=== PATIENT | female | born 1945 | race Caucasian/White ===

== ENCOUNTER 2017-04-15 09:47 | Outpatient (CLI) | payer MEDICARE, OTHER ==
[~2017-04-15] VITALS: Ht 147.3 cm; Wt 57.6 kg
[~2017-04-15 09:47] MED LIST: /MOXI40TA PO; ACET65TA PO; ALEN10TA2 PO; ASPI325T; ATOR1TAB19 PO; BIOT7500 PO; CALC600T21 PO; CALCTAB6 PO; CLAR10CA3 PO; ESTE500T PO; ESTR62CR PV; FLUT0.003 EX; FOLI1TAB4 PO; HYDR200T3 PO; LEVO50TA5 PO; LR 1,000 ML IV SCH; METH2.5T; MINO100C4 PO; MULT1TAB10 PO; OMEP20CA3 PO; PARO10TA10 PO; PARO10TA3 PO; PERC7.5T8; PRED1TA; PRED1TA PO; PRED1TABL PO; PRED5TA PO; PRED5TAB PO; PRIL20CA PO; SULF500T2 PO; SYNT75TA PO; THERGRAN PO; TRAD5TAB PO; TRIA25CR TOP; VITA-112 PO; VITA100067 PO; VITA500T PO; XELJ5TAB PO; [UNRECOGNIZED DRUG - CODE] SC
[2017-04-15] MEDS ORDERED: PROPOFOL 500 MG/50 ML VIAL As Ordered ONE (10:02)
[2017-04-15] MEDS ORDERED: LIDOCAINE 2% INJ 100 MG/5 ML SDV (FOR ANES.) As Ordered ONE (10:33)
[2017-04-15] MEDS ORDERED: ePHEDrine SULFATE 25 MG/5 ML(5MG/ML) SYRINGE As Ordered ONE (11:12)
--- NOTE | 2017-04-15 11:34 | ROOR ---
Patient Name: Devendra Johnston Procedure Date: 04/15/2017 10:48 AM Date of : 1945 Age: 71 Room: [facility] Gender: Female Note Status: Finalized Procedure: Upper GI endoscopy Indications: Esophageal reflux Providers: Davy Carter MD Referring MD: LIBRADO GIBBS JR, MD Requesting Provider: Medicines: Monitored Anesthesia Care Complications: No immediate complications. Procedure: Pre-Anesthesia Assessment: - Prior to the procedure, a History and Physical was performed, and patient medications and allergies were reviewed. The patient is competent. The risks and benefits of the procedure and the sedation options and risks were discussed with the patient. All questions were answered and informed consent was obtained. Patient identification and proposed procedure were verified by the physician, the nurse and the anesthesiologist in the procedure room. Mental Status Examination: alert and oriented. Airway Examination: normal oropharyngeal airway and neck mobility. CV Examination: regular rate and rhythm. Prophylactic Antibiotics: The patient does not require prophylactic antibiotics. Prior Anticoagulants: The patient has taken no previous anticoagulant or antiplatelet agents. ASA Grade Assessment: III - A patient with severe systemic disease. After reviewing the risks and benefits, the patient was deemed in satisfactory condition to undergo the procedure. The anesthesia plan was to use monitored anesthesia care (MAC). Immediately prior to administration of medications, the patient was re-assessed for adequacy to receive sedatives. The heart rate, respiratory rate, oxygen saturations, blood pressure, adequacy of pulmonary ventilation, and response to care were monitored throughout the procedure. The physical status of the patient was re-assessed after the procedure. The Endoscope was introduced through the mouth, and advanced to the third part of duodenum. The upper GI endoscopy was accomplished without difficulty. The patient tolerated the procedure well. Findings: The examined esophagus was normal. A medium-sized hiatal hernia was present. The Z-line was regular and was found 30 cm from the incisors. A few small sessile polyps were found on the greater curvature of the stomach. Diffuse mildly erythematous mucosa was found in the entire examined stomach. The first portion of the duodenum, second portion of the duodenum and third portion of the duodenum were normal. Impression: - Normal esophagus. - Medium-sized hiatal hernia. - Z-line regular, 30 cm from the incisors. - A few gastric polyps. - Erythematous mucosa in the stomach. - Normal first portion of the duodenum, second portion of the duodenum and third portion of the duodenum. - No specimens collected. Recommendation: - Discharge patient to home. - Resume previous diet. - Continue present medications. Davy Carter MD 04/15/2017 11:33:53 AM Number of Addenda: 0 Note Initiated On: 04/15/2017 10:48 AM Estimated Blood Loss: Estimated blood loss: none.
--- NOTE | 2017-04-15 11:39 | ROOR ---
Patient Name: Devendra Johnston Procedure Date: 04/15/2017 10:49 AM Date of : 1945 Age: 71 Room: [facility] Gender: Female Note Status: Finalized Procedure: Colonoscopy Indications: High risk colon cancer surveillance: Personal history of multiple (3 or more) adenomas, Last colonoscopy: January 2014 Providers: Davy Carter MD Referring MD: LIBRADO GIBBS JR, MD Requesting Provider: Medicines: Monitored Anesthesia Care Complications: No immediate complications. Procedure: Pre-Anesthesia Assessment: - Prior to the procedure, a History and Physical was performed, and patient medications and allergies were reviewed. The patient is competent. The risks and benefits of the procedure and the sedation options and risks were discussed with the patient. All questions were answered and informed consent was obtained. Patient identification and proposed procedure were verified by the physician, the nurse and the anesthesiologist in the procedure room. Mental Status Examination: alert and oriented. Airway Examination: normal oropharyngeal airway and neck mobility. CV Examination: regular rate and rhythm. Prophylactic Antibiotics: The patient does not require prophylactic antibiotics. Prior Anticoagulants: The patient has taken no previous anticoagulant or antiplatelet agents. ASA Grade Assessment: III - A patient with severe systemic disease. After reviewing the risks and benefits, the patient was deemed in satisfactory condition to undergo the procedure. The anesthesia plan was to use monitored anesthesia care (MAC). Immediately prior to administration of medications, the patient was re-assessed for adequacy to receive sedatives. The heart rate, respiratory rate, oxygen saturations, blood pressure, adequacy of pulmonary ventilation, and response to care were monitored throughout the procedure. The physical status of the patient was re-assessed after the procedure. The was introduced through the anus and advanced to the cecum, identified by appendiceal orifice and ileocecal valve. The colonoscopy was performed without difficulty. The patient tolerated the procedure well. The quality of the bowel preparation was excellent. Findings: The perianal and digital rectal examinations were normal. A 2 mm polyp was found in the cecum. The polyp was sessile. The polyp was removed with a jumbo cold forceps. Resection and retrieval were complete. Estimated blood loss was minimal. A 5 mm polyp was found in the distal descending colon. The polyp was sessile. The polyp was removed with a hot snare. Resection and retrieval were complete. Estimated blood loss: none. Multiple medium-mouthed diverticula were found in the sigmoid colon. Impression: - One 2 mm polyp in the cecum, removed with a jumbo cold forceps. Resected and retrieved. - One 5 mm polyp in the distal descending colon, removed with a hot snare. Resected and retrieved. - Diverticulosis in the sigmoid colon. Recommendation: - Discharge patient to home. - Resume previous diet. - Continue present medications. - Await pathology results. - Telephone endoscopist for pathology results in 1 week. Davy Carter MD 04/15/2017 11:38:28 AM Number of Addenda: 0 Note Initiated On: 04/15/2017 10:49 AM Estimated Blood Loss: Estimated blood loss was minimal.
[2017-04-15 11:50] VITALS: BP 106/69
== END 2017-04-15 11:59 | disposition home or self-care (01) ==
LOC: M OPP 09:47
PROVIDERS: ATTEND Surgery
DX: Z12.11 Encounter for screening for malignant neoplasm of colon (principal); D12.0 Benign neoplasm of cecum; D12.4 Benign neoplasm of descending colon; K57.30 Diverticulosis of large intestine without perforation or abscess without bleeding; Z86.010 Personal history of colon polyps; K21.9 Gastro-esophageal reflux disease without esophagitis; K44.9 Diaphragmatic hernia without obstruction or gangrene; K31.7 Polyp of stomach and duodenum; K31.89 Other diseases of stomach and duodenum; I10 Essential (primary) hypertension; E78.5 Hyperlipidemia, unspecified; E11.9 Type 2 diabetes mellitus without complications; E03.9 Hypothyroidism, unspecified; K58.9 Irritable bowel syndrome, unspecified; R12 Heartburn; R23.3 Spontaneous ecchymoses; M06.9 Rheumatoid arthritis, unspecified; M19.90 Unspecified osteoarthritis, unspecified site; F41.9 Anxiety disorder, unspecified; Z78.0 Asymptomatic menopausal state; R39.15 Urgency of urination; Z87.891 Personal history of nicotine dependence; Z88.0 Allergy status to penicillin; Z79.899 Other long term (current) drug therapy; Z80.0 Family history of malignant neoplasm of digestive organs

== ENCOUNTER → 2017-05-28 | Outpatient (CLI) | payer MEDICARE, OTHER ==
[~2017-05-28] MED LIST changes: -LR 1,000 ML IV SCH
--- NOTE | 2017-05-28 16:19 | REPMRS ---
Patient History The patient states she had a clinical breast exam in 06/01 Family history of colorectal cancer in father, premenopausal breast cancer in paternal grandmother, and colorectal cancer in brother at age 50 or over. Benign cyst aspiration of the right breast. Taking estrogen for 9 years. Digital Woman Screen Mammo: May 28, 2017 - Exam #: [id number] Bilateral CC and MLO view(s) were taken. Technologist: Viridiana Esteves, Technologist Prior study comparison: May 23, 2016, digital woman screen mammo performed at [facility]. May 01, 2015, digital woman screen mammo performed at [facility]. April 26, 2014, digital woman screen mammo performed at [facility]. FINDINGS: There are scattered fibroglandular densities. There has been no change in the appearance of the mammogram from the prior studies. There is a mild amount of scattered fibroglandular density which is fairly symmetric. There is no interval development of dominant mass, architectural distortion, or clustered microcalcification suggestive of malignancy. ASSESSMENT: BI-RADS/ACR category 1 mammogram. Negative. Recommendation Routine screening mammogram in 1 year (for women over age 40). This mammogram was interpreted with the aid of an FDA-approved computer-aided dectection system. Electronically Signed By: Grant Pedroza MD 05/28/17 [id number]
== END ==
LOC: M WHC 14:20
PROVIDERS: ATTEND Nurse Practitioner Family
DX: Z12.31 Encounter for screening mammogram for malignant neoplasm of breast (principal)

== ENCOUNTER → 2017-09-03 | Outpatient (REF) | payer MEDICARE, OTHER | LOC: M LAB REF 13:29 | PROVIDERS: ATTEND Internal Medicine | DX: Z79.899 Other long term (current) drug therapy (principal) ==

== ENCOUNTER 2018-02-26 07:44 | Inpatient (IN) | payer MEDICARE ==
[2018-02-26 08:51] LABS: BEDSIDE GLUCOSE 136 MG/DL (83-110)
[2018-02-26] MEDS: CALCIUM/VITAMIN D 250 MG TABLET PO ×2 (09:00→21:35)
[2018-02-26] MEDS: sulfaSALAzine 500 MG TABEC PO ×2 (09:00→21:29)
[2018-02-26 09:03] LABS: BASO % 0.5 % (0.0-1.0); EOS % 0.1 % (0.0-3.0); HEMATOCRIT 42.2 % (36.0-47.0); HEMOGLOBIN 14.8 g/dl (12.0-15.5); IMMATURE GRANULOCYTE % 0.9 % (0-3.0); LYMPH # 1.4 10^3/uL (1.5-4.5); LYMPH % 17.6 % (24.0-44.0); MEAN CORPUSCULAR HEMOGLOBIN 33.6 pg (27.0-33.0); MEAN CORPUSCULAR HGB CONC 35.1 g/dl (32.0-36.5); MEAN CORPUSCULAR VOLUME 95.9 fl (80.0-96.0); MONO # 0.9 10^3/uL (0.0-0.8); MONO % 12.1 % (0.0-5.0); NEUTROPHILS # 5.3 10^3/uL (1.8-7.7); NEUTROPHILS % 68.8 % (36.0-66.0); RED CELL DISTRIBUTION WIDTH 12.9 % (11.5-14.5); WHITE BLOOD COUNT 7.7 10^3/uL (4.0-10.0)
[2018-02-26 09:23] LABS: INR 0.98
[2018-02-26 09:30] LABS: IMMATURE PLATELET FRACTION % 15.2 % (0.0-9.6); PLATELET COUNT, AUTOMATED 16 10^3/uL (150-450); POS COUNT POS FLAG
[2018-02-26 09:41] LABS: ANION GAP 13 MEQ/L (8-16); BLOOD UREA NITROGEN 21 MG/DL (7-18); CALCIUM LEVEL 8.9 MG/DL (8.8-10.2); CARBON DIOXIDE LEVEL 22 MEQ/L (21-32); CHLORIDE LEVEL 107 MEQ/L (98-107); CPK CREATINE PHOSPHOKINASE 103 U/L (26-192); CREATININE FOR GFR 0.87 MG/DL (0.55-1.30); GLOMERULAR FILTRATION RATE > 60.0 (>39); GLUCOSE, FASTING 125 MG/DL (70-100); POTASSIUM SERUM 3.5 MEQ/L (3.5-5.1); SODIUM LEVEL 142 MEQ/L (136-145); TROPONIN I < 0.02 NG/ML (< 0.10)
[2018-02-26 09:47] LABS: CK-MB VALUE MASS 2.3 NG/ML (<3.6); MB/CK RELATIVE INDEX 2.23 (< OR =4)
[2018-02-26] MEDS ORDERED: ONDANSETRON 4MG/2ML VIAL (J2405) IV (10:15)
[2018-02-26 10:40] LABS: C REACTIVE PROTEIN QUANTITATIV 0.47 MG/DL (0.00-0.30)
[2018-02-26 11:00] LABS: SLIDE REVIEW Report; SOURCE PERIPHERAL SMEAR
[2018-02-26] MEDS: methylPREDNISolone INJ 40 MG/1 ML VIAL (J2920) IV (11:00)
[2018-02-26 11:11] LABS: REASON FOR REVIEW PLATELET MORPHOLOGY
[2018-02-26] MEDS: predniSONE 20 MG TAB PO (11:15)
[2018-02-26 11:16] LABS: ERYTHROCYTE SEDIMENTATION RATE 10 mm/hr (0-30)
[2018-02-26] MEDS: NS 1,000 ML IV ×2 (11:18→18:21)
[2018-02-26 11:52] LABS: BEDSIDE GLUCOSE 109 MG/DL (83-110)
[2018-02-26] MEDS ORDERED: GLUCAGON FOR INJ 1 MG VIAL (J1610) SC (12:15)
[2018-02-26] MEDS ORDERED: GLUCOSE 4 GM CHEW TABLET PO (12:15)
[2018-02-26] MEDS ORDERED: DEXTROSE 50% 50 ML SYRINGE IV (12:15)
[2018-02-26] MEDS: VITAMIN D 1,000 INTERNATIONAL UNITS TABLET PO (12:41)
[2018-02-26] MEDS: MULTIVITAMINS/MINERALS THERAP 1 TAB PO (12:41)
[2018-02-26] MEDS: OMEPRAZOLE 20 MG CAP PO (12:42)
[2018-02-26] MEDS: FOLIC ACID 1 MG TAB PO ×2 (12:42→21:30)
[2018-02-26] MEDS: LEVOTHYROXINE 50MCG TABLET (0.05MG) PO (12:42)
[2018-02-26] MEDS: LORATADINE 10 MG TAB PO (12:42)
[2018-02-26] MEDS: HumaLOG INSULIN (NovoLOG) PER UNIT SC ×3 (12:42→21:36)
[2018-02-26 14:34] LABS: ALBUMIN 3.4 GM/DL (3.2-5.2); ALBUMIN/GLOBULIN RATIO 1.06 (1.00-1.93); ALKALINE PHOSPHATASE 54 U/L (45-117); ALT/SGPT 39 U/L (12-78); AST/SGOT 26 U/L (7-37); BILIRUBIN,DIRECT 0.1 MG/DL (0.0-0.2); BILIRUBIN,TOTAL 0.5 MG/DL (0.2-1.0); TOTAL PROTEIN 6.6 GM/DL (6.4-8.2)
[2018-02-26] MEDS: HYDROXYCHLOROQUINE 200 MG TAB PO (15:45)
[2018-02-26 16:57] LABS: BEDSIDE GLUCOSE 226 MG/DL (83-110)
[2018-02-26 18:20] LABS: HEMATOCRIT 42.7 % (36.0-47.0); HEMOGLOBIN 14.9 g/dl (12.0-15.5); MEAN CORPUSCULAR HEMOGLOBIN 34.1 pg (27.0-33.0); MEAN CORPUSCULAR HGB CONC 34.9 g/dl (32.0-36.5); MEAN CORPUSCULAR VOLUME 97.7 fl (80.0-96.0); RED BLOOD COUNT 4.37 10^6/uL (4.00-5.40); RED CELL DISTRIBUTION WIDTH 13.2 % (11.5-14.5); WHITE BLOOD COUNT 7.4 10^3/uL (4.0-10.0)
[2018-02-26 18:24] LABS: PLATELET COUNT, AUTOMATED 20 10^3/uL (150-450); POS COUNT POS FLAG
[2018-02-26 18:39] LABS: CK-MB VALUE MASS 2.7 NG/ML (<3.6); CPK CREATINE PHOSPHOKINASE 130 U/L (26-192); MB/CK RELATIVE INDEX 2.07 (< OR =4); TROPONIN I < 0.02 NG/ML (< 0.10)
[2018-02-26 21:27] LABS: BEDSIDE GLUCOSE 280 MG/DL (83-110)
[2018-02-26] MEDS: ATORVASTATIN 10 MG TAB PO (21:30)
[2018-02-27 00:20] LABS: CPK CREATINE PHOSPHOKINASE 126 U/L (26-192); TROPONIN I < 0.02 NG/ML (< 0.10)
[2018-02-27 00:21] LABS: CK-MB VALUE MASS 2.9 NG/ML (<3.6)
[2018-02-27] MEDS: LEVOTHYROXINE 50MCG TABLET (0.05MG) PO (05:35)
[2018-02-27 05:36] LABS: HEMATOCRIT 39.3 % (36.0-47.0); HEMOGLOBIN 13.8 g/dl (12.0-15.5); MEAN CORPUSCULAR HEMOGLOBIN 34.2 pg (27.0-33.0); MEAN CORPUSCULAR HGB CONC 35.1 g/dl (32.0-36.5); MEAN CORPUSCULAR VOLUME 97.3 fl (80.0-96.0); RED BLOOD COUNT 4.04 10^6/uL (4.00-5.40); RED CELL DISTRIBUTION WIDTH 12.9 % (11.5-14.5); WHITE BLOOD COUNT 14.7 10^3/uL (4.0-10.0)
[2018-02-27 05:37] LABS: PLATELET COUNT, AUTOMATED 28 10^3/uL (150-450); POS COUNT POS FLAG
[2018-02-27 05:48] LABS: ALBUMIN 3.3 GM/DL (3.2-5.2); ANION GAP 10 MEQ/L (8-16); BLOOD UREA NITROGEN 15 MG/DL (7-18); CALCIUM LEVEL 8.1 MG/DL (8.8-10.2); CARBON DIOXIDE LEVEL 20 MEQ/L (21-32); CHLORIDE LEVEL 111 MEQ/L (98-107); CREATININE FOR GFR 0.69 MG/DL (0.55-1.30); GLOMERULAR FILTRATION RATE > 60.0 (>39); GLUCOSE, FASTING 159 MG/DL (70-100); PHOSPHORUS LEVEL 2.9 MG/DL (2.5-4.9); POTASSIUM SERUM 3.7 MEQ/L (3.5-5.1); SODIUM LEVEL 141 MEQ/L (136-145)
[2018-02-27] MEDS ORDERED: IMMUNE GLOBULIN 10% 10GM 100ML 0 GM in APPROPRIATE DILUENT 1 EA IV (06:30)
[2018-02-27] MEDS: HumaLOG INSULIN (NovoLOG) PER UNIT SC ×4 (07:30→21:26)
[2018-02-27] MEDS ORDERED: predniSONE 20 MG TAB PO (09:00)
[2018-02-27] MEDS: sulfaSALAzine 500 MG TABEC PO ×2 (11:28→21:24)
[2018-02-27] MEDS: LORATADINE 10 MG TAB PO (11:28)
[2018-02-27] MEDS: MULTIVITAMINS/MINERALS THERAP 1 TAB PO (11:29)
[2018-02-27] MEDS: CALCIUM/VITAMIN D 250 MG TABLET PO ×2 (11:29→21:24)
[2018-02-27] MEDS: VITAMIN D 1,000 INTERNATIONAL UNITS TABLET PO (11:29)
[2018-02-27] MEDS: HYDROXYCHLOROQUINE 200 MG TAB PO (11:29)
[2018-02-27] MEDS: OMEPRAZOLE 20 MG CAP PO (11:30)
[2018-02-27] MEDS: FOLIC ACID 1 MG TAB PO ×2 (11:30→21:25)
[2018-02-27 11:50] LABS: BEDSIDE GLUCOSE 180 MG/DL (83-110)
[2018-02-27] MEDS: IMMUNE GLOBULIN 10% 60 GM in APPROPRIATE DILUENT 1 EA IV (16:56)
[2018-02-27 17:20] LABS: BEDSIDE GLUCOSE 241 MG/DL (83-110)
[2018-02-27 21:13] LABS: BEDSIDE GLUCOSE 272 MG/DL (83-110)
[2018-02-27] MEDS: ATORVASTATIN 10 MG TAB PO (21:25)
[2018-02-28 04:36] LABS: HEMATOCRIT 36.1 % (36.0-47.0); HEMOGLOBIN 12.2 g/dl (12.0-15.5); MEAN CORPUSCULAR HEMOGLOBIN 33.4 pg (27.0-33.0); MEAN CORPUSCULAR HGB CONC 33.8 g/dl (32.0-36.5); MEAN CORPUSCULAR VOLUME 98.9 fl (80.0-96.0); RED BLOOD COUNT 3.65 10^6/uL (4.00-5.40); RED CELL DISTRIBUTION WIDTH 13.2 % (11.5-14.5); WHITE BLOOD COUNT 11.3 10^3/uL (4.0-10.0)
[2018-02-28 04:37] LABS: PLATELET COUNT, AUTOMATED 61 10^3/uL (150-450)
[2018-02-28 04:38] LABS: IMMATURE PLATELET FRACTION % 7.3 % (0.0-9.6)
[2018-02-28 04:52] LABS: ALBUMIN 2.9 GM/DL (3.2-5.2); ANION GAP 9 MEQ/L (8-16); BLOOD UREA NITROGEN 15 MG/DL (7-18); CALCIUM LEVEL 8.4 MG/DL (8.8-10.2); CARBON DIOXIDE LEVEL 23 MEQ/L (21-32); CHLORIDE LEVEL 106 MEQ/L (98-107); CREATININE FOR GFR 0.76 MG/DL (0.55-1.30); GLOMERULAR FILTRATION RATE > 60.0 (>39); GLUCOSE, FASTING 198 MG/DL (70-100); PHOSPHORUS LEVEL 2.5 MG/DL (2.5-4.9); POTASSIUM SERUM 3.9 MEQ/L (3.5-5.1); SODIUM LEVEL 138 MEQ/L (136-145)
[2018-02-28] MEDS: LEVOTHYROXINE 50MCG TABLET (0.05MG) PO (06:27)
[2018-02-28] MEDS: HumaLOG INSULIN (NovoLOG) PER UNIT SC ×2 (08:39→12:00)
[2018-02-28] MEDS: OMEPRAZOLE 20 MG CAP PO (08:40)
[2018-02-28] MEDS: sulfaSALAzine 500 MG TABEC PO (08:40)
[2018-02-28] MEDS: LORATADINE 10 MG TAB PO (08:41)
[2018-02-28] MEDS: CALCIUM/VITAMIN D 250 MG TABLET PO (08:41)
[2018-02-28] MEDS: VITAMIN D 1,000 INTERNATIONAL UNITS TABLET PO (08:41)
[2018-02-28] MEDS: HYDROXYCHLOROQUINE 200 MG TAB PO (08:41)
[2018-02-28] MEDS: FOLIC ACID 1 MG TAB PO (08:41)
[2018-02-28] MEDS: MULTIVITAMINS/MINERALS THERAP 1 TAB PO (08:41)
[2018-02-28 11:55] LABS: BEDSIDE GLUCOSE 145 MG/DL (83-110)
[2018-03-01 00:06] LABS: HEPARIN INDUCED PLATELET ABY 0.228 OD (0.000-0.400)
== END 2018-02-28 15:09 | disposition home or self-care (01) | DRG 813 ==
LOC: M ED 07:44 → M ED INP 10:14 → M PCU 17:44
PROVIDERS: General Practice
DX: D69.6 Thrombocytopenia, unspecified (principal); B02.29 Other postherpetic nervous system involvement; R55 Syncope and collapse; M06.9 Rheumatoid arthritis, unspecified; F32.9 Major depressive disorder, single episode, unspecified; F41.9 Anxiety disorder, unspecified; E03.9 Hypothyroidism, unspecified; R41.82 Altered mental status, unspecified; I10 Essential (primary) hypertension; K21.9 Gastro-esophageal reflux disease without esophagitis; T43.8X5A Adverse effect of other psychotropic drugs, initial encounter; E11.9 Type 2 diabetes mellitus without complications; K44.9 Diaphragmatic hernia without obstruction or gangrene; Z90.711 Acquired absence of uterus with remaining cervical stump; Z87.891 Personal history of nicotine dependence; Z79.52 Long term (current) use of systemic steroids; Z79.84 Long term (current) use of oral hypoglycemic drugs; Z79.899 Other long term (current) drug therapy; Z98.49 Cataract extraction status, unspecified eye

== ENCOUNTER → 2018-05-29 | Outpatient (CLI) | payer MEDICARE | LOC: M WHC 09:36 | DX: Z12.31 Encounter for screening mammogram for malignant neoplasm of breast (principal); Z92.23 Personal history of estrogen therapy; Z92.89 Personal history of other medical treatment; Z80.3 Family history of malignant neoplasm of breast; Z80.0 Family history of malignant neoplasm of digestive organs; Z12.12 Encounter for screening for malignant neoplasm of rectum | CPT/HCPCS: 77067 ==

== ENCOUNTER → 2018-11-16 | Outpatient (CLI) | payer MEDICARE ==
[~2018-11-16] MED LIST changes: +ASCO500T PO; +CRAN500C5 PO; +DEXA4TA PO; +FOLI1TAB11 PO; -FOLI1TAB4 PO; +GABA-1171 PO; +NORCOTAB PO; +SULF50TA PO; +VALT1TAB PO; +VITMTA PO
--- NOTE | 2018-11-30 00:01 | ECWPNPC ---
PATIENT NAME: LUCERO BARRAGAN : 1945 GENDER: FEMALE VISIT DATE: 11/16/2018 DISCHARGE DATE: 11/16/18 1514 VISIT LOCKED DATE TIME: PHYSICIAN: NASRIN KO MD RESOURCE: NASRIN KO MD REASON FOR APPOINTMENT 1. POST HERPETIC NEURALGIA L HAND/ARM PAIN HISTORY OF PRESENT ILLNESS FALL RISK SCREENING: SCREENING : NO FALLS IN THE PAST YEAR. PAIN SCREENING: PATIENT HAS A COMPLAINT OF ACUTE OR CHRONIC PAIN :YES 73 YEAR OLD FEMALE PATIENT WITH A HISTORY OF CHRONIC LEFT HAND AND LEFT ARM PAIN. THE PATIENT DESCRIBES THE PAIN SHOOTING AND CONTINUOUS WITH A PAIN SCORE OF 7-8/10 DEPENDING ON PHYSICAL ACTIVITY. THE PATIENT REPORTS HAVING SHINGLES LAST YEAR OVER THE MEDICAL ASPECT OF HER LEFT HAND AND WRIST AREAS AND HAS HAD THE PAIN SINCE THEN. THE PATIENT STATES HER PAIN AND WEAKNESS IN HER LEFT HAND MAKES IT HARD TO DO DAILY ACTIVITIES SUCH COOKING AND CLEANING. THE PATIENT SAYS THAT SHE HAS TRIED MEDICATIONS SUCH GABAPENTIN AND LIDOCAINE PATCH, BUT HAS EXPERIENCED ADVERSE SIDE EFFECTS. PATIENT DENIES UNEXPLAINABLE WEIGHT LOSS, FEVER, CHILLS, NEW CHANGES ON HER URINARY OR BOWEL CONTROL. CURRENT MEDICATIONS TAKING SYNTHROID 50 MCG TABLET 1 TABLET EVERY MORNING ON AN EMPTY STOMACH ORALLY ONCE A DAY TAKING OMEPRAZOLE 20 MG CAPSULE DELAYED RELEASE 1 CAPSULE ORALLY ONCE A DAY TAKING MULTIVITAMINS OTC TABLET 1 TABLET ORALLY ONCE A DAY TAKING CRANBERRY EXTRACT 300 MG CAPSULE 1 CAPSULE ORALLY ONCE A DAY TAKING VITAMIN D3 SUPER STRENGTH 1000 UNIT TABLET 1 TABLET ORALLY ONCE A DAY TAKING BIOTIN 75MG TABLET 1 TAB(S) ORALLY/TAKES 7500MCG ONCE A DAY TAKING PREDNISONE 5 MG TABLET DELAYED RELEASE DAILY, AM AND 2 MG TAB AT DINNER ORALLY SEE TAKES., NOTES: SLIDING DOSE TAKING MINOCYCLINE HCL 100 MG TABLET 1 TABLET ORALLY ONE DAILY TAKING TRADJENTA 5 MG TABLET 1 TABLET ORALLY ONCE A DAY TAKING HYDROXYCHLOROQUINE SULFATE 200 MG TABLET 1 TABLET WITH FOOD OR MILK ORALLY ONCE A DAY TAKING SULFASALAZINE 500 MG TABLET DELAYED RELEASE 1 TABLET ORALLY TWICE A DAY TAKING FOLIC ACID 1 MG TABLET 1 TABLET ORALLY TWICE A DAY TAKING PAROXETINE HCL 10 MG TABLET 1 TABLET IN THE MORNING ORALLY ONCE A DAY TAKING VITAMIN C 500 MG TABLET 1 TABLET ORALLY ONCE A DAY TAKING CALCIUM 600+D 600-400 MG-UNIT TABLET 1 TABLET WITH FOOD ORALLY ONCE A DAY TAKING XELJANZ 5 MG TABLET ORALLY TWICE DAILY TAKING LIPITOR 10 MG TABLET 1 TABLET ORALLY ONCE A DAY TAKING CLARITIN 10 MG TABLET 1 TABLET ORALLY ONCE A DAY TAKING PREMARIN 0.625 MG/GM CREAM VAGINAL NOT-TAKING ESTRADIOL 0.1 MG/GM CREAM 1/2 GM VAGINAL TWICE A WEEK MEDICATION LIST REVIEWED AND RECONCILED WITH THE PATIENT PAST MEDICAL HISTORY RHEUMATOID ARTHRITIS GERD HYPOTHYROID HIATAL HERNIA URINARY FREQUENCY, FREQUENT UTI TYPE II DIABETES WITH NEUROPATHY PLASTER TENDER STEROID USE SCC IN SITU, VULVA (2012). OSTEOPOROSIS TOOK ALENDRONATE MORE THAN 5 YEARS SHINGLES ALLERGIES PENICILLIN (FOR ALLERGIES USE ONLY): RASH: ALLERGY SURGICAL HISTORY ANKLE REPAIR-LEFT HYSTERECTOMY PARTIAL , KEPT OVARIES T & A HEAD SURGERY A CYST REMOVAL FROM OVARY COLONOSCOPY EGD AND COLONOSCOPY 2016 2 POLYPS 09/25 CATARACT-LENS IMPLANTS-BILATERALLY EARS TUBE PLACED IN RIGHT EAR, TUBE IS OUT NOW 2009 VULVAR BIOPSY X3 2012 TONSILECTOMY FAMILY HISTORY FATHER: , COLON CANCER, CANCER, PANCREATIC MOTHER: , STOMACH CANCER SIBLINGS: SISTER PASSED AFTER ABDOMINAL SURGERY PATERNAL GRAND MOTHER: , BREAST CANCER MATERNAL GRAND MOTHER: , BONE CANCER 3 BROTHER(S) , 4 SISTER(S) - HEALTHY. 2DAUGHTER(S) - HEALTHY. ONE BROTHER FROM COLO/RECTAL CANCER. DENIES FAMILY HX OF OVARIAN CANCER. SOCIAL HISTORY GENERAL: TOBACCO USE ARE YOU A:FORMER SMOKER HOW LONG HAS IT BEEN SINCE YOU LAST SMOKED?> 10 YEARS LATEX QUESTIONNAIRE LATEX ALLERGY : HAVE YOU EVER DEVELOPED ANY TYPE OF REACTION AFTER HANDLING LATEX PRODUCTS SUCH RUBBER GLOVES, CONDOMS, DIAPHRAGMS, BALLOONS, SOCKS, OR UNDERWEAR?NO LATEX ALLERGY : HAVE YOU EVER DEVELOPED ANY TYPE OF REACTION DURING OR AFTER DENTAL APPOINTMENT, VAGINAL/RECTAL EXAMINATION, SURGICAL PROCEDURE, OR ANY OTHER EXPOSURE?NO LATEX RISK : HAVE YOU EVER HAD ANY DIFFICULTY BREATHING OR HIVES AFTER EATING OR HANDLING ANY FRUITS, OR VEGETABLES; SUCH KIWI, BANANAS, STONE FRUITS, OR CHESTNUTSNO LATEX RISK : DO YOU HAVE A PREVIOUS PERSONAL HISTORY OF MORE THAN NINE SURGERIES, SPINA BIFIDA, OR REPEATED CATHERTIZATIONS? NO LATEX RISK : ARE YOU FREQUENTLY EXPOSED TO LATEX PRODUCTS IN YOUR OCCUPATION?NO DATE ASKED : 11/16/2018 ALCOHOL SCREENING DID YOU HAVE A DRINK CONTAINING ALCOHOL IN THE PAST YEAR?NO POINTS0 INTERPRETATIONNEGATIVE RECREATIONAL DRUG USE DENIES. CAFFEINE NONE. YAZDANISM [id number] [employer] LANGUAGES SPOKEN:LIBERIAN EDUCATION LEVEL OF EDUCATION:FINISHED HIGH SCHOOL LEARNING BARRIERS / SPECIAL NEEDS CHANGE FROM LAST VISIT?NO BARRIERS TO LEARNING?NO HEARING IMPAIRED?NO VISION IMPAIRED?YES :CORRECTIVE LENSES COGNITIVELY IMPAIRED?NO READINESS TO LEARN?YES LEARNING PREFERENCES?NO LEARNING CAPABILITIES PRESENT?YES EMOTIONAL BARRIERS?NO SPECIAL DEVICES?YES :CANE, WALKER OCC. PREFITTER NEEDED?NO DOMESTIC VIOLENCE DENIES. OCCUPATION: RETIRED, [employer]. DIET: TRIES TO WATCH, ON PRENISONE WHICH INCREASES HER HUNGER.. EXERCISE: NONE. MARITAL STATUS: . OTHERS AT HOME: . PAIN CLINIC PFS, CLERGY, PUBLIC HEALTH REFERRALS HAS THE PATIENT BEEN EDUCATED REGARDING HIS/HER PLAN OF CARE?YES HAS THE PATIENT BEEN EDUCATED REGARDING PAIN, THE RISK FOR PAIN, THE IMPORTANCE OF EFFECTIVE PAIN MANAGEMENT, AND THE PAIN ASSESSMENT PROCESS?YES ADVANCE DIRECTIVE ADVANCE DIRECTIVE DISCUSSED WITH PATIENT:YES HCP - STONE REYNA () TWO CHILDRENREVIEWED WITH PATIENT 11/16/18 1315 JS. HOSPITALIZATION/MAJOR DIAGNOSTIC PROCEDURE SURGERY RELATED FALL WITH FACILA BRUISING 02/2018 REVIEW OF SYSTEMS REVIEWED BY: PROVIDER: NASRIN KO MD . CONSTITUTIONAL: ANY CHANGE IN YOUR MEDICAL CONDITION? NO . CHILLS NO . FEVER NO . INFECTION: DO YOU HAVE NEW INFECTIONS? NO . DO YOU HAVE HISTORY OF MRSA? NO . MUSCULOSKELETAL: ANY NEW PATTERNS OF PAIN OR NUMBNESS? YES, PAIN AND NUMBNESS TO LEFT ARM AFTER THE SHINGLES VIRUS . SYTEMIC LUPUS NO . GASTROENTEROLOGY: ANY NEW CHANGE IN BOWEL CONTROL? NO . BARRETTS ESOPHAGUS NO . CIRRHOSIS NO . HEPATITIS NO . LIVER FAILURE NO . ACID REFLUX YES . UNEXPLAINED WEIGHT LOSS NO . GENITOURINARY: ANY NEW CHANGE IN BLADDER CONTROL? NO . IS THERE A CHANCE YOU COULD BE ? NO . HEMATOLOGY/LYMPH: DO YOU TAKE ANY BLOOD THINNERS? (FOR EXAMPLE- COUMADIN, PLAVIX, AGGRENOX, PLATEL, PRADAXA, OR XARELTO) NO . WHEN WAS YOUR LAST DOSE? DATE: TIME: . LOW PLATELET COUNT YES, TWICE IN THE PAST . SICKLE CELL DISEASE NO . VON WILLIEBRANDS NO . FACTOR V LEIDEN NO . THALLASEMIA NO . ANEMIA NO . EASY BRUISING YES . NEUROLOGY: HAVE YOU FALLEN IN THE PAST 12 MONTHS? YES, STATES FALL IN FEBRUARY RELATED TO MEDICATION SIDE EFFECTS AND LOW PLATELETS, WAS HOSPITALIZED AFTER THE FALL. HIT THE SIDE OF HER FACE AND HEAD . ANY NEW EXTREMITY NUMBNESS OR WEAKNESS? YES, TO LEFT HAND AND ARM, STARTED AFTER THE SHINGLES VIRUS . HEAD INJURY NO . DEMENTIA NO . CEREBRAL PALSY NO . MULTIPLE SCLEROSIS NO . DIZZINESS NO . HEADACHE NO . STROKES NO . VERTIGO NO . CARDIOLOGY: DO YOU HAVE A PACEMAKER OR DEFIBRILLATOR? NO . ANGINA NO . HEART ATTACK NO . HEART SURGERY NO . CONGESTIVE HEART FAILURE/FLUID OVERLOAD NO . CHEST PAIN NO . HIGH BLOOD PRESSURE NO . IRREGULAR HEART BEAT NO . RESPIRATORY: HAVE YOU BEEN SICK IN THE PAST WEEK? YES, STATES CHEST COLD FOR ABOUT 2 WEEKS, IMPROVING NOW . FEVER NO . FLU LIKE SYMPTOMS? NO . CPAP NO . BYPAP NO . ASTHMA NO . EMPHYSEMA NO . CHRONIC LUNG DISEASES NO . SHORTNESS OF BREATH ON EXERTION NO . COUGH YES, PRODUCTIVE, IMPROVING NOW . SNORING NO . INTEGUMENTARY: DO YOU HAVE ANY RASHES OR OPEN SORES? NO . ALLERGIC/IMMUNO: ARE YOU ALLERGIC TO IV DYE? NO . ANY NEW ALLERGIES? NO . PSYCHIATRIC: DO YOU HAVE THOUGHTS OF HURTING YOURSELF OR SOMEONE ELSE? NO . ARE YOU ABUSED, NEGLECTED, OR IN AN UNSAFE ENVIRONMENT? NO . ENDOCRINOLOGY: ARE YOU DIABETIC? YES . THYROID DISORDER YES, HYPOTHYROID . OTHER: DO YOU NEED ANY PRESCRIPTIONS? NO . IF YES, PLEASE LIST: ____ . ANY NEW PROBLEMS WITH YOUR MEDICATIONS? NO . WHEN DID YOU LAST EAT? ____ . WHEN DID YOU LAST DRINK? ____ . WHAT DID YOU LAST DRINK? ____ . NAME OF PERSON DRIVING YOU HOME? ____ . DO YOU HAVE ANY OTHER QUESTIONS OR CONCERNS NO . VITAL SIGNS WT 130.2 LBS, HT 58.5 IN, BMI 26.75 INDEX, BP 130/81 MM HG, HR 84 /MIN, RR 16 /MIN, TEMP 97.2 F, OXYGEN SAT % 100, SAFE IN ENV? (Y/N) YES, REVIEWED BY: SOHAIL. EXAMINATION GENERAL EXAMINATION: PATIENT IS ALERT O X 3 AND COOPERATIVE. LUNGS CLEAR, TO AUSCULTATION. HEART: NO MURMURS OR GALLOPS; FACIAL CRANIAL NERVES ARE GROSSLY NORMAL. GOOD SYMMETRY OF FACIAL MUSCLE MOVEMENT. NORMAL VISUAL CANO. TENDERNESS OVER THE MEDICAL AND PROXIMAL ASPECT OF THE LEFT HAND AND LEFT ARM. HAND FIELD COORDINATOR OVER THE LEFT SIDE IS REDUCED. MRI OF THE CERVICAL SPINE DONE ON 06/20/18 SHOWS BULGING DISCS AND FACET ARTHROPATHY CHANGES AT MULTIPLE LEVELS. EMG DONE ON 04/01/2018 LEFT C8-T1 CERVICAL RADICULOPATHY. 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 BARRAGAN'S PAIN MANAGEMENT CASE. DUE TO THE CERVICAL RADICULOPATHY AND POST HERPETIC NEURALGIA, I WOULD LIKE TO MOVE FORWARD WITH A CERVICAL EPIDURAL STEROID INJECTION THIS TIME. WE DISCUSSED THE BENEFITS, RISKS, AND ALTERNATIVES OF THE INJECTION AND THE PATIENT WOULD LIKE TO PROCEED. THE PATIENT WILL NEED TO BE SCHEDULED FOR THE INJECTION IN THE MORNING DUE TO A HISTORY OF DIABETES. THE PATIENT EXPRESSED CONCERNS REGARDING HER BLOOD SUGAR LEVELS AND THE USE OF STEROIDS, SO I WILL DISCUSS THE CASE WITH HER PRIMARY CARE PHYSICIAN. THE PATIENT WILL ALSO SPEAK WITH PRIMARY AND WILL CALL TO SCHEDULE THE INJECTION. INSTRUCTIONS WERE GIVEN, QUESTIONS WERE ANSWERED, PATIENT REPORTS UNDERSTANDING AND AGREES WITH THE PLAN. I, KATT REYNA, DOCUMENTED THE ABOVE INFORMATION ACTING A SCRIBE FOR DR. KO. I HAVE REVIEWED THE ABOVE DOCUMENT, WRITTEN BY KATT CANDELARIOIBMatheus AND I VERIFY THAT IT IS ACCURATE. DEAR DR. BRICE:THANK YOU FOR YOUR KIND REFERRAL OF MRS. BARRAGAN. IF YOU WANT TO DISCUSS HER CASE WITH ME PLEASE CALL ME AT THE PAIN CENTER AT [phone]. SINCERELY,NASRIN KO, [facility]. OTHERS NOTES: CERVICAL EPIDURAL INJECTION: YOUR EXPERIENCE MATERIAL WAS PRINTED,CERVICAL EPIDURAL INJECTION MATERIAL WAS PRINTED. PREVENTIVE MEDICINE PAIN CLINIC TEACHING: PROCEDURE TEACHING REVIEWED CERVICAL EPIDURAL PROCEDURE INFORMATION WITH PATIENT. ALSO REVIEWED PRE-PROCEDURE INSTRUCTIONS WITH PATIENT. INFORMED PATIENT THAT WE WOULD CALL HER TO MAKE AN APPOINTMENT FOR THE PROCEDURE ONCE WE RECEIVE CLEARANCE FROM HER DOCTOR TO HOLD THE IMMUNOSUPPRESSANT MEDICATIONS. DR. KO STATED THAT THE ANTIBIOTIC MINOCYCLINE WAS OK TO CONTINUE TO TAKE. PATIENT VERBALIZED AN UNDERSTANDING. RADHA SILVA 11/16/2018 3:16:28 PM > . PROCEDURE CODES FA211 ESTABILISHED PATIENT [facility] G8427 CURRENT MEDS W/DOSAGES DOCUMENTED G8730 PAIN ASSESS POS TOOL F/U PLAN DOC DISPOSITION & COMMUNICATION FOLLOW UP 3 WEEKS ELECTRONICALLY SIGNED BY NASRIN KO MD, MD ON 11/28/2018 AT 07:15 PM EDT DISCLAIMER : THIS IS A VISIT SUMMARY EXTRACTED FROM THE [employer] CHART. IT IS NOT A COPY OF THE [employer] PROGRESS NOTE. DOMINGO
== END ==
LOC: M PAIN 12:00
PROVIDERS: ATTEND Anesthesiology
DX: M50.10 Cervical disc disorder with radiculopathy, unspecified cervical region (principal); B02.29 Other postherpetic nervous system involvement; E11.40 Type 2 diabetes mellitus with diabetic neuropathy, unspecified; M06.9 Rheumatoid arthritis, unspecified; M19.90 Unspecified osteoarthritis, unspecified site; K21.9 Gastro-esophageal reflux disease without esophagitis; E03.9 Hypothyroidism, unspecified; Z79.899 Other long term (current) drug therapy; Z88.0 Allergy status to penicillin; Z87.891 Personal history of nicotine dependence

== ENCOUNTER → 2019-02-03 | Outpatient (CLI) | payer MEDICARE ==
[~2019-02-03] MED LIST changes: -/MOXI40TA PO; +AVEL1TAB2 PO; +HYDR-3715 PO; +ISOVUE-M 300 61% 15ML VIAL (Q9967) As Ordered ONE; +LIDOCAINE 1% SDV INJ 30 ML VIAL As Ordered ONE; -NORCOTAB PO; +diazePAM 5 MG TAB As Ordered ONE; +methylPREDNISolone SUSP 40 MG/ML (DEPO-medrol) VIAL (J1030) As Ordered ONE
--- NOTE | 2019-02-04 10:59 | REP ---
Fluoro guided spinal injection The films were reviewed with Dr. estrella. The patient has a history of pain. The portable C-arm was provided in the OR for Dr. Nirav Marley for fluoroscopic guidance. Two intraoperative last image hold fluoro spot films were obtained for needle placement verification for cervical epidural injection. The films are on the PACS system and are available for review. 45 seconds of fluoroscopy time was utilized for this procedure. Reviewed by ELOINA Johnson 02/03/2019 03:07 P Electronically Signed by Micky Estrella MD 02/04/2019 10:47 A
--- NOTE | 2019-02-20 23:37 | ECWPNPC ---
PATIENT NAME: LUCERO BARRAGAN : 1945 GENDER: FEMALE VISIT DATE: 02/03/2019 DISCHARGE DATE: 02/03/19 1146 VISIT LOCKED DATE TIME: PHYSICIAN: NASRIN KO MD RESOURCE: NASRIN KO MD REASON FOR APPOINTMENT 1. CERVICAL EPIDERAL HISTORY OF PRESENT ILLNESS HISTORY OF PRESENT ILLNESS: PAIN THE PATIENT DESCRIBES THE PAIN... FALL RISK SCREENING: SCREENING :NO FALLS REPORTED IN THE LAST YEAR CURRENT MEDICATIONS TAKING SYNTHROID 50 MCG TABLET 1 TABLET EVERY MORNING ON AN EMPTY STOMACH ORALLY ONCE A DAY, NOTES: 02/02/19699 TAKING OMEPRAZOLE 20 MG CAPSULE DELAYED RELEASE 1 CAPSULE ORALLY ONCE A DAY, NOTES: 02/02/19729 TAKING MULTIVITAMINS OTC TABLET 1 TABLET ORALLY ONCE A DAY, NOTES: 02/02/191199 TAKING CRANBERRY EXTRACT 300 MG CAPSULE 1 CAPSULE ORALLY ONCE A DAY, NOTES: 02/02/191199 TAKING VITAMIN D3 SUPER STRENGTH 1000 UNIT TABLET 1 TABLET ORALLY ONCE A DAY, NOTES: 02/02/191199 TAKING BIOTIN 75MG TABLET 1 TAB(S) ORALLY/TAKES 7500MCG ONCE A DAY, NOTES: 02/02/191199 TAKING PREDNISONE 5 MG TABLET DELAYED RELEASE DAILY, AM AND 2 MG TAB AT DINNER ORALLY SEE TAKES., NOTES: 01/29/191699 TAKING MINOCYCLINE HCL 100 MG TABLET 1 TABLET ORALLY ONE DAILY, NOTES: 02/02/19699 TAKING TRADJENTA 5 MG TABLET 1 TABLET ORALLY ONCE A DAY, NOTES: 02/02/191199 TAKING HYDROXYCHLOROQUINE SULFATE 200 MG TABLET 1 TABLET WITH FOOD OR MILK ORALLY ONCE A DAY, NOTES: 01/29/19699 TAKING SULFASALAZINE 500 MG TABLET DELAYED RELEASE 1 TABLET ORALLY TWICE A DAY, NOTES: 01/29/191699 TAKING FOLIC ACID 1 MG TABLET 1 TABLET ORALLY TWICE A DAY, NOTES: 02/02/191699 TAKING PAROXETINE HCL 10 MG TABLET 1 TABLET IN THE MORNING ORALLY ONCE A DAY, NOTES: 02/02/191999 TAKING VITAMIN C 500 MG TABLET 1 TABLET ORALLY ONCE A DAY, NOTES: 02/02/191199 TAKING CALCIUM 600+D 600-400 MG-UNIT TABLET 1 TABLET WITH FOOD ORALLY ONCE A DAY, NOTES: 02/02/191199 TAKING XELJANZ 5 MG TABLET ORALLY TWICE DAILY, NOTES: 5/17/19 1700 TAKING LIPITOR 10 MG TABLET 1 TABLET ORALLY ONCE A DAY, NOTES: 02/02/19 2000 TAKING CLARITIN 10 MG TABLET 1 TABLET ORALLY ONCE A DAY, NOTES: 02/02/19 1200 TAKING PREMARIN 0.625 MG/GM CREAM VAGINAL , NOTES: > 1 WEEK NOT-TAKING ESTRADIOL 0.1 MG/GM CREAM 1/2 GM VAGINAL TWICE A WEEK MEDICATION LIST REVIEWED AND RECONCILED WITH THE PATIENT PAST MEDICAL HISTORY RHEUMATOID ARTHRITIS GERD HYPOTHYROID HIATAL HERNIA URINARY FREQUENCY, FREQUENT UTI TYPE II DIABETES WITH NEUROPATHY ZOO KEEPER STEROID USE SCC IN SITU, VULVA (2012). OSTEOPOROSIS TOOK ALENDRONATE MORE THAN 5 YEARS SHINGLES ALLERGIES PENICILLIN (FOR ALLERGIES USE ONLY): RASH - ALLERGY SURGICAL HISTORY ANKLE REPAIR-LEFT HYSTERECTOMY PARTIAL , KEPT OVARIES T & A HEAD SURGERY A CYST REMOVAL FROM OVARY COLONOSCOPY EGD AND COLONOSCOPY 2016 2 POLYPS 09/25 CATARACT-LENS IMPLANTS-BILATERALLY EARS TUBE PLACED IN RIGHT EAR, TUBE IS OUT NOW 2009 VULVAR BIOPSY X3 2012 TONSILECTOMY FAMILY HISTORY FATHER: , COLON CANCER, CANCER, PANCREATIC MOTHER: , STOMACH CANCER SIBLINGS: SISTER PASSED AFTER ABDOMINAL SURGERY PATERNAL GRAND MOTHER: , BREAST CANCER MATERNAL GRAND MOTHER: , BONE CANCER 3 BROTHER(S) , 4 SISTER(S) - HEALTHY. 2DAUGHTER(S) - HEALTHY. ONE BROTHER FROM COLO/RECTAL CANCER. DENIES FAMILY HX OF OVARIAN CANCER. SOCIAL HISTORY GENERAL: TOBACCO USE ARE YOU A:: FORMER SMOKER , HOW LONG HAS IT BEEN SINCE YOU LAST SMOKED?: > 10 YEARS. OTHERS AT HOME: . 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 LANGUAGE LANGUAGES SPOKEN:[place] DOMESTIC VIOLENCE DENIES. RECREATIONAL DRUG USE DENIES. EXERCISE: NONE. LEARNING BARRIERS / SPECIAL NEEDS CHANGE FROM LAST VISIT?NO BARRIERS TO LEARNING?NO HEARING IMPAIRED?NO VISION IMPAIRED?YES :CORRECTIVE LENSES COGNITIVELY IMPAIRED?NO READINESS TO LEARN?YES LEARNING PREFERENCES?NO LEARNING CAPABILITIES PRESENT?YES EMOTIONAL BARRIERS?NO SPECIAL DEVICES?YES :CANE, WALKER OCC. 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 NEEDED?NO PAIN CLINIC PFS, CLERGY, PUBLIC HEALTH REFERRALS HAS THE PATIENT BEEN EDUCATED REGARDING HIS/HER PLAN OF CARE?YES HAS THE PATIENT BEEN EDUCATED REGARDING PAIN, THE RISK FOR PAIN, THE IMPORTANCE OF EFFECTIVE PAIN MANAGEMENT, AND THE PAIN ASSESSMENT PROCESS?YES LATEX QUESTIONNAIRE LATEX ALLERGY : HAVE YOU EVER DEVELOPED ANY TYPE OF REACTION AFTER HANDLING LATEX PRODUCTS SUCH RUBBER GLOVES, CONDOMS, DIAPHRAGMS, BALLOONS, SOCKS, OR UNDERWEAR?NO LATEX ALLERGY : HAVE YOU EVER DEVELOPED ANY TYPE OF REACTION DURING OR AFTER DENTAL APPOINTMENT, VAGINAL/RECTAL EXAMINATION, SURGICAL PROCEDURE, OR ANY OTHER EXPOSURE?NO LATEX RISK : HAVE YOU EVER HAD ANY DIFFICULTY BREATHING OR HIVES AFTER EATING OR HANDLING ANY FRUITS, OR VEGETABLES; SUCH KIWI, BANANAS, STONE FRUITS, OR CHESTNUTSNO LATEX RISK : DO YOU HAVE A PREVIOUS PERSONAL HISTORY OF MORE THAN NINE SURGERIES, SPINA BIFIDA, OR REPEATED CATHERTIZATIONS? NO LATEX RISK : ARE YOU FREQUENTLY EXPOSED TO LATEX PRODUCTS IN YOUR OCCUPATION?NO DATE ASKED : 11/16/2018 CAFFEINE NONE. ADVANCE DIRECTIVE ADVANCE DIRECTIVE DISCUSSED WITH PATIENT:YES HCP - STONE TOVARBRENT () SYNAGOGUE [id number] [facility] STATUS: . ALCOHOL SCREENING DID YOU HAVE A DRINK CONTAINING ALCOHOL IN THE PAST YEAR?NO POINTS0 INTERPRETATIONNEGATIVE OCCUPATION: RETIRED, [employer]. TWO CHILDRENREVIEWED WITH PATIENT 11/16/18 1315 JSREVIEWED WITH PATIENT 02/03/19 0910 [facility]. HOSPITALIZATION/MAJOR DIAGNOSTIC PROCEDURE SURGERY RELATED FALL WITH FACILA BRUISING 02/2018 REVIEW OF SYSTEMS REVIEWED BY: PROVIDER: . CONSTITUTIONAL: ANY CHANGE IN YOUR MEDICAL CONDITION? NO . CHILLS NO . FEVER NO . INFECTION: DO YOU HAVE NEW INFECTIONS? NO . DO YOU HAVE HISTORY OF MRSA? NO . MUSCULOSKELETAL: ANY NEW PATTERNS OF PAIN OR NUMBNESS? NO . GASTROENTEROLOGY: ANY NEW CHANGE IN BOWEL CONTROL? NO . GENITOURINARY: ANY NEW CHANGE IN BLADDER CONTROL? NO . IS THERE A CHANCE YOU COULD BE ? NO . HEMATOLOGY/LYMPH: DO YOU TAKE ANY BLOOD THINNERS? (FOR EXAMPLE- COUMADIN, PLAVIX, AGGRENOX, PLATEL, PRADAXA, OR XARELTO) NO . WHEN WAS YOUR LAST DOSE? DATE: TIME: . NEUROLOGY: HAVE YOU FALLEN IN THE PAST 12 MONTHS? YES . ANY NEW EXTREMITY NUMBNESS OR WEAKNESS? NO . CARDIOLOGY: DO YOU HAVE A PACEMAKER OR DEFIBRILLATOR? NO . RESPIRATORY: HAVE YOU BEEN SICK IN THE PAST WEEK? NO . FEVER NO . FLU LIKE SYMPTOMS? NO . COUGH NO . INTEGUMENTARY: DO YOU HAVE ANY RASHES OR OPEN SORES? NO . ALLERGIC/IMMUNO: ARE YOU ALLERGIC TO IV DYE? NO . ANY NEW ALLERGIES? NO . PSYCHIATRIC: DO YOU HAVE THOUGHTS OF HURTING YOURSELF OR SOMEONE ELSE? NO . ARE YOU ABUSED, NEGLECTED, OR IN AN UNSAFE ENVIRONMENT? NO . ENDOCRINOLOGY: ARE YOU DIABETIC? YES . OTHER: DO YOU NEED ANY PRESCRIPTIONS? NO . IF YES, PLEASE LIST: ____ . ANY NEW PROBLEMS WITH YOUR MEDICATIONS? NO . WHEN DID YOU LAST EAT? ____1830 02/02/19 . WHEN DID YOU LAST DRINK? ____02/02/192129 . WHAT DID YOU LAST DRINK? ____WATER . NAME OF PERSON DRIVING YOU HOME? ____HUSBAND BEA . DO YOU HAVE ANY OTHER QUESTIONS OR CONCERNS NO . VITAL SIGNS WT 127.4 LBS, HT 58.5 IN, BMI 26.17 INDEX, BP 138/74 MM HG, HR 91 /MIN, RR 16 /MIN, TEMP 98.6 F, OXYGEN SAT % 100%, NA INITIALS AW 0907, REVIEWED BY: BLAIR. ASSESSMENTS CERVICAL DISC DISORDER WITH RADICULOPATHY OF CERVICAL REGION - M50.10 (PRIMARY) TREATMENT CERVICAL DISC DISORDER WITH RADICULOPATHY OF CERVICAL REGION [facility] FLUORO GUIDE SPINE INJECTION (PAIN)[id number] PROCEDURES PN CERVICAL EPIDURAL PRE PROCEDURE DIAGNOSIS CERVICAL DISC DISORDER WITH RADICULOPATHY POST PROCEDURE DIAGNOSIS CERVICAL DISC DISORDER WITH RADICULOPATHY PROCEDURE CERVICAL EPIDURAL STEROID INJECTION UNDER FLUOROSCOPIC GUIDANCE SURGEON DR. NASRIN KO GEAR CHANGER NONE ANESTHESIA LOCAL PRE PROCEDURE NOTE THE PATIENT HAS A HISTORY OF CHRONIC CERVICAL PAIN. I EVALUATE THE PATIENT AND REVIEWED THE CHART. I WENT OVER THE RISKS, ALTERNATIVES, AND BENEFITS ASSOCIATED WITH THIS PROCEDURE. THE PATIENT WOULD LIKE TO PROCEED AND GIVE CONSENT TO PERFORMED THE PROCEDURE. THE PATIENT DENIES UNEXPLAINABLE WEIGHT LOSS, FEVER, CHILLS, OR NEW CHANGES IN URINARY OR BOWEL CONTROL DESCRIPTION OF PROCEDURE THE PATIENT WAS BROUGHT TO THE PROCEDURE ROOM AND PLACED IN THE PRONE POSITION. THE CERVICOTHORACIC AREA WAS CLEANED WITH BETADINE SOLUTION AND DRAPED ASEPTICALLY. THE PROCEDURE WAS DONE UNDER STERILE CONDITIONS. I CHECKED LATERALITY AND THE LEVEL WHERE THE PROCEDURE WAS GOING TO BE PERFORMED WITH THE PATIENT AND THE SUPPORTING STAFF AT THE MOMENT OF THE TIME OUT IN THE PROCEDURE ROOM. UNDER FLUOROSCOPIC GUIDANCE, THE TARGET WAS SELECTED AT THE INTERLAMINAR LEVEL OF T2-T3. LIDOCAINE WAS USED TO NUMB THE SKIN AND THE SUBCUTANEOUS TISSUE BELOW IT. EPIDURAL TUOHY NEEDLE 18-GAUGE WAS ADVANCED UNDER FLUOROSCOPIC GUIDANCE AT THE LEVEL OF T2-T3 UNTIL THE EPIDURAL SPACE WAS REACHED 6 CM DEEP INTO THE SKIN BY THE LOST OF RESISTANCE TECHNIQUE. THEN I ADVANCED AN EPIMED EPIDURAL CATHETER 21 G THROUGH THE NEEDLE AND INTO THE LEFT EPIDURAL SPACE OF UNTIL I REACHED THE AREA OF C6. ISOVUE M DYE 30%, 0.25 ML, WAS INJECTED SHOWING ADEQUATE SPREAD OF THE DYE. THEN, A SOLUTION OF 3 ML OF NORMAL SALINE WITH DEPO-MEDROL 60 MG WAS INJECTED SLOWLY FOLLOWING PATIENT FEEDBACK. THERE WAS NO EVIDENCE OF BLOOD, PARESTHESIA OR CEREBROSPINAL FLUID DURING THE PROCEDURE. THE PATIENT WAS SENT TO THE RECOVERY ROOM. THE PATIENT WAS MOVING THE EXTREMITIES AND DOING WELL. THERE WAS NO COMPLICATION DURING THE PROCEDURE. FLUOROSCOPY TIME WAS 40 SECONDS POST PROCEDURE NOTE THE PATIENT WILL BE SEEN IN A FOLLOW UP IN THE NEXT FEW WEEKS. INSTRUCTIONS WERE GIVEN, QUESTIONS WERE ANSWERED, AND THE PATIENT EXPRESSED UNDERSTANDING AND AGREES WITH THE PLAN. I, KATT REYNA, DOCUMENTED THE ABOVE INFORMATION ACTING A SCRIBE FOR DR. KO. I HAVE REVIEWED THE ABOVE DOCUMENT, WRITTEN BY KATT CANDELARIOIBMatheus AND I VERIFY THAT IT IS ACCURATE. PROCEDURE CODES 6045F RADXPS IN END [id number] PXD [id number] CERVICAL/THORACIC W/ IMAGING DISPOSITION & COMMUNICATION FOLLOW UP 3 WEEKS ELECTRONICALLY SIGNED BY NASRIN KO MD, MD ON 02/20/2019 AT 02:32 PM EDT DISCLAIMER : THIS IS A VISIT SUMMARY EXTRACTED FROM THE [employer] CHART. IT IS NOT A COPY OF THE [employer] PROGRESS NOTE. MTDD
== END ==
LOC: M PAIN 08:45
PROVIDERS: ATTEND Anesthesiology
DX: G89.29 Other chronic pain (principal); M50.10 Cervical disc disorder with radiculopathy, unspecified cervical region; Z79.899 Other long term (current) drug therapy; Z88.0 Allergy status to penicillin; Z87.891 Personal history of nicotine dependence
CPT/HCPCS: 62321; J1030; Q9967

== ENCOUNTER → 2019-03-29 | Outpatient (CLI) | payer MEDICARE ==
[~2019-03-29] MED LIST changes: -ISOVUE-M 300 61% 15ML VIAL (Q9967) As Ordered ONE; -LIDOCAINE 1% SDV INJ 30 ML VIAL As Ordered ONE; -OMEP20CA3 PO; +OMEP20CA4 PO; -diazePAM 5 MG TAB As Ordered ONE; -methylPREDNISolone SUSP 40 MG/ML (DEPO-medrol) VIAL (J1030) As Ordered ONE
--- NOTE | 2019-03-31 02:09 | ECWPNPC ---
PATIENT NAME: LUCERO BARRAGAN : 1945 GENDER: FEMALE VISIT DATE: 03/29/2019 DISCHARGE DATE: 03/29/19 1054 VISIT LOCKED DATE TIME: PHYSICIAN: JENNY ALEJANDRA RESOURCE: JENNY ALEJANDRA REASON FOR APPOINTMENT 1. POST CERVICAL EPIDERAL HISTORY OF PRESENT ILLNESS HISTORY OF PRESENT ILLNESS: PAIN THE PATIENT DESCRIBES THE PAIN... 73 YEAR OLD FEMALE IN FOR POST FELY AND SHE STATES THE PROCEDURE PROVIDED NO RELIEF FOR HER. SHE CURRENTLY RATES HER PAIN AT AN 8/10. SHE DOES ADMIT THAT HER NEUROLOGIST HAD AN EMG PERFORMED AND THEY BELIEVE SHE HAS NERVE IMPINGEMENT IN HER LEFT ELBOW AND SHE HAD A RECENT MRI FOR FOLLOW UP. FALL RISK SCREENING: SCREENING :NO FALLS REPORTED IN THE LAST YEAR CURRENT MEDICATIONS TAKING SYNTHROID 50 MCG TABLET 1 TABLET EVERY MORNING ON AN EMPTY STOMACH ORALLY ONCE A DAY TAKING OMEPRAZOLE 20 MG CAPSULE DELAYED RELEASE 1 CAPSULE ORALLY ONCE A DAY TAKING MULTIVITAMINS OTC TABLET 1 TABLET ORALLY ONCE A DAY TAKING CRANBERRY EXTRACT 300 MG CAPSULE 1 CAPSULE ORALLY ONCE A DAY TAKING VITAMIN D3 SUPER STRENGTH 1000 UNIT TABLET 1 TABLET ORALLY ONCE A DAY TAKING BIOTIN 75MG TABLET 1 TAB(S) ORALLY/TAKES 7500MCG ONCE A DAY TAKING PREDNISONE 5 MG TABLET DELAYED RELEASE DAILY, AM AND 2 MG TAB AT DINNER ORALLY SEE TAKES. TAKING MINOCYCLINE HCL 100 MG TABLET 1 TABLET ORALLY ONE DAILY TAKING TRADJENTA 5 MG TABLET 1 TABLET ORALLY ONCE A DAY TAKING HYDROXYCHLOROQUINE SULFATE 200 MG TABLET 1 TABLET WITH FOOD OR MILK ORALLY ONCE A DAY TAKING SULFASALAZINE 500 MG TABLET DELAYED RELEASE 1 TABLET ORALLY TWICE A DAY TAKING FOLIC ACID 1 MG TABLET 1 TABLET ORALLY TWICE A DAY TAKING PAROXETINE HCL 10 MG TABLET 1 TABLET IN THE MORNING ORALLY ONCE A DAY TAKING VITAMIN C 500 MG TABLET 1 TABLET ORALLY ONCE A DAY TAKING CALCIUM 600+D 600-400 MG-UNIT TABLET 1 TABLET WITH FOOD ORALLY ONCE A DAY TAKING XELJANZ 5 MG TABLET ORALLY TWICE DAILY TAKING LIPITOR 10 MG TABLET 1 TABLET ORALLY ONCE A DAY TAKING CLARITIN 10 MG TABLET 1 TABLET ORALLY ONCE A DAY TAKING PREMARIN 0.625 MG/GM CREAM VAGINAL 2X/WEEK TAKING GLIPIZIDE 5 MG TABLET 1 TABLET ORALLY ONCE A DAY NOT-TAKING ESTRADIOL 0.1 MG/GM CREAM 1/2 GM VAGINAL TWICE A WEEK MEDICATION LIST REVIEWED AND RECONCILED WITH THE PATIENT PAST MEDICAL HISTORY RHEUMATOID ARTHRITIS GERD HYPOTHYROID HIATAL HERNIA URINARY FREQUENCY, FREQUENT UTI TYPE II DIABETES WITH NEUROPATHY RESIDENTIAL STEROID USE SCC IN SITU, VULVA (2012). 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 2DAUGHTER(S) - HEALTHY. ONE BROTHER FROM COLO/RECTAL CANCER. DENIES FAMILY HX OF OVARIAN CANCER. SOCIAL HISTORY GENERAL: TOBACCO USE ARE YOU A:: FORMER SMOKER , HOW LONG HAS IT BEEN SINCE YOU LAST SMOKED?: > 10 YEARS. OTHERS AT HOME: . 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 LANGUAGE LANGUAGES SPOKEN:[place] DOMESTIC VIOLENCE DENIES. RECREATIONAL DRUG USE DENIES. EXERCISE: NONE. LEARNING BARRIERS / SPECIAL NEEDS CHANGE FROM LAST VISIT?NO BARRIERS TO LEARNING?NO HEARING IMPAIRED?NO VISION IMPAIRED?YES :CORRECTIVE LENSES COGNITIVELY IMPAIRED?NO READINESS TO LEARN?YES LEARNING PREFERENCES?NO LEARNING CAPABILITIES PRESENT?YES EMOTIONAL BARRIERS?NO SPECIAL DEVICES?YES :CANE, WALKER OCC. 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?NO PAIN CLINIC PFS, CLERGY, PUBLIC HEALTH REFERRALS HAS THE PATIENT BEEN EDUCATED REGARDING HIS/HER PLAN OF CARE?YES HAS THE PATIENT BEEN EDUCATED REGARDING PAIN, THE RISK FOR PAIN, THE IMPORTANCE OF EFFECTIVE PAIN MANAGEMENT, AND THE PAIN ASSESSMENT PROCESS?YES LATEX QUESTIONNAIRE LATEX ALLERGY : HAVE YOU EVER DEVELOPED ANY TYPE OF REACTION AFTER HANDLING LATEX PRODUCTS SUCH RUBBER GLOVES, CONDOMS, DIAPHRAGMS, BALLOONS, SOCKS, OR UNDERWEAR?NO LATEX ALLERGY : HAVE YOU EVER DEVELOPED ANY TYPE OF REACTION DURING OR AFTER DENTAL APPOINTMENT, VAGINAL/RECTAL EXAMINATION, SURGICAL PROCEDURE, OR ANY OTHER EXPOSURE?NO LATEX RISK : HAVE YOU EVER HAD ANY DIFFICULTY BREATHING OR HIVES AFTER EATING OR HANDLING ANY FRUITS, OR VEGETABLES; SUCH KIWI, BANANAS, STONE FRUITS, OR CHESTNUTSNO LATEX RISK : DO YOU HAVE A PREVIOUS PERSONAL HISTORY OF MORE THAN NINE SURGERIES, SPINA BIFIDA, OR REPEATED CATHERTIZATIONS? NO LATEX RISK : ARE YOU FREQUENTLY EXPOSED TO LATEX PRODUCTS IN YOUR OCCUPATION?NO DATE ASKED : 03/29/2019 CAFFEINE NONE. ADVANCE DIRECTIVE ADVANCE DIRECTIVE DISCUSSED WITH PATIENT:YES HCP - STONE REYNA () TEM[place] [id number] [facility] MARITAL STATUS: . ALCOHOL SCREENING DID YOU HAVE A DRINK CONTAINING ALCOHOL IN THE PAST YEAR?NO POINTS0 INTERPRETATIONNEGATIVE OCCUPATION: RETIRED, [employer]. TWO CHILDRENREVIEWED WITH PATIENT 11/16/18 1315 JSREVIEWED WITH PATIENT 02/03/19 0910 LAS03/29/19 REVIEWED WITH PT. AD. HOSPITALIZATION/MAJOR DIAGNOSTIC PROCEDURE SURGERY RELATED FALL WITH FACIAL BRUISING 02/2018 REVIEW OF SYSTEMS REVIEWED BY: PROVIDER: JOZEF SWANSON-[place] . CONSTITUTIONAL: ANY CHANGE IN YOUR MEDICAL CONDITION? YES, PINCH NERVE LEFT ELBOW . CHILLS NO . FEVER NO . INFECTION: DO YOU HAVE NEW INFECTIONS? YES, URI 1 1/2 WEEKS AGO, WAS ON AN ANTIBIOTIC . DO YOU HAVE HISTORY OF MRSA? NO . MUSCULOSKELETAL: ANY NEW PATTERNS OF PAIN OR NUMBNESS? YES, INCREASE IN PAIN-MORE CONSTANT AND AND SHOOTING PAIN IS MORE FREQUENCT. HAS NOTICED THE LAST THREE FINGERS LEFT HAND MORE ON THEIR OWN . GASTROENTEROLOGY: ANY NEW CHANGE IN BOWEL CONTROL? NO . GENITOURINARY: ANY NEW CHANGE IN BLADDER CONTROL? NO . IS THERE A CHANCE YOU COULD BE ? NO . HEMATOLOGY/LYMPH: DO YOU TAKE ANY BLOOD THINNERS? (FOR EXAMPLE- COUMADIN, PLAVIX, AGGRENOX, PLATEL, PRADAXA, OR XARELTO) NO . WHEN WAS YOUR LAST DOSE? DATE: TIME: . NEUROLOGY: HAVE YOU FALLEN IN THE PAST 12 MONTHS? NO . ANY NEW EXTREMITY NUMBNESS OR WEAKNESS? NO . CARDIOLOGY: DO YOU HAVE A PACEMAKER OR DEFIBRILLATOR? NO . RESPIRATORY: HAVE YOU BEEN SICK IN THE PAST WEEK? YES, URI . FEVER NO . FLU LIKE SYMPTOMS? NO . COUGH NO . INTEGUMENTARY: DO YOU HAVE ANY RASHES OR OPEN SORES? NO . ALLERGIC/IMMUNO: ARE YOU ALLERGIC TO IV DYE? NO . ANY NEW ALLERGIES? NO . PSYCHIATRIC: DO YOU HAVE THOUGHTS OF HURTING YOURSELF OR SOMEONE ELSE? NO . ARE YOU ABUSED, NEGLECTED, OR IN AN UNSAFE ENVIRONMENT? NO . ENDOCRINOLOGY: ARE YOU DIABETIC? YES, FSBS AT HOME THIS AM WAS 93 . OTHER: DO YOU NEED ANY PRESCRIPTIONS? NO . IF YES, PLEASE LIST: ____ . ANY NEW PROBLEMS WITH YOUR MEDICATIONS? NO . WHEN DID YOU LAST EAT? ____ . WHEN DID YOU LAST DRINK? ____ . WHAT DID YOU LAST DRINK? ____ . NAME OF PERSON DRIVING YOU HOME? ____ . DO YOU HAVE ANY OTHER QUESTIONS OR CONCERNS NO PLANNING ON GETTINT SHINGLES VACCINE THE 1ST WEEK IN APR. . VITAL SIGNS WT 129.6 LBS, HT 58.5 IN, BMI 26.62 INDEX, BP 120/69 MM HG, HR 102 /MIN, RR 16 /MIN, TEMP 97.0 F, OXYGEN SAT % 98%, SAFE IN ENV? (Y/N) Y, NA INITIALS SC 10:12, REVIEWED BY: ARY. EXAMINATION GENERAL EXAMINATION: GENERALNO ACUTE DISTRESS, WELL NOURISHED AND HYDRATED. PSYCHAPPROPRIATE MOOD AND AFFECT . LUNGS:CLEAR TO AUSCULTATION BILATERALLY, NO WHEEZES, RHONCHI, RALES. HEART:NO MURMURS, REGULAR RATE AND RHYTHM. ASSESSMENTS CERVICAL DISC DISORDER WITH RADICULOPATHY OF CERVICAL REGION - M50.10 TREATMENT CERVICAL DISC DISORDER WITH RADICULOPATHY OF CERVICAL REGION CLINICAL NOTES: 73 YEAR OLD FEMALE IN FOR POST CERVICAL EPIDURAL FOLLOW UP. WHEN ASKED SHE DENIES THE EPIDURAL RELIEVING ANY OF HER PAIN. SHE IS CURRENTLY BE WORKED UP BY NEUROLOGY FOR HER RADICULAR SYMPTOM. GIVEN PRESENTING SYMPTOMS AND RESULTS OF PHYSICAL EXAMINATION RECOMMENDED FOLLOW UP IN 2 MONTHS AND AWAITING THE RESULTS OF THE NEUROLOGICAL WORK UP. PATIENT HAS EXPRESSED UNDERSTANDING OF AND WAS IN AGREEMENT WITH TX PLAN. GIVEN TIME TO ASK QUESTIONS AND EXPRESS CONCERNS. . PROCEDURE CODES FA211 ESTABILISHED PATIENT [facility] FACILITY CHARGE DISPOSITION & COMMUNICATION FOLLOW UP 2 MONTHS (REASON: CHRONIC PAIN FOLLOW UP ) ELECTRONICALLY SIGNED BY SKY THAYER ON 03/30/2019 AT 10:37 AM EDT DISCLAIMER : THIS IS A VISIT SUMMARY EXTRACTED FROM THE [employer] CHART. IT IS NOT A COPY OF THE [employer] PROGRESS NOTE. [place]
== END ==
LOC: M PAIN 10:00
PROVIDERS: ATTEND Family Medicine
DX: M50.10 Cervical disc disorder with radiculopathy, unspecified cervical region (principal); M06.9 Rheumatoid arthritis, unspecified; K21.9 Gastro-esophageal reflux disease without esophagitis; E03.9 Hypothyroidism, unspecified; E11.40 Type 2 diabetes mellitus with diabetic neuropathy, unspecified; M81.0 Age-related osteoporosis without current pathological fracture; N95.2 Postmenopausal atrophic vaginitis; Z87.891 Personal history of nicotine dependence; Z87.440 Personal history of urinary (tract) infections; Z85.828 Personal history of other malignant neoplasm of skin; Z79.52 Long term (current) use of systemic steroids; Z79.84 Long term (current) use of oral hypoglycemic drugs; Z79.899 Other long term (current) drug therapy; Z88.0 Allergy status to penicillin

== ENCOUNTER → 2019-05-21 | Outpatient (CLI) | payer MEDICARE ==
[~2019-05-21] MED LIST changes: +OMEP1CAP73 PO; -OMEP20CA4 PO
--- NOTE | 2019-05-26 02:23 | ECWPNPC ---
PATIENT NAME: LUCERO BARRAGAN : 1945 GENDER: FEMALE VISIT DATE: 05/21/2019 DISCHARGE DATE: 05/21/1961 VISIT LOCKED DATE TIME: PHYSICIAN: JENNY ALEJANDRA RESOURCE: JENNY ALEJANDRA REASON FOR APPOINTMENT 1. POST HERPETIC NEURALGIA L HAND/ARM PAIN HISTORY OF PRESENT ILLNESS HISTORY OF PRESENT ILLNESS: PAIN THE PATIENT DESCRIBES THE PAIN... 73-YEAR-OLD FEMALE FOR CHRONIC PAIN FOLLOW-UP. SHE RATES HER PAIN CURRENTLY AT A 5 OUT OF 10 AND DESCRIBES IT SHOOTING AND NUMB. DISCUSSED PREVIOUS MEDICATIONS PATIENT HAS BEEN ON FOR THE SYMPTOMS AND SHE ADMITS TO GABAPENTIN USE AND STATES WHEN SHE TOOK IT IN THE PAST SHE PASSED OUT. FALL RISK SCREENING: SCREENING :NO FALLS REPORTED IN THE LAST YEAR CURRENT MEDICATIONS TAKING SYNTHROID 50 MCG TABLET 1 TABLET EVERY MORNING ON AN EMPTY STOMACH ORALLY ONCE A DAY TAKING OMEPRAZOLE 20 MG CAPSULE DELAYED RELEASE 1 CAPSULE ORALLY ONCE A DAY TAKING MULTIVITAMINS OTC TABLET 1 TABLET ORALLY ONCE A DAY TAKING CRANBERRY EXTRACT 300 MG CAPSULE 1 CAPSULE ORALLY ONCE A DAY TAKING VITAMIN D3 SUPER STRENGTH 1000 UNIT TABLET 1 TABLET ORALLY ONCE A DAY TAKING BIOTIN 75MG TABLET 1 TAB(S) ORALLY/TAKES 7500MCG ONCE A DAY TAKING PREDNISONE 5 MG TABLET DELAYED RELEASE DAILY, AM AND 2 MG TAB AT DINNER ORALLY SEE TAKES. TAKING MINOCYCLINE HCL 100 MG TABLET 1 TABLET ORALLY ONE DAILY TAKING TRADJENTA 5 MG TABLET 1 TABLET ORALLY ONCE A DAY TAKING HYDROXYCHLOROQUINE SULFATE 200 MG TABLET 1 TABLET WITH FOOD OR MILK ORALLY ONCE A DAY TAKING SULFASALAZINE 500 MG TABLET DELAYED RELEASE 1 TABLET ORALLY TWICE A DAY TAKING FOLIC ACID 1 MG TABLET 1 TABLET ORALLY TWICE A DAY TAKING PAROXETINE HCL 10 MG TABLET 1 TABLET IN THE MORNING ORALLY ONCE A DAY TAKING VITAMIN C 500 MG TABLET 1 TABLET ORALLY ONCE A DAY TAKING CALCIUM 600+D 600-400 MG-UNIT TABLET 1 TABLET WITH FOOD ORALLY ONCE A DAY TAKING XELJANZ 5 MG TABLET ORALLY TWICE DAILY TAKING LIPITOR 10 MG TABLET 1 TABLET ORALLY ONCE A DAY TAKING CLARITIN 10 MG TABLET 1 TABLET ORALLY ONCE A DAY TAKING PREMARIN 0.625 MG/GM CREAM VAGINAL 2X/WEEK TAKING GLIPIZIDE 5 MG TABLET 1 TABLET ORALLY ONCE A DAY NOT-TAKING ESTRADIOL 0.1 MG/GM CREAM 1/2 GM VAGINAL TWICE A WEEK MEDICATION LIST REVIEWED AND RECONCILED WITH THE PATIENT PAST MEDICAL HISTORY RHEUMATOID ARTHRITIS GERD HYPOTHYROID HIATAL HERNIA URINARY FREQUENCY, FREQUENT UTI TYPE II DIABETES WITH NEUROPATHY 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 OSTEOPOROSIS TOOK ALENDRONATE MORE THAN 5 YEARS SHINGLES PINCHED NERVE LEFT ELBOW CIRVICAL DISC DISORDER VAGINAL ATROPHY ALLERGIES PENICILLIN (FOR ALLERGIES USE ONLY): RASH - ALLERGY SURGICAL HISTORY ANKLE REPAIR-LEFT HYSTERECTOMY PARTIAL , KEPT OVARIES T & A HEAD SURGERY A INFANT CYST REMOVAL FROM OVARY COLONOSCOPY EGD AND COLONOSCOPY 2016 2 POLYPS 09/25 CATARACT-LENS IMPLANTS-BILATERALLY EARS TUBE PLACED IN RIGHT EAR, TUBE IS OUT NOW 2009 VULVAR BIOPSY X3 2012 TONSILECTOMY FAMILY HISTORY FATHER: , COLON CANCER, CANCER, PANCREATIC MOTHER: , STOMACH CANCER SIBLINGS: SISTER PASSED AFTER ABDOMINAL SURGERY PATERNAL GRAND MOTHER: , BREAST CANCER MATERNAL GRAND MOTHER: , BONE CANCER 3 BROTHER(S) , 4 SISTER(S) - HEALTHY. 2DAUGHTER(S) - HEALTHY. ONE BROTHER FROM COLO/RECTAL CANCER. DENIES FAMILY HX OF OVARIAN CANCER. SOCIAL HISTORY GENERAL: TOBACCO USE ARE YOU A:: FORMER SMOKER , HOW LONG HAS IT BEEN SINCE YOU LAST SMOKED?: > 10 YEARS. OTHERS AT HOME: . 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 LANGUAGE LANGUAGES SPOKEN:UKRAINIAN DOMESTIC VIOLENCE DENIES. RECREATIONAL DRUG USE DENIES. EXERCISE: NONE. LEARNING BARRIERS / SPECIAL NEEDS CHANGE FROM LAST VISIT?NO BARRIERS TO LEARNING?NO HEARING IMPAIRED?NO VISION IMPAIRED?YES COGNITIVELY IMPAIRED?NO :CORRECTIVE LENSES READINESS TO LEARN?YES LEARNING PREFERENCES?NO LEARNING CAPABILITIES PRESENT?YES EMOTIONAL BARRIERS?NO SPECIAL DEVICES?YES :CANE, WALKER OCC. CHIEF I DISPATCHER NEEDED?NO PAIN CLINIC PFS, CLERGY, PUBLIC HEALTH REFERRALS HAS THE PATIENT BEEN EDUCATED REGARDING HIS/HER PLAN OF CARE?YES HAS THE PATIENT BEEN EDUCATED REGARDING PAIN, THE RISK FOR PAIN, THE IMPORTANCE OF EFFECTIVE PAIN MANAGEMENT, AND THE PAIN ASSESSMENT PROCESS?YES LATEX QUESTIONNAIRE LATEX ALLERGY : HAVE YOU EVER DEVELOPED ANY TYPE OF REACTION AFTER HANDLING LATEX PRODUCTS SUCH RUBBER GLOVES, CONDOMS, DIAPHRAGMS, BALLOONS, SOCKS, OR UNDERWEAR?NO LATEX ALLERGY : HAVE YOU EVER DEVELOPED ANY TYPE OF REACTION DURING OR AFTER DENTAL APPOINTMENT, VAGINAL/RECTAL EXAMINATION, SURGICAL PROCEDURE, OR ANY OTHER EXPOSURE?NO DATE ASKED : 03/29/2019 LATEX RISK : HAVE YOU EVER HAD ANY DIFFICULTY BREATHING OR HIVES AFTER EATING OR HANDLING ANY FRUITS, OR VEGETABLES; SUCH KIWI, BANANAS, STONE FRUITS, OR CHESTNUTSNO LATEX RISK : DO YOU HAVE A PREVIOUS PERSONAL HISTORY OF MORE THAN NINE SURGERIES, SPINA BIFIDA, OR REPEATED CATHERIZATIONS? NO LATEX RISK : ARE YOU FREQUENTLY EXPOSED TO LATEX PRODUCTS IN YOUR OCCUPATION?NO CAFFEINE NONE. ADVANCE DIRECTIVE ADVANCE DIRECTIVE DISCUSSED WITH PATIENT:YES HCP - [facility] REYNA () YAZIDISM [id number] QUAKER MARITAL STATUS: . 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 ADREVIEWED WITH PATIENT 05/21/19 0906 BV. HOSPITALIZATION/MAJOR DIAGNOSTIC PROCEDURE SURGERY RELATED FALL WITH FACIAL BRUISING 02/2018 REVIEW OF SYSTEMS REVIEWED BY: PROVIDER: JOZEF GARSIA . CONSTITUTIONAL: ANY CHANGE IN YOUR MEDICAL CONDITION? NO . CHILLS NO . FEVER NO . INFECTION: DO YOU HAVE NEW INFECTIONS? NO . DO YOU HAVE HISTORY OF MRSA? NO . MUSCULOSKELETAL: ANY NEW PATTERNS OF PAIN OR NUMBNESS? NO . GASTROENTEROLOGY: ANY NEW CHANGE IN BOWEL CONTROL? NO . GENITOURINARY: ANY NEW CHANGE IN BLADDER CONTROL? NO . IS THERE A CHANCE YOU COULD BE ? NO . HEMATOLOGY/LYMPH: DO YOU TAKE ANY BLOOD THINNERS? (FOR EXAMPLE- COUMADIN, PLAVIX, AGGRENOX, PLATEL, PRADAXA, OR XARELTO) NO . WHEN WAS YOUR LAST DOSE? DATE: TIME: . NEUROLOGY: HAVE YOU FALLEN IN THE PAST 12 MONTHS? NO . ANY NEW EXTREMITY NUMBNESS OR WEAKNESS? NO . CARDIOLOGY: DO YOU HAVE A PACEMAKER OR DEFIBRILLATOR? NO . RESPIRATORY: HAVE YOU BEEN SICK IN THE PAST WEEK? YES, PT HAD A COLD A WEEK AGO. STATES SYMPTOMS HAVE SINCE RESOLVED . FEVER NO . FLU LIKE SYMPTOMS? NO . COUGH NO . INTEGUMENTARY: DO YOU HAVE ANY RASHES OR OPEN SORES? NO . ALLERGIC/IMMUNO: ARE YOU ALLERGIC TO IV DYE? NO . ANY NEW ALLERGIES? NO . PSYCHIATRIC: DO YOU HAVE THOUGHTS OF HURTING YOURSELF OR SOMEONE ELSE? NO . ARE YOU ABUSED, NEGLECTED, OR IN AN UNSAFE ENVIRONMENT? NO . ENDOCRINOLOGY: ARE YOU DIABETIC? YES, ON MEDICATION . OTHER: DO YOU NEED ANY PRESCRIPTIONS? NO . IF YES, PLEASE LIST: ____ . ANY NEW PROBLEMS WITH YOUR MEDICATIONS? NO . WHEN DID YOU LAST EAT? ____ . WHEN DID YOU LAST DRINK? ____ . WHAT DID YOU LAST DRINK? ____ . NAME OF PERSON DRIVING YOU HOME? ____ . DO YOU HAVE ANY OTHER QUESTIONS OR CONCERNS NO . VITAL SIGNS WT 128.8 LBS, HT 58.5 IN, BMI 26.46 INDEX, BP 128/68 MM HG, HR 69 /MIN, RR 16 /MIN, TEMP 96.0 F, OXYGEN SAT % 98%, NA INITIALS AW 0904, REVIEWED BY: BV. EXAMINATION GENERAL EXAMINATION: GENERALNO ACUTE DISTRESS, WELL NOURISHED AND HYDRATED. PSYCHAPPROPRIATE MOOD AND AFFECT . LUNGS:CLEAR TO AUSCULTATION BILATERALLY, NO WHEEZES, RHONCHI, RALES. HEART:NO MURMURS, REGULAR RATE AND RHYTHM. ASSESSMENTS CERVICAL DISC DISORDER WITH RADICULOPATHY OF CERVICAL REGION - M50.10 (PRIMARY) TREATMENT CERVICAL DISC DISORDER WITH RADICULOPATHY OF CERVICAL REGION CLINICAL NOTES: 73-YEAR-OLD FEMALE IN FOR CHRONIC PAIN FOLLOW-UP. GIVEN PRESENTING SYMPTOMS AND RESULTS OF PHYSICAL EXAMINATION PATIENT WILL BE GIVEN EDUCATIONAL MATERIAL REGARDING AMITRIPTYLINE. PATIENT STATES SHE WILL TAKE HANDOUT TO HER PCP AND DISCUSS WITH THEM. PATIENT HAS EXPRESSED UNDERSTANDING OF AND WAS IN AGREEMENT WITH TREATMENT PLAN. GIVEN TIME TO ASK QUESTIONS AND EXPRESS CONCERNS. PROCEDURE CODES FA211 ESTABILISHED PATIENT [facility] CHARGE DISPOSITION & COMMUNICATION FOLLOW UP 2 MONTHS (REASON: CHRONIC PAIN) ELECTRONICALLY SIGNED BY SKY THAYER ON 05/24/2019 AT 10:08 AM EDT DISCLAIMER : THIS IS A VISIT SUMMARY EXTRACTED FROM THE [facility] [facility] CHART. IT IS NOT A COPY OF THE [employer] [facility] PROGRESS NOTE. DOMINGO
== END ==
LOC: M PAIN 09:00
PROVIDERS: ATTEND Family Medicine
DX: M50.10 Cervical disc disorder with radiculopathy, unspecified cervical region (principal); G89.29 Other chronic pain; M06.9 Rheumatoid arthritis, unspecified; K21.9 Gastro-esophageal reflux disease without esophagitis; E03.9 Hypothyroidism, unspecified; E11.40 Type 2 diabetes mellitus with diabetic neuropathy, unspecified; Z87.891 Personal history of nicotine dependence; Z88.0 Allergy status to penicillin; Z79.84 Long term (current) use of oral hypoglycemic drugs; Z79.899 Other long term (current) drug therapy

== ENCOUNTER → 2019-05-27 | Outpatient (CLI) | payer MEDICARE ==
--- NOTE | 2019-05-27 10:52 | REPMRS ---
Patient History The patient states she had a clinical breast exam in 05/2019. Family history of premenopausal breast cancer in paternal grandmother, colorectal cancer at age 50 or over in brother, colorectal cancer in father. Benign cyst aspiration of the right breast. Took estrogen for 11 years. 3D TOMOSYNTHESIS WAS PERFORMED. The [facility] lifetime risk for breast cancer is 4.1%. Digital Woman Screen Mammo: May 27, 2019 - Exam #: [id number] Bilateral CC and MLO view(s) were taken. Technologist: Shruthi Bennett, Technologist Prior study comparison: May 29, 2018, bilateral digital woman screen mammo performed at [facility]. May 28, 2017, digital woman screen mammo performed at [facility]. FINDINGS: The breast tissue is heterogeneously dense. This may lower the sensitivity of mammography. There has been no change in the appearance of the mammogram from the prior studies. There is a moderate amount of residual fibroglandular tissue which is fairly symmetric. There is no interval development of dominant mass, areas of architectural distortion, or clustered microcalcification typical of malignancy. Assessment: BI-RADS/ACR category 1 mammogram. Negative Mammogram. Recommendation Routine screening mammogram in 1 year (for women over age 40). This mammogram was interpreted with the aid of an FDA-approved computer-aided dectection system. Electronically Signed By: Micky Estrella MD 05/27/19 8800
--- NOTE | 2019-06-03 09:47 | DEXA ---
AP SPINE L1 - L4 1.036 -1.3 0.5 LT FEMUR TOTAL 0.876 -1.0 0.7 LT NECK 0.762 -2.0 0.0 RT FEMUR TOTAL 0.895 -0.9 -0.9 RT NECK 0.771 -1.9 0.0 TOTAL BODY TOTAL OTHER COMMENTS: There is low bone density of the spine and hips. The density of the spine has increased 4.1% since the initial exam on 04/11/2000. The spine density has increased in 1.5% since the most recent exam on 06/06/2016. The density of the left hip has increased 2.6% since the initial exam on 04/11/2000. The density of the left hip has decreased 2.1% since the most recent exam on 06/06/2016. The density of the right hip has increased 0.8% since the initial exam on 04/11/2000. The density of the right hip has decreased 3.2% since the most recent exam on 06/06/2016. FOLLOW-UP: Recommendation for the next bone density exam: 2 years. LAUROD
== END ==
LOC: M WHC 09:19
PROVIDERS: ATTEND Nurse Practitioner Family
DX: Z01.419 Encounter for gynecological examination (general) (routine) without abnormal findings (principal); Z12.31 Encounter for screening mammogram for malignant neoplasm of breast; M81.0 Age-related osteoporosis without current pathological fracture; Z80.0 Family history of malignant neoplasm of digestive organs; Z86.018 Personal history of other benign neoplasm; Z92.23 Personal history of estrogen therapy; Z12.12 Encounter for screening for malignant neoplasm of rectum
CPT/HCPCS: 77063; 77067; 77080; 82270; G0101

== ENCOUNTER 2019-09-16 08:36 | Emergency (ER) | payer MEDICARE, BC ==
[~2019-09-16] VITALS: Ht 147.3 cm; Wt 59.4 kg
[2019-09-16 08:36] VITALS: BP 141/81
== END 2019-09-16 09:46 | disposition home or self-care (01) ==
LOC: M ED 08:36
DX: T81.31XA Disruption of external operation (surgical) wound, not elsewhere classified, initial encounter (principal); Y92.099 Unspecified place in other non-institutional residence as the place of occurrence of the external cause; Y93.9 Activity, unspecified; I10 Essential (primary) hypertension; K21.9 Gastro-esophageal reflux disease without esophagitis; Z79.899 Other long term (current) drug therapy; Z88.0 Allergy status to penicillin

== ENCOUNTER → 2019-12-03 | Outpatient (CLI) | payer MEDICARE, BC ==
--- NOTE | 2019-12-03 14:21 | REP ---
BILATERAL LOWER EXTREMITY DUPLEX DOPPLER ARTERIAL ULTRASOUND: Real-time ultrasound evaluation and duplex Doppler interrogation of bilateral lower extremity arterial systems is performed. Bilaterally mild scattered plaquing and narrowing is seen. There is no compelling duplex Doppler sonographic evidence of hemodynamically significant stenosis of either lower extremity arterial system. There are diffuse triphasic and biphasic waveforms identified. PEAK SYSTOLIC VELOCITY RIGHT LEFT Common femoral artery 115.0 cm/s 139.0 cm/s Profunda 65.9 76.4 Proximal SFA 110.0 148.0 Popliteal 79.6 55.3 Proximal anterior tibial artery 69.0 54.6 Tibioperoneal trunk 39.2 45.4 Proximal posterior tibial artery 85.1 69.8 Distal posterior tibial artery 83.2 52.2 Distal anterior tibial artery 49.1 52.6 IMPRESSION: No evidence of hemodynamically significant stenosis bilateral lower extremity arterial systems. Electronically Signed by Micky Estrella MD 12/03/2019 03:26 P
== END ==
LOC: M RAD 11:53
PROVIDERS: ATTEND Physician Assistant
DX: M79.606 Pain in leg, unspecified (principal)

== ENCOUNTER 2020-04-13 09:28 | Day surgery (SDC) | payer MEDICARE, BC ==
[~2020-04-13] VITALS: Ht 147.3 cm; Wt 57.2 kg
[~2020-04-13 09:28] MED LIST changes: +BIOT1CAP2 PO; +CALC600T63 PO; -CALCTAB6 PO; +D31000TA2 PO; +GLIM2TAB4 PO; +HEAL1TAB2 PO; +LIDOCAINE 2% 100MG/5ML SDV (FOR ANES.) As Ordered ONE; +MULTCAP PO; +SULF500T41 PO; -SULF50TA PO; +propofoL 200 MG/20 ML VIAL As Ordered ONE
[2020-04-13] MEDS ORDERED: dexameTHASONE 4 MG/ML 1ML VIAL (J1100 PER 1MG) As Ordered ONE (13:35)
--- NOTE | 2020-05-24 11:26 | ROOR ---
Patient Name: Devendra Johnston Procedure Date: 04/13/2020 10:58 AM Date of : 1945 Age: 74 Room: [facility] Gender: Female Note Status: Finalized Procedure: Colonoscopy Indications: High risk colon cancer surveillance: Personal history of colonic polyps, Last colonoscopy: April 2017 Providers: Davy Carter MD Referring MD: LIBRADO GIBBS JR, MD Requesting Provider: Medicines: Monitored Anesthesia Care Complications: No immediate complications. Procedure: Pre-Anesthesia Assessment: - Prior to the procedure, a History and Physical was performed, and patient medications and allergies were reviewed. The patient is competent. The risks and benefits of the procedure and the sedation options and risks were discussed with the patient. All questions were answered and informed consent was obtained. Patient identification and proposed procedure were verified by the physician, the nurse and the anesthesiologist in the procedure room. Mental Status Examination: alert and oriented. Prophylactic Antibiotics: The patient does not require prophylactic antibiotics. Prior Anticoagulants: The patient has taken no previous anticoagulant or antiplatelet agents. ASA Grade Assessment: III - A patient with severe systemic disease. After reviewing the risks and benefits, the patient was deemed in satisfactory condition to undergo the procedure. The anesthesia plan was to use monitored anesthesia care (MAC). Immediately prior to administration of medications, the patient was re-assessed for adequacy to receive sedatives. The heart rate, respiratory rate, oxygen saturations, blood pressure, adequacy of pulmonary ventilation, and response to care were monitored throughout the procedure. The physical status of the patient was re-assessed after the procedure. The Colonoscope was introduced through the anus and advanced to the cecum, identified by appendiceal orifice and ileocecal valve. The colonoscopy was performed without difficulty. The patient tolerated the procedure well. The quality of the bowel preparation was excellent. Findings: The perianal and digital rectal examinations were normal. A 3 mm polyp was found in the cecum. The polyp was sessile. The polyp was removed with a cold snare. Resection and retrieval were complete. Two sessile polyps were found in the transverse colon. The polyps were 3 to 4 mm in size. These polyps were removed with a cold snare. Resection and retrieval were complete. Multiple medium-mouthed diverticula were found in the sigmoid colon and descending colon. Impression: - One 3 mm polyp in the cecum, removed with a cold snare. Resected and retrieved. - Two 3 to 4 mm polyps in the transverse colon, removed with a cold snare. Resected and retrieved. - Diverticulosis in the sigmoid colon and in the descending colon. Recommendation: - Discharge patient to home. - Resume previous diet. - Continue present medications. - Await pathology results. Davy Carter MD Davy Carter MD 04/13/2020 11:27:23 AM Number of Addenda: 0 Note Initiated On: 04/13/2020 10:58 AM Estimated Blood Loss: Estimated blood loss was minimal.
== END 2020-04-13 12:10 | disposition home or self-care (01) ==
LOC: M OPP 09:28
PROVIDERS: ATTEND Surgery
DX: Z12.11 Encounter for screening for malignant neoplasm of colon (principal); Z86.010 Personal history of colon polyps; Z80.0 Family history of malignant neoplasm of digestive organs; K63.5 Polyp of colon; K57.30 Diverticulosis of large intestine without perforation or abscess without bleeding; K21.9 Gastro-esophageal reflux disease without esophagitis; E11.9 Type 2 diabetes mellitus without complications; I10 Essential (primary) hypertension; Z79.84 Long term (current) use of oral hypoglycemic drugs; Z79.52 Long term (current) use of systemic steroids; Z79.899 Other long term (current) drug therapy; Z88.0 Allergy status to penicillin
CPT/HCPCS: 45385; 88305; J1100

== ENCOUNTER → 2020-06-21 | Outpatient (CLI) | payer MEDICARE ==
[~2020-06-21] MED LIST changes: -LIDOCAINE 2% 100MG/5ML SDV (FOR ANES.) As Ordered ONE; -propofoL 200 MG/20 ML VIAL As Ordered ONE
--- NOTE | 2020-06-21 13:07 | REPMRS ---
Patient History The patient states she had a clinical breast exam in 2019. Family history of premenopausal breast cancer in paternal grandmother, colorectal cancer at age 50 or over in brother, colorectal cancer in father. Benign cyst aspiration of the right breast. Took estrogen for 11 years. 3D TOMOSYNTHESIS WAS PERFORMED. The [facility] lifetime risk for breast cancer is 3.7%. VOLPARA DENSITY B. Digital Woman Screen Mammo: June 21, 2020 - Exam #: [id number] Bilateral CC and MLO view(s) were taken. Technologist: Rachelle Van, Technologist Prior study comparison: May 27, 2019, bilateral digital woman screen mammo performed at [facility]. May 29, 2018, bilateral digital woman screen mammo performed at [facility]. FINDINGS: There are scattered fibroglandular densities. There has been no change in the appearance of the mammogram from the prior studies. There is a mild amount of residual fibroglandular tissue which is fairly symmetric. There is no interval development of dominant mass, architectural distortion, or clustered microcalcification suggestive of malignancy. Assessment: BI-RADS/ACR category 1 mammogram. Negative Mammogram. Recommendation Routine screening mammogram in 1 year (for women over age 40). This mammogram was interpreted with the aid of an FDA-approved computer-aided dectection system. Electronically Signed By: Micky Estrella MD 06/21/20 2033
== END ==
LOC: M WHC 11:05
PROVIDERS: ATTEND Nurse Practitioner Family
DX: Z12.31 Encounter for screening mammogram for malignant neoplasm of breast (principal); Z80.0 Family history of malignant neoplasm of digestive organs; Z86.018 Personal history of other benign neoplasm; Z92.23 Personal history of estrogen therapy

== ENCOUNTER → 2020-10-02 | Outpatient (CLI) | payer MEDICARE, BC ==
--- NOTE | 2020-10-02 15:54 | REP ---
INDICATION: PAIN. COMPARISON: None. TECHNIQUE: Three views. FINDINGS: Three views of the right shoulder demonstrate normal alignment of the glenohumeral and acromioclavicular joints. There is minimal hypertrophy of the distal clavicle. No erosive changes seen. No fracture is noted. There is diffuse osteopenia. Glenohumeral articulation is normally aligned. Periarticular soft tissues are unremarkable. IMPRESSION: Diffuse osteopenia. No acute abnormality. Mild osteoarthritic changes in the AC joint. <Electronically signed by Grant Pedroza > 10/02/20 [id number]
== END ==
LOC: M WUC 14:09
PROVIDERS: ATTEND Physician Assistant
DX: M89.8X1 Other specified disorders of bone, shoulder (principal); M19.011 Primary osteoarthritis, right shoulder

== ENCOUNTER → 2020-12-04 | Outpatient (CLI) | payer MEDICARE, BC ==
--- NOTE | 2020-12-04 15:59 | REP ---
INDICATION: ATHS KEVIN ART OF LOWER EXT, SHAINA LEGS COMPARISON: 12/03/2019. TECHNIQUE: Real time estrella scale and Duplex Doppler evaluation of the bilateral lower extremity arterial vasculature using linear high frequency transducer. FINDINGS: Estrella scale and duplex doppler images demonstrate mild to moderate amounts of atheromatous plaquing with areas of mild narrowing but no focal stenosis identified. There is no occlusion. Doppler interrogation demonstrates normal arterial wave forms and velocities bilaterally. Peak systolic velocities (cm/sec) Common femoral artery: Right 175; Left 137 Profunda femoris: Right 102; Left 117 SFA (proximal): Right 130; Left 184 SFA (mid): Right 139; Left 140 SFA (distal): Right 114; Left 118 Popliteal artery: Right 75; Left 80 JAKE (prox.): Right 63; Left 63 Tibioperoneal trunk: Right 109; Left 81 SENIOR MARKETING ASSOCIATE (prox.): Right 67; Left 80 SENIOR MARKETING ASSOCIATE (distal): Right 91; Left 109 JAKE (distal): Right 96; Left 30 IMPRESSION: Atheromatous changes with areas of narrowing but no focal occlusion or stenosis. <Electronically signed by Micky Estrella > 12/04/20 8202
== END ==
LOC: M RAD 14:32
PROVIDERS: ATTEND Physician Assistant
DX: I70.203 Unspecified atherosclerosis of native arteries of extremities, bilateral legs (principal); M79.604 Pain in right leg; M79.605 Pain in left leg; R09.89 Other specified symptoms and signs involving the circulatory and respiratory systems

== ENCOUNTER → 2021-02-16 | Outpatient (CLI) | payer MEDICARE, BC ==
--- NOTE | 2021-02-16 15:58 | REP ---
INDICATION: PAIN AND SWELLING COMPARISON: 03/05/2014 TECHNIQUE: AP, lateral, bilateral oblique views. FINDINGS: Moderate to significant generalized soft tissue swelling is appreciated. No subcutaneous emphysema or significant foreign body. Underlying evidence for prior open reduction and fixation along with the osseous structures all remain stable as compared to 2013. IMPRESSION: Moderate to significant generalized soft tissue swelling. <Electronically signed by Reddy Chang > 02/16/21 2687
--- NOTE | 2021-02-16 16:22 | REP ---
INDICATION: PAIN AND SWELLING COMPARISON: None. TECHNIQUE: AP, lateral, bilateral oblique views left foot. FINDINGS: Generalized soft tissue swelling is suggested. Evidence for prior open reduction and fixation for ankle fractures. Age-related degenerative changes through the foot noted without acute fracture or dislocation. IMPRESSION: Generalized soft tissue swelling. Age-related degenerative changes. <Electronically signed by Reddy Chang > 02/16/21 1241
== END ==
LOC: M WUC 15:35
PROVIDERS: ATTEND Physician Assistant Medical
DX: M79.672 Pain in left foot (principal); M79.89 Other specified soft tissue disorders; M19.072 Primary osteoarthritis, left ankle and foot

== ENCOUNTER → 2021-06-26 | Outpatient (CLI) | payer MEDICARE, BC ==
--- NOTE | 2021-06-26 12:22 | REPMRS ---
Patient History The patient states she had a clinical breast exam in June 2021. Family history of premenopausal breast cancer in paternal grandmother, colorectal cancer at age 50 or over in brother, colorectal cancer in father. Benign cyst aspiration of the right breast. Took estrogen for 11 years. Tomosynthesis is performed. Volpara breast density is b. [facility] lifetime risk of breast cancer 3.4%. Patient states no breast complaints today. Patient has signed MRS History Sheet. Digital Woman Screen Mammo: June 26, 2021 - Exam #: [id number] Bilateral CC and MLO view(s) were taken. Technologist: Viridiana Esteves, Technologist Prior study comparison: June 21, 2020, bilateral digital woman screen mammo performed at [facility]. May 27, 2019, bilateral digital woman screen mammo performed at [facility]. FINDINGS: There are scattered fibroglandular densities. There has been no change in the appearance of the mammogram from the prior studies. There is a mild amount of residual fibroglandular tissue which is fairly symmetric. There is no interval development of dominant mass, architectural distortion, or clustered microcalcification suggestive of malignancy. Assessment: BI-RADS/ACR category 1 mammogram. Negative Mammogram. Recommendation Routine screening mammogram in 1 year (for women over age 40). This mammogram was interpreted with the aid of an FDA-approved computer-aided dectection system. Electronically Signed By: Micky Estrella MD 06/26/21 7141
--- NOTE | 2021-06-26 14:37 | DEXAMM ---
INDICATION: LOW BONE DENSITY POSTMENOPAUSAL. COMPARISON: 05/27/2019 as well as other prior exams. TECHNIQUE: Bone density was measured using dual-energy x-ray absorptiometry (DEXA). FINDINGS: AP SPINE L1-L4 BMD 1.037 g/cm2 Young Adult T-Score -1.3 Age Matched Z-Score 0.5. LT FEMUR, TOTAL BMD 0.85 g/cm2 Young Adult T-Score -1.0 Age Matched Z-Score 0.9. LT NECK BMD 0.763 g/cm2 Young Adult T-Score -2.0 Age Matched Z-Score 0.1. RT FEMUR, TOTAL BMD 0.893 g/cm2 Young Adult T-Score -0.9 Age Matched Z-Score 1.0. RT NECK BMD 0.735 g/cm2 Young Adult T-Score -2.2 Age Matched Z-Score -0.1. IMPRESSION: There is low bone density of the spine. There is low bone density of the left hip. There is low bone density of the right hip. The density of the spine has increased 4.2% since the initial exam on 04/11/2000. The density of the spine increased 0.1% since most recent exam on 05/27/2019. The density of the left hip has increased 3.4% since initial exam on 04/11/2000. The density of the left hip has increased 0.8% since most recent exam on 05/27/2019. The density of the right hip has increased 0.6% since the initial exam on 04/11/2000. The density of the right hip has decreased 0.2% since the most recent exam on 05/27/2019. FOLLOW-UP: Recommendation for the next bone density exam: 2 years. <Electronically signed by Micky Estrella > 06/26/21 8052
== END ==
LOC: M WHC 10:46
PROVIDERS: ATTEND Nurse Practitioner Women's Health
DX: Z12.31 Encounter for screening mammogram for malignant neoplasm of breast (principal); M85.80 Other specified disorders of bone density and structure, unspecified site; Z78.0 Asymptomatic menopausal state; Z80.0 Family history of malignant neoplasm of digestive organs; Z86.018 Personal history of other benign neoplasm; Z92.23 Personal history of estrogen therapy
CPT/HCPCS: 77063; 77067; 77080; G0463

== ENCOUNTER 2021-08-14 10:53 | Inpatient (IN) | payer MEDICARE, BC ==
[~2021-08-14] VITALS: Ht 139.7 cm; Wt 54.0 kg
--- OUTSIDE RECORDS SUMMARY | 2021-08-14 11:04 | CCD | Continuity of Care Document ---
Author Author Devendra BRICE M.D. Organization Unknown Address [address] [place] [address] Phone [phone] Care Team Providers Care Security And Compliance Project Manager Name Role Phone Jeferson Brian M.D. [facility] [phone] Problems Active Problems Provider Date Unsteady gait Alessandro Brice M.D. Onset: 08/25/2015 Family history of malignant neoplasm of gastrointestinal tra ct Onset: 03/27/2017 Benign neoplasm of colon Onset: 03/31/20 14 History of polyp of colon Onset: 014 Right lower quadrant pain Onset: 014 Left lower quadrant pain Onset: 01/25/20 14 Hypertrophy of nasal turbinates Onset: 1 Deviated nasal septum Onset: 07/01/2013 Difficulty speaking Onset: 07/01/2013 Gastroesophageal reflux disease Onset: 1 Serosanguineous chronic otitis media Ons et: 07/01/2013 Chronic mastoiditis Onset: 07/01/2013 Chronic otitis media Onset: 07/01/2013 Referred otalgia Onset: 07/01/2013 Acute sinusitis Onset: 07/01/2013 Cough Onset: 07/01/2013 Dysfunction of eustachian tube Onset: Neoplasm of uncertain behavior of lip, oral cavity and phary nx Onset: 07/01/2013 Foreign body in ear Onset: 07/01/2013 Sudden hearing loss Onset: 07/01/2013 Chronic rhinitis Onset: 07/01/2013 Impacted cerumen Onset: 07/01/2013 Conductive hearing loss Onset: 3 Central perforation of tympanic membrane Onset: 07/01/2013 Social History Type Date Description Comments Sex Unknown Tobacco Use Start: Unknown Patient has never smoked Allergies, Adverse Reactions, Alerts Active Allergies Criticality Reaction | Severity Comments Date Penicillin Unable to assess criticality 08/25/2015 Acetaminophen Unable to assess criticality Rash 04/21/2017 Medications Active Medications SIG Qnty Indications Ordering Provide r Date Medrol 4mg TBPK take 6 tabs in the morning on day 1, then reduce by one tab each day till completed over 6 days. 21unjean paul Brice M.D. 04/08/2018 Lidoderm 5% Patches Apply topical patch daily as needed for severe back pain. 12 hours on and [address] two patches at once. 60units Alessandro Brice M.D. 04/21 Lidocaine 5% Ointment Apply topicaly daily as needed for severe back pain. 2-3 times per day prn. use glove to place on. 70.88gm Alessandro Brice M.D. 04/21/2017 Lidocaine HCL Jelly 2% Gel apply to affected parts bid 40gm Anuel Hernandez M.D. 06/25/2011 Synthroid 50mcg Tablets 1 po qd 30tabs Unknown Omeprazole 20mg Capsules DR 1 po qd 30caps Unknown Folic Acid 1mg Tablets 2 b y mouth daily Unknown Calcium 600+D [id number] Table ts 1 by mouth once a day Unknown Vitamin D 25mcg (1000 Ut) Tablets 1 PO Daily Unknown Premarin 0.625mg/GM Cream one applicatorful per vagina daily x 2 weeks then twice weekly 90units Unknown Sulfasalazine 500mg Tablets po bid 120tabs Unknown Prednisone 5mg Tablets 1 by mouth every day 14tabs Unknown Hydroxychloroquine Sulfate 200mg T ablets 1 by mouth daily Unknown Tradjenta 5mg Tablets po darius y 30tabs Unknown Xeljanz 5mg Tablets bid Unknown Prednisone 1mg Tablets 2 darius y Unknown Paroxetine HCL 10mg Tablets d aily Unknown Claritin 10mg Tablets 1 by mouth every day Unknown Atorvastatin Calcium 10mg Tablets daily Unknown Glimepiride 1mg Tablets Take One Tablet By Mouth Every Day Before Breakfast Unknown Immunizations Description No Information Available Vital Signs Date Vital Result Comment 06/04/2021 1:15pm Respiratory Rate 12 /min Height 58 inches 4'10" Weight 121.00 lb BMI (Body Mass Index) 25.3 kg/m2 [place] Body Weight 100 lb 02/16/2021 10:42am Respiratory Rate 12 /min Height 58 inches 4'10" Weight 127.00 lb BMI (Body Mass Index) 26.5 kg/m2 [place] Body Weight 100 lb Results Description No Information Available Procedures Date Code Description Status 06/04/2021 53840 Phone Evaluation/Management Phys ician 11-20 Mins Completed 03/09/2021 19029 Sympathetic Skin Responses Compl eted 03/09/2021 08817 Test Autonomic Nervous System, C ardiovagal Innervation Completed 03/09/2021 65954 Artery Study Extremity Mult Leve ls Bilateral Completed 02/16/2021 60953 Phone Evaluation/Management Phys ician 11-20 Mins Completed Medical Devices Description No Information Available Encounters Type Date Location Provider Dx Diagnosis Office Visit 06/04/2021 12:30p Main office - [place] Alessandro pierre M.D. 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 G62.9 Polyneuropathy, unspecified I73.9 Peripheral vascular disease, unspecified M79.602 Pain in left arm M79.605 Pain in left leg Assessments Date Code Description Provider 06/04/2021 G62.9 Polyneuropathy, unspecified Gael Brice M.D. 06/04/2021 M79.602 Pain in left arm Alessandro Brice M.D. 06/04/2021 R20.2 Paresthesia of skin Alessandro pierre M.D. 06/04/2021 G56.22 Lesion of ulnar nerve, left uppe r limb Alessandro Brice M.D. 03/09/2021 G62.9 Polyneuropathy, unspecified Geal Birce M.D. 03/09/2021 G62.9 Polyneuropathy, unspecified Ans/ VS 03/09/2021 I95.1 Orthostatic hypotension Alessandro plunkett M.D. 03/09/2021 I95.1 Orthostatic hypotension Ans/VS 03/09/2021 I73.9 Peripheral vascular disease, uns pecified Ans/VS 02/16/2021 G62.9 Polyneuropathy, unspecified Gael Brice M.D. 02/16/2021 I73.9 Peripheral vascular disease, uns pecified Alessandro Brice M.D. 02/16/2021 M79.602 Pain in left arm Alessandro Brice M.D. 02/16/2021 M79.605 Pain in left leg Alessandro Brice M.D. Plan of Treatment Future Appointment(s):* 11/26/2021 11:00 am - Alessandro Brice M.D. at [facility], [place] Functional Status Description No Information Available Mental Status Description No Information Available Referrals Description No Information Available
--- OUTSIDE RECORDS SUMMARY | 2021-08-14 11:04 | CCD | Continuity of Care Document ---
Author Author Devendra BRICE M.D. Organization Unknown Address [address] [place] [address] Phone [phone] Care Team Providers Care Box Spring Maker Name Role Phone Jeferson Brian M.D. [facility] [phone] Problems Active Problems Provider Date Unsteady gait [...] b y mouth daily Unknown Calcium 600+D [id number] Table ts 1 by mouth once a [...] lb BMI (Body Mass Index) 25.3 kg/m2 [place] Body Weight 100 lb 02/16/2021 10:42am Respiratory Rate 12 /min Height 58 inches 4'10" Weight 127.00 lb BMI (Body Mass Index) 26.5 kg/m2 [place] Body Weight 100 lb Results Description No Information Available Procedures Date Code Description Status 03/09/2021 23111 Sympathetic Skin Responses Compl eted 03/09/2021 79507 Test Autonomic Nervous System, C ardiovagal Innervation Completed 03/09/2021 20010 Artery Study Extremity Mult Leve ls Bilateral Completed 02/16/2021 67435 Phone Evaluation/Management Phys ician 11-20 Mins Completed Medical Devices Description No Information Available Encounters Type Date Location Provider Dx Diagnosis Office Visit 02/16/2021 10:30a Main office - [place] Alessandro pierre M.D. G62.9 Polyneuropathy, unspecified I73.9 Peripheral vascular disease, unspecified M79.602 Pain in left arm M79.605 Pain in left leg Assessments Date Code Description Provider 03/09/2021 G62.9 Polyneuropathy, unspecified Gael Brice M.D. 03/09/2021 G62.9 Polyneuropathy, unspecified Ans/ VS [...] leg Alessandro Brice M.D. Plan of Treatment No Information Available Functional Status Description No Information Available Mental Status Description No Information Available Referrals Description No Information Available
--- OUTSIDE RECORDS SUMMARY | 2021-08-14 11:05 | CCD ---
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 Name Role Phone Checo Whiting MD Unavailable Unavailable Checo Whiting MD Unavailable Unavailable Checo Whiting MD Unavailable Unavailable Checo Whiting MD Unavailable Unavailable Checo Whiting MD Unavailable Unavailable Checo Whiting MD Unavailable Unavailable Checo Whiting MD Unavailable Unavailable Checo Whiting MD Unavailable Unavailable Checo Whiting MD Unavailable Unavailable Checo Whiting MD Unavailable Unavailable Checo Whiting MD Unavailable Unavailable Checo Whiting MD Unavailable Unavailable Checo Whiting MD Unavailable Unavailable Checo Whiting MD Unavailable Unavailable Checo Whiting MD Unavailable Unavailable Checo Whiting MD Unavailable Unavailable Checo Whiting MD Unavailable Unavailable Checo Whiting MD Unavailable Unavailable Checo Whiting MD Unavailable Unavailable Checo Whiting MD Unavailable Unavailable Checo Whiting MD Unavailable Unavailable Checo Whiting MD Unavailable Unavailable Checo Whiting MD Unavailable Unavailable Checo Whiting MD Unavailable Unavailable Checo Whiting MD Unavailable Unavailable Checo Whiting MD Unavailable Unavailable Checo Whiting MD Unavailable Unavailable Checo Whiting MD Unavailable Unavailable Checo Whiting MD Unavailable Unavailable Checo Whiting MD Unavailable Unavailable Checo Whiting MD Unavailable Unavailable Checo Whiting MD Unavailable Unavailable Checo Whiting MD Unavailable Unavailable MtanosCheco MD Unavailable Unavailable MtanosCheco MD Unavailable Unavailable MtanosCheco MD Unavailable Unavailable MtanosCheco MD Unavailable Unavailable MtanosCheco MD Unavailable Unavailable MtanosCheco MD Unavailable Unavailable MtanosCheco MD Unavailable Unavailable MtanosCheco MD Unavailable Unavailable MtanosCheco MD Unavailable Unavailable MtanosCheco MD Unavailable Unavailable MtanosCheco MD Unavailable Unavailable MtanosCheco MD Unavailable Unavailable MtanosCheco MD Unavailable Unavailable Mtanos, Checo VARELA Unavailable Unavailable MtanosCheco MD Unavailable Unavailable MtanosCheco MD Unavailable Unavailable MtanosCheco MD Unavailable Unavailable MtanosCheco MD Unavailable Unavailable MtanosCheco MD Unavailable Unavailable MtanosCheco MD Unavailable Unavailable MtanosCheco MD Unavailable Unavailable MtanosCheco MD Unavailable Unavailable MtanosCheco MD Unavailable Unavailable MtanosCheco MD Unavailable Unavailable MtanosCheco MD Unavailable Unavailable MtanosCheco MD Unavailable Unavailable MtanosCheco MD Unavailable Unavailable MtanosCheco MD Unavailable Unavailable MtanosCheco MD Unavailable Unavailable MtanosCheco MD Unavailable Unavailable MtanosCheco MD Unavailable Unavailable MtanosCheco MD Unavailable Unavailable MtanosCheco MD Unavailable Unavailable MtanosCheco MD Unavailable Unavailable MtanosCheco MD Unavailable Unavailable MtanosCheco MD Unavailable Unavailable MtanosCheco MD Unavailable Unavailable MtanosCheco MD Unavailable Unavailable MtanosCheco MD Unavailable Unavailable MtanosCheco MD Unavailable Unavailable MtanoCheco graves MD Unavailable Unavailable MtanosCheco MD Unavailable Unavailable MtanosCheco MD Unavailable Unavailable MtanosCheco MD Unavailable Unavailable MtanosCheco MD Unavailable Unavailable MtanosCheco MD Unavailable Unavailable MtanosCheco MD Unavailable Unavailable MtanosCheco MD Unavailable Unavailable MtanosCheco MD Unavailable Unavailable MtanosCheco MD Unavailable Unavailable MtanosCheco MD Unavailable Unavailable MtanosCheco MD Unavailable Unavailable MtanosCheco MD Unavailable Unavailable MtanosCheco MD Unavailable Unavailable MtanosCheco MD Unavailable Unavailable MtanosCheco MD Unavailable Unavailable MtanosCheco MD Unavailable Unavailable MtanosCheco MD Unavailable Unavailable MtanosCheco MD Unavailable Unavailable MtanosCheco MD Unavailable Unavailable MtanosCheco MD Unavailable Unavailable MtanosCheco MD Unavailable Unavailable MtanosCheco MD Unavailable Unavailable Mtanos Checo MD Unavailable Unavailable MtaCheco wong MD Unavailable Unavailable MtaCheco wong MD Unavailable Unavailable MtanoCheco graves MD Unavailable Unavailable MtanoCheco graves MD Unavailable Unavailable MtanoCheco graves MD Unavailable Unavailable MtanoCheco graves MD Unavailable Unavailable MtanoCheco graves MD Unavailable Unavailable MtanoCheco graves MD Unavailable Unavailable MtanoCheco graves MD Unavailable Unavailable MtanoCheco graves MD Unavailable Unavailable PICKERAL JR, J ROGELIO PA-C Unavailable Unavailable PICKERAL JR, J ROGELIO PA-C Unavailable Unavailable PICKERAL JR, J ROGELIO PA-C Unavailable Unavailable PICKERAL JR, J ROGELIO PA-C Unavailable Unavailable PICKERAL JR, J ROGELIO PA-C Unavailable Unavailable PICKERAL JR, J ROGELIO PA-C Unavailable Unavailable PICKERAL JR, J ROGELIO PA-C Unavailable Unavailable PICKERAL JR, J ROGELIO PA-C Unavailable Unavailable PICKERAL JR, J ROGELIO PA-C Unavailable Unavailable PICKERAL JR, J ROGELIO PA-C Unavailable Unavailable PICKERAL JR, J ROGELIO PA-C Unavailable Unavailable PICKERAL JR, J ROGELIO PA-C Unavailable Unavailable PICKERAL JR, J ROGELIO PA-C Unavailable Unavailable PICKERAL JR, J ROGELIO PA-C Unavailable Unavailable PICKERAL JR, J ROGELIO PA-C Unavailable Unavailable PICKERAL JR, J ROGELIO PA-C Unavailable Unavailable PICKERAL JR, J ROGELIO PA-C Unavailable Unavailable PICKERAL JR, J ROGELIO PA-C Unavailable Unavailable PICKERAL JR, J ROGELIO PA-C Unavailable Unavailable PICKERAL JR, J ROGELIO PA-C Unavailable Unavailable PICKERAL JR, J ROGELIO PA-C Unavailable Unavailable PICKERAL JR, J ROGELIO PA-C Unavailable Unavailable PICKERAL JR, J ROGELIO PA-C Unavailable Unavailable PICKERAL JR, J ROGELIO PA-C Unavailable Unavailable PICKERAL JR, J ROGELIO PA-C Unavailable Unavailable PICKERAL JR, J ROGELIO PA-C Unavailable Unavailable PICKERAL JR, J ROGELIO PA-C Unavailable Unavailable Grabiel Brian MD Unavailable Unavailable Grabiel Brian MD Unavailable Unavailable Grabiel Brian MD Unavailable Unavailable Grabiel Brian MD Unavailable Unavailable Grabiel Brian MD Unavailable Unavailable Grabiel Brian MD Unavailable Unavailable Grabiel Brian MD Unavailable Unavailable Grabiel Brian MD Unavailable Unavailable Grabiel Brian MD Unavailable Unavailable Grabiel Brian MD Unavailable Unavailable Grabiel Brian MD Unavailable Unavailable Grabiel Brian MD Unavailable Unavailable Grabiel Brian MD Unavailable Unavailable SnehalGrabiel MD Unavailable Unavailable SnehalGrabiel MD Unavailable Unavailable UnadillaGrabiel MD Unavailable Unavailable SnehalGrabiel MD Unavailable Unavailable UnadillaGrabiel MD Unavailable Unavailable UnadillaGrabiel MD Unavailable Unavailable SnehalGrabiel MD Unavailable Unavailable SnehalGrabiel MD Unavailable Unavailable SnehalGrabiel MD Unavailable Unavailable UnadillaGrabiel MD Unavailable Unavailable SnehalGrabiel MD Unavailable Unavailable SnehalGrabiel MD Unavailable Unavailable UnadillaGrabiel MD Unavailable Unavailable UnadillaGrabiel MD Unavailable Unavailable UnadillaGrabiel MD Unavailable Unavailable UnadillaGrabiel MD Unavailable Unavailable SnehalGrabiel MD Unavailable Unavailable SnehalGrabiel MD Unavailable Unavailable UnadillaGrabiel MD Unavailable Unavailable UnadillaGrabiel MD Unavailable Unavailable UnadillaGrabiel MD Unavailable Unavailable SnehalGrabiel MD Unavailable Unavailable UnadillaGrabiel MD Unavailable Unavailable SnehalGrabiel MD Unavailable Unavailable UnadillaGrabiel MD Unavailable Unavailable UnadillaGrabiel MD Unavailable Unavailable UnadillaGrabiel MD Unavailable Unavailable UnadillaGrabiel MD Unavailable Unavailable UnadillaGrabiel MD Unavailable Unavailable UnadillaGrabiel MD Unavailable Unavailable SnehalGrabiel MD Unavailable Unavailable UnadillaGrabiel MD Unavailable Unavailable SnehalGrabiel MD Unavailable Unavailable UnadillaGrabiel MD Unavailable Unavailable UnadillaGrabiel MD Unavailable Unavailable SnehalGrabiel miller MD Unavailable Unavailable SnehalGrabiel MD Unavailable Unavailable SnehalGrabiel MD Unavailable Unavailable SnehalGrabiel MD Unavailable Unavailable UnadillaGrabiel MD Unavailable Unavailable UnadillaGrabiel MD Unavailable Unavailable UnadillaGrabiel MD Unavailable Unavailable UnadillaGrabiel MD Unavailable Unavailable SnehalGrabiel MD Unavailable Unavailable UnadillaGrabiel MD Unavailable Unavailable SnehalGrabiel MD Unavailable Unavailable UnadillaGrabiel MD Unavailable Unavailable UnadillaGrabiel MD Unavailable Unavailable UnadillaGrabiel MD Unavailable Unavailable SnehalGrabiel MD Unavailable Unavailable UnadillaGrabiel MD Unavailable Unavailable SnehalGrabiel MD Unavailable Unavailable SnehalGrabiel MD Unavailable Unavailable UnadillaGrabiel MD Unavailable Unavailable SnehalGarbiel MD Unavailable Unavailable SnehalGrabiel MD Unavailable Unavailable Grabiel Brian MD Unavailable Unavailable Grabiel Brian MD Unavailable Unavailable Grabiel Brian MD Unavailable Unavailable Grabiel Brian MD Unavailable Unavailable Grabiel Brian MD Unavailable Unavailable Grabiel Brian MD Unavailable Unavailable SnehalGrabiel miller MD Unavailable Unavailable Grabiel Brian MD Unavailable Unavailable UnadillaGrabiel miller MD Unavailable Unavailable Grabiel Brian MD Unavailable Unavailable Grabiel Brian MD Unavailable Unavailable Grabiel Brian MD Unavailable Unavailable Grabiel Brian MD Unavailable Unavailable Grabiel Brian MD Unavailable Unavailable Grabiel Brian MD Unavailable Unavailable UnadillaGrabiel miller MD Unavailable Unavailable SnehalGrabiel miller MD Unavailable Unavailable Machovec, B Cami PA-C Unavailable Unavailable Machovec, B Cami PA-C Unavailable Unavailable Machovec, B Cami PA-C Unavailable Unavailable Machovec, B Cami PA-C Unavailable Unavailable Machovec, B Cami PA-C Unavailable Unavailable Machovec, B Cami PA-C Unavailable Unavailable Machovec, B Cami PA-C Unavailable Unavailable Machovec, B Cami PA-C Unavailable Unavailable Machovec, B Cami PA-C Unavailable Unavailable Machovec, B Cami PA-C Unavailable Unavailable Machovec, B Cami PA-C Unavailable Unavailable Machovec, B Cami PA-C Unavailable Unavailable Machovec, B Cami PA-C Unavailable Unavailable Machovec, B Cami PA-C Unavailable Unavailable Machovec, B Cami PA-C Unavailable Unavailable Machovec, B Cami PA-C Unavailable Unavailable Machovec, B Cami PA-C Unavailable Unavailable Machovec, B Cami PA-C Unavailable Unavailable Machovec, B Cami PA-C Unavailable Unavailable Machovec, B Cami PA-C Unavailable Unavailable Machovec, B Cami PA-C Unavailable Unavailable Machovec, B Cami PA-C Unavailable Unavailable Machovec, B Cami PA-C Unavailable Unavailable Machovec, B Cami PA-C Unavailable Unavailable Machovec, B Cami PA-C Unavailable Unavailable Machovec, B Cami PA-C Unavailable Unavailable Machovec, B Cami PA-C Unavailable Unavailable Machovec, B Cami PA-C Unavailable Unavailable Machovec, B Cami PA-C Unavailable Unavailable Machovec, B Cami PA-C Unavailable Unavailable Machovec, B Cami PA-C Unavailable Unavailable Machovec, B Cami PA-C Unavailable Unavailable Machovec, B Cami PA-C Unavailable Unavailable Machovec, B Cami PA-C Unavailable Unavailable Machovec, B Cami PA-C Unavailable Unavailable Machovec, B Cami PA-C Unavailable Unavailable Machovec, B Cami PA-C Unavailable Unavailable Machovec, B Cami PA-C Unavailable Unavailable Machovec, B Cami PA-C Unavailable Unavailable Machovec, B Cami PA-C Unavailable Unavailable Machovec, B Cami PA-C Unavailable Unavailable Machovec, B Cami PA-C Unavailable Unavailable Machovec, B Cami PA-C Unavailable Unavailable Machovec, B Cami PA-C Unavailable Unavailable Machovec, B Cami PA-C Unavailable Unavailable Machovec, B Cami PA-C Unavailable Unavailable Machovec, B Cami PA-C Unavailable Unavailable Machovec, B Cami PA-C Unavailable Unavailable Machovec, B Cami PA-C Unavailable Unavailable Machovec, B Cami PA-C Unavailable Unavailable Machovec, B Cami PA-C Unavailable Unavailable Machovec, B Cami PA-C Unavailable Unavailable Machovec, B Cami PA-C Unavailable Unavailable Machovec, B Cami PA-C Unavailable Unavailable Machovec, B Cami PA-C Unavailable Unavailable Machovec, B Cami PA-C Unavailable Unavailable Machovec, B Cami PA-C Unavailable Unavailable Sylvia, Naty Ruiz PAYLOADER MACHINE OPERATOR-C Unavailable Unavailabl e Sylvia, Naty Ruiz PAYLOADER MACHINE OPERATOR-C Unavailable Unavailabl e Sylvia, Naty Ruiz PAYLOADER MACHINE OPERATOR-C Unavailable Unavailabl e Sylvia, Naty Ruiz PAYLOADER MACHINE OPERATOR-C Unavailable Unavailabl e Sylvia, Naty Ruzi PAYLOADER MACHINE OPERATOR-C Unavailable Unavailabl e Sylvia, Naty Ruiz PAYLOADER MACHINE OPERATOR-C Unavailable Unavailabl e Sylvia, Naty Ruiz PAYLOADER MACHINE OPERATOR-C Unavailable Unavailabl e Sylvia, Naty Ruiz PAYLOADER MACHINE OPERATOR-C Unavailable Unavailabl e Sylvia, Naty Ruiz PAYLOADER MACHINE OPERATOR-C Unavailable Unavailabl e Sylvia, Naty Ruiz PAYLOADER MACHINE OPERATOR-C Unavailable Unavailabl e Sylvia, Naty Ruiz PAYLOADER MACHINE OPERATOR-C Unavailable Unavailabl e Sylvia, Naty Ruiz PAYLOADER MACHINE OPERATOR-C Unavailable Unavailabl e Sylvia, Naty Ruiz PAYLOADER MACHINE OPERATOR-C Unavailable Unavailabl e Sylvia, Naty Ruiz PAYLOADER MACHINE OPERATOR-C Unavailable Unavailabl e Sylvia, Naty Ruiz PAYLOADER MACHINE OPERATOR-C Unavailable Unavailabl e Sylvia, Naty Ruiz PAYLOADER MACHINE OPERATOR-C Unavailable Unavailabl e Sylvia, Naty Ruiz PAYLOADER MACHINE OPERATOR-C Unavailable Unavailabl e Sylvia, Naty Ruiz PAYLOADER MACHINE OPERATOR-C Unavailable Unavailabl e Sylvia, Naty Ruiz PAYLOADER MACHINE OPERATOR-C Unavailable Unavailabl e Sylvia, Naty Ruiz PAYLOADER MACHINE OPERATOR-C Unavailable Unavailabl e Sylvia, Naty Ruiz PAYLOADER MACHINE OPERATOR-C Unavailable Unavailabl e Sylvia, Naty Ruiz PAYLOADER MACHINE OPERATOR-C Unavailable Unavailabl e Sylvia, Naty Ruiz PAYLOADER MACHINE OPERATOR-C Unavailable Unavailabl e Sylvia, Naty Ruiz PAYLOADER MACHINE OPERATOR-C Unavailable Unavailabl e Sylvia, Naty Ruiz PAYLOADER MACHINE OPERATOR-C Unavailable Unavailabl e Sylvia, Naty Ruiz PAYLOADER MACHINE OPERATOR-C Unavailable Unavailabl e Sylvia, Naty Ruiz PAYLOADER MACHINE OPERATOR-C Unavailable Unavailabl e Sylvia, Naty Ruiz PAYLOADER MACHINE OPERATOR-C Unavailable Unavailabl e Sylvia, Naty Ruiz PAYLOADER MACHINE OPERATOR-C Unavailable Unavailabl e Sylvia, Naty Ruiz PAYLOADER MACHINE OPERATOR-C Unavailable Unavailabl e Sylvia, Naty Ruiz PAYLOADER MACHINE OPERATOR-C Unavailable Unavailabl e Sylvia, Naty Ruiz PAYLOADER MACHINE OPERATOR-C Unavailable Unavailabl e Sylvia, Naty Ruiz PAYLOADER MACHINE OPERATOR-C Unavailable Unavailabl e Sylvia, Naty Ruiz PAYLOADER MACHINE OPERATOR-C Unavailable Unavailabl e Sylvia, Naty Ruiz PAYLOADER MACHINE OPERATOR-C Unavailable Unavailabl e Sylvia, Naty Ruiz PAYLOADER MACHINE OPERATOR-C Unavailable Unavailabl e Sylvia, Naty Ruiz PAYLOADER MACHINE OPERATOR-C Unavailable Unavailabl e Sylvia, Naty Ruiz PAYLOADER MACHINE OPERATOR-C Unavailable Unavailabl e Sylvia, Naty Ruiz PAYLOADER MACHINE OPERATOR-C Unavailable Unavailabl e Sylvia, Naty Ruiz PAYLOADER MACHINE OPERATOR-C Unavailable Unavailabl e Sylvia, Naty Ruiz PAYLOADER MACHINE OPERATOR-C Unavailable Unavailabl e Sylvia, Naty Ruiz PAYLOADER MACHINE OPERATOR-C Unavailable Unavailabl e Sylvia, Naty Ruiz PAYLOADER MACHINE OPERATOR-C Unavailable Unavailabl e Sylvia, Naty Sara PAYLOADER MACHINE OPERATOR-C Unavailable Unavailabl e Sylvia, Naty Harrisnifer PAYLOADER MACHINE OPERATOR-C Unavailable Unavailabl e Sylvia, Naty Harrisnifer PAYLOADER MACHINE OPERATOR-C Unavailable Unavailabl e Sylvia, Naty العراقيfer PAYLOADER MACHINE OPERATOR-C Unavailable Unavailabl e Sylvia, Naty العراقيfer PAYLOADER MACHINE OPERATOR-C Unavailable Unavailabl e Sylvia, Naty Harrisnifer PAYLOADER MACHINE OPERATOR-C Unavailable Unavailabl e Sylvia, Naty Harrisnifer PAYLOADER MACHINE OPERATOR-C Unavailable Unavailabl e Sylvia, Naty Harrisnifer PAYLOADER MACHINE OPERATOR-C Unavailable Unavailabl e NASH, VERNA PA Unavailable Unavailable NASH, VERNA PA Unavailable Unavailable NASH, VERNA PA Unavailable Unavailable NASH, VERNA PA Unavailable Unavailable NASH, VERNA PA Unavailable Unavailable NASH, VERNA PA Unavailable Unavailable NASH, VERNA PA Unavailable Unavailable NASH, VERNA PA Unavailable Unavailable NASH, VERNA PA Unavailable Unavailable NASH, VERNA PA Unavailable Unavailable NASH, VERNA PA Unavailable Unavailable NASH, VERNA PA Unavailable Unavailable NASH, VERNA PA Unavailable Unavailable NASH, VERNA PA Unavailable Unavailable NASH, VERNA PA Unavailable Unavailable NASH, VERNA PA Unavailable Unavailable NASH, VERNA PA Unavailable Unavailable NASH, VERNA PA Unavailable Unavailable NASH, VERNA PA Unavailable Unavailable NASH, VERNA PA Unavailable Unavailable NASH, VERNA PA Unavailable Unavailable NASH, VERNA PA Unavailable Unavailable NASH, VERNA PA Unavailable Unavailable NASH, VERNA PA Unavailable Unavailable NASH, VERNA PA Unavailable Unavailable NASH, VERNA PA Unavailable Unavailable NASH, VERNA PA Unavailable Unavailable NASH, VERNA PA Unavailable Unavailable NASH, VERNA PA Unavailable Unavailable NASH, VERNA PA Unavailable Unavailable NASH, VERNA PA Unavailable Unavailable NASH, VERNA PA Unavailable Unavailable NASH, VERNA PA Unavailable Unavailable NASH, VERNA PA Unavailable Unavailable NASH, VERNA PA Unavailable Unavailable NASH, VERNA PA Unavailable Unavailable Flor Javed MD Unavailable Unavailable Flor Javed MD Unavailable Unavailable Flor Javed MD Unavailable Unavailable Flor Javed MD Unavailable Unavailable Flor Javed MD Unavailable Unavailable Flor Javed MD Unavailable Unavailable Flor Javed MD Unavailable Unavailable Flor Javed MD Unavailable Unavailable Flor Javed MD Unavailable Unavailable Flor Javed MD Unavailable Unavailable Flor Javed MD Unavailable Unavailable Flor Javed MD Unavailable Unavailable Flor Javed MD Unavailable Unavailable Flor Javed MD Unavailable Unavailable Flor Javed MD Unavailable Unavailable Flor Javed MD Unavailable Unavailable Flor Javed MD Unavailable Unavailable Flor Javed MD Unavailable Unavailable Flor Javed MD Unavailable Unavailable Flor Javed MD Unavailable Unavailable Flor Javed MD Unavailable Unavailable Flor Javed MD Unavailable Unavailable Flor Javed MD Unavailable Unavailable Flor Javed MD Unavailable Unavailable Flor Javed MD Unavailable Unavailable Flor Javed MD Unavailable Unavailable Flor Javed MD Unavailable Unavailable Flor Javed MD Unavailable Unavailable Flor Javed MD Unavailable Unavailable Flor Javed MD Unavailable Unavailable Flor Javed MD Unavailable Unavailable Flor Javed MD Unavailable Unavailable Flor Javed MD Unavailable Unavailable Flor Javed MD Unavailable Unavailable Flor Javed MD Unavailable Unavailable Flor Javed MD Unavailable Unavailable Flor Javed MD Unavailable Unavailable Flor Javed MD Unavailable Unavailable Flor Javed MD Unavailable Unavailable Flor Javed MD Unavailable Unavailable Flor Javed MD Unavailable Unavailable Flor Javed MD Unavailable Unavailable Flor Javed MD Unavailable Unavailable Flor Javed MD Unavailable Unavailable Flor Javed MD Unavailable Unavailable Flor Javed MD Unavailable Unavailable Flor Javed MD Unavailable Unavailable Flor Javed MD Unavailable Unavailable Flor Javed MD Unavailable Unavailable Flor Javed MD Unavailable Unavailable Flor Javed MD Unavailable Unavailable Tello, O Samah MD Unavailable Unavailable Tello, O Samah MD Unavailable Unavailable Tello, O Samah MD Unavailable Unavailable Tello, O Samah MD Unavailable Unavailable Tello, O Samah MD Unavailable Unavailable Tello, O Samah MD Unavailable Unavailable Tello, O Samah MD Unavailable Unavailable Tello, O Samah MD Unavailable Unavailable Tello, O Samah MD Unavailable Unavailable Tello, O Samah MD Unavailable Unavailable Tello, O Samah MD Unavailable Unavailable Tello, O Samah MD Unavailable Unavailable Tello, O Samah MD Unavailable Unavailable Tello, O Samah MD Unavailable Unavailable Tello, O Samah MD Unavailable Unavailable Tello, O Samah MD Unavailable Unavailable Tello, O Samah MD Unavailable Unavailable Tello, O Samah MD Unavailable Unavailable Tello, O Samah MD Unavailable Unavailable Tello, O Samah MD Unavailable Unavailable Tello, O Samah MD Unavailable Unavailable Tello, O Samah MD Unavailable Unavailable Tello, O Samah MD Unavailable Unavailable Tello, O Samah MD Unavailable Unavailable Tello, O Samah MD Unavailable Unavailable Tello, O Samah MD Unavailable Unavailable Tello, O Samah MD Unavailable Unavailable Tello, O Samah MD Unavailable Unavailable Re-disclosure Warning The records that you are about to access may contain information from federally-assisted alcohol or drug abuse programs. If such information is present, then the following federally mandated warning applies: This information has been disclosed to you from records protected by federal confidentiality rules (42 CFR part 2). The federal rules prohibit you from making any further disclosure of this information unless further disclosure is expressly permitted by the written consent of the person to whom it pertains or as otherwise permitted by 42 CFR part 2. A general authorization for the release of medical or other information is NOT sufficient for this purpose. The Federal rules restrict any use of the information to criminally investigate or prosecute any alcohol or drug abuse patient.The records that you are about to access may contain highly sensitive health information, the redisclosure of which is protected by Article 27-F of the [place] State Public Health law. If you continue you may have access to information: Regarding HIV / AIDS; Provided by facilities licensed or operated by the [facility] Office of Mental Health; or Provided by the [facility] Office for People With Developmental Disabilities. If such information is present, then the following [facility] mandated warning applies: This information has been disclosed to you from confidential records which are protected by state law. State law prohibits you from making any further disclosure of this information without the specific written consent of the person to whom it pertains, or as otherwise permitted by law. Any unauthorized further disclosure in violation of state law may result in a fine or senior living sentence or both. A general authorization for the release of medical or other information is NOT sufficient authorization for further disc losure. Family History Family Member Name Family Member Gender Family Member Status Date o f Status Description Data Source(s) Unknown Unknown Problem MEDENT ([facility]) Unknown Unknown Problem [facility] ([facility]) Unknown Female Problem (finding) 07/15/2012 12:00:00 AM EDT NextGen ([facility]) Unknown Female Problem MED[facility] ([facility]) Unknown Male Problem MEDENT ([facility]) Unknown Male Problem MEDENT ([facility]) Encounters Encounter Providers Location Date Indications Data Source(s ) Office Visit Attender: Alessandro Javed MD [facility] office - [facility] 06/04/2021 12:30:00 PM EDT [facility] ([facility]) Outpatient Attender: Jeferson Zhou 0 03/12/2021 02:30:00 PM EDT [facility] ([facility] ) Outpatient [address] [address] 02/22/2021 12:00:00 AM EDT eCW1 ([facility]) Outpatient Attender: ROGELIO Zhou 0 02/16/2021 03:00:00 PM EDT [facility] ([facility] ) Office Visit Attender: Alessandro Javed MD [facility] office - [facility] 02/16/2021 10:30:00 AM EDT [facility] ([facility]) Attender: Checo Whiting MD [facility] 02/14/2021 11:28:00 AM EDT - 02/14/2021 11:28:00 AM EDT [facility] ( [facility]) Attender: [facility] Wh[facility] 02/13/2021 12:01:00 PM EDT - 02/13/2021 12:01:00 PM EDT [facility] ( [facility]) Attender: Checo Whiting [facility] 02/09/2021 09:20:00 AM EDT - 02/09/2021 09:20:00 AM EDT [facility] ( [facility]) Attender: Cami Zimmer PA-C [facility] 12/18/2020 03:09:00 PM EDT - 12/18/2020 03:09:00 PM EDT [facility] ( [facility]) Attender: Sara RECINOS [facility] 12/14/2020 03:00:00 PM EDT - 12/14/2020 03:00:00 PM EDT [facility] ( [facility]) Attender: Cami Zimmer PA-C [facility] 12/11/2020 11:13:00 AM EDT - 12/11/2020 11:13:00 AM EDT [facility] ( [facility]) OutpatientOFFICE/OUTPATIENT VISIT, EST Attender: Cami Simon PA-C [facility] 11/27/2020 11:00:00 AM EDT - 11/27/2020 11:00:00 AM ED T Other alf (current) drug therapyRheumatoid arthritis without rheumatoid factor, multiple sites [facility] ([facility]) Other alf (current) drug therapy Rheumatoid arthritis without rheumatoid factor, multiple sites Attender: Checo Whiting MD [facility] 11/16/2020 10:05:00 AM EST - 11/16/2020 10:05:00 AM EST [facility] ( [facility]) Office Visit Attender: Alessandro Javed MD Main office - [facility] 11/13/2020 01:00:00 PM EST [facility] ([facility], ) Outpatient Attender: Jeferson Zhou 0 11/01/2020 09:00:00 AM EST [facility] ([facility] ) Attender: Checo Whiting [facility] 10/23/2020 10:47:00 AM EST - 10/23/2020 10:47:00 AM EST [facility] ( [facility]) Attender: Cami Zimmer PA-C [facility] 10/16/2020 10:55:00 AM EST - 10/16/2020 10:55:00 AM EST [facility] ( [facility]) Outpatient Attender: VERNA medrano 10/02/2020 02:00:00 PM EST [facility] ([facility]) Attender: Cami Zimmer PA-C [facility] 09/26/2020 12:31:00 PM EST - 09/26/2020 12:31:00 PM EST [facility] ( [facility]) Attender: Cami Zimmer PA-C [facility] 09/25/2020 03:35:00 PM EST - 09/25/2020 03:35:00 PM EST [facility] ( [facility]) Attender: Cami Zimmer PA-C [facility] 09/05/2020 09:37:00 AM EST - 09/05/2020 09:37:00 AM EST [facility] ( [facility]) OFFICE/OUTPATIENT VISIT, ESTOutpatient Attender: Checo valverde MD 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 08/17/2020 11:40:00 AM EST - 08/17/2020 11:40:00 AM EST [facility] ( [facility]) Office Visit Attender: Alessandro Javed MD Main office - [facility] 08/14/2020 12:45:00 PM EST [facility] ([facility] devine) Attender: Cami Zimmer PA-C [facility] 08/09/2020 01:55:00 PM EST - 08/09/2020 01:55:00 PM EST [facility] ( [facility]) Attender: Checo Whiting MD [facility] 07/28/2020 10:00:00 AM EST - 07/28/2020 10:00:00 AM EST [facility] ( [facility]) Attender: Cami Zimmer PA-C [facility] 07/17/2020 09:02:00 AM EST - 07/17/2020 09:02:00 AM EST [facility] ( [facility]) Outpatient Attender: Jeferson Molina 10:20:00 AM EDT [facility] ([facility] ) Office Visit, Est Pt., Level [address] [place] [address] 06/21/2020 12:00:00 AM EDT [email or web address] ([facility]) Immunizations Vaccine Date Status Description Data Source(s) COVID-19 VACCINE Pfizer 12/06/2020 12:00:00 AM EDT completed [facility] Vaccine Series Complete: NOThis Data was Submitted to [facility] Via [employer]. Covid 19 Pfizer Vaccine 11/15/2020 12:00:00 AM EST completed Covid 19 Pfizer Vaccine [facility] ([facility]) Source: Other Provider COVID-19 VACCINE Pfizer 11/15/2020 12:00:00 AM EST completed [facility] Vaccine Series Complete: NOThis Data was Submitted to [facility] Via [employer]. Shingrix Zoster Vaccine (HZV), Recombinant, Subunit, A djuvanted 07/03/2020 11:24:00 AM EDT completed [facility] ([facility]) IIV3. This is one of two codes replacing CVX 15, which is being retired. 06/30/2020 12:00:00 AM EDT completed Historical Influenza Vaccine [facility] ([facility]) Source: Other Provider Influenza, injectable, MDCK, preservative free, vivien valent 06/26/2020 10:31:00 AM EDT completed [facility] ([facility]) Medications Medication Brand Name Start Date Product Form Dose Route Admi nistrative Instructions Pharmacy Instructions Status Indications Reaction Description Data Source(s) [facility]07[facility] 12:00:00 AM EDT misc 200 USE TWO TIMES A DAY OR DIRECTED USE TWO TIMES A DAY OR DIRECTED SOLD: 07/09/2021 [facility] BLOOD SUGAR DIAGNOSTIC 07/07/2021 12:00:00 AM EDT strip 200 TEST TWO TIMES A DAY TEST TWO TIMES A DAY SOLD: 07/09/2021 [facility] 240 mcg/0.7 mL 07/01/2021 12:00:00 AM EDT syringe 0 INJECT DIRECTED INJECT DIRECTED SOLD: 07/01/2021 [facility] 100 mg 06/19/2021 12:00:00 AM EDT capsule 30 TAKE ONE CAPSULE BY MOUTH EVERY DAY TAKE ONE CAPSULE BY MOUTH EVERY DAY SOLD: 06/19/2021 [facility] 5 mg 06/19/2021 12:00:00 AM EDT tablet 90 TAKE 2TABS.BY MOUTH DAILY X5DAYS THEN 1&1/2TABS. DAILY FOR 5 DAYS THEN 1 DAILY TAKE 2TABS.BY MOUTH DAILY X5DAYS THEN 1&1/2TABS. DAILY FOR 5 DAYS THEN 1 DAILY SOLD: 06/19/2021 [facility] Hydroxychloroquine Sulfate 200 MG Oral Tablet HYDROXYCHLOROQ UINE SULFATE 06/19/2021 12:00:00 AM EDT tablet 90 TAKE ONE TABLE T BY MOUTH EVERY DAY TAKE ONE TABLET BY MOUTH EVERY DAY SOLD: 06/19/2021 [facility] 100 mg 06/19/2021 12:00:00 AM EDT capsule 30 TAKE ONE CAPSULE BY MOUTH EVERY DAY TAKE ONE CAPSULE BY MOUTH EVERY DAY SOLD: 07/21/2021 [facility] 1 mg 06/05/2021 12:00:00 AM EDT tablet 54 TAKE ONE TABLET BY MOUTH TWICE A DAY TAKE ONE TABLET BY MOUTH TWICE A DAY SOLD: 06/06/2021 [facility] 1 mg 06/05/2021 12:00:00 AM EDT tablet 60 TAKE ONE TABLET BY MOUTH TWICE A DAY TAKE ONE TABLET BY MOUTH TWICE A DAY SOLD: 08/08/2021 [facility] 1 mg 06/05/2021 12:00:00 AM EDT tablet 60 TAKE ONE TABLET BY MOUTH TWICE A DAY TAKE ONE TABLET BY MOUTH TWICE A DAY SOLD: 07/11/2021 [facility] 50 mcg 05/17/2021 12:00:00 AM EDT tablet 90 TAKE ONE TABLET BY MOUTH EVERY DAY TAKE ONE TABLET BY MOUTH EVERY DAY SOLD: 05/17/2021 [facility] 500 mg 05/17/2021 12:00:00 AM EDT tablet 180 TAKE TWO TABLETS BY MOUTH THREE TIMES A DAY AFTER MEALS TAKE TWO TABLETS BY MOUTH THREE TIMES A DAY AFTER MEAL S SOLD: 05/17/2021 [facility] atorvastatin 10 MG Oral Tablet ATORVASTATIN CALCIUM 05/03/2021 1 2:00:00 AM EDT tablet 90 TAKE ONE TABLET BY MOUTH EVERY D AY TAKE ONE TABLET BY MOUTH EVERY DAY SOLD: 05/04/2021 [facility] atorvastatin 10 MG Oral Tablet ATORVASTATIN CALCIUM 05/03/2021 1 2:00:00 AM EDT tablet 90 TAKE ONE TABLET BY MOUTH EVERY D AY TAKE ONE TABLET BY MOUTH EVERY DAY SOLD: 08/08/2021 [facility] 20 mg 05/02/2021 12:00:00 AM EDT capsule,delayed release (DR/EC) 30 TAKE ONE CAPSULE BY MOUTH EVERY DAY TAKE ONE CAPSULE BY MOUTH EVERY DAY SOLD: 05/03/2021 [facility] 20 mg 05/02/2021 12:00:00 AM EDT capsule,delayed release (DR/EC) 30 TAKE ONE CAPSULE BY MOUTH EVERY DAY TAKE ONE CAPSULE BY MOUTH EVERY DAY SOLD: 08/08/2021 [facility] 20 mg 05/02/2021 12:00:00 AM EDT capsule,delayed release (DR/EC) 30 TAKE ONE CAPSULE BY MOUTH EVERY DAY TAKE ONE CAPSULE BY MOUTH EVERY DAY SOLD: 07/11/2021 [facility] 20 mg 05/02/2021 12:00:00 AM EDT capsule,delayed release (DR/EC) 30 TAKE ONE CAPSULE BY MOUTH EVERY DAY TAKE ONE CAPSULE BY MOUTH EVERY DAY SOLD: 06/05/2021 [facility] Hydroxychloroquine Sulfate 200 MG Oral Tablet HYDROXYCHLOROQ UINE SULFATE 03/21/2021 12:00:00 AM EDT tablet 90 TAKE ONE TABLE T BY MOUTH EVERY DAY TAKE ONE TABLET BY MOUTH EVERY DAY SOLD: 03/22/2021 [facility] 100 mg 03/16/2021 12:00:00 AM EDT capsule 30 TAKE ONE CAPSULE BY MOUTH EVERY DAY TAKE ONE CAPSULE BY MOUTH EVERY DAY SOLD: 03/16/2021 [facility] 100 mg 03/16/2021 12:00:00 AM EDT capsule 30 TAKE ONE CAPSULE BY MOUTH EVERY DAY TAKE ONE CAPSULE BY MOUTH EVERY DAY SOLD: 05/15/2021 [facility] 100 mg 03/16/2021 12:00:00 AM EDT capsule 30 TAKE ONE CAPSULE BY MOUTH EVERY DAY TAKE ONE CAPSULE BY MOUTH EVERY DAY SOLD: 04/16/2021 [facility] 500 mg 02/14/2021 12:00:00 AM EDT tablet 180 TAKE TWO TABLETS BY MOUTH EVERY DAY AFTER MEALS TAKE TWO TABLETS BY MOUTH EVERY DAY AFTER MEALS SOLD: 02/15/2021 [facility] Sulfasalazine 500 MG Oral Tablet sulfasalazine 500 mg tablet sulfasalazine 500 mg tablet 02/14/2021 12:00:00 AM EDT 2 {tbl} ORAL active take 2 Tablet by oral route every day after meals [facility] ([facility]) Sulfasalazine 500 MG Delayed Release Ora l Tablet sulfasalazine 500 mg tablet,delayed release sulfasalazine 500 mg tablet,delayed release 02/13/2021 12:00:00 AM EDT completed TAKE 2 TABLETS BY MOUTH EVERY DAY [facility] ([facility]) Sulfasalazine 500 MG Delayed Release Oral Tablet SULFA SALAZINE DR/EC [address]/EC 500 MG TAB 02/09/2021 12:00:00 AM EDT completed TAKE 2 TABLETS BY MOUTH EVERY DAY [facility] glimepiride 1 MG Oral Tablet GLIMEPIRIDE 01/02/2021 12:00:00 AM EDT ta blet 90 TAKE ONE TABLET BY MOUTH EVERY DAY BEFORE BREAKFAST TAKE ONE TABLET BY MOUTH EVERY DAY BEFORE BREAKFAST SOLD: 04/03/2021 [facility] glimepiride 1 MG Oral Tablet GLIMEPIRIDE 01/02/2021 12:00:00 AM EDT ta blet 90 TAKE ONE TABLET BY MOUTH EVERY DAY BEFORE BREAKFAST TAKE ONE TABLET BY MOUTH EVERY DAY BEFORE BREAKFAST SOLD: 07/11/2021 [facility] glimepiride 1 MG Oral Tablet GLIMEPIRIDE 01/02/2021 12:00:00 AM EDT ta blet 90 TAKE ONE TABLET BY MOUTH EVERY DAY BEFORE BREAKFAST TAKE ONE TABLET BY MOUTH EVERY DAY BEFORE BREAKFAST SOLD: 01/04/2021 [facility] BLOOD SUGAR DIAGNOSTIC 12/21/2020 12:00:00 AM EDT strip 200 TEST TWO TIMES A DAY TEST TWO TIMES A DAY SOLD: 12/22/2020 [facility] LANCETS 12/19/2020 12:00:00 AM EDT misc 204 USE TWO TIMES A DAY OR DIRECTED USE TWO TIMES A DAY OR DIRECTED SOLD: 12/20/2020 [facility] 100 mg 12/18/2020 12:00:00 AM EDT capsule 30 TAKE ONE CAPSULE BY MOUTH EVERY DAY TAKE ONE CAPSULE BY MOUTH EVERY DAY SOLD: 01/16/2021 [facility] 100 mg 12/18/2020 12:00:00 AM EDT capsule 30 TAKE ONE CAPSULE BY MOUTH EVERY DAY TAKE ONE CAPSULE BY MOUTH EVERY DAY SOLD: 02/17/2021 [facility] Minocycline 100 MG Oral Capsule minocycline 100 mg cap klever minocycline 100 mg capsule 12/18/2020 12:00:00 AM EDT active TAKE ONE CAPSULE BY MOUTH EVERY DAY [facility] ([facility]) 100 mg 12/18/2020 12:00:00 AM EDT capsule 30 TAKE ONE CAPSULE BY MOUTH EVERY DAY TAKE ONE CAPSULE BY MOUTH EVERY DAY SOLD: 12/19/2020 [facility] Minocycline 100 MG Oral Capsule minocycline 100 mg cap klever minocycline 100 mg capsule 12/14/2020 12:00:00 AM EDT completed TAKE ONE CAPSULE BY MOUTH EVERY DAY [facility] ([facility]) 1 mg 11/28/2020 12:00:00 AM EDT tablet 60 TAKE TWO TABLETS BY MOUTH EVERY DAY TAKE TWO TABLETS BY MOUTH EVERY DAY SOLD: 12/30/2020 [facility] 1 mg 11/28/2020 12:00:00 AM EDT tablet 60 TAKE TWO TABLETS BY MOUTH EVERY DAY TAKE TWO TABLETS BY MOUTH EVERY DAY SOLD: 05/03/2021 [facility] 1 mg 11/28/2020 12:00:00 AM EDT tablet 60 TAKE TWO TABLETS BY MOUTH EVERY DAY TAKE TWO TABLETS BY MOUTH EVERY DAY SOLD: 11/29/2020 [facility] 1 mg 11/28/2020 12:00:00 AM EDT tablet 60 TAKE TWO TABLETS BY MOUTH EVERY DAY TAKE TWO TABLETS BY MOUTH EVERY DAY SOLD: 04/02/2021 [facility] Hydroxychloroquine Sulfate 200 MG Oral Tablet HYDROXYCHLOROQ UINE SULFATE 11/28/2020 12:00:00 AM EDT tablet 90 TAKE ONE TABLE T BY MOUTH EVERY DAY TAKE ONE TABLET BY MOUTH EVERY DAY SOLD: 11/29/2020 [facility] 1 mg 11/28/2020 12:00:00 AM EDT tablet 60 TAKE TWO TABLETS BY MOUTH EVERY DAY TAKE TWO TABLETS BY MOUTH EVERY DAY SOLD: 03/02/2021 [facility] 1 mg 11/28/2020 12:00:00 AM EDT tablet 60 TAKE TWO TABLETS BY MOUTH EVERY DAY TAKE TWO TABLETS BY MOUTH EVERY DAY SOLD: 01/29/2021 [facility] Hydroxychloroquine Sulfate 200 MG Oral T ablet [Plaquenil] Plaquenil 200 mg tablet Plaquenil 200 mg tablet 11/27/2020 12:00:00 AM EDT 1 {tbl} ORAL active hydroxychloroquine sulfate 200 M G Oral Tablet [Plaquenil] [facility] ([facility]) dxM06.9 Folic Acid 1 MG Oral Tablet folic acid 1 mg tablet folic aci d 1 mg tablet 11/27/2020 12:00:00 AM EDT 2 {tbl} ORAL active take 2 Tablet by oral route every day [facility] ([facility]) Sulfasalazine 500 MG Delayed Release Ora l Tablet sulfasalazine 500 mg tablet,delayed release sulfasalazine 500 mg tablet,delayed release 11/16/2020 12:00:00 AM EST completed take 2 tablets once a day [facility] ([facility]) Hydroxychloroquine Sulfate 200 MG Oral Tablet HYDROXYCHLOROQ UINE SULFATE 10/24/2020 12:00:00 AM EST tablet 30 TAKE ONE TABLE T BY MOUTH EVERY DAY TAKE ONE TABLET BY MOUTH EVERY DAY SOLD: 10/24/2020 [facility] Hydroxychloroquine Sulfate 200 MG Oral T ablet [Plaquenil] Plaquenil 200 mg tablet Plaquenil 200 mg tablet 10/23/2020 12:00:00 AM EST 1 {tbl} ORAL completed hydroxychloroquine sulfate 200 M G Oral Tablet [Plaquenil] [facility] ([facility]) dxM06.9 20 mg 10/20/2020 12:00:00 AM EST capsule,delayed release (DR/EC) 30 TAKE ONE CAPSULE BY MOUTH ONCE DAILY TAKE ONE CAPSULE BY MOUTH ONCE DAILY SOLD: 12/22/2020 [facility] 20 mg 10/20/2020 12:00:00 AM EST capsule,delayed release (DR/EC) 30 TAKE ONE CAPSULE BY MOUTH ONCE DAILY TAKE ONE CAPSULE BY MOUTH ONCE DAILY SOLD: 01/23/2021 [facility] 20 mg 10/20/2020 12:00:00 AM EST capsule,delayed release (DR/EC) 30 TAKE ONE CAPSULE BY MOUTH ONCE DAILY TAKE ONE CAPSULE BY MOUTH ONCE DAILY SOLD: 02/20/2021 [facility] 20 mg 10/20/2020 12:00:00 AM EST capsule,delayed release (DR/EC) 30 TAKE ONE CAPSULE BY MOUTH ONCE DAILY TAKE ONE CAPSULE BY MOUTH ONCE DAILY SOLD: 10/21/2020 [facility] 20 mg 10/20/2020 12:00:00 AM EST capsule,delayed release (DR/EC) 30 TAKE ONE CAPSULE BY MOUTH ONCE DAILY TAKE ONE CAPSULE BY MOUTH ONCE DAILY SOLD: 03/22/2021 [facility] 20 mg 10/20/2020 12:00:00 AM EST capsule,delayed release (DR/EC) 30 TAKE ONE CAPSULE BY MOUTH ONCE DAILY TAKE ONE CAPSULE BY MOUTH ONCE DAILY SOLD: 11/22/2020 [facility] 100 mg 10/16/2020 12:00:00 AM EST capsule 30 TAKE ONE CAPSULE BY MOUTH EVERY DAY TAKE ONE CAPSULE BY MOUTH EVERY DAY SOLD: 10/17/2020 [facility] Minocycline 100 MG Oral Capsule minocycline 100 mg cap klever minocycline 100 mg capsule 10/16/2020 12:00:00 AM EST completed TAKE ONE CAPSULE BY MOUTH EVERY DAY [facility] ([facility]) 100 mg 10/16/2020 12:00:00 AM EST capsule 30 TAKE ONE CAPSULE BY MOUTH EVERY DAY TAKE ONE CAPSULE BY MOUTH EVERY DAY SOLD: 11/16/2020 [facility] Paroxetine Hydrochloride 10 MG Oral Tablet PAROXETINE HCL 10/12/2020 12:00:00 AM EST tablet 90 TAKE ONE TABLET BY MOUTH JEAN-PIERRE DAY TAKE ONE TABLET BY MOUTH EVERY DAY SOLD: 10/13/2020 [facility] Paroxetine Hydrochloride 10 MG Oral Tablet PAROXETINE HCL 10/12/2020 12:00:00 AM EST tablet 90 TAKE ONE TABLET BY MOUTH JEAN-PIERRE RY DAY TAKE ONE TABLET BY MOUTH EVERY DAY SOLD: 07/25/2021 [facility] Paroxetine Hydrochloride 10 MG Oral Tablet PAROXETINE HCL 10/12/2020 12:00:00 AM EST tablet 90 TAKE ONE TABLET BY MOUTH JEAN-PIERRE RY DAY TAKE ONE TABLET BY MOUTH EVERY DAY SOLD: 01/11/2021 [facility] Paroxetine Hydrochloride 10 MG Oral Tablet PAROXETINE HCL 10/12/2020 12:00:00 AM EST tablet 90 TAKE ONE TABLET BY MOUTH TAKE ONE TABLET BY MOUTH EVERY DAY SOLD: 04/03/2021 [facility] 12.5 mg 10/04/2020 12:00:00 AM EST tablet 30 TAKE ONE TABLET BY MOUTH ONCE DAILY TAKE ONE TABLET BY MOUTH ONCE DAILY SOLD: 12/07/2020 [facility] 12.5 mg 10/04/2020 12:00:00 AM EST tablet 30 TAKE ONE TABLET BY MOUTH ONCE DAILY TAKE ONE TABLET BY MOUTH ONCE DAILY SOLD: 11/05/2020 [facility] 12.5 mg 10/04/2020 12:00:00 AM EST tablet 30 TAKE ONE TABLET BY MOUTH ONCE DAILY TAKE ONE TABLET BY MOUTH ONCE DAILY SOLD: 10/04/2020 [facility] 12.5 mg 10/04/2020 12:00:00 AM EST tablet 30 TAKE ONE TABLET BY MOUTH ONCE DAILY TAKE ONE TABLET BY MOUTH ONCE DAILY SOLD: 02/06/2021 [facility] 12.5 mg 10/04/2020 12:00:00 AM EST tablet 30 TAKE ONE TABLET BY MOUTH ONCE DAILY TAKE ONE TABLET BY MOUTH ONCE DAILY SOLD: 01/06/2021 [facility] 12.5 mg 10/04/2020 12:00:00 AM EST tablet 30 TAKE ONE TABLET BY MOUTH ONCE DAILY TAKE ONE TABLET BY MOUTH ONCE DAILY SOLD: 03/22/2021 [facility] alogliptin 12.5 MG Oral Tablet Alogliptin Benzoate 10/03/2020 12:00 :00 AM EST ORAL active [facility] ([facility]) 20 mg 10/02/2020 12:00:00 AM EST tablet 10 TAKE TWO TABLETS BY MOUTH EVERY DAY FOR 5 DAYS TAKE TWO TABLETS BY MOUTH EVERY DAY FOR 5 DAYS SOLD: [facility] Pred[facility] 20 MG Oral Tablet Prednisone 10/02/2020 12:00:00 AM EST ORAL active [facility] ([facility] 1 mg 09/27/2020 12:00:00 AM EST tablet 540 TAKE 4 TABLETS BY MOUTH EVERY MORNING & 2 TABLETS EVERY EVENING TAKE 4 TABLETS BY MOUTH EVERY MORNING & 2 TABLETS EVERY EVENING SOLD: 12/30/2020 [facility] 1 mg 09/27/2020 12:00:00 AM EST tablet 540 TAKE 4 TABLETS BY MOUTH EVERY MORNING & 2 TABLETS EVERY EVENING TAKE 4 TABLETS BY MOUTH EVERY MORNING & 2 TABLETS EVERY EVENING SOLD: 09/27/2020 [facility] 1 mg 09/27/2020 12:00:00 AM EST tablet 540 TAKE 4 TABLETS BY MOUTH EVERY MORNING & 2 TABLETS EVERY EVENING TAKE 4 TABLETS BY MOUTH EVERY MORNING & 2 TABLETS EVERY EVENING SOLD: 04/02/2021 [facility] Prednisone 1 MG Oral Tablet prednisone 1 mg tablet prednison e 1 mg tablet 09/26/2020 12:00:00 AM EST active take 4 tablet by oral route every morning and 2 tablet Q evening. [facility] ([facility]) Prednisone 1 MG Oral Tablet prednisone 1 mg tablet prednison e 1 mg tablet 09/25/2020 12:00:00 AM EST 2 {tbl} ORAL completed take 2 tablet by oral route every day [facility] ([facility]) 5 mg 09/05/2020 12:00:00 AM EST tablet 50 TAKE 2 TABLETS BY MOUTH ONCE DAILY FOR 5 DAYS, THEN DECREASE TO 7.5MG (1.5 TABS) ONCE DAILY FOR 5 DAYS, THEN DECREASE & STAY AT 5MG (1 TAB) DAILY TAKE 2 TABLETS BY MOUTH ONCE DAILY FOR 5 DAYS, THEN DECREASE TO 7.5MG (1.5 TABS) ONCE DAILY FOR 5 DAYS, THEN DECREASE & STAY AT 5MG (1 TAB) DAILY SOLD: 09/05/2020 [facility] Prednisone 5 MG Oral Tablet prednisone 5 mg tablet prednison e 5 mg tablet 09/05/2020 12:00:00 AM EST active take 2 tablet by oral route every day for 5 days then decrease to 7.5mg for 5 days and then stay at 5mg daily [facility] ([facility]) 1 mg 08/28/2020 12:00:00 AM EST tablet 60 TAKE TWO TABLETS BY MOUTH EVERY DAY TAKE TWO TABLETS BY MOUTH EVERY DAY SOLD: 10/02/2020 [facility] 1 mg 08/28/2020 12:00:00 AM EST tablet 60 TAKE TWO TABLETS BY MOUTH EVERY DAY TAKE TWO TABLETS BY MOUTH EVERY DAY SOLD: 08/30/2020 [facility] 1 mg 08/28/2020 12:00:00 AM EST tablet 60 TAKE TWO TABLETS BY MOUTH EVERY DAY TAKE TWO TABLETS BY MOUTH EVERY DAY SOLD: 11/03/2020 [facility] Folic Acid 1 MG Oral Tablet folic acid 1 mg tablet folic aci d 1 mg tablet 08/24/2020 12:00:00 AM EST 2 {tbl} ORAL completed take 2 Tablet by oral route every day [facility] ([facility]) alogliptin 12.5 MG Oral Tablet Alogliptin Benzoate 08/23/2020 12:00 :00 AM EST ORAL completed [facility] ([facility]) Sulfasalazine 500 MG Delayed Release Ora l Tablet sulfasalazine 500 mg tablet,delayed release sulfasalazine 500 mg tablet,delayed release 08/17/2020 12:00:00 AM EST completed take 2 tablets once a day [facility] ([facility]) 500 mg 08/17/2020 12:00:00 AM EST tablet,delayed release (DR/EC) 180 TAKE TWO TABLETS BY MOUTH EVERY DAY TAKE TWO TABLETS BY MOUTH EVERY DAY SOLD: 08/17/2020 [facility] 1 mg 08/11/2020 12:00:00 AM EST tablet 180 TAKE TWO TABLETS BY MOUTH EVERY DAY TAKE TWO TABLETS BY MOUTH EVERY DAY SOLD: 08/11/2020 [facility] Prednisone 1 MG Oral Tablet prednisone 1 mg tablet prednison e 1 mg tablet 08/09/2020 12:00:00 AM EST 2 {tbl} ORAL completed take 2 tablet by oral route every day [facility] ([facility]) tofacitinib 5 MG Oral Tablet [Xeljanz] XELJANZ 5 MG TABLET X ELJANZ 5 MG TABLET 07/28/2020 12:00:00 AM EST 1.00 {tbl} ORAL active tofacitinib 5 MG Oral Tablet [Xeljanz] [facility] ([facility]) Minocycline 100 MG Oral Capsule MINOCYCLINE 100 MG CAP [facility] MINOCYCLINE 100 MG CAPSULE 07/17/2020 12:00:00 AM EST completed TAKE ONE CAPSULE BY MOUTH EVERY DAY [facility] ([facility]) 100 mg 07/17/2020 12:00:00 AM EST capsule 25 TAKE ONE CAPSULE BY MOUTH EVERY DAY TAKE ONE CAPSULE BY MOUTH EVERY DAY SOLD: 09/19/2020 [facility] 100 mg 07/17/2020 12:00:00 AM EST capsule 30 TAKE ONE CAPSULE BY MOUTH EVERY DAY TAKE ONE CAPSULE BY MOUTH EVERY DAY SOLD: 08/17/2020 [facility] 1 mg 07/04/2020 12:00:00 AM EDT tablet 60 TAKE TWO TABLETS BY MOUTH EVERY DAY TAKE TWO TABLETS BY MOUTH EVERY DAY SOLD: 08/05/2020 [facility] 5 mg 07/04/2020 12:00:00 AM EDT tablet 90 TAKE ONE TABLET BY MOUTH ONCE DAILY TAKE ONE TABLET BY MOUTH ONCE DAILY SOLD: 07/05/2020 [facility] 1 mg 07/04/2020 12:00:00 AM EDT tablet 60 TAKE TWO TABLETS BY MOUTH EVERY DAY TAKE TWO TABLETS BY MOUTH EVERY DAY SOLD: 07/05/2020 [facility] LANCETS 06/30/2020 12:00:00 AM EDT misc 204 TWO T IMES A DAY OR DIRECTED TWO TIMES A DAY OR DIRECTED SOLD: 06/30/2020 [facility] BLOOD SUGAR DIAGNOSTIC 06/28/2020 12:00:00 AM EDT strip 200 TEST TWO TIMES A DAY TEST TWO TIMES A DAY SOLD: 06/30/2020 [facility] Administration Of Flu Vaccine 06/26/2020 12:00:00 AM EDT completed [facility] ([facility]) Medication administered onsite Folic Acid 1 MG Oral Tablet folic acid 1 mg tablet folic aci d 1 mg tablet 06/05/2020 12:00:00 AM EDT 2 {tbl} ORAL completed take 2 Tablet by oral route every day [facility] ([facility]) Sulfasalazine 500 MG Delayed Release Ora l Tablet sulfasalazine 500 mg tablet,delayed release sulfasalazine 500 mg tablet,delayed release 05/18/2020 12:00:00 AM EDT completed take 2 tablets once a day [facility] ([facility]) atorvastatin 10 MG Oral Tablet ATORVASTATIN CALCIUM 05/02/2020 1 2:00:00 AM EDT tablet 90 TAKE ONE TABLET BY MOUTH EVERY D AY TAKE ONE TABLET BY MOUTH EVERY DAY SOLD: 11/02/2020 [facility] atorvastatin 10 MG Oral Tablet ATORVASTATIN CALCIUM 05/02/2020 1 2:00:00 AM EDT tablet 90 TAKE ONE TABLET BY MOUTH EVERY D AY TAKE ONE TABLET BY MOUTH EVERY DAY SOLD: 08/03/2020 [facility] atorvastatin 10 MG Oral Tablet ATORVASTATIN CALCIUM 05/02/2020 1 2:00:00 AM EDT tablet 90 TAKE ONE TABLET BY MOUTH EVERY D AY TAKE ONE TABLET BY MOUTH EVERY DAY SOLD: 01/29/2021 [facility] Hydroxychloroquine Sulfate 200 MG Oral T ablet [Plaquenil] Plaquenil 200 mg tablet Plaquenil 200 mg tablet 04/27/2020 12:00:00 AM EDT 1 {tbl} ORAL completed hydroxychloroquine sulfate 200 M G Oral Tablet [Plaquenil] [facility] ([facility]) 100 mg 04/17/2020 12:00:00 AM EDT capsule 30 TAKE ONE CAPSULE BY MOUTH EVERY DAY TAKE ONE CAPSULE BY MOUTH EVERY DAY SOLD: 06/16/2020 [facility] 20 mg 03/31/2020 12:00:00 AM EDT capsule,delayed release (DR/EC) 30 TAKE ONE CAPSULE BY MOUTH EVERY DAY TAKE ONE CAPSULE BY MOUTH EVERY DAY SOLD: 09/19/2020 [facility] 20 mg 03/31/2020 12:00:00 AM EDT capsule,delayed release (DR/EC) 30 TAKE ONE CAPSULE BY MOUTH EVERY DAY TAKE ONE CAPSULE BY MOUTH EVERY DAY SOLD: 08/17/2020 [facility] 20 mg 03/31/2020 12:00:00 AM EDT capsule,delayed release (DR/EC) 30 TAKE ONE CAPSULE BY MOUTH EVERY DAY TAKE ONE CAPSULE BY MOUTH EVERY DAY SOLD: 07/11/2020 [facility] 50 mcg 02/23/2020 12:00:00 AM EDT tablet 90 TAKE ONE TABLET BY MOUTH EVERY DAY TAKE ONE TABLET BY MOUTH EVERY DAY SOLD: 02/20/2021 [facility] 50 mcg 02/23/2020 12:00:00 AM EDT tablet 90 TAKE ONE TABLET BY MOUTH EVERY DAY TAKE ONE TABLET BY MOUTH EVERY DAY SOLD: 08/25/2020 [facility] 50 mcg 02/23/2020 12:00:00 AM EDT tablet 90 TAKE ONE TABLET BY MOUTH EVERY DAY TAKE ONE TABLET BY MOUTH EVERY DAY SOLD: 11/22/2020 [facility] Prednisone 5 MG Oral Tablet prednisone 5 mg tablet prednison e 5 mg tablet 02/09/2020 12:00:00 AM EDT 1 {tbl} ORAL completed take 1 tablet by oral route every day [facility] ([facility]) Prednisone 1 MG Oral Tablet prednisone 1 mg tablet prednison e 1 mg tablet 02/09/2020 12:00:00 AM EDT 2 {tbl} ORAL completed take 2 tablet by oral route every day [facility] ([facility]) glimepiride 1 MG Oral Tablet GLIMEPIRIDE 01/05/2020 12:00:00 AM EDT ta blet 90 TAKE 1 TABLET BY MOUTH EVERY DAY BEFORE BREAKFAST TAKE 1 TABLET BY MOUTH EVERY DAY BEFORE BREAKFAST SOLD: 07/06/2020 [facility] glimepiride 1 MG Oral Tablet GLIMEPIRIDE 01/05/2020 12:00:00 AM EDT ta blet 90 TAKE 1 TABLET BY MOUTH EVERY DAY BEFORE BREAKFAST TAKE 1 TABLET BY MOUTH EVERY DAY BEFORE BREAKFAST SOLD: 10/02/2020 [facility] Paroxetine Hydrochloride 10 MG Oral Tablet PAROXETINE HCL 10/21/2019 12:00:00 AM EST tablet 90 TAKE ONE TABLET BY MOUTH JEAN-PIERRE DAY TAKE ONE TABLET BY MOUTH EVERY DAY SOLD: 07/15/2020 [facility] OTC SUPPLEMENTS OTC SUPPLEMENTS comple steph mvi, harvinder C, cranbery extract [facility] ([facility]) Calcium 500 + D 500 mg (1,250 mg)-200 unit Tab CALCIUM CARBONATE/ TAMIN D3 2 {tbl} ORAL completed take 2 Tablet by Oral route every day [facility] ([facility]) OCUVITE ADULT 50 PLUS (unknown strength) C,E,zinc,copper 11/swgoc1m/dania t completed [facility] ([facility]) Linagliptin 5 MG Oral Tablet [Tradjenta] Tradjenta 5 m g tablet Tradjenta 5 mg tablet 1.00 {tbl} ORAL completed jimmie agliptin 5 MG Oral Tablet [Tradjenta] [facility] ([facility]) Insurance Providers Payer name Policy type / Coverage type Policy ID Covered republican ID Covered republican's relationship to mccollum Policy M[place]um Plan Information [place] Medigap Part B [id number] Self 510 BS [place] Medigap Part B [id number] Self [id number] [facility] [id number] Self [id number] BS Of [facility] Part B [id number] Self [id number] MEDICARE A [id number] Self [id number] A MEDICARE A [id number] Self [id number] Cigna/MVP Con Gen/Prefcar Commercial [id number] Self [id number] Cigna/MVP Con Gen/Prefcar Commercial [id number] Self MEDICARE [id number] SP [id number] A Medicare Natl Govt Servic Medicare Primary [id number] Self [id number] Medicare Natl Govt Servic Medicare Primary [id number] [id number] Self [id number] Medicare Natl Govt Servic Medicare Primary [id number] Self Medicare Natl Govt Servic Medicare Primary [id number] [id number] Self [id number] Medicare Natl Govt Servic Medicare Primary [id number] [id number] Self 0 [id number] [place] [id number] [id number] Self [id number] Medicare Natl Govt Servic Medicare Primary [id number] [id number] Self 0 [id number] Medicare Natl Govt Servic Medicare Primary [id number] [id number] Self 0 [id number] Medicare Natl Govt Servic Medicare Primary [id number] 2.0.1.739767.3.227.99.4595.7928.0 Self 6 [id number] Medicare Natl Govt Servic Medicare Primary [id number] 2.[id number] Self 6 [id number] [place] Medicare Primary [id number] 2.0.1.630437.3.227.99.1629.87747.0 Self [id number] [facility] [id number] Medicare Natl Govt Servic Medicare Primary [id number] Self 6 [id number] Medicare Natl Govt Servic Medicare Primary [id number] 2.0.1.152083.3.227.99.4595.7928.0 Self [id number] [facility] U [id number] Self [id number] AARP U [id number] Self [id number] EXCELL[employer] C [id number] Self [id number] ANS-Medicare Part B [id number] [facility] Options Medigap Part B [id number] Self [id number] Medicare Natl Gov't Servi Medicare Primary [id number] 2.0.1.515230.3.227.99.1767.3124.0 Self 6 [id number] [facility] Opt Medigap Part B [id number] [id number] Self [id number] [facility] Options Medigap Part B [id number] 2.0.1.747779.3.227.99.1629.70301.0 Self [id number] ANS-Medicare Part B [id number] ANSI-Commercial [id number] [facility] [id number] SP [id number] [facility] HEALTH CARE OPTIONS [id number] SP [id number] [facility] Opt Medigap Part B [id number] Self [id number] AARP O [id number] S [id number] MEDICARE C [id number] S [id number] A BCBS [place] PPO 302/307 [id number] SP [id number] [facility] Healthcare Opt Medigap Part B [id number] Self 3 [id number] [facility] Health Care Options Medigap Part B [id number] Self 3 [id number] Medicare Natl Gov't Servi Medicare Primary [id number]24.0 Self 0 [id number] [facility] [id number] SP [id number] [facility]ipl[facility] Medigap Part B [id number] Self [id number] [facility] Medigap Part B [id number] Self [id number] Medicare Natl Gov't Servi Medicare Primary [id number] ..[id number] Self [id number] [facility] [id number] Self [id number] Medicare [place]/[facility] Medicare Primary [id number]46.15355.0 Self [id number] [employer] BCBS Health Maintenance Organization (HMO) [id number] Self [id number] [facility] Medigap Part B [id number].1767.3124.0 Self [id number] Medicare Natl Gov't Servi Medicare Primary [id number]9.1767.3124.0 Self [id number] [place] [facility]/Multiplan Medigap Part B [id number] Self [id number] [facility] Medigap Part B [id number] Self Medicare Natl Gov't Servi Medicare Primary [id number] Self [facility] Medigap Part B [id number] Self Medicare [place]/[facility] Medicare Primary [id number] Self [employer] BCBS Health Maintenance Organization (HMO) [id number] Self [facility] O [id number] S [id number] A [id number] [facility], [facility] C [id number] S [id number] MEDICARE [id number] SP [id number] AARP HEALTH CARE OPTIONS [id number] SP [id number] MEDICARE [id number] SP [id number] F97 BCBS [facility] DIV [employer] BCBS B [id number] S [id number] MEDICARE C [id number] S [id number] F97 BCBS HMO BLUE [id number] SP [id number] [id number] BCBS HMO BLUE [id number] SP [id number] [facility] Opt Medigap Part B [id number] Self 3 [id number] [facility] Part B [id number] Self [id number] ANSI-Commercial [id number] ANSI-Medicare Part B [id number] [facility] Care Options [facility] Part B [id number] Self [id number] Medicare Natl Gov't Servi Medicare Primary [id number] Self [id number] ANSI-Medicare Part B [id number] ANSI-Commercial [id number] ANSI-Medicare Part B [id number] ANSI-Commercial [id number] ANSI-Medicare Part B [id number] ANSI-Commercial [id number] [facility] Opt [facility] Part B [id number] Self 3 [id number] [facility] Opt [facility] Part B [id number] Self 3 [id number] [facility] Options [facility] Part B [id number] Self [id number] ANSI-Medicare Part B [id number] ANSI-Commercial [id number] ANSI-Commercial [id number] Problems, Conditions, and Diagnoses No Information Surgeries/Procedures Procedure Description Date Indications Data Source(s) PHYSICIAN TELEPHONE EVALUATION 11-20 MIN 06/04/2021 12 :00:00 AM EDT [facility] ([facility] ) OFFICE OUTPATIENT VISIT 25 MINUTES 03/12/2021 12:00:00 AM EDT [facility] ([facility]) ECG ROUTINE ECG W/LEAST 12 LDS W/I&R 03/12/2021 12:00: 00 AM EDT [facility] ([facility]) NON-INVASIVE PHYSIOLOGIC STUDY EXTREMITY 3 LEVLS 03/09 12:00:00 AM EDT [facility] ) TSTG ANS FUNCJ CARDIOVAGAL INNERVAJ PARASYMP 12:00:00 AM EDT [facility] ) TESTING AUTONOMIC NERVOUS SYSTEM FUNCTION 03/09/2021 1 2:00:00 AM EDT [facility] ) Complex Chronic Care Management SVC 1St 60 Min 021 12:00:00 AM EDT [facility] ([facility]) PHYSICIAN TELEPHONE EVALUATION 11-20 MIN 02/16/2021 12 :00:00 AM EDT [facility] ([facility] ) OFFICE OUTPATIENT VISIT 15 MINUTES 02/16/2021 12:00:00 AM EDT [facility] ([facility]) Chronic Care Management Services Ea Addl 20 Min 2020 12:00:00 AM EDT [facility] ([facility]) Chronic Care MGMT 20 Mins Clinical Staff Time Per Calendar M ont 12/26/2020 12:00:00 AM EDT [facility] ([facility] ) OFFICE/OUTPATIENT VISIT, EST 11/27/2020 12:00:00 AM EDT - 11/27/2020 12:00:00 AM EDT [facility] ([facility]) ASSAY OF SERUM ALBUMIN 11/27/2020 12:00: 00 AM EDT - 11/27/2020 12:00:00 AM EDT [facility] ([facility]) ALANINE AMINO (ALT) (SGPT) 11/27/2020 12 :00:00 AM EDT - 11/27/2020 12:00:00 AM EDT [facility] ([facility]) TRANSFERASE (AST) (SGOT) 11/27/2020 12:0 0:00 AM EDT - 11/27/2020 12:00:00 AM EDT [facility] ([facility]) ASSAY OF UREA NITROGEN 11/27/2020 12:00: 00 AM EDT - 11/27/2020 12:00:00 AM EDT [facility] ([facility]) ASSAY OF CREATININE 11/27/2020 12:00:00 AM EDT - 11/27 12:00:00 AM EDT [facility] ([facility]) C-REACTIVE PROTEIN 11/27/2020 12:00:00 AM EDT - 2020 12:00:00 AM EDT [facility] ([facility]) RBC SED RATE, AUTOMATED 11/27/2020 12:00 :00 AM EDT - 11/27/2020 12:00:00 AM EDT [facility] ([facility]) COMPLETE CBC W/AUTO DIFF WBC 11/27/2020 12:00:00 AM EDT - 11/27/2020 12:00:00 AM EDT [facility] ([facility]) ROUTINE VENIPUNCTURE 11/27/2020 12:00:00 AM EDT - 11/27/2020 12:00:00 AM EDT [facility] ([facility]) Needle electromyography, each extremity, with related paraspinal areas, when performed, done with nerve conduction, amplitude and latency/velocity study; complete, five or more muscles studied, innervated by three or more nerves or four or more spinal levels (list separately in addition to the code for primary procedure). 11/15/2020 12:00:00 AM JAMEL Singh ([facility], ) [address]38 Nerve conduction studies 7-8 studies NEW 201211/15/2020 12:00:00 AM JAMEL ISAACS ([facility] ) PHYSICIAN TELEPHONE EVALUATION 11-20 MIN 11/13/2020 12 :00:00 AM JAMEL ISAACS ([facility], ) OFFICE OUTPATIENT VISIT 25 MINUTES 11/01/2020 12:00:00 AM JAMEL ISAACS ([facility]) Chronic Care Management Services Ea Addl 20 Min 2020 12:00:00 AM JAMEL ISAACS ([facility]) Chronic Care MGMT 20 Mins Clinical Staff Time Per Calendar M ont 10/31/2020 12:00:00 AM JAMEL ISAACS ([facility] ) Chronic Care MGMT 20 Mins Clinical Staff Time Per Calendar M [facility] 09/12/2020 12:00:00 AM JAMEL ISAACS ([facility] ) OFFICE/OUTPATIENT VISIT, EST 08/24/2020 12:00:00 AM EST - 08/24/2020 12:00:00 AM EST [facility] ([facility]) ASSAY OF SERUM ALBUMIN 08/24/2020 12:00: 00 AM EST - 08/24/2020 12:00:00 AM EST [facility] ([facility]) ALANINE AMINO (ALT) (SGPT) 08/24/2020 12 :00:00 AM EST - 08/24/2020 12:00:00 AM EST [facility] ([facility]) TRANSFERASE (AST) (SGOT) 08/24/2020 12:0 0:00 AM EST - 08/24/2020 12:00:00 AM EST [facility] ([facility]) ASSAY OF CREATININE 08/24/2020 12:00:00 AM EST - 08/24 12:00:00 AM EST [facility] ([facility]) C-REACTIVE PROTEIN 08/24/2020 12:00:00 AM EST - 2019 12:00:00 AM EST [facility] ([facility]) RBC SED RATE, AUTOMATED 08/24/2020 12:00 :00 AM EST - 08/24/2020 12:00:00 AM EST [facility] ([facility]) COMPLETE CBC W/AUTO DIFF WBC 08/24/2020 12:00:00 AM EST - 08/24/2020 12:00:00 AM EST [facility] ([facility]) ROUTINE VENIPUNCTURE 08/24/2020 12:00:00 AM EST - 08/24/2020 12:00:00 AM EST [facility] ([facility]) SPMTRY W/VC EXPIRATORY JORDAN +-MXML VOL VNTJ 07/28/2020 12:00:00 AM EST [facility] ([facility]) Diabetic Retinal Eye Exam 07/10/2020 12:00:00 AM EDT [facility] ([facility]) Mammogram 06/21/2020 12:00:00 AM EDT [facility] Results ID Date Data Source [id number] 03/12/2021 03:07:00 PM EDT [facility] ([facility]) Name Value Range Interpretation Code Description Data Eda rce(s) Supporting Document(s) Hemoglobin A1c/Hemoglobin.total in Blood 7.3 % [facility] ([facility]) Lab Result Notes: Pre-Diabetes 5.7 - 6.4 % Diabetes = or > 6.5% Glucose mean value [Mass/volume] in Blood Estimated fr om glycated hemoglobin 163 mg/dL 60-110 [facility] ID Date Data Source [id number] 03/12/2021 03:07:00 PM EDT [facility] ([facility]) Name Value Range Interpretation Code Description Data Eda rce(s) Supporting Document(s) Erythrocyte sedimentation rate by Westergren method 11 mm/hr 0-15 [facility] ID Date Data Source [id number] 03/12/2021 03:07:00 PM EDT [facility] Name Value Range Interpretation Code Description Data Eda rce(s) Supporting Document(s) Leukocytes [#/volume] in Blood by Automated count 6.3 x10*3/UL 4.1-10 .9 [facility] Hemoglobin [Mass/volume] in Blood 14.7 g/dL 12.0-18.0 [facility] Hematocrit [Volume Fraction] of Blood by Automated count 43.1 % 3 7.0-51.0 [facility] Erythrocytes [#/volume] in Blood by Automated count 4.36 x10*6/UL 4.2 0-6.30 [facility] MCH 33.7 pg 26.0-32.0 [facility] MCV 98.6 fL 80.0-97.0 [facility] ([facility]) MCHC 34.1 g/dL 31.0-38.0 [facility] ([facility]) Erythrocyte distribution width [Ratio] by Automated count 13.4 % 11.6-13.7 [facility] ([facility]) Lymph % 9.9 % 10.0-58.5 [facility] ([facility]) Platelets [#/volume] in Blood by Automated count 224 x10*3/UL 140-440 [facility] MPV 7.6 FL 7.8-11.0 [facility] [facility]) Neut % 86.8 % 37.0-92.0 [facility] [facility]) Mid % 3.3 % 1.7-9.3 [facility] Mid # 0.3 x10*3/UL 0.1-0.6 [facility] ([facility]) Neut # 5.4 x10*3/UL 2.0-7.8 [facility] ([facility]) Lymph # 0.6 x10*3/UL 0.6-4.1 [facility] ([facility]) ID Date Data Source [id number] 03/12/2021 03:07:00 PM EDT [facility] ([facility]) Name Value Range Interpretation Code Description Data Eda rce(s) Supporting Document(s) Thyrotropin [Units/volume] in Serum or Plasma by Detec tion limit <= 0.05 mIU/L 0.95 uIU/mL 0.36-3.74 [facility] ([facility] ) ID Date Data Source [id number] 03/12/2021 03:07:00 PM EDT [facility] ([facility]) Name Value Range Interpretation Code Description Data Eda rce(s) Supporting Document(s) Glucose [Mass/volume] in Serum or Plasma 200 mg/dL 74-99 [facility] ([facility]) 100-125 mg/dL PRE-DIABETES/FASTING >126 mg/dL DIABETES/FASTING Urea nitrogen [Mass/volume] in Serum or Plasma 21 mg/dL 7-18 [facility] ([facility]) Creatinine 0.9 mg/dL 0.6-1.3 [facility] Sodium [Moles/volume] in Serum or Plasma 139 meq/L 136-145 [facility] ([facility]) Potassium [Moles/volume] in Serum or Plasma 4.0 meq/L 3.5-5.1 [facility] ([facility]) Carbon dioxide, total [Moles/volume] in Serum or Plasma 25 meq/L 21 -32 [facility] ([facility]) Chloride [Moles/volume] in Serum or Plasma 103 meq/L 98-107 [facility] ([facility]) Calcium [Mass/volume] in Serum or Plasma 9.6 mg/dL 8.5-10.1 [facility] ([facility]) Alkaline phosphatase isoenzyme [Units/volume] in Serum or Pl asma 62 mg/dL 46-116 [facility] ([facility]) Total Bilirubin 0.4 mg/dL 0.2-1.0 [facility] ([facility]) Alanine aminotransferase [Enzymatic activity/volume] in Seru m or Plasma 68 U/L 12-78 [facility] ([facility]) Aspartate aminotransferase [Enzymatic activity/volume] in Serum or Plasma 62 U/L 15-37 [facility] ([facility] ) Proteinase 3 Ab [Units/volume] in Serum 7.2 g/dL 6.4-8.2 [facility] ([facility]) Albumin [Mass/volume] in Serum or Plasma 4.2 g/dL 3.4-5.0 [facility] ([facility]) Glomerular filtration rate/1.73 sq M pre dicted among blacks [Volume Rate/Area] in Serum or Plasma by Creatinine-based formula (MDRD) Laboratory test result [facility] ([facility]) <content>CHRONIC KIDNEY DISEASE STAGING PER NKF</content>
<content></content>
<content>STAGE I & II GFR >= 60 NORMAL TO MILDLY DECREASED</content>
<content>STAGE III GFR 30-59 MODERATELY DECREASED</content>
<content>STAGE IV GFR 15-29 SEVERELY DECREASED</content>
<content>STAGE V GFR <15 VERY LITTLE GFR LEFT</content>
<content>ESRD GFR <15 ON STOCKRO[employer] ASSOCIATE</content>
<content></content> Glomerular filtration rate/1.73 sq M pre dicted among non-blacks [Volume Rate/Area] in Serum or Plasma by Creatinine-based formula (MDRD) Laboratory test result [facility] ([facility] ) A/G Ratio 1.40 CALC 1.00-1.90 [facility]) ID Date Data Source [id number] 11/27/2020 11:38:00 AM EDT [facility] ([facility]) Name Value Range Interpretation Code Description Data Eda rce(s) Supporting Document(s) 0.4 mg/dL 0.0-0.5 CRP [facility] ID Date Data Source [id number] 11/27/2020 11:38:00 AM EDT [facility] ([facility]) Name Value Range Interpretation Code Description Data Eda rce(s) Supporting Document(s) 0.9 mg/dL 0.6-1.2 CREATININE [facility] ([facility]) >60 eGFR [facility] ([facility]) >60 eGFR Non- [facility] ([facility]) ID Date Data Source [id number] 11/27/2020 11:38:00 AM EDT [facility] ([facility]) Name Value Range Interpretation Code Description Data Eda rce(s) Supporting Document(s) 22 mg/dL 10-23 BUN [facility] ([facility]) ID Date Data Source [id number] 11/27/2020 11:38:00 AM EDT [facility] ([facility]) Name Value Range Interpretation Code Description Data Eda rce(s) Supporting Document(s) 30 U/L 15-37 AST [facility] ([facility]) ID Date Data Source [id number] 11/27/2020 11:38:00 AM EDT [facility] ([facility]) Name Value Range Interpretation Code Description Data Eda rce(s) Supporting Document(s) 43 U/L 30-65 ALT [facility] ([facility]) ID Date Data Source [id number] 11/27/2020 11:38:00 AM EDT [facility] ([facility]) Name Value Range Interpretation Code Description Data Eda rce(s) Supporting Document(s) 4.1 g/dL 3.4-4.4 ALB [facility] ID Date Data Source [id number] 11/27/2020 11:38:00 AM EDT [facility] ([facility]) Name Value Range Interpretation Code Description Data Eda rce(s) Supporting Document(s) 8 mm/Hr 0-20 ESR [facility]) ID Date Data Source [id number] 11/27/2020 11:38:00 AM EDT [facility] ([facility]) Name Value Range Interpretation Code Description Data Eda rce(s) Supporting Document(s) 4.60 10*6/uL 3.50-5.50 RBC [facility]) 7.8 10*3/uL 3.7-10.1 WBC [facility] ([facility]) 15.5 g/dL 12.0-16.0 HGB [facility]) 48.8 % 36.0-48.0 Above high normal HCT [facility]) 106.0 fL 80.0-100.0 Above high normal MCV [facility] ([facility]) 31.7 g/dL 31.0-37.0 MCHC [facility]) 33.7 pg 26.0-34.0 MCH [facility] 12.1 % 10.0-15.0 RDW [facility] 5.45 10*3/uL 2.10-8.00 YARITZA# [facility] ([facility]) 6.5 fL 6.0-10.0 MPV [facility] ([facility]) 227 10*3/uL 150-500 PLATELETS NextGen ([facility]) 1.47 10*3/uL 1.00-5.00 LYM# [facility]Gen ([facility]) 0.72 10*3/uL 0.10-1.00 MONO# NextGen ([facility]) 0.0 10*3/uL 0.0-0.5 EOS# NextGen ([facility]) 70.2 % 50.0-80.0 YARITZA% [facility]Gen ([facility]) 0.1 10*3/uL 0.0-0.2 BASO# NextGen ([facility]) 18.9 % 25.0-50.0 Below low normal LYM% [facility] ([facility]) 0.4 % 0.0-5.0 EOS% [facility] ([facility]) 9.3 % 2.0-10.0 MONO% [facility] 1.1 % 0.0-4.0 BASO% NextGen ([facility]) ID Date Data Source [id number] 11/01/2020 10:33:00 AM EST MEDENT ([facility]) Name Value Range Interpretation Code Description Data Eda rce(s) Supporting Document(s) Thyrotropin [Units/volume] in Serum or Plasma by Detec tion limit <= 0.05 mIU/L 2.71 uIU/mL 0.36-3.74 [facility] ([facility] ) ID Date Data Source [id number] 11/01/2020 10:33:00 AM EST MEDENT ([facility]) Name Value Range Interpretation Code Description Data Eda rce(s) Supporting Document(s) Glucose [Mass/volume] in Serum or Plasma 160 mg/dL 74-99 MEDENT ([facility]) 100-125 mg/dL PRE-DIABETES/FASTING >126 mg/dL DIABETES/FASTING Creatinine 0.9 mg/dL 0.6-1.3 [facility] ([facility]) Urea nitrogen [Mass/volume] in Serum or Plasma 16 mg/dL 7-18 MED[facility] ([facility]) Sodium [Moles/volume] in Serum or Plasma 143 meq/L 136-145 MED[facility] ([facility]) Potassium [Moles/volume] in Serum or Plasma 4.0 meq/L 3.5-5.1 MED[facility] ([facility]) Chloride [Moles/volume] in Serum or Plasma 103 meq/L 98-107 [facility] ([facility]) Calcium [Mass/volume] in Serum or Plasma 9.3 mg/dL 8.5-10.1 MED[facility] ([facility]) Alkaline phosphatase isoenzyme [Units/volume] in Serum or Pl asma 63 mg/dL 46-116 [facility] ([facility]) Carbon dioxide, total [Moles/volume] in Serum or Plasma 29 meq/L 21 -32 MED[facility] ([facility]) Aspartate aminotransferase [Enzymatic activity/volume] in Serum or Plasma 32 U/L 15-37 MEDENT ([facility] ) Total Bilirubin 0.4 mg/dL 0.2-1.0 MEDENT ([facility]) Alanine aminotransferase [Enzymatic activity/volume] in Seru m or Plasma 41 U/L 12-78 MEDENT ([facility]) Albumin [Mass/volume] in Serum or Plasma 4.0 g/dL 3.4-5.0 MED[facility] ([facility]) A/G Ratio 1.38 CALC 1.00-1.90 [facility]) Proteinase 3 Ab [Units/volume] in Serum 6.9 g/dL 6.4-8.2 [facility] ([facility]) Glomerular filtration rate/1.73 sq M pre dicted among non-blacks [Volume Rate/Area] in Serum or Plasma by Creatinine-based formula (MDRD) Laboratory test result MED[facility] ([facility] ) Glomerular filtration rate/1.73 sq M pre dicted among blacks [Volume Rate/Area] in Serum or Plasma by Creatinine-based formula (MDRD) Laboratory test result [facility] ([facility]) <content>CHRONIC KIDNEY DISEASE STAGING PER NKF</content>
<content></content>
<content>STAGE I & II GFR >= 60 NORMAL TO MILDLY DECREASED</content>
<content>STAGE III GFR 30-59 MODERATELY DECREASED</content>
<content>STAGE IV GFR 15-29 SEVERELY DECREASED</content>
<content>STAGE V GFR <15 VERY LITTLE GFR LEFT</content>
<content>ESRD GFR <15 ON STOCKROOM ASSOCIATE</content>
<content></content> ID Date Data Source [id number] 11/01/2020 10:33:00 AM EST [facility] ([facility]) Name Value Range Interpretation Code Description Data Eda rce(s) Supporting Document(s) Hemoglobin A1c/Hemoglobin.total in Blood 7.1 % [facility] Lab Result Notes: Pre-Diabetes 5.7 - 6.4 % Diabetes = or > 6.5% Glucose mean value [Mass/volume] in Blood Estimated fr om glycated hemoglobin 157 mg/dL 60-110 [facility] ID Date Data Source [id number] 11/01/2020 10:33:00 AM EST MEDENT ([facility] Name Value Range Interpretation Code Description Data Eda rce(s) Supporting Document(s) Erythrocyte sedimentation rate by Westergren method 13 mm/hr 0-15 [facility] ID Date Data Source [id number] 11/01/2020 10:33:00 AM EST MEDENT ([facility] Name Value Range Interpretation Code Description Data Eda rce(s) Supporting Document(s) Leukocytes [#/volume] in Blood by Automated count 8.1 x10*3/UL 4.1-10 .9 [facility] ([facility] Hemoglobin [Mass/volume] in Blood 14.4 g/dL 12.0-18.0 [facility] ([facility] Hematocrit [Volume Fraction] of Blood by Automated count 43.2 % 3 7.0-51.0 [facility] ([facility] Erythrocytes [#/volume] in Blood by Automated count 4.36 x10*6/UL 4.2 0-6.30 [facility] ([facility] MCV 99.2 fL 80.0-97.0 MED[facility] ([facility]) MCH 33.1 pg 26.0-32.0 MED[facility] ([facility]) MCHC 33.4 g/dL 31.0-38.0 MED[facility] ([facility]) Platelets [#/volume] in Blood by Automated count 255 x10*3/UL 140-440 [facility] ([facility] Erythrocyte distribution width [Ratio] by Automated count 12.9 % 11.6-13.7 [facility] ([facility] MPV 8.0 FL 7.8-11.0 [facility] ([facility] [facility]) Lymph % 14.0 % 10.0-58.5 [facility] ([facility]) Mid % 5.1 % 1.7-9.3 [facility] ([facility]) Lymph # 1.1 x10*3/UL 0.6-4.1 [facility] ([facility]) Neut % 80.9 % 37.0-92.0 [facility] ([facility]) Neut # 6.5 x10*3/UL 2.0-7.8 [facility] ([facility]) Mid # 0.5 x10*3/UL 0.1-0.6 [facility] ([facility]) ID Date Data Source [id number] 08/24/2020 03:36:00 PM EST NextGen ([facility]) Name Value Range Interpretation Code Description Data Eda rce(s) Supporting Document(s) 2.8 mg/dL 0.0-0.5 Above high normal CRP [facility] ([facility]) ID Date Data Source [id number] 08/24/2020 03:36:00 PM EST NextGen ([facility]) Name Value Range Interpretation Code Description Data Eda rce(s) Supporting Document(s) 1.0 mg/dL 0.6-1.2 CREATININE NextGen ([facility]) 63.4 mL/min/1.73 eGFR Americ an NextGen ([facility]) 54.7 mL/min/1.73m eGFR Non- A merican NextGen ([facility]) ID Date Data Source [id number] 08/24/2020 03:36:00 PM EST NextGen ([facility]) Name Value Range Interpretation Code Description Data Eda rce(s) Supporting Document(s) 38 U/L 15-37 Above high normal AST [facility] ([facility]) ID Date Data Source [id number] 08/24/2020 03:36:00 PM EST NextGen ([facility]) Name Value Range Interpretation Code Description Data Eda rce(s) Supporting Document(s) 39 U/L 30-65 ALT NextGen ([facility]) ID Date Data Source [id number] 08/24/2020 03:36:00 PM EST NextGen ([facility]) Name Value Range Interpretation Code Description Data Eda rce(s) Supporting Document(s) 4.2 g/dL 3.4-4.4 ALB [facility] ([facility]) ID Date Data Source [id number] 08/24/2020 03:36:00 PM EST NextGen ([facility]) Name Value Range Interpretation Code Description Data Eda rce(s) Supporting Document(s) 6 mm/Hr 0-20 ESR NextGen ([facility]) ID Date Data Source [id number] 08/24/2020 03:36:00 PM EST NextGen ([facility]) Name Value Range Interpretation Code Description Data Eda rce(s) Supporting Document(s) 6.7 10*3/uL 3.7-10.1 WBC NextGen ([facility]) 4.59 10*6/uL 3.50-5.50 RBC [facility] ([facility]) 15.5 g/dL 12.0-16.0 HGB [facility] ([facility]) 48.5 % 36.0-48.0 Above high normal HCT [facility] ([facility]) 33.7 pg 26.0-34.0 MCH [facility] ([facility]) 32.0 g/dL 31.0-37.0 MCHC NextGen [facility] 106.0 fL 80.0-100.0 Above high normal MCV NextGen ([facility]) 11.7 % 10.0-15.0 RDW [facility] ([facility]) 7.5 fL 6.0-10.0 MPV [facility] ([facility]) 222 10*3/uL 150-500 PLATELETS NextGen ([facility]) 0.67 10*3/uL 0.10-1.00 MONO# NextGen ([facility]) 0.63 10*3/uL 1.00-5.00 Below low normal LYM# NextGe n ([facility]) 5.36 10*3/uL 2.10-8.00 YARITZA# NextGen ([facility]) 0.1 10*3/uL 0.0-0.2 BASO# NextGen ([facility]) 0.0 10*3/uL 0.0-0.5 EOS# NextGen ([facility]) 79.8 % 50.0-80.0 YARITZA% NextGen ([facility]) 10.0 % 2.0-10.0 MONO% [facility]Gen ([facility]) 9.4 % 25.0-50.0 Below low normal LYM% [facility] ([facility]) 0.1 % 0.0-5.0 EOS% NextGen ([facility]) 0.7 % 0.0-4.0 BASO% NextGen ([facility]) ID Date Data Source [id number] 07/28/2020 08:44:00 AM EST MEDENT ([facility]) Name Value Range Interpretation Code Description Data Eda rce(s) Supporting Document(s) FVC 1.98 [facility] ([facility]) Fev1/FVC 0.77 [facility] ([facility]) Fev1 1.53 [facility] ([facility]) ID Date Data Source [id number] 07/20/2020 12:00:00 AM EST [facility] Jeferson Brian Jr, MD Patient Name: CLEMENTE [id number] [facility] Date [place] [facility] 1945[place] [address] Date of Exam: 07/20/2020PH#: Fax: [phone] EXAM: CT THORAX WITH CONTRASTCLINICAL INFORMATION: Chronic cough.The latest prior chest CT for comparison is 02/18/2014 with other olderpriors also reviewed.Low dose [address] scanning of the chest was obtained using 3 mmincrements after the administration of intravenous contrast andreconstructed in both coronal and sagittal scan planes. 75 cc of [id number] was administered intravenously.There is no mediastinal or hilar adenopathy. There are no pleural orpericardial effusions. Once again, there is a large and in fact hugehiatal hernia and again with nearly all of the stomach within the thorax,status quo. The imaged upper abdomen is essentially unchanged. The imagedosseous structures are essentially unchanged.Evaluation of the lung goodson shows suspected bibasilar fibrotic changesand subsegmental atelectatic changes increased slightly from the priorexam. There is cylindrical bronchiectasis throughout the lung goodson, alsoincreased slightly from the prior exam. There is minimal biapicalpleuroparenchymal scarring which is essentially unchanged. No new abnormalnodules, masses, or opacities have developed.IMPRESSION:Chronic lung field changes as described above. There is no revisedFleischner Society criteria on the recommendation for followup of suchfindings. Followup should be based on clinical assessment.Accredited by the [place] [employer] in [place]/Marjorie you for referring LUCERO BARRAGAN to our office. Electronically Signed - ZITA MISTRY DO 07/20/20 17:24 Name Value Range Interpretation Code Description Data Eda rce(s) Supporting Document(s) ID Date Data Source [facility] Stanley Screening Bilateral (Ultrasound if Indicated ) (3D Mammo) 06/26/2020 11:31:11 AM EDT eCW1 ([facility]) Name Value Range Interpretation Code Description Data Eda rce(s) Supporting Document(s) [facility] [place] Screening Bilat eral (Ultrasound if Indicated) (3D Mammo) eCW1 ([facility]) ID Date Data Source [id number] 06/26/2020 11:00:00 AM EDT MEDENT ([facility]) Name Value Range Interpretation Code Description Data Eda rce(s) Supporting Document(s) Thyrotropin [Units/volume] in Serum or Plasma by Detec tion limit <= 0.05 mIU/L 2.32 uIU/mL 0.36-3.74 [facility] ([facility] ) ID Date Data Source [id number] 06/26/2020 11:00:00 AM EDT [facility] ([facility]) Name Value Range Interpretation Code Description Data Eda rce(s) Supporting Document(s) Triglyceride [Mass/volume] in Serum or Plasma 122 mg/dL 30-150 [facility] ([facility]) Cholesterol in HDL [Mass/volume] in Serum or Plasma 108 mg/dL 35-60 [facility] ([facility]) Cholesterol [Mass/volume] in Serum or Plasma 226 mg/dL 131-200 [facility] ([facility]) Cholesterol in LDL [Mass/volume] in Serum or Plasma by calcu lation 94 CALC 50-159 [facility] ([facility]) ID Date Data Source [id number] 06/26/2020 11:00:00 AM EDT MED[facility] ([facility]) Name Value Range Interpretation Code Description Data Eda rce(s) Supporting Document(s) Urea nitrogen [Mass/volume] in Serum or Plasma 23 mg/dL 7-18 [facility] ([facility]) Glucose [Mass/volume] in Serum or Plasma 97 mg/dL 74-99 [facility] ([facility]) 100-125 mg/dL PRE-DIABETES/FASTING >126 mg/dL DIABETES/FASTING Creatinine 0.9 mg/dL 0.6-1.3 [facility] ([facility]) Sodium [Moles/volume] in Serum or Plasma 144 meq/L 136-145 [facility] ([facility]) Potassium [Moles/volume] in Serum or Plasma 4.1 meq/L 3.5-5.1 [facility] ([facility]) Carbon dioxide, total [Moles/volume] in Serum or Plasma 29 meq/L 21 -32 [facility] ([facility]) Chloride [Moles/volume] in Serum or Plasma 103 meq/L 98-107 [facility] ([facility]) Total Bilirubin 0.4 mg/dL 0.2-1.0 MED[facility] ([facility]) Calcium [Mass/volume] in Serum or Plasma 9.8 mg/dL 8.5-10.1 [facility] ([facility]) Alkaline phosphatase isoenzyme [Units/volume] in Serum or Pl asma 52 mg/dL 46-116 [facility] ([facility]) Aspartate aminotransferase [Enzymatic activity/volume] in Serum or Plasma 41 U/L 15-37 [facility] ([facility] ) Alanine aminotransferase [Enzymatic activity/volume] in Seru m or Plasma 42 U/L 12-78 [facility] ([facility]) Proteinase 3 Ab [Units/volume] in Serum 7.6 g/dL 6.4-8.2 [facility] ([facility]) A/G Ratio 1.38 CALC 1.00-1.90 [facility] ([facility]) Albumin [Mass/volume] in Serum or Plasma 4.4 g/dL 3.4-5.0 [facility] ([facility]) Glomerular filtration rate/1.73 sq M pre dicted among non-blacks [Volume Rate/Area] in Serum or Plasma by Creatinine-based formula (MDRD) Laboratory test result [facility] ([facility] Glomerular filtration rate/1.73 sq M pre dicted among blacks [Volume Rate/Area] in Serum or Plasma by Creatinine-based formula (MDRD) Laboratory test result [facility] ([facility]) <content>CHRONIC KIDNEY DISEASE STAGING PER NKF</content>
<content></content>
<content>STAGE I & II GFR >= 60 NORMAL TO MILDLY DECREASED</content>
<content>STAGE III GFR 30-59 MODERATELY DECREASED</content>
<content>STAGE IV GFR 15-29 SEVERELY DECREASED</content>
<content>STAGE V GFR <15 VERY LITTLE GFR LEFT</content>
<content>ESRD GFR <15 ON STOCKROOM ASSOCIATE</content>
<content></content> ID Date Data Source [id number] 06/26/2020 11:00:00 AM EDT [facility] ([facility]) Name Value Range Interpretation Code Description Data Eda rce(s) Supporting Document(s) Hemoglobin A1c/Hemoglobin.total in Blood 6.7 % [facility] Lab Result Notes: Pre-Diabetes 5.7 - 6.4 % Diabetes = or > 6.5% Glucose mean value [Mass/volume] in Blood Estimated fr om glycated hemoglobin 146 mg/dL 60-110 [facility] ID Date Data Source [id number] 06/26/2020 11:00:00 AM EDT [facility] Name Value Range Interpretation Code Description Data Eda rce(s) Supporting Document(s) Erythrocytes [#/volume] in Blood by Automated count 4.69 x10*6/UL 4.2 0-6.30 [facility] ([facility]) Leukocytes [#/volume] in Blood by Automated count 6.3 x10*3/UL 4.1-10 .9 [facility] ([facility] Hemoglobin [Mass/volume] in Blood 15.7 g/dL 12.0-18.0 [facility] ([facility]) MCH 33.4 pg 26.0-32.0 [facility] ([place] [facility]) MCV 99.6 fL 80.0-97.0 [facility] ([facility]) Hematocrit [Volume Fraction] of Blood by Automated count 46.7 % 3 7.0-51.0 [facility] ([facility]) MCHC 33.5 g/dL 31.0-38.0 [facility] [facility]) Erythrocyte distribution width [Ratio] by Automated count 13.3 % 11.6-13.7 [facility] ([facility]) MPV 7.9 FL 7.8-11.0 [facility] ([place] [facility]) Lymph % 17.9 % 10.0-58.5 [facility] ([facility]) Platelets [#/volume] in Blood by Automated count 229 x10*3/UL 140-440 [facility] ([facility]) Neut % 77.1 % 37.0-92.0 [facility] Lymph # 1.1 x10*3/UL 0.6-4.1 [facility] ([facility]) Mid % 5.0 % 1.7-9.3 [facility] [facility] Mid # 0.4 x10*3/UL 0.1-0.6 [facility] ([facility]) Neut # 4.8 x10*3/UL 2.0-7.8 [facility] ([facility]) Procedure Social History Code Duration Value Status Description Data Source(s ) Caffeine Use Details 12/11/2020 12:00:00 AM EDT completed NextGen ([facility]) Smoking 12/11/2020 12:00:00 AM EDT Unknown if ever smoked comp leted Unknown if ever smoked [facility] ([facility]) Smoking 12/11/2020 12:00:00 AM EDT Patient is a former smoker completed Patient is a former smoker [facility] ([facility], ) 11/27/2020 12:00:00 AM EDT Never smoked tobacco comple steph Never smoked tobacco NextGen ([facility]) Smoking 10/02/2020 12:00:00 AM EST Patient is a former smoker completed Patient is a former smoker [facility] ([facility], [facility]) Vital Signs ID Date Data Source UNK Name Value Range Interpretation Code Description Data Source(s) Respiratory rate 12 /min 12 /min [facility] ( [facility], ) Body height 58 [in_i] 58 [in_i] [facility] ([facility]) 4'10" Body weight 121.00 [lb_av] 121.00 [lb_av] [facility] ([facility]) Body mass index (BMI) [Ratio] 25.3 kg/m2 25.3 k g/m2 [facility] ([facility]) Carson body weight 100 [lb_av] 100 [lb_av] MED[facility] T ([facility]) Body height 58.25 [in_i] 58.25 [in_i] [facility] ([facility]) 4'10.25" Systolic blood pressure 132 mm[Hg] 132 mm[Hg] M EDENT ([facility]) Body mass index (BMI) [Ratio] 26.3 kg/m2 26.3 k g/m2 [facility] ([facility]) Diastolic blood pressure 74 mm[Hg] 74 mm[Hg] [facility] ([facility]) Heart rate 78 /min 78 /min [facility] ([facility]) Body weight 127.00 [lb_av] 127.00 [lb_av] MEDEN T ([facility]) Body weight 130 [lb_av] 130 [lb_av] eCW1 ([facility]) Body weight 58.97 kg 58.97 kg W1 ([facility]) Body height 58.5 [in_i] 58.5 [in_i] W1 ([facility]) Body mass index (BMI) [Ratio] 26.7 kg/m2 26.7 k g/m2 W1 ([facility]) Systolic blood pressure 130 mm[Hg] 130 mm[Hg] e CW1 ([facility]) Diastolic blood pressure 76 mm[Hg] 76 mm[Hg] eCW1 ([facility]) Body height 58.25 [in_i] 58.25 [in_i] [facility] ([facility]) 4'10.25" Systolic blood pressure 116 mm[Hg] 116 mm[Hg] M EDENT ([facility]) Body mass index (BMI) [Ratio] 27.1 kg/m2 27.1 k g/m2 [facility] ([facility]) Body weight 131.00 [lb_av] 131.00 [lb_av] MED[facility] T ([facility]) Diastolic blood pressure 70 mm[Hg] 70 mm[Hg] [facility] ([facility]) Body weight 127.00 [lb_av] 127.00 [lb_av] MED[facility] T ([facility], ) Carson body weight 100 [lb_av] 100 [lb_av] MED[facility] T ([facility], ) Respiratory rate 12 /min 12 /min [facility] ( [facility]) Body height 58 [in_i] 58 [in_i] [facility] ([facility]) 4'10" Body mass index (BMI) [Ratio] 26.5 kg/m2 26.5 k g/m2 [facility] ([facility]) Systolic blood pressure 130 mm[Hg] 130 mm[Hg] EDENT ([facility]) Diastolic blood pressure 77 mm[Hg] 77 mm[Hg] [facility] ([facility]) Heart rate 105 /min 105 /min [facility] ([facility]) Body height 57 [in_i] 57 [in_i] [facility] 4'9" Body weight 131.25 [lb_av] 131.25 [lb_av] MEDEN T ([facility]) Body mass index (BMI) [Ratio] 28.4 kg/m2 28.4 k g/m2 [facility] ([facility]) [place] body weight 100 [lb_av] 100 [lb_av] MED[facility] T ([facility]) Body weight 59.535 kg 59.535 kg [facility] ([facility]) Body surface area Derived from formula 1.50 m2 1.50 m2 [facility] ([facility]) Body height 144.78 cm 144.78 cm NextGen ([facility] Body weight 58.060 kg 58.060 kg Next[facility] ([facility]) Body mass index (BMI) [Ratio] 27.70 kg/m2 Overweight 27.70 kg/m2 NextGen ([facility]) Body weight 127.00 [lb_av] 127.00 [lb_av] MED[facility] T ([facility]) Respiratory rate 12 /min 12 /min [facility] ( [facility]) Body mass index (BMI) [Ratio] 26.5 kg/m2 26.5 k g/m2 [facility] ([facility]) [place] body weight 100 [lb_av] 100 [lb_av] MED[facility] T ([facility]) Body height 58 [in_i] 58 [in_i] [facility] ([facility]) 4'10" Heart rate 76 /min 76 /min [facility] ([facility]) Body height 58.25 [in_i] 58.25 [in_i] [facility] ( [facility]) 4'10.25" Diastolic blood pressure 68 mm[Hg] 68 mm[Hg] [facility] ([facility]) Body weight 131.00 [lb_av] 131.00 [lb_av] [facility] Body mass index (BMI) [Ratio] 27.1 kg/m2 27.1 k g/m2 [facility] ([facility]) Systolic blood pressure 118 mm[Hg] 118 mm[Hg] [facility] Heart rate 92 /min 92 /min [facility] ([facility], [facility]) Systolic blood pressure 130 mm[Hg] 130 mm[Hg] [facility] [place] ([facility], [facility]) Diastolic blood pressure 64 mm[Hg] 64 mm[Hg] [facility] ([facility] [place], [facility]) Respiratory rate 18 /min 18 /min [facility] ( [facility] [place], [facility]) Oxygen saturation in Arterial blood by Pulse oximetry 97 % 97 % [facility] ([facility] [place], [facility]) Body temperature 97.5 [degF] 97.5 [degF] [facility] ([facility] [place], [facility]) Body weight 127.00 [lb_av] 127.00 [lb_av] [facility] [place], [facility]) Body height 58 [in_i] 58 [in_i] [facility] ([facility] [place], [facility]) 4'10" Body mass index (BMI) [Ratio] 26.5 kg/m2 26.5 k g/m2 [facility] ([facility] [place], [facility]) Body height 144.78 cm 144.78 cm [facility] ([facility]) Systolic blood pressure 124 mm[Hg] 124 mm[Hg] N [facility] ([facility]) Body weight 55.792 kg 55.792 kg [facility] ([facility]) Diastolic blood pressure 72 mm[Hg] 72 mm[Hg] [facility] ([facility]) Body mass index (BMI) [Ratio] 26.62 kg/m2 Overweight 26.62 kg/m2 [facility] ([facility]) Body height 58 [in_i] 58 [in_i] [facility] ([facility], ) 4'10" Respiratory rate 12 /min 12 /min [facility] ( [facility], ) Body weight 127.00 [lb_av] 127.00 [lb_av] [facility] ([facility]) Body mass index (BMI) [Ratio] 26.5 kg/m2 26.5 k g/m2 [facility] ([facility], ) [place] body weight 100 [lb_av] 100 [lb_av] [facility] ([facility]) Heart rate 83 /min 83 /min [facility] ([facility]) Body height 58.25 [in_i] 58.25 [in_i] [facility] ([facility]) 4'10.25" Body weight 129.00 [lb_av] 129.00 [lb_av] [facility] ([facility]) Oxygen saturation in Arterial blood by Pulse oximetry 95 % 95 % [facility] ([facility]) Air Body mass index (BMI) [Ratio] 26.7 kg/m2 26.7 k g/m2 [facility] ([facility]) Systolic blood pressure 126 mm[Hg] 126 mm[Hg] M [facility] ([facility]) Body height 58.25 [in_i] 58.25 [in_i] [facility] ([facility]) 4'10.25" Body weight 128.00 [lb_av] 128.00 [lb_av] [facility] ([facility]) Diastolic blood pressure 70 mm[Hg] 70 mm[Hg] [facility] ([facility]) Body mass index (BMI) [Ratio] 26.5 kg/m2 26.5 k g/m2 [facility] ([facility]) Body weight 129 [lb_av] 129 [lb_av] [facility] ([facility]) Body height 58.5 [in_i] 58.5 [in_i] [facility] ([facility]) Body mass index (BMI) [Ratio] 26.50 kg/m2 26.50 kg/m2 [facility] ([facility]) Systolic blood pressure 122 mm[Hg] 122 mm[Hg] e CW1 ([facility]) Diastolic blood pressure 70 mm[Hg] 70 mm[Hg] eCW1 ([facility]) Patient Treatment Plan of Care Planned Activity Planned Date Details Description Data Source (s) Sulfasalazine 500 MG Oral Tablet 02/14/2021 12:00:00 AM EDT [facility] ([facility]) Sulfasalazine 500 MG Delayed Release Oral Tablet 02/13/2021 12:00:0 0 AM EDT [facility] ([facility]) Sulfasalazine 500 MG Delayed Release Oral Tablet 02/09/2021 12:00:0 0 AM EDT [facility] ([facility]) Minocycline 100 MG Oral Capsule 12/18/2020 12:00:00 AM EDT [facility] ([facility]) Minocycline 100 MG Oral Capsule 12/14/2020 12:00:00 AM EDT [facility] ([facility]) Hydroxychloroquine Sulfate 200 MG Oral Tablet [[place]] 11/27/2020 12:00:00 AM EDT [facility] ([facility]) Folic Acid 1 MG Oral Tablet 11/27/2020 12:00:00 AM EDT [facility] ([facility]) Sulfasalazine 500 MG Delayed Release Oral Tablet 11/16/2020 12:00:0 0 AM EST [facility] ([facility]) Hydroxychloroquine Sulfate 200 MG Oral Tablet [[place]] 10/23/2020 12:00:00 AM EST [facility] ([facility]) Minocycline 100 MG Oral Capsule 10/16/2020 12:00:00 AM EST [facility] ([facility]) Prednisone 1 MG Oral Tablet 09/26/2020 12:00:00 AM EST [facility] ([facility]) Prednisone 1 MG Oral Tablet 09/25/2020 12:00:00 AM EST [facility] ([facility]) Prednisone 5 MG Oral Tablet 09/05/2020 12:00:00 AM EST [facility] ([facility]) Folic Acid 1 MG Oral Tablet 08/24/2020 12:00:00 AM EST [facility] ([facility]) Sulfasalazine 500 MG Delayed Release Oral Tablet 08/17/2020 12:00:0 0 AM EST [facility] ([facility]) Prednisone 1 MG Oral Tablet 08/09/2020 12:00:00 AM EST [facility] ([facility]) tofacitinib 5 MG Oral Tablet [Xeljanz] 07/28/2020 12:00:00 AM EST [facility] ([facility]) Minocycline 100 MG Oral Capsule 07/17/2020 12:00:00 AM EST [facility] ([facility]) Folic Acid 1 MG Oral Tablet 06/05/2020 12:00:00 AM EDT [facility] ([facility]) Sulfasalazine 500 MG Delayed Release Oral Tablet 05/18/2020 12:00:0 0 AM EDT [facility] ([facility]) Hydroxychloroquine Sulfate 200 MG Oral Tablet [[place]] 04/27/2020 12:00:00 AM EDT [facility] ([facility]) Prednisone 5 MG Oral Tablet 02/09/2020 12:00:00 AM EDT [facility] ([facility]) Prednisone 1 MG Oral Tablet 02/09/2020 12:00:00 AM EDT [facility] ([facility]) Calcium 500 + D 500 mg (1,250 mg)-200 unit Tab [facility] ([facility]) OTC SUPPLEMENTS [facility] ([facility]) OCUVITE ADULT 50 PLUS (unknown strength) [facility] ([facility]) Linagliptin 5 MG Oral Tablet [Tradjenta] [facility] ([facility])
[2021-08-14 13:03] LABS: RSV AMPLIFICATION NEGATIVE (NEGATIVE)
--- OUTSIDE RECORDS SUMMARY | 2021-08-14 14:18 | CCD ---
Author Author [facility] Organization [facility] Address Unknown Phone Unavailable Care Team Providers Care Credit Intern Name Role Phone Checo Whiting MD Unavailable [...] Unavailable Unavailable Grabiel Brian MD Unavailable Unavailable [place] MD Unavailable Unavailable SnehalGrabiel MD Unavailable Unavailable [place] MD Unavailable Unavailable SnehalGrabiel MD Unavailable Unavailable SnehalGrabiel MD Unavailable Unavailable SnehalGrabiel MD Unavailable Unavailable SnehalGrabiel MD Unavailable Unavailable SnehalGrabiel MD Unavailable Unavailable SnehalGrabiel MD Unavailable Unavailable SnehalGrabiel MD Unavailable Unavailable SnehalGrabiel MD Unavailable Unavailable SnehalGrabiel MD Unavailable Unavailable SnehalGrabiel MD Unavailable Unavailable [place] MD Unavailable Unavailable SnehalGrabiel MD Unavailable Unavailable [place] MD Unavailable Unavailable SnehalGrabiel MD Unavailable Unavailable [place] MD Unavailable Unavailable [place] MD Unavailable Unavailable [place] MD Unavailable Unavailable SnehalGrabiel MD Unavailable Unavailable [place] MD Unavailable Unavailable [place] MD Unavailable Unavailable [place] MD Unavailable Unavailable SnehalGrabiel MD Unavailable Unavailable SnehalGrabiel MD Unavailable Unavailable [place] MD Unavailable Unavailable [place] MD Unavailable Unavailable SnehalGrabiel MD Unavailable Unavailable [place] MD Unavailable Unavailable [place] MD Unavailable Unavailable SnehalGrabiel MD Unavailable Unavailable SnehalGrabiel MD Unavailable Unavailable SnehalGrabiel MD Unavailable Unavailable [place] MD Unavailable Unavailable SnehalGrabiel miller MD Unavailable Unavailable SnehalGrabiel MD Unavailable Unavailable [place] MD Unavailable Unavailable [place] miller MD Unavailable Unavailable SnehalGrabiel MD Unavailable Unavailable [place] MD Unavailable Unavailable [place] miller MD Unavailable Unavailable SnehalGrabiel miller MD Unavailable Unavailable [place] MD Unavailable Unavailable [place] MD Unavailable Unavailable SnehalGrabiel MD Unavailable Unavailable [place] MD Unavailable Unavailable SnehalGrabiel MD Unavailable Unavailable SnehalGrabiel MD Unavailable Unavailable SnehalGrabiel MD Unavailable Unavailable [place] MD Unavailable Unavailable [place] MD Unavailable Unavailable SnehalGrabiel MD Unavailable Unavailable [place] MD Unavailable Unavailable SnehalGrabiel MD Unavailable Unavailable [place] MD Unavailable Unavailable Grabiel Brian MD Unavailable Unavailable Grabiel Brian MD Unavailable Unavailable Grabiel Brian MD Unavailable Unavailable Grabiel Brian MD Unavailable Unavailable Grabiel Brian MD Unavailable Unavailable [place] miller MD Unavailable Unavailable [place] miller MD Unavailable Unavailable Grabiel Brian MD Unavailable Unavailable Grabiel Brian MD Unavailable Unavailable [place] miller MD Unavailable Unavailable Grabiel Brian MD [...] Cami PA-C Unavailable Unavailable Sylvia, Naty Ruiz SENIOR RECEPTIONIST-C Unavailable Unavailabl e Sylvia, Naty Ruiz SENIOR RECEPTIONIST-C Unavailable Unavailabl e Sylvia, Naty Ruiz SENIOR RECEPTIONIST-C Unavailable Unavailabl e Sylvia, Nayt Ruiz SENIOR RECEPTIONIST-C Unavailable Unavailabl e Sylvia, Naty Ruiz SENIOR RECEPTIONIST-C Unavailable Unavailabl e Sylvia, Naty Ruiz SENIOR RECEPTIONIST-C Unavailable Unavailabl e Sylvia, Naty Ruiz SENIOR RECEPTIONIST-C Unavailable Unavailabl e Sylvia, Naty Ruiz SENIOR RECEPTIONIST-C Unavailable Unavailabl e Sylvia, Naty Ruiz SENIOR RECEPTIONIST-C Unavailable Unavailabl e Sylvia, Naty Ruiz SENIOR RECEPTIONIST-C Unavailable Unavailabl e Sylvia, Naty Sara SENIOR RECEPTIONIST-C Unavailable Unavailabl e Sylvia, Naty العراقيfer SENIOR RECEPTIONIST-C Unavailable Unavailabl e Sylvia, Naty Ruiz SENIOR RECEPTIONIST-C Unavailable Unavailabl e Sylvia, Naty Ruiz SENIOR RECEPTIONIST-C Unavailable Unavailabl e Sylvia, Naty Ruiz SENIOR RECEPTIONIST-C Unavailable Unavailabl e Sylvia, Naty Ruiz SENIOR RECEPTIONIST-C Unavailable Unavailabl e Sylvia, Naty Ruiz SENIOR RECEPTIONIST-C Unavailable Unavailabl e Sylvia, Naty Ruiz SENIOR RECEPTIONIST-C Unavailable Unavailabl e Sylvia, Naty Ruiz SENIOR RECEPTIONIST-C Unavailable Unavailabl e Sylvia, Naty Ruiz SENIOR RECEPTIONIST-C Unavailable Unavailabl e Sylvia, Naty العراقيfer SENIOR RECEPTIONIST-C Unavailable Unavailabl e Sylvia, Naty Ruiz SENIOR RECEPTIONIST-C Unavailable Unavailabl e Sylvia, Naty Ruiz SENIOR RECEPTIONIST-C Unavailable Unavailabl e Sylvia, Naty Ruiz SENIOR RECEPTIONIST-C Unavailable Unavailabl e Sylvia, Naty Ruiz SENIOR RECEPTIONIST-C Unavailable Unavailabl e Sylvia, Naty Ruiz SENIOR RECEPTIONIST-C Unavailable Unavailabl e Sylvia, Naty Ruiz SENIOR RECEPTIONIST-C Unavailable Unavailabl e Sylvia, Naty Ruiz SENIOR RECEPTIONIST-C Unavailable Unavailabl e Sylvia, Naty Ruiz SENIOR RECEPTIONIST-C Unavailable Unavailabl e Sylvia, Naty Ruiz SENIOR RECEPTIONIST-C Unavailable Unavailabl e Sylvia, Naty Ruiz SENIOR RECEPTIONIST-C Unavailable Unavailabl e Sylvia, Naty Ruiz SENIOR RECEPTIONIST-C Unavailable Unavailabl e Sylvia, Naty Ruiz SENIOR RECEPTIONIST-C Unavailable Unavailabl e Sylvia, Naty Ruiz SENIOR RECEPTIONIST-C Unavailable Unavailabl e Sylvia, Naty Ruiz SENIOR RECEPTIONIST-C Unavailable Unavailabl e Sylvia, Naty Ruiz SENIOR RECEPTIONIST-C Unavailable Unavailabl e Sylvia, Naty Ruiz SENIOR RECEPTIONIST-C Unavailable Unavailabl e Sylvia, Naty العراقيfer SENIOR RECEPTIONIST-C Unavailable Unavailabl e Sylvia, Naty Ruiz SENIOR RECEPTIONIST-C Unavailable Unavailabl e Sylvia, Naty Ruiz SENIOR RECEPTIONIST-C Unavailable Unavailabl e Sylvia, Naty Ruiz SENIOR RECEPTIONIST-C Unavailable Unavailabl e Sylvia, Naty Ruiz SENIOR RECEPTIONIST-C Unavailable Unavailabl e Sylvia, Naty Ruiz SENIOR RECEPTIONIST-C Unavailable Unavailabl e Sylvia, Naty Ruiz SENIOR RECEPTIONIST-C Unavailable Unavailabl e Sylvia, Naty Ruiz SENIOR RECEPTIONIST-C Unavailable Unavailabl e Sylvia, Naty Ruiz SENIOR RECEPTIONIST-C Unavailable Unavailabl e Sylvia, Naty Ruiz SENIOR RECEPTIONIST-C Unavailable Unavailabl e Sylvia, Naty Ruiz SENIOR RECEPTIONIST-C Unavailable Unavailabl e Sylvia, Naty Ruiz SENIOR RECEPTIONIST-C Unavailable Unavailabl e Sylvia, Naty Ruiz SENIOR RECEPTIONIST-C Unavailable Unavailabl e Sylvia, Naty Harrisnifer SENIOR RECEPTIONIST-C Unavailable Unavailabl e NASH, VERNA PA Unavailable [...] Unavailable Unavailable NASH, VERNA PA Unavailable Unavailable NSAH, VERNA PA Unavailable Unavailable NASH, VERNA PA [...] Unavailable Flor Javed MD Unavailable Unavailable Flor Jvaed MD Unavailable Unavailable Flor Javed MD Unavailable [...] is protected by Article 27-F of the [place] Public Health law. If you continue you may have access to information: Regarding HIV / AIDS; Provided by facilities licensed or operated by the [facility] Office of Mental Health; or Provided by the [facility] Office for People With Developmental Disabilities. If such information is present, then the following [facility] mandated warning applies: This information has [...] Description Data Source(s) Unknown Unknown Problem MEDENT ([facility]) Unknown Unknown Problem [facility] ([facility]) Unknown Female Problem (finding) 07/15/2012 12:00:00 AM EDT [facility] ([facility]) Unknown Female Problem MEDENT ([facility]) Unknown Male Problem [facility] ([facility]) Unknown Male Problem MED[facility] ([facility]) Encounters Encounter Providers Location Date Indications Data Source(s ) Office Visit Attender: Alessandro Javed MD [facility] office - [facility] 06/04/2021 12:30:00 PM EDT [facility] ([facility]) Outpatient Attender: Jeferson Zhou 0 03/12/2021 02:30:00 PM EDT [facility] ([facility] ) Outpatient [address] [facility] [address] 02/22/2021 12:00:00 AM EDT eCW1 ([facility]) Outpatient Attender: ROGELIO Zhou 0 02/16/2021 03:00:00 PM EDT MED[facility] ([facility] ) Office Visit Attender: Alessandro Javed MD [facility] office - [facility] 02/16/2021 10:30:00 AM EDT [facility] ([facility]) Attender: Checo Whiting MD [facility] 02/14/2021 11:28:00 AM EDT - 02/14/2021 11:28:00 AM EDT [facility] ( [facility]) Attender: Checo Whiting MD [facility] 02/13/2021 12:01:00 PM EDT - 02/13/2021 12:01:00 PM EDT [facility] ( [facility]) Attender: Checo Whiting MD [facility] 02/09/2021 09:20:00 AM EDT - 02/09/2021 09:20:00 AM EDT [facility] ( [facility]) Attender: Cami Zimmer PA-C [facility] 12/18/2020 03:09:00 PM EDT - 12/18/2020 03:09:00 PM EDT [facility] ( [facility]) Attender: Sara RECINOS [facility] 12/14/2020 03:00:00 PM EDT - 12/14/2020 03:00:00 PM EDT [facility] ( [facility]) Attender: Cami Zimmer PA-C [facility] 12/11/2020 11:13:00 AM EDT - 12/11/2020 11:13:00 AM EDT [facility] ( [facility]) OutpatientOFFICE/OUTPATIENT VISIT, EST Attender: Cami Simon PA-C [facility] 11/27/2020 11:00:00 AM EDT - 11/27/2020 11:00:00 AM ED T Other superintendent container terminal (current) drug therapyRheumatoid arthritis without rheumatoid factor, multiple sites [facility] ([facility]) Other assisted (current) drug therapy Rheumatoid arthritis without rheumatoid factor, multiple sites Attender: [facility] 11/16/2020 10:05:00 AM EST - 11/16/2020 10:05:00 AM EST [facility] ( [facility]) Office Visit Attender: Alessandro Javed MD Main office - [facility] 11/13/2020 01:00:00 PM EST MED[facility] ([facility] ) Outpatient Attender: Jeferson Zhou 0 11/01/2020 09:00:00 AM EST MED[facility] ([facility] ) Attender: Checo Whiting MD [facility] 10/23/2020 10:47:00 AM EST - 10/23/2020 10:47:00 AM EST [facility] ( [facility]) Attender: Cami Zimmer PA-C [facility] 10/16/2020 10:55:00 AM EST - 10/16/2020 10:55:00 AM EST [facility] ( [facility]) Outpatient Attender: VERNA Howe ry 10/02/2020 02:00:00 PM EST [facility] ([facility]) Attender: Cami Zimmer PA-C [facility] 09/26/2020 12:31:00 PM EST - 09/26/2020 12:31:00 PM EST [facility] ( [facility]) Attender: Cami Zimmer PA-C [facility] 09/25/2020 03:35:00 PM EST - 09/25/2020 03:35:00 PM EST [facility] ( [facility]) Attender: Cami Zimmer PA-C [facility] 09/05/2020 09:37:00 AM EST - 09/05/2020 09:37:00 AM EST [facility] ( [facility]) OutpatientOFFICE/OUTPATIENT VISIT, EST Attender: Checo valverde MD 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 08/17/2020 11:40:00 AM EST - 08/17/2020 11:40:00 AM EST [facility] ( [facility]) Office Visit Attender: Alessandro Javed MD Main office - [facility] 08/14/2020 12:45:00 PM EST [facility] ([facility]) Attender: Cami Zimmer PA-C [facility] 08/09/2020 01:55:00 PM EST - 08/09/2020 01:55:00 PM EST [facility] ( [facility]) Attender: Checo Whiting MD [facility] 07/28/2020 10:00:00 AM EST - 07/28/2020 10:00:00 AM EST [facility] ( [facility]) Attender: Cami Zimmer PA-C [facility] 07/17/2020 09:02:00 AM EST - 07/17/2020 09:02:00 AM EST [facility] ( [facility]) Outpatient Attender: Jeferson Molina 10:20:00 AM EDT MEDENT ([facility] ) Office Visit, Est Pt., Level 2 PC [address] [place] [address] 06/21/2020 12:00:00 AM EDT eCW1 ([facility]) Immunizations Vaccine Date Status Description Data Source(s) COVID-19 VACCINE Pfizer 12/06/2020 12:00:00 AM EDT completed [facility]IS Vaccine Series Complete: NOThis Data was Submitted to [facility] Via [employer]. Covid 19 Pfizer Vaccine 11/15/2020 12:00:00 AM EST completed Covid 19 Pfizer Vaccine [facility] ([facility]) Source: Other Provider COVID-19 VACCINE Pfizer 11/15/2020 12:00:00 AM EST completed [facility]SIIS Vaccine Series Complete: NOThis Data was Submitted to [facility] Via [employer]. Shingrix Zoster Vaccine (HZV), Recombinant, Subunit, A djuvanted 07/03/2020 11:24:00 AM EDT completed [facility]) IIV3. This is one of two codes replacing CVX 15, which is being retired. 06/30/2020 12:00:00 AM EDT completed Historical Influenza Vaccine [facility] ([facility]) Source: Other Provider Influenza, injectable, MDCK, preservative free, vivien valent 06/26/2020 10:31:00 AM EDT completed [facility] Medications Medication Brand Name Start Date Product Form Dose Route Admi nistrative Instructions Pharmacy Instructions Status Indications Reaction Description Data Source(s) [facility] 07/07/2021 12:00:00 AM EDT misc 200 USE [...] by oral route every day after meals [facility] ([facility]) Sulfasalazine 500 MG Delayed Release Ora l Tablet sulfasalazine 500 mg tablet,delayed release sulfasalazine 500 mg tablet,delayed release 02/13/2021 12:00:00 AM EDT completed TAKE 2 TABLETS BY MOUTH EVERY DAY [facility] ([facility]) Sulfasalazine 500 MG Delayed Release Oral Tablet SULFA SALAZINE DR/EC [address]/EC 500 MG TAB 02/09/2021 12:00:00 AM EDT completed TAKE 2 TABLETS BY MOUTH EVERY DAY [facility] glimepiride 1 MG Oral Tablet GLIMEPIRIDE [...] TAKE ONE CAPSULE BY MOUTH EVERY DAY [facility] ([email or web address]) 100 mg 12/18/2020 12:00:00 AM [...] TABLETS BY MOUTH EVERY DAY SOLD: 04/02/2021 [facility] Hydroxychloroquine Sulfate 200 MG Oral [...] sulfate 200 M G Oral Tablet [Plaquenil] [facility] ([facility]) dxM06.9 Folic Acid 1 MG Oral Tablet folic acid 1 mg tablet folic aci d 1 mg tablet 11/27/2020 12:00:00 AM EDT 2 {tbl} ORAL active take 2 Tablet by oral route every day [facility] ([facility]) Sulfasalazine 500 MG Delayed Release Ora l Tablet sulfasalazine 500 mg tablet,delayed release sulfasalazine 500 mg tablet,delayed release 11/16/2020 12:00:00 AM EST completed take 2 tablets once a day [facility] ([facility]) Hydroxychloroquine Sulfate 200 [...] sulfate 200 M G Oral Tablet [Plaquenil] [facility] ([facility]) dxM06.9 20 mg 10/20/2020 [...] TABLET BY MOUTH ONCE DAILY SOLD: 02/06/2021 [facility] 12.5 mg 10/04/2020 12:00:00 AM EST [...] 12:00 :00 AM EST ORAL active [facility] ([facility]) 20 mg 10/02/2020 12:00:00 AM EST tablet 10 TAKE TWO TABLETS BY MOUTH EVERY DAY FOR 5 DAYS TAKE TWO TABLETS BY MOUTH EVERY DAY FOR 5 DAYS SOLD: [facility] Prednisone 20 MG Oral Tablet Prednisone 10/02/2020 12:00:00 AM EST ORAL active MED[facility] ([facility]) 1 mg 09/27/2020 [...] & 2 TABLETS EVERY EVENING SOLD: 04/02/2021 [facility] Prednisone 1 MG Oral Tablet prednisone 1 mg tablet prednison e 1 mg tablet 09/26/2020 12:00:00 AM EST active take 4 tablet by oral route every morning and 2 tablet Q evening. [facility] ([facility]) Prednisone 1 MG Oral Tablet prednisone 1 mg tablet prednison e 1 mg tablet 09/25/2020 12:00:00 AM EST 2 {tbl} ORAL completed take 2 tablet by oral route every day [facility] ([facility]) 5 mg 09/05/2020 12:00:00 AM [...] days and then stay at 5mg daily [facility] ([facility]) 1 mg 08/28/2020 12:00:00 AM [...] 2 Tablet by oral route every day [facility] ([facility]) alogliptin 12.5 MG Oral Tablet Alogliptin Benzoate 08/23/2020 12:00 :00 AM EST ORAL completed [facility] ([facility]) Sulfasalazine 500 MG Delayed Release Ora l Tablet sulfasalazine 500 mg tablet,delayed release sulfasalazine 500 mg tablet,delayed release 08/17/2020 12:00:00 AM EST completed take 2 tablets once a day [facility] ([email or web address]) 500 mg 08/17/2020 12:00:00 AM [...] 2 tablet by oral route every day [facility] ([email or web address]) tofacitinib 5 MG Oral Tablet [Xeljanz] XELJANZ 5 MG TABLET X ELJANZ 5 MG TABLET 07/28/2020 12:00:00 AM EST 1.00 {tbl} ORAL active tofacitinib 5 MG Oral Tablet [Xeljanz] [facility] ([facility]) Minocycline 100 MG Oral Capsule MINOCYCLINE 100 MG CAP KLEVER MINOCYCLINE 100 MG CAPSULE 07/17/2020 12:00:00 AM EST completed TAKE ONE CAPSULE BY MOUTH EVERY DAY [facility] ([email or web address]) 100 mg 07/17/2020 12:00:00 AM [...] 12:00:00 AM EDT completed [facility] ([facility]) Medication administered onsite Folic Acid [...] sulfate 200 M G Oral Tablet [Plaquenil] [facility] ([facility]) 100 mg 04/17/2020 [...] 1 tablet by oral route every day [facility] ([facility]) Prednisone 1 MG Oral Tablet prednisone 1 mg tablet prednison e 1 mg tablet 02/09/2020 12:00:00 AM EDT 2 {tbl} ORAL completed take 2 tablet by oral route every day [facility] ([facility]) glimepiride 1 MG [...] comple steph mvi, harvinder C, cranbery extract [facility] ([facility]) Calcium 500 + D 500 mg (1,250 mg)-200 unit Tab CALCIUM CARBONATE/ TAMIN D3 2 {tbl} ORAL completed take 2 Tablet by Oral route every day [facility] ([facility]) OCUVITE ADULT 50 PLUS (unknown strength) C,E,zinc,copper 11/xpmgr3m/dania t completed [facility] ([facility]) Linagliptin 5 MG Oral Tablet [Tradjenta] Tradjenta 5 m g tablet Tradjenta 5 mg tablet 1.00 {tbl} ORAL completed jimmie agliptin 5 MG Oral Tablet [Tradjenta] [facility] ([email or web address]) Insurance Providers Payer name Policy type / Coverage type Policy ID Covered constitution party ID Covered constitution party's relationship to mccollum Policy Mccollum Plan Information [place] Medigap Part B [id number] Self [id number] [place] Medigap Part B [id number] Self [id number] [facility] [id number] Self [id number] BS [facility] Part B [id number] Self [id number] MEDICARE A [id number] Self [id number] A MEDICARE A [id number] Self [id number] Cigna/MVP Con Gen/Prefcar Commercial [id number] Self [id number] Cigna/MVP Con Gen/Prefcar Commercial [id number] Self MEDICARE [id number] SP [id number] A Medicare Natl Govt Servic Medicare Primary [id number] Self [id number] Medicare Natl Govt Servic Medicare Primary [id number] Self [id number] Medicare Natl Govt Servic Medicare Primary [id number] Self Medicare Natl Govt Servic Medicare Primary [id number] Self [id number] Medicare Natl Govt Servic Medicare Primary [id number] Self 0 [id number] [place] [id number] Self [id number] Medicare Natl Govt Servic Medicare Primary [id number] Self [id number] Medicare Natl Govt Servic Medicare Primary [id number] Self [id number] Medicare Natl Govt Servic Medicare Primary [id number] Self 6 [id number] Medicare Natl Govt Servic Medicare Primary [id number] Self 6 [id number] Medicare [place] Medicare Primary [id number] Self [id number] [facility] [id number] Medicare Natl Govt Servic Medicare Primary [id number] Self [id number] Medicare Natl Govt Servic Medicare Primary [id number] Self [id number] [facility] U [id number] Self [id number] AAR U [id number] Self [id number] EXCELLUS C [id number] Self [id number] ANS-Medicare Part B [id number] [facility] Options Medigap Part B [id number] Self [id number] Medicare Natl Gov't Servi Medicare Primary [id number] Self 6 [id number] [facility] Medigap Part B [id number] Self [id number] [facility] Medigap Part B [id number] Self [id number] ANS-Medicare Part B [id number] ANSI-Commercial [id number] [facility] [id number] SP [id number] [facility] OPTIONS [id number] SP [id number] [facility] Opt Medigap Part B [id number] Self [id number] AARP O [id number] S [id number] MEDICARE C [id number] S [id number] A [employer] [place] PPO [id number] SP [id number] [facility] Opt Medigap Part B [id number] Self [id number] [facility] Options Medigap Part B [id number] Self [id number] Medicare Natl Gov't Servi Medicare Primary [id number] Self [id number] [facility] [id number] SP [id number] [facility] Medigap Part B [id number] Self [id number] [facility] Medigap Part B [id number] Self [id number] Medicare Natl Gov't Servi Medicare Primary [id number] .[id number] Self [id number] [facility] [id number] Self [id number] Medicare [facility] Medicare Primary [id number] Self [id number] [employer] BCBS Health Maintenance Organization (HMO) [id number] Self [id number] [facility] Medigap Part B [id number] Self [id number] Medicare Natl Gov't Servi Medicare Primary [id number] Self 0 [id number] [place] [facility]/Multiplan Medigap Part B [id number] Self [id number] [place] [facility] Medigap Part B [id number] Self Medicare Natl Gov't Servi Medicare Primary [id number] Self [facility] Medigap Part B [id number] Self [place] [facility] Medicare Primary [id number] Self [employer] Health Maintenance Organization (HMO) [id number] Self UNITED HEALTHCARE O [id number] S [id number] A [id number] [facility] ADMINISTRATORS, [facility] C [id number] S [id number] MEDICARE [id number] SP [id number] [id number] MEDICARE [id number] SP [id number] [id number] AARP HE[employer] CARE OPTIONS [id number] SP [id number] BCBS [facility] DIV EXCELLUS BCBS B [id number] S [id number] MEDICARE C [id number] S [id number] [id number] BCBS HMO BLUE [id number] SP [id number] BCBS HMO BLUE [id number] SP [id number] [facility] Opt Medigap Part B [id number] Self 3 [id number] [facility]/Multiplan [facility] Part B [id number] Self [id number] ANSI-Commercial [id number] ANSI-Medicare Part B [id number] [facility] Options [facility] Part B [id number] Self [id number] Medicare Natl Gov't Servi Medicare Primary [id number] Self [id number] ANSI-Medicare Part B [id number] ANSI-Commercial [id number] ANSI-Medicare Part B [id number] ANSI-Commercial [id number] ANSI-Medicare Part B [id number] ANSI-Commercial [id number] Opt [facility] Part B [id number] Self 3 [id number] [facility] Opt [facility] Part B [id number] Self 3 [id number] 11 [facility] Options [facility] Part B [id number] Self [id number] ANSI-Medicare Part B [id number] ANSI-Commercial [id number] ANSI-Commercial [id number] Problems, Conditions, and Diagnoses No Information Surgeries/Procedures Procedure Description Date Indications Data Source(s) PHYSICIAN TELEPHONE EVALUATION 11-20 MIN 06/04/2021 12 :00:00 AM EDT [facility] ([facility], ) OFFICE OUTPATIENT VISIT 25 MINUTES 03/12/2021 12:00:00 AM EDT [facility] ([facility]) ECG ROUTINE ECG W/LEAST 12 LDS W/I&R 03/12/2021 12:00: 00 AM EDT [facility] ([facility]) NON-INVASIVE PHYSIOLOGIC STUDY EXTREMITY 3 LEVLS 03/09 12:00:00 AM EDT [facility] ([facility] ) TSTG ANS FUNCJ CARDIOVAGAL INNERVAJ PARASYMP 12:00:00 AM EDT [facility] ([facility] ) TESTING AUTONOMIC NERVOUS SYSTEM FUNCTION 03/09/2021 1 2:00:00 AM EDT [facility] ([facility] ) Complex Chronic Care Management SVC 1St 60 Min 021 12:00:00 AM EDT [facility] ([facility]) PHYSICIAN TELEPHONE EVALUATION 11-20 MIN 02/16/2021 12 :00:00 AM EDT [facility] ([facility] ) OFFICE OUTPATIENT VISIT 15 MINUTES 02/16/2021 12:00:00 AM EDT [facility] ([facility]) Chronic Care Management Services Ea Addl 20 Min 2020 12:00:00 AM EDT [facility] ([facility]) Chronic Care MGMT 20 Mins Clinical Staff Time Per Calendar M ont 12/26/2020 12:00:00 AM EDT [facility] ([facility] ) OFFICE/OUTPATIENT VISIT, EST 11/27/2020 12:00:00 [...] 12:00:00 AM EDT [facility] ([facility]) Needle electromyography, each extremity, with related paraspinal areas, when performed, done with nerve conduction, amplitude and latency/velocity study; complete, five or more muscles studied, innervated by three or more nerves or four or more spinal levels (list separately in addition to the code for primary procedure). 11/15/2020 12:00:00 AM JAMEL Singh ([facility], ) [address] Nerve conduction studies 7-8 studies NEW 201211/15/2020 12:00:00 AM JAMEL ISAACS ([facility] ) PHYSICIAN TELEPHONE EVALUATION 11-20 MIN 11/13/2020 12 :00:00 AM JAMEL ISAACS ([facility], ) OFFICE OUTPATIENT VISIT 25 MINUTES 11/01/2020 12:00:00 AM JAMEL ISAACS ([facility]) Chronic Care Management Services Ea Addl 20 Min 2020 12:00:00 AM JAMEL ISAACS ([facility]) Chronic Care MGMT 20 Mins Clinical Staff Time Per Calendar M ont 10/31/2020 12:00:00 AM JAMEL ISAACS ([facility] ) Chronic Care MGMT 20 Mins Clinical Staff Time Per Calendar M [facility] 09/12/2020 12:00:00 AM JAMEL ISAACS ([facility] ) OFFICE/OUTPATIENT VISIT, EST 08/24/2020 12:00:00 [...] AM EST [facility]) ROUTINE VENIPUNCTURE 08/24/2020 12:00:00 AM EST - 08/24/2020 12:00:00 AM EST [facility] ([facility]) SPMTRY W/VC EXPIRATORY JORDAN +-MXML VOL VNTJ 07/28/2020 12:00:00 AM EST [facility] ([facility]) Diabetic Retinal Eye Exam 07/10/2020 12:00:00 AM EDT [facility] ([facility]) Mammogram 06/21/2020 12:00:00 AM EDT [facility]) Results ID Date Data Source [id number] 03/12/2021 03:07:00 PM EDT [facility] ([facility]) Name Value Range Interpretation Code Description Data Eda rce(s) Supporting Document(s) Hemoglobin A1c/Hemoglobin.total in Blood 7.3 % [facility] ([facility]) Lab Result Notes: Pre-Diabetes 5.7 - 6.4 % Diabetes = or > 6.5% Glucose mean value [Mass/volume] in Blood Estimated fr om glycated hemoglobin 163 mg/dL 60-110 [facility] ID Date Data Source [id number] 03/12/2021 03:07:00 PM EDT [facility] ([facility]) Name Value Range Interpretation Code Description Data Eda rce(s) Supporting Document(s) Erythrocyte sedimentation rate by Westergren method 11 mm/hr 0-15 [facility] ID Date Data Source [id number] 03/12/2021 03:07:00 PM EDT [facility] Name Value Range Interpretation Code Description Data Eda rce(s) Supporting Document(s) Leukocytes [#/volume] in Blood by Automated count 6.3 x10*3/UL 4.1-10 .9 [facility] Hemoglobin [Mass/volume] in Blood 14.7 g/dL 12.0-18.0 [facility] Hematocrit [Volume Fraction] of Blood by Automated count 43.1 % 3 7.0-51.0 [facility] Erythrocytes [#/volume] in Blood by Automated count 4.36 x10*6/UL 4.2 0-6.30 [facility] ([facility]) MCH 33.7 pg 26.0-32.0 [facility] ([facility]) MCV 98.6 fL 80.0-97.0 [facility] ([facility]) MCHC 34.1 g/dL 31.0-38.0 [facility] ([facility]) Erythrocyte distribution width [Ratio] by Automated count 13.4 % 11.6-13.7 [facility] ([facility]) Lymph % 9.9 % 10.0-58.5 [facility] ([facility]) Platelets [#/volume] in Blood by Automated count 224 x10*3/UL 140-440 [facility] MPV 7.6 FL 7.8-11.0 [facility]) Neut % 86.8 % 37.0-92.0 [facility] Mid % 3.3 % 1.7-9.3 [facility] Mid # 0.3 x10*3/UL 0.1-0.6 [facility] ([facility]) Neut # 5.4 x10*3/UL 2.0-7.8 [facility] ([facility]) Lymph # 0.6 x10*3/UL 0.6-4.1 [facility] ([facility]) ID Date Data Source [id number] 03/12/2021 03:07:00 PM EDT [facility] ([facility]) Name Value Range Interpretation Code Description Data Eda rce(s) Supporting Document(s) Thyrotropin [Units/volume] in Serum or Plasma by Detec tion limit <= 0.05 mIU/L 0.95 uIU/mL 0.36-3.74 [facility] ([facility] ) ID Date Data Source [id number] 03/12/2021 03:07:00 PM EDT [facility] ([facility]) Name Value Range Interpretation Code Description Data Eda rce(s) Supporting Document(s) Glucose [Mass/volume] in Serum or Plasma 200 mg/dL 74-99 [facility] ([facility]) 100-125 mg/dL PRE-DIABETES/FASTING >126 mg/dL DIABETES/FASTING Urea nitrogen [Mass/volume] in Serum or Plasma 21 mg/dL 7-18 [facility] ([facility]) Creatinine 0.9 mg/dL 0.6-1.3 [facility] Sodium [Moles/volume] in Serum or Plasma 139 meq/L 136-145 [facility] ([facility]) Potassium [Moles/volume] in Serum or Plasma 4.0 meq/L 3.5-5.1 [facility] ([facility]) Carbon dioxide, total [Moles/volume] in Serum or Plasma 25 meq/L 21 -32 [facility] ([facility]) Chloride [Moles/volume] in Serum or Plasma 103 meq/L 98-107 [facility] ([facility]) Calcium [Mass/volume] in Serum or Plasma 9.6 mg/dL 8.5-10.1 [facility] ([facility]) Alkaline phosphatase isoenzyme [Units/volume] in Serum or Pl asma 62 mg/dL 46-116 [facility] ([facility]) Total Bilirubin 0.4 mg/dL 0.2-1.0 [facility] ([facility]) Alanine aminotransferase [Enzymatic activity/volume] in Seru m or Plasma 68 U/L 12-78 [facility] ([facility]) Aspartate aminotransferase [Enzymatic activity/volume] in Serum or Plasma 62 U/L 15-37 [facility] ([facility] ) Proteinase 3 Ab [Units/volume] in Serum 7.2 g/dL 6.4-8.2 [facility] ([facility]) Albumin [Mass/volume] in Serum or Plasma 4.2 g/dL 3.4-5.0 [facility] ([facility]) Glomerular filtration rate/1.73 sq M pre dicted among blacks [Volume Rate/Area] in Serum or Plasma by Creatinine-based formula (MDRD) Laboratory test result [facility] ([facility]) <content>CHRONIC KIDNEY DISEASE STAGING PER NKF</content>
<content></content>
<content>STAGE I & II GFR >= 60 NORMAL TO MILDLY DECREASED</content>
<content>STAGE III GFR 30-59 MODERATELY DECREASED</content>
<content>STAGE IV GFR 15-29 SEVERELY DECREASED</content>
<content>STAGE V GFR <15 VERY LITTLE GFR LEFT</content>
<content>ESRD GFR <15 ON MOUNTAIN BIKE GUIDE</content>
<content></content> Glomerular filtration rate/1.73 sq M pre dicted among non-blacks [Volume Rate/Area] in Serum or Plasma by Creatinine-based formula (MDRD) Laboratory test result [facility] ([facility] ) A/G Ratio 1.40 CALC 1.00-1.90 [facility]) ID Date Data Source [id number] 11/27/2020 11:38:00 AM EDT [facility] ([facility]) Name Value Range Interpretation Code Description Data Eda rce(s) Supporting Document(s) 0.4 mg/dL 0.0-0.5 CRP [facility]) ID Date Data Source [id number] 11/27/2020 11:38:00 AM EDT [facility] ([facility]) Name Value Range Interpretation Code Description Data Eda rce(s) Supporting Document(s) 0.9 mg/dL 0.6-1.2 CREATININE [facility] ([facility]) >60 eGFR [facility] ([facility]) >60 eGFR Non- [facility] ([facility]) ID Date Data Source [id number] 11/27/2020 11:38:00 AM EDT [facility] ([facility]) Name Value Range Interpretation Code Description Data Eda rce(s) Supporting Document(s) 22 mg/dL 10-23 BUN [facility] ([facility]) ID Date Data Source [id number] 11/27/2020 11:38:00 AM EDT [facility] ([facility]) Name Value Range Interpretation Code Description Data Eda rce(s) Supporting Document(s) 30 U/L 15-37 AST [facility] ([facility]) ID Date Data Source [id number] 11/27/2020 11:38:00 AM EDT [facility] ([facility]) Name Value Range Interpretation Code Description Data Eda rce(s) Supporting Document(s) 43 U/L 30-65 ALT [facility] ([facility]) ID Date Data Source [id number] 11/27/2020 11:38:00 AM EDT [facility] ([facility]) Name Value Range Interpretation Code Description Data Eda rce(s) Supporting Document(s) 4.1 g/dL 3.4-4.4 ALB [facility] ([facility]) ID Date Data Source [id number] 11/27/2020 11:38:00 AM EDT [facility] ([facility]) Name Value Range Interpretation Code Description Data Eda rce(s) Supporting Document(s) 8 mm/Hr 0-20 ESR [facility]) ID Date Data Source [id number] 11/27/2020 11:38:00 AM EDT [facility] ([facility] [...] 0.4 % 0.0-5.0 EOS% [facility] 9.3 % 2.0-10.0 MONO% [facility] 1.1 % 0.0-4.0 BASO% [facility] ([facility]) ID Date Data Source [id number] 11/01/2020 10:33:00 AM EST [facility] ([facility]) Name Value Range Interpretation Code Description Data Eda rce(s) Supporting Document(s) Thyrotropin [Units/volume] in Serum or Plasma by Detec tion limit <= 0.05 mIU/L 2.71 uIU/mL 0.36-3.74 [facility] ([facility] ) ID Date Data Source [id number] 11/01/2020 10:33:00 AM EST [facility] ([facility]) Name Value Range Interpretation Code Description Data Eda rce(s) Supporting Document(s) Glucose [Mass/volume] in Serum or Plasma 160 mg/dL 74-99 [facility] ([facility]) 100-125 mg/dL PRE-DIABETES/FASTING >126 mg/dL DIABETES/FASTING Creatinine 0.9 mg/dL 0.6-1.3 [facility] Urea nitrogen [Mass/volume] in Serum or Plasma 16 mg/dL 7-18 [facility] ([facility]) Sodium [Moles/volume] in Serum or Plasma 143 meq/L 136-145 [facility] ([facility]) Potassium [Moles/volume] in Serum or Plasma 4.0 meq/L 3.5-5.1 [facility] ([facility]) Chloride [Moles/volume] in Serum or Plasma 103 meq/L 98-107 [facility] ([facility]) Calcium [Mass/volume] in Serum or Plasma 9.3 mg/dL 8.5-10.1 [facility] ([facility]) Alkaline phosphatase isoenzyme [Units/volume] in Serum or Pl asma 63 mg/dL 46-116 [facility] ([facility]) Carbon dioxide, total [Moles/volume] in Serum or Plasma 29 meq/L 21 -32 [facility] ([facility]) Aspartate aminotransferase [Enzymatic activity/volume] in Serum or Plasma 32 U/L 15-37 [facility] ([facility] ) Total Bilirubin 0.4 mg/dL 0.2-1.0 [facility] ([facility]) Alanine aminotransferase [Enzymatic activity/volume] in Seru m or Plasma 41 U/L 12-78 [facility] ([facility]) Albumin [Mass/volume] in Serum or Plasma 4.0 g/dL 3.4-5.0 [facility] ([facility]) A/G Ratio 1.38 CALC 1.00-1.90 [facility] ([facility]) Proteinase 3 Ab [Units/volume] in Serum 6.9 g/dL 6.4-8.2 [facility] Glomerular filtration rate/1.73 sq M pre dicted among non-blacks [Volume Rate/Area] in Serum or Plasma by Creatinine-based formula (MDRD) Laboratory test result [facility] ([facility] ) Glomerular filtration rate/1.73 sq M pre dicted among blacks [Volume Rate/Area] in Serum or Plasma by Creatinine-based formula (MDRD) Laboratory test result [facility] <content>CHRONIC KIDNEY DISEASE STAGING PER NKF</content>
<content></content>
<content>STAGE I & II GFR >= 60 NORMAL TO MILDLY DECREASED</content>
<content>STAGE III GFR 30-59 MODERATELY DECREASED</content>
<content>STAGE IV GFR 15-29 SEVERELY DECREASED</content>
<content>STAGE V GFR <15 VERY LITTLE GFR LEFT</content>
<content>ESRD GFR <15 ON MOUNTAIN BIKE GUIDE</content>
<content></content> ID Date Data Source [id number] 11/01/2020 10:33:00 AM EST [facility] Name Value Range Interpretation Code Description Data Eda rce(s) Supporting Document(s) Hemoglobin A1c/Hemoglobin.total in Blood 7.1 % [facility] Lab Result Notes: Pre-Diabetes 5.7 - 6.4 % Diabetes = or > 6.5% Glucose mean value [Mass/volume] in Blood Estimated fr om glycated hemoglobin 157 mg/dL 60-110 [facility] ID Date Data Source [id number] 11/01/2020 10:33:00 AM EST [facility] Name Value Range Interpretation Code Description Data Eda rce(s) Supporting Document(s) Erythrocyte sedimentation rate by Westergren method 13 mm/hr 0-15 [facility] ID Date Data Source [id number] 11/01/2020 10:33:00 AM EST [facility] Name Value Range Interpretation Code Description Data Eda rce(s) Supporting Document(s) Leukocytes [#/volume] in Blood by Automated count 8.1 x10*3/UL 4.1-10 .9 [facility] Hemoglobin [Mass/volume] in Blood 14.4 g/dL 12.0-18.0 [facility] ([facility]) Hematocrit [Volume Fraction] of Blood by Automated count 43.2 % 3 7.0-51.0 [facility] Erythrocytes [#/volume] in Blood by Automated count 4.36 x10*6/UL 4.2 0-6.30 [facility] MCV 99.2 fL 80.0-97.0 [facility] ([facility]) MCH 33.1 pg 26.0-32.0 [facility] ([facility]) MCHC 33.4 g/dL 31.0-38.0 [facility] ([facility]) Platelets [#/volume] in Blood by Automated count 255 x10*3/UL 140-440 [facility] Erythrocyte distribution width [Ratio] by Automated count 12.9 % 11.6-13.7 [facility] MPV 8.0 FL 7.8-11.0 [facility] ([facility]) Lymph % 14.0 % 10.0-58.5 [facility] Mid % 5.1 % 1.7-9.3 [facility] Lymph # 1.1 x10*3/UL 0.6-4.1 [facility] ([facility]) Neut % 80.9 % 37.0-92.0 [facility] Neut # 6.5 x10*3/UL 2.0-7.8 [facility] ([facility]) Mid # 0.5 x10*3/UL 0.1-0.6 [facility] ([facility]) ID Date Data Source [id number] 08/24/2020 03:36:00 PM EST [facility] ([facility]) Name Value Range Interpretation Code Description Data Eda rce(s) Supporting Document(s) 2.8 mg/dL 0.0-0.5 Above high normal CRP [facility] ([facility]) ID Date Data Source [id number] 08/24/2020 03:36:00 PM EST [facility] ([facility]) Name Value Range Interpretation Code Description Data Eda rce(s) Supporting Document(s) 1.0 mg/dL 0.6-1.2 CREATININE [facility] ([facility]) 63.4 mL/min/1.73 eGFR [place] an [facility] ([facility]) 54.7 mL/min/1.73m eGFR Non- A merican [facility] ([facility]) ID Date Data Source [id number] 08/24/2020 03:36:00 PM EST [facility] ([facility]) Name Value Range Interpretation Code Description Data Eda rce(s) Supporting Document(s) 38 U/L 15-37 Above high normal AST [facility] ([facility]) ID Date Data Source [id number] 08/24/2020 03:36:00 PM EST [facility] ([facility]) Name Value Range Interpretation Code Description Data Eda rce(s) Supporting Document(s) 39 U/L 30-65 ALT [facility] ID Date Data Source [id number] 08/24/2020 03:36:00 PM EST [facility] ([facility]) Name Value Range Interpretation Code Description Data Eda rce(s) Supporting Document(s) 4.2 g/dL 3.4-4.4 ALB [facility] ID Date Data Source [id number] 08/24/2020 03:36:00 PM EST [facility] ([facility]) Name Value Range Interpretation Code Description Data Eda rce(s) Supporting Document(s) 6 mm/Hr 0-20 ESR [facility] ID Date Data Source [id number] 08/24/2020 03:36:00 PM EST [facility] ([facility]) Name Value Range Interpretation Code Description Data Eda rce(s) Supporting Document(s) 6.7 10*3/uL 3.7-10.1 WBC [facility] ([facility]) 4.59 10*6/uL 3.50-5.50 RBC [facility] 15.5 g/dL 12.0-16.0 HGB [facility]) 48.5 % 36.0-48.0 Above high normal HCT [facility] ([facility]) 33.7 pg 26.0-34.0 MCH [facility] ([facility]) 32.0 g/dL 31.0-37.0 MCHC [facility] ([facility]) 106.0 fL 80.0-100.0 Above high normal MCV [facility] ([facility]) 11.7 % 10.0-15.0 RDW [facility] ([facility] 7.5 fL 6.0-10.0 MPV [facility] ([facility] 222 10*3/uL 150-500 PLATELETS [facility] [...] [facility]) ID Date Data Source [id number] 07/28/2020 08:44:00 AM EST [facility] ([facility]) Name Value Range Interpretation Code Description Data Eda rce(s) Supporting Document(s) FVC 1.98 [facility] Fev1/FVC 0.77 [facility] Fev1 1.53 [facility] ID Date Data Source [id number] 07/20/2020 12:00:00 AM EST [facility] Jeferson Brian Jr, MD Patient Name: CLEMENTE [id number] [facility] Date of : 1945[place] [address] Date of Exam: 07/20/2020PH#: fax: [phone] EXAM: CT THORAX WITH CONTRASTCLINICAL INFORMATION: Chronic cough.The latest prior chest CT for comparison is 02/18/2014 with other olderpriors also reviewed.Low dose [address] scanning of the chest was obtained using 3 mmincrements after the administration of intravenous contrast andreconstructed in both coronal and sagittal scan planes. 75 cc of Bcuyncj135 was administered intravenously.There is no mediastinal or [...] be based on clinical assessment.Accredited by the [employer] in [place]/Marjorie you for referring LUCERO BARRAGAN to our office. Electronically Signed - ZITA MISTRY DO 07/20/20 17:24 Name Value Range Interpretation Code Description Data Eda rce(s) Supporting Document(s) ID Date Data Source [facility] [place] Screening Bilateral (Ultrasound if Indicated ) (3D Mammo) 06/26/2020 11:31:11 AM EDT [email or web address] ([facility]) Name Value Range Interpretation Code Description Data Eda rce(s) Supporting Document(s) [facility] [place] Screening Bilat eral (Ultrasound if Indicated) (3D Mammo) eCW1 ([facility]) ID Date Data Source [id number] 06/26/2020 11:00:00 AM EDT MEDENT ([facility]) Name Value Range Interpretation Code Description Data Eda rce(s) Supporting Document(s) Thyrotropin [Units/volume] in Serum or Plasma by Detec tion limit <= 0.05 mIU/L 2.32 uIU/mL 0.36-3.74 MEDENT ([facility] ) ID Date Data Source [id number] 06/26/2020 11:00:00 AM EDT MEDENT ([facility]) Name Value Range Interpretation Code Description Data Eda rce(s) Supporting Document(s) Triglyceride [Mass/volume] in Serum or Plasma 122 mg/dL 30-150 MEDENT ([facility]) Cholesterol in HDL [Mass/volume] in Serum or Plasma 108 mg/dL 35-60 MEDENT ([facility]) Cholesterol [Mass/volume] in Serum or Plasma 226 mg/dL 131-200 MEDENT ([facility]) Cholesterol in LDL [Mass/volume] in Serum or Plasma by calcu lation 94 CALC 50-159 MEDENT ([facility]) ID Date Data Source [id number] 06/26/2020 11:00:00 AM EDT MEDENT ([facility]) Name Value Range Interpretation Code Description Data Eda rce(s) Supporting Document(s) Urea nitrogen [Mass/volume] in Serum or Plasma 23 mg/dL 7-18 MEDENT ([facility]) Glucose [Mass/volume] in Serum or Plasma 97 mg/dL 74-99 MEDENT ([facility]) 100-125 mg/dL PRE-DIABETES/FASTING >126 mg/dL DIABETES/FASTING Creatinine 0.9 mg/dL 0.6-1.3 [facility]) Sodium [Moles/volume] in Serum or Plasma 144 meq/L 136-145 MEDENT ([facility]) Potassium [Moles/volume] in Serum or Plasma 4.1 meq/L 3.5-5.1 MEDENT ([facility]) Carbon dioxide, total [Moles/volume] in Serum or Plasma 29 meq/L 21 -32 MEDENT ([facility]) Chloride [Moles/volume] in Serum or Plasma 103 meq/L 98-107 MEDENT ([facility]) Total Bilirubin 0.4 mg/dL 0.2-1.0 MEDENT ([facility]) Calcium [Mass/volume] in Serum or Plasma 9.8 mg/dL 8.5-10.1 MEDENT ([facility]) Alkaline phosphatase isoenzyme [Units/volume] in Serum or Pl asma 52 mg/dL 46-116 MEDENT ([facility]) Aspartate aminotransferase [Enzymatic activity/volume] in Serum or Plasma 41 U/L 15-37 MEDENT ([facility] ) Alanine aminotransferase [Enzymatic activity/volume] in Seru m or Plasma 42 U/L 12-78 MEDENT ([facility]) Proteinase 3 Ab [Units/volume] in Serum 7.6 g/dL 6.4-8.2 MEDENT ([facility]) A/G Ratio 1.38 CALC 1.00-1.90 [facility] ([facility]) Albumin [Mass/volume] in Serum or Plasma 4.4 g/dL 3.4-5.0 MEDENT ([facility]) Glomerular filtration rate/1.73 sq M pre dicted among non-blacks [Volume Rate/Area] in Serum or Plasma by Creatinine-based formula (MDRD) Laboratory test result [facility] Glomerular filtration rate/1.73 sq M pre dicted among blacks [Volume Rate/Area] in Serum or Plasma by Creatinine-based formula (MDRD) Laboratory test result MEDENT ([facility]) <content>CHRONIC KIDNEY DISEASE STAGING PER NKF</content>
<content></content>
<content>STAGE I & II GFR >= 60 NORMAL TO MILDLY DECREASED</content>
<content>STAGE III GFR 30-59 MODERATELY DECREASED</content>
<content>STAGE IV GFR 15-29 SEVERELY DECREASED</content>
<content>STAGE V GFR <15 VERY LITTLE GFR LEFT</content>
<content>ESRD GFR <15 ON MOUNTAIN BIKE GUIDE</content>
<content></content> ID Date Data Source [id number] 06/26/2020 11:00:00 AM EDT [facility] ([facility]) Name Value Range Interpretation Code Description Data Eda rce(s) Supporting Document(s) Hemoglobin A1c/Hemoglobin.total in Blood 6.7 % [facility] ([facility] Lab Result Notes: Pre-Diabetes 5.7 - 6.4 % Diabetes = or > 6.5% Glucose mean value [Mass/volume] in Blood Estimated fr om glycated hemoglobin 146 mg/dL 60-110 [facility] ([facility] ID Date Data Source [id number] 06/26/2020 11:00:00 AM EDT [facility] Name Value Range Interpretation Code Description Data Eda rce(s) Supporting Document(s) Erythrocytes [#/volume] in Blood by Automated count 4.69 x10*6/UL 4.2 0-6.30 [facility] ([facility]) Leukocytes [#/volume] in Blood by Automated count 6.3 x10*3/UL 4.1-10 .9 MEDENT ([facility]) Hemoglobin [Mass/volume] in Blood 15.7 g/dL 12.0-18.0 MEDENT ([facility]) MCH 33.4 pg 26.0-32.0 [facility]) MCV 99.6 fL 80.0-97.0 MEDENT ([facility]) Hematocrit [Volume Fraction] of Blood by Automated count 46.7 % 3 7.0-51.0 MED[facility] ([facility]) MCHC 33.5 g/dL 31.0-38.0 [facility] ([facility]) Erythrocyte distribution width [Ratio] by Automated count 13.3 % 11.6-13.7 [facility] ([facility]) MPV 7.9 FL 7.8-11.0 [facility] ([facility]) Lymph % 17.9 % 10.0-58.5 [facility] ([facility]) Platelets [#/volume] in Blood by Automated count 229 x10*3/UL 140-440 [facility] ([facility]) Neut % 77.1 % 37.0-92.0 [facility] Lymph # 1.1 x10*3/UL 0.6-4.1 MED[facility] ([facility]) Mid % 5.0 % 1.7-9.3 [facility] Mid # 0.4 x10*3/UL 0.1-0.6 MED[facility] ([facility]) Neut # 4.8 x10*3/UL 2.0-7.8 MEDENT ([facility]) Procedure Social History Code Duration Value Status Description Data Source(s ) Caffeine Use Details 12/11/2020 12:00:00 AM EDT completed [facility] ([facility]) Smoking 12/11/2020 12:00:00 AM EDT Unknown if ever smoked comp leted Unknown if ever smoked [facility] ([email or web address]) Smoking 12/11/2020 12:00:00 AM EDT Patient is a former smoker completed Patient is a former smoker [facility] ([facility], ) 11/27/2020 12:00:00 AM EDT Never smoked tobacco comple steph Never smoked tobacco NextGen ([facility]) Smoking 10/02/2020 12:00:00 AM EST Patient is a former smoker completed Patient is a former smoker [facility] ([facility], [facility]) Vital Signs ID Date Data Source UNK Name Value Range Interpretation Code Description Data Source(s) Respiratory rate 12 /min 12 /min [facility] ( [facility], ) Body height 58 [in_i] 58 [in_i] [facility] ([facility]) 4'10" Body weight 121.00 [lb_av] 121.00 [lb_av] MEDEN T ([facility]) Body mass index (BMI) [Ratio] 25.3 kg/m2 25.3 k g/m2 [facility] ([facility]) [place] body weight 100 [lb_av] 100 [lb_av] MEDEN T ([facility]) Body height 58.25 [in_i] 58.25 [in_i] [facility] ([facility]) '." Systolic blood pressure 132 mm[Hg] 132 mm[Hg] M EDENT ([facility]) Diastolic blood pressure 74 mm[Hg] 74 mm[Hg] MEDENT ([facility]) Heart rate 78 /min 78 /min MED[facility] ([facility]) Body weight 127.00 [lb_av] 127.00 [lb_av] MEDEN T ([facility]) Body mass index (BMI) [Ratio] 26.3 kg/m2 26.3 k g/m2 MED[facility] ([facility]) Body weight 130 [lb_av] 130 [lb_av] W1 ([facility]) Body weight 58.97 kg 58.97 kg W1 ([facility]) Body height 58.5 [in_i] 58.5 [in_i] W1 ([facility]) Body mass index (BMI) [Ratio] 26.7 kg/m2 26.7 k g/m2 W1 ([facility]) Systolic blood pressure 130 mm[Hg] 130 mm[Hg] e CW1 ([facility]) Diastolic blood pressure 76 mm[Hg] 76 mm[Hg] eCW1 ([facility]) Systolic blood pressure 116 mm[Hg] 116 mm[Hg] M EDENT ([facility]) Body height 58.25 [in_i] 58.25 [in_i] MEDENT ([facility]) '." Body weight 131.00 [lb_av] 131.00 [lb_av] MEDEN T ([facility]) Body mass index (BMI) [Ratio] 27.1 kg/m2 27.1 k g/m2 MED[facility] ([facility]) Diastolic blood pressure 70 mm[Hg] 70 mm[Hg] MED[facility] ([facility]) Body weight 127.00 [lb_av] 127.00 [lb_av] MEDEN T ([facility], ) [place] body weight 100 [lb_av] 100 [lb_av] MEDEN T ([facility], ) Respiratory rate 12 /min 12 /min MEDENT ( [facility]) Body height 58 [in_i] 58 [in_i] MEDENT ([facility]) 4'10" Body mass index (BMI) [Ratio] 26.5 kg/m2 26.5 k g/m2 MED[facility] ([facility]) Systolic blood pressure 130 mm[Hg] 130 mm[Hg] EDENT ([facility]) Diastolic blood pressure 77 mm[Hg] 77 mm[Hg] MEDENT ([facility]) Heart rate 105 /min 105 /min [facility]) Body height 57 [in_i] 57 [in_i] [facility] ([facility]) 4'9" Body weight 131.25 [lb_av] 131.25 [lb_av] MEDEN T ([facility]) Body mass index (BMI) [Ratio] 28.4 kg/m2 28.4 k g/m2 [facility] ([facility]) [place] body weight 100 [lb_av] 100 [lb_av] MEDEN T ([facility]) Body weight 59.535 kg 59.535 kg [facility] ([facility]) Body surface area Derived from formula 1.50 m2 1.50 m2 [facility] ([facility]) Body height 144.78 cm 144.78 cm [facility] ([facility]) Body weight 58.060 kg 58.060 kg [facility] ([facility]) Body mass index (BMI) [Ratio] 27.70 kg/m2 Overweight 27.70 kg/m2 [facility] ([facility]) Body weight 127.00 [lb_av] 127.00 [lb_av] MEDEN T ([facility]) Respiratory rate 12 /min 12 /min MEDENT ( [facility]) Body mass index (BMI) [Ratio] 26.5 kg/m2 26.5 k g/m2 [facility] ([facility]) [place] body weight 100 [lb_av] 100 [lb_av] MEDEN T ([facility]) Body height 58 [in_i] 58 [in_i] MEDENT ([facility]) 4'10" Heart rate 76 /min 76 /min [facility] ([facility]) Body height 58.25 [in_i] 58.25 [in_i] [facility] ([facility]) 4'10.25" Diastolic blood pressure 68 mm[Hg] 68 mm[Hg] [facility] ([facility]) Body weight 131.00 [lb_av] 131.00 [lb_av] MEDEN T ([facility]) Body mass index (BMI) [Ratio] 27.1 kg/m2 27.1 k g/m2 [facility] ([facility]) Systolic blood pressure 118 mm[Hg] 118 mm[Hg] [facility]) Systolic blood pressure 130 mm[Hg] 130 mm[Hg] M [facility] ([facility], [facility]) Diastolic blood pressure 64 mm[Hg] 64 mm[Hg] [facility] ([facility], [facility]) Heart rate 92 /min 92 /min [facility] ([facility], [facility]) Respiratory rate 18 /min 18 /min [facility] ( [facility], [facility]) Oxygen saturation in Arterial blood by Pulse oximetry 97 % 97 % [facility] ([facility], [facility]) Body temperature 97.5 [degF] 97.5 [degF] [facility] ([facility], [facility]) Body weight 127.00 [lb_av] 127.00 [lb_av] [facility] ([facility], [facility]) Body height 58 [in_i] 58 [in_i] [facility] ([facility], [facility]) 4'10" Body mass index (BMI) [Ratio] 26.5 kg/m2 26.5 k g/m2 [facility] ([facility], [facility]) Body height 144.78 cm 144.78 cm [facility] ([facility]) Body weight 55.792 kg 55.792 kg [facility] ([facility]) Systolic blood pressure 124 mm[Hg] 124 mm[Hg] N extGen ([facility]) Diastolic blood pressure 72 mm[Hg] 72 mm[Hg] Next[facility] ([facility]) Body mass index (BMI) [Ratio] 26.62 kg/m2 Overweight 26.62 kg/m2 Next[facility] ([facility]) Respiratory rate 12 /min 12 /min MEDENT ( [facility], ) Body height 58 [in_i] 58 [in_i] MEDENT ([facility], ) 4'10" Body weight 127.00 [lb_av] 127.00 [lb_av] MEDEN T ([facility], ) Body mass index (BMI) [Ratio] 26.5 kg/m2 26.5 k g/m2 MEDENT ([facility], ) [place] body weight 100 [lb_av] 100 [lb_av] MEDEN T ([facility], ) Heart rate 83 /min 83 /min MED[facility] ([facility]) Body height 58.25 [in_i] 58.25 [in_i] [facility] ([facility]) 4'10.25" Body weight 129.00 [lb_av] 129.00 [lb_av] MEDEN T ([facility]) Oxygen saturation in Arterial blood by Pulse oximetry 95 % 95 % MED[facility] ([facility]) [facility] Body mass index (BMI) [Ratio] 26.7 kg/m2 26.7 k g/m2 MED[facility] ([facility]) Systolic blood pressure 126 mm[Hg] 126 mm[Hg] M EDENT ([facility]) Diastolic blood pressure 70 mm[Hg] 70 mm[Hg] MED[facility] ([facility]) Body height 58.25 [in_i] 58.25 [in_i] MED[facility] ([facility]) 4'10.25" Body weight 128.00 [lb_av] 128.00 [lb_av] MEDEN T ([facility]) Body mass index (BMI) [Ratio] 26.5 kg/m2 26.5 k g/m2 [facility] ([facility]) Body weight 129 [lb_av] 129 [lb_av] [facility] ([facility]) Body height 58.5 [in_i] 58.5 [in_i] [facility] ([facility]) Body mass index (BMI) [Ratio] 26.50 kg/m2 26.50 kg/m2 eCW1 ([facility]) Systolic blood pressure 122 mm[Hg] 122 mm[Hg] e CW1 ([facility]) Diastolic blood pressure 70 mm[Hg] 70 mm[Hg] eCW1 ([facility]) Patient Treatment Plan of Care Planned [...] il] 11/27/2020 12:00:00 AM EDT [facility] ([facility]) Folic Acid 1 MG Oral [...] il] 04/27/2020 12:00:00 AM EDT [facility] ([facility]) Prednisone 5 MG Oral Tablet [...]
[2021-08-14] MEDS ORDERED: ACETAMINOPHEN TAB 650MG DOSE (2X325MG) PO ONE (14:35)
--- NOTE | 2021-08-14 14:50 | REP ---
INDICATION: Coronavirus workup. COMPARISON: 02/26/2018 the latest prior TECHNIQUE: Portable FINDINGS: The technique utilized in obtaining the radiograph has magnified the cardiac silhouette and accentuated the interstitial markings. Patchy bilateral interstitial and airspace opacities have developed since the last exam particularly in the left lung. There is minimal left CP angle blunting. There is mild cardiomegaly accentuated by technique. The osseous structures are stable. IMPRESSION: Pneumonia and at suspected small left pleural effusion. <Electronically signed by Zane Otero > 08/14/21 [id number]
[2021-08-14 15:05] LABS: BASO % 0.3 % (0.0-1.0); EOS # 0.2 10^3/uL (0.0-0.5); EOS % 2.6 % (0.0-3.0); HEMATOCRIT 42.4 % (36.0-47.0); HEMOGLOBIN 13.9 g/dl (12.0-15.5); LYMPH # 0.4 10^3/uL (1.5-5.0); LYMPH % 5.7 % (24.0-44.0); MEAN CORPUSCULAR HEMOGLOBIN 33.4 pg (27.0-33.0); MEAN CORPUSCULAR HGB CONC 32.8 g/dl (32.0-36.5); MEAN CORPUSCULAR VOLUME 101.9 fl (80.0-96.0); MONO # 0.3 10^3/uL (0.0-0.8); MONO % 4.4 % (2.0-8.0); NEUTROPHILS # 6.6 10^3/uL (1.5-8.5); NEUTROPHILS % 86.1 % (36.0-66.0); PLATELET COUNT, AUTOMATED 135 10^3/uL (150-450); RED BLOOD COUNT 4.16 10^6/uL (4.00-5.40); WHITE BLOOD COUNT 7.7 10^3/uL (4.0-10.0)
[2021-08-14 15:17] LABS: INR 0.99; PROTHROMBIN TIME 13.5 SECONDS (12.7-14.5)
[2021-08-14 15:20] LABS: D-DIMER QUANT 3319.9 ng/ml (<500)
[2021-08-14 15:42] LABS: ALBUMIN 3.5 GM/DL (3.2-5.2); ALT/SGPT 41 U/L (12-78); BILIRUBIN,TOTAL 0.4 MG/DL (0.2-1.0); BLOOD UREA NITROGEN 11 MG/DL (7-18); CALCIUM LEVEL 8.9 MG/DL (8.8-10.2); CARBON DIOXIDE LEVEL 27 MEQ/L (21-32); CHLORIDE LEVEL 100 MEQ/L (98-107); CREATININE FOR GFR 0.66 MG/DL (0.55-1.30); FERRITIN 602 NG/ML (8-252); GLOMERULAR FILTRATION RATE > 60.0 (>39); GLUCOSE, FASTING 109 MG/DL (70-100); LDH LACTATE DEHYDROGENASE 435 U/L (84-246); MAGNESIUM LEVEL 1.5 MG/DL (1.8-2.4); POTASSIUM SERUM 3.7 MEQ/L (3.5-5.1); SODIUM LEVEL 135 MEQ/L (136-145); TOTAL PROTEIN 7.2 GM/DL (6.4-8.2)
[2021-08-14] MEDS ORDERED: dexameTHASONE 20MG/5ML VIAL (J1100 PER 1MG) IV ONE (15:45)
[2021-08-14] MEDS ORDERED: MAG SULF 1GM/100ML (MAG RUN) 1 GM in IV 1 EA IV ONE (15:55)
[2021-08-14] MEDS ORDERED: LevoFLOXacin IV 750 MG in IV 1 EA IV ONE (16:00)
[2021-08-14] MEDS ORDERED: ATOR1TAB19 PO (16:07)
[2021-08-14] MEDS ORDERED: SULF500T2 PO (16:07)
[2021-08-14] MEDS ORDERED: GLIM1TAB4 PO (16:07)
[2021-08-14] MEDS ORDERED: PARO5TAB PO (16:07)
[2021-08-14] MEDS ORDERED: FOLI1TAB11 PO (16:07)
[2021-08-14] MEDS ORDERED: PRED5TA PO ×2 (16:07)
[2021-08-14] MEDS ORDERED: OMEP-218 PO (16:07)
[2021-08-14] MEDS ORDERED: HYDR200T3 PO (16:07)
[2021-08-14] MEDS ORDERED: SYNT50TA PO (16:07)
[2021-08-14] MEDS ORDERED: MINO100C80 PO (16:07)
[2021-08-14] MEDS ORDERED: HOME MED LIST COMPLETE! XX SCH (16:10)
--- NOTE | 2021-08-14 16:19 | HPEPDOC ---
[facility] Medical History & Physical Date of Admission Aug 14, 2021 Date of Service: Aug 14, 2021 Attending Physician: Cristina Uriarte MD History and Physical CHIEF COMPLAINT: Body aches, shortness of breath HISTORY OF PRESENT ILLNESS: Patient is a 75-year-old female with past medical history of hypothyroidism, GERD, rheumatoid arthritis, depression, hyperlipidemia, diabetes mellitus who presented to [facility] with chief complaint of increased body aches and shortness of breath. Symptoms started 08/10/21 with generalized body aches, fevers, chills, nonbloody loose stools, nonproductive cough. Symptoms gradually worsened since the beginning of symptoms. She denies n/v, abdominal pain, lightheadedness, dizziness, appetite changes, headaches. This morning the patient admits to increased SOB than the days prior with increased. She came to the ER 08/14/21 to be further evaluated. No positive people around her that she can think of besides her granddaughter who was positive > 1 month. In the ER, VS showed T 101.4 F, HR 104, RR 22-38, 137/73, 84% on RA. She was placed on 2 L NC and O2 sat increased to 94%. CXR showed Pneumonia and at suspected small left pleural effusion. Procalcitonin ordered. Labs showed elevated Ddimer, inflammatory markers, lactic acid. Patient was admitted for acute hypoxic respiratory failure secondary to COVID-19, rule out superimposed bacterial pneumonia. REVIEW OF SYSTEMS: CONSTITUTIONAL: Denies unexplained weight gain or weight loss, loss of appetite, fever, night sweats EYES: Denies eye drainage, eye pain, visual changes, dry/irritated eye EARS, NOSE, MOUTH, THROAT: Denies difficulty hearing, ringing in ears, mouth sores, loose teeth, sore throat, facial numbness or pain NECK: Denies swollen glands CARDIOVASCULAR: Denies irregular heartbeat, racing heart, chest pains, swelling of feet or legs, pain in legs with walking RESPIRATORY: Denies night sweats, wheezing, sputum production, oxygen at home, coughing up blood, cough lasting > 1 month GASTROINTESTINAL: Denies abdominal pain, constipation, bloody stool, diarrhea, heartburn, nausea, vomiting GENITOURINARY: Denies painful urination, bloody urine, frequent urination, urgency, leaking urine, impotence MUSCULOSKELETAL: Denies joint pain, muscle pain, leg swelling INTEGUMENTARY: Denies rash, itching, new skin lesion, change in existing skin lesion, hair loss or increase, breast changes. NEUROLOGICAL: Denies headaches, dizziness, difficulty walking, numbness or tingling PSYCHIATRIC: Denies depression, anxiety, recurrent bad thoughts, mood swings, hallucinations PAST MEDICAL HISTORY: Rheumatoid arthritis DM type II Hypothyroidism Hx of thrombocytopenia thought to be drug induced versus idiopathic thrombocytopenia HTN GERD Hx of shingles PAST SURGICAL HISTORY: Right ear tympanoplasty in 2009 Cataract extraction 2011 Remote partial hysterectomy Tonsillectomy Remote left ankle repair Left elbow surgery SOCIAL HISTORY: Hx of smoking < 1 PPD, 10 years. Quit 40 years ago. Denies alcohol or drug use. Lives with her locally. PCP: Dr. Brian FAMILY HISTORY: Father: colon cancer. in s ALLERGIES: Please see below. HOME MEDICATIONS: Please see below. PHYSICAL EXAMINATION: VS: T 101.4 F, HR 104, RR 22-38, 137/73, 94% on 2 L NC CONSTITUTIONAL: No acute distress, resting comfortably, AAO x 3 EYES: PERRLA, EOM intact HENT, MOUTH: Normocephalic, atraumatic, moist mucous membranes NECK: SUPPLE, no JVD, no lymphadenopathy, no carotid bruit CV: Regular rate and rhythm, S1S2 normal, no murmurs/rubs/gallops RESPIRATORY: mild crackles bilaterally, no rales/rhonchi/wheezes GI: BS positive in 4 quadrants, soft, nontender, nondistended, no rebound or guarding, no organomegaly : Deferred MUSCULOSKELETAL: Normal ROM. No cyanosis, clubbing, swelling, joint deformity, +1 pitting edema in b/l lower ext INTEGUMENTARY: Intact, no rashes, no lesions, no erythema NEUROLOGIC: Cranial Nerves II-XII are intact, no focal deficits PSYCHIATRIC: Mood and affect are normal LABORATORY DATA: Please see below IMAGING: CXR: Pneumonia and at suspected small left pleural effusion. ASSESSMENT: PLAN: Acute hypoxic respiratory failure 2/2 to COVID 19 PNA, r/o superimposed bacterial PNA , r/o pleural effusion, sepsis -84 % on RA. Currently on 2 L NC, saturating well -CXR above -LA elevated, tachycardia -Continue with doxycycline, ceftriaxone, levalbuterol ATC and PRN, incentive spirometer, awake pronation, remdesivir, dexamethasone -Follow-up procalcitonin, if low D/C antibiotics -Follow-up daily labs per Covid protocol, BNP to rule out heart failure component with questionable pleural effusion -Covid precautions -O2 supplementation, wean down as tolerated Rheumatoid arthritis -Stable -C/w home meds, stopped prednisone while on dexamethasone DM type II -ISS, FS AC/HS, CC diet, hypoglycemic protocol Hypothyroidism -C/w home med Hx of thrombocytopenia thought to be drug induced versus idiopathic thrombocyto penia -PLTs 135, no s/s of bleeding -Watch while on heparin products -CBC daily HTN hx -BP stable -Not on home meds GERD -PPI DVT px -Lovenox BID DISPOSITION: Admitted inpatient. Will need PT eval prior to d/c. Vital Signs Vital Signs Date Time Temp Pulse Resp B/P (MAP) Pulse Ox O2 Delivery O2 Flow Rate FiO2 08/14/21 15:00 137/73 (94) 08/14/21 14:53 101.4 104 38 94 Nasal Cannula 2.0 Laboratory Data Labs 24H Laboratory Tests 2 08/14/21 11:58: Coronavirus (COVID-19)(PCR) POSITIVEA, Influenza Type A (RT-PCR) NEGATIVE, Influenza Type B (RT-PCR) NEGATIVE, Respiratory Syncytial Virus (PCR) NEGATIVE 08/14/21 14:03: Immature Granulocyte % (Auto) 0.9, Neutrophils (%) (Auto) 86.1H, Lymphocytes (%) (Auto) 5.7L, Monocytes (%) (Auto) 4.4, Eosinophils (%) (Auto) 2.6, Basophils (%) (Auto) 0.3, Neutrophils # (Auto) 6.6, Lymphocytes # (Auto) 0.4L, Monocytes # (Auto) 0.3, Eosinophils # (Auto) 0.2, Basophils # (Auto) 0.0, Nucleated Red Blood Cells % (auto) 0.0, Prothrombin Time 13.5, Prothromb Time International Ratio 0.99, Activated Partial Thromboplast Time 38.0, Fibrinogen 744H, D-Dimer, Quantitative 3319.90H, Anion Gap 8, Glomerular Filtration Rate > 60.0, Lactic Acid Level 2.1*H, Calcium Level 8.9, Magnesium Level 1.5L, Ferritin 602H, Total Bilirubin 0.4, Aspartate Amino Transf (AST/SGOT) 49H, Alanine Aminotransferase (ALT/SGPT) 41, Alkaline Phosphatase 60, Lactate Dehydrogenase 435H, C-Reactive Protein, Quantitative 16.50H, Total Protein 7.2, Albumin 3.5, Albumin/Globulin Ratio 0.9L 08/14/21 14:47: POC Troponin I (Misc) 0.01 CBC/BMP Laboratory Tests 08/14/21 14:03 Microbiology Microbiology 08/14/21 Blood Culture, Received Pending 08/14/21 Blood Culture, Received Pending Home Medications Scheduled Atorvastatin Calcium (Atorvastatin Calcium) 10 Mg Tablet, 10 MG PO DAILY Folic Acid (Folic Acid) 1 Mg Tablet, 1 MG PO BID Glimepiride (Glimepiride) 1 Mg Tablet, 1 MG PO DAILY Hydroxychloroquine Sulfate (Hydroxychloroquine Sulfate) 200 Mg Tablet, 200 MG PO DAILY Levothyroxine Sodium (Synthroid) 50 Mcg Tablet, 50 MCG PO QAM Minocycline HCl (Minocycline HCl) 100 Mg Capsule, 100 MG PO DAILY Omeprazole (Omeprazole) 20 Mg Capsule.dr, 20 MG PO DAILY Paroxetine (Paroxetine HCl) 10 Mg Tablet, 10 MG PO DAILY Prednisone (Prednisone) 5 Mg Tablet, 5 MG PO QAM Prednisone (Prednisone) 5 Mg Tablet, 2.5 MG PO QPM Sulfasalazine (Sulfasalazine) 500 Mg Tablet, 500 MG PO BID Allergies Coded Allergies: Penicillins (Verified Allergy, Intermediate, rash, 04/03/20) A-FIB/CHADSVASC A-FIB History Current/History of A-Fib/PAF?: No Current PO Anticoag Therapy: No Age/Risk Factor Scoring CHADSVASC: CHADSVASC Response (Comments) Value Age Risk Factor Age >/= 75 years old 2 Gender Risk Factor Female 1 Hx of CHF No 0 Hx of HTN Yes 1 Hx of Stroke/TIA/or VTE No 0 Hx of Diabetes Yes 1 Hx of Vascular Disease No 0 Total 5 Treatment Treatment ordered: Other Other anticoagulant ordered: Cristina Trinh MD Aug 14, 2021 16:19
[2021-08-14] MEDS ORDERED: DEXTROSE 50% 50 ML SYRINGE IV PRN (17:25)
[2021-08-14] MEDS ORDERED: GLUCOSE 4GM CHEW TABLET PO PRN (17:25)
[2021-08-14] MEDS ORDERED: GLUCAGON INJ 1MG VIAL SC PRN (17:25)
[2021-08-14] MEDS ORDERED: LEVALBUTEROL HFA 45MCG/ACT 15 GM INHALER INH PRN (17:25)
[2021-08-14] MEDS: HumaLOG INSULIN (NovoLOG) PER UNIT SC SCH ×2 (19:00→22:35)
[2021-08-14] MEDS: LEVALBUTEROL HFA 45MCG/ACT 15 GM INHALER INH SCH (20:00)
--- NOTE | 2021-08-14 20:28 | ECGEPIP ---
[facility] - ED Test Date: 2021-08-14 Pat Name: LUCERO BARRAGAN Department: Room: - Gender: Female Pier Runner: KATHLEEN : 1945 Requested By: OLIVIA France Order Number: [id number] Reading MD: Juancarlos Larry Measurements Intervals [place] Rate: 104 P: 84 SD: 132 QRS: -36 QRSD: 110 T: 9 QT: 332 QTc: 436 Interpretive Statements Sinus tachycardia with premature supraventricular complexes and fusion complexes Incomplete right bundle branch block Possible Lateral infarct , age undetermined BASELINE ARTIFACT AFFECTS INTERPRETATION SIMILAR TO 02/26/18 Electronically Signed on 08-14-2021 20:27:59 EST by Juancarlos Larry
[2021-08-14] MEDS ORDERED: REMDESIVIR 200 MG in NS 250 ML IV ONE (21:00)
[2021-08-14] MEDS: NS 1,000 ML IV SCH (22:52)
[2021-08-14] MEDS: FOLIC ACID 1 MG TAB PO SCH (22:53)
[2021-08-14] MEDS: ENOXAPARIN 30MG/0.3ML SYRINGE (J1650 PER 10MG) SC SCH (22:53)
[2021-08-14] MEDS: sulfaSALAzine 500 MG TABEC PO SCH (22:53)
[2021-08-15] MEDS: NS 1,000 ML IV SCH (05:55)
[2021-08-15] MEDS: LEVOTHYROXINE 50MCG TABLET (0.05MG) PO SCH (06:00)
[2021-08-15 07:30] LABS: HEMATOCRIT 42.5 % (36.0-47.0); MEAN CORPUSCULAR HEMOGLOBIN 33.7 pg (27.0-33.0); MEAN CORPUSCULAR HGB CONC 32.9 g/dl (32.0-36.5); MEAN CORPUSCULAR VOLUME 102.4 fl (80.0-96.0); PLATELET COUNT, AUTOMATED 143 10^3/uL (150-450); RED BLOOD COUNT 4.15 10^6/uL (4.00-5.40); WHITE BLOOD COUNT 8.9 10^3/uL (4.0-10.0)
[2021-08-15] MEDS: HumaLOG INSULIN (NovoLOG) PER UNIT SC SCH ×4 (07:30→20:55)
[2021-08-15] MEDS: LEVALBUTEROL HFA 45MCG/ACT 15 GM INHALER INH SCH (08:00)
[2021-08-15 08:13] LABS: ALBUMIN 2.6 GM/DL (3.2-5.2); ALT/SGPT 37 U/L (12-78); BILIRUBIN,TOTAL 0.3 MG/DL (0.2-1.0); BLOOD UREA NITROGEN 10 MG/DL (7-18); CALCIUM LEVEL 8.8 MG/DL (8.8-10.2); CARBON DIOXIDE LEVEL 27 MEQ/L (21-32); CHLORIDE LEVEL 103 MEQ/L (98-107); CREATININE FOR GFR 0.69 MG/DL (0.55-1.30); GLOMERULAR FILTRATION RATE > 60.0 (>39); GLUCOSE, FASTING 168 MG/DL (70-100); POTASSIUM SERUM 4.3 MEQ/L (3.5-5.1); SODIUM LEVEL 138 MEQ/L (136-145)
[2021-08-15] MEDS ORDERED: ALBUTEROL 90 MCG/ACT 8GM HFA INHALER INH PRN (09:05)
[2021-08-15] MEDS ORDERED: ALBUTEROL SULFATE 2.5 MG/0.5 ML INH NEB SOLN NEB PRN (09:20)
--- NOTE | 2021-08-15 09:39 | REP ---
INDICATION: RESP DISTRESS. COMPARISON: 08/14/2021. TECHNIQUE: Single portable AP view of the chest was performed. FINDINGS: There are diffuse bilateral infiltrates present, with no significant change in the left and mild worsening on the right. The heart and mediastinum are unchanged. The visualized osseous structures are intact. IMPRESSION: Diffuse bilateral infiltrates, with no significant change on the left and mild increase on the right. <Electronically signed by Micky Estrella > 08/15/21 0935
[2021-08-15] MEDS ORDERED: ACETAMINOPHEN TAB 650MG DOSE (2X325MG) PO PRN (09:40)
[2021-08-15] MEDS ORDERED: ACETAMINOPHEN 650 MG SUPP PR PRN (09:40)
[2021-08-15] MEDS: dexameTHASONE 4 MG/ML 1ML VIAL (J1100 PER 1MG) IV SCH (10:04)
[2021-08-15] MEDS: IPRATROPIUM 0.5MG/ALBUTEROL 2.5MG INH SOL UD 3ML (DUONEB) NEB SCH ×4 (11:24→23:30)
[2021-08-15 11:25] LABS: ABG BASE EXCESS -1.6 (-2.0-2.0); ABG HCO3 21.8 MEQ/L (22.0-26.0); ABG O2 SATURATION 94.2 % (95.0-99.0); ABG PARTIAL PRESSURE CO2 33.2 mmHg (35.0-45.0); ABG STANDARD HCO3 23.1 MEQ/L (22.0-26.0); ABG TOTAL CO2 22.9 MEQ/L (23.0-31.0); ABG pH (ARTERIAL) 7.436 UNITS (7.350-7.450)
[2021-08-15 12:00] VITALS: BP 110/78; O2SAT 92
[2021-08-15] MEDS ORDERED: COMBIVENT RESPIMAT 100-20MCG INHALER 4GM INH SCH (12:00)
[2021-08-15] MEDS: ENOXAPARIN 30MG/0.3ML SYRINGE (J1650 PER 10MG) SC SCH ×2 (12:50→20:54)
[2021-08-15] MEDS: HYDROXYCHLOROQUINE 200 MG TAB PO SCH (12:51)
[2021-08-15] MEDS: OMEPRAZOLE 20 MG CAP PO SCH (12:51)
[2021-08-15] MEDS: ATORVASTATIN 10 MG TAB PO SCH (12:51)
[2021-08-15] MEDS: BARICITINIB 2MG TABLET (OLUMIANT) FOR EUA PO SCH (12:51)
[2021-08-15] MEDS: PARoxetine 10MG TABLET PO SCH (12:51)
[2021-08-15] MEDS: FOLIC ACID 1 MG TAB PO SCH ×2 (12:51→20:54)
[2021-08-15 13:03] VITALS: BP 118/65
--- NOTE | 2021-08-15 13:45 | IPNPDOC ---
Date Seen The patient was seen on 08/15/21. Progress Note SUBJECTIVE: Was found to be hypoxic at 77% on room air this a.m. after activity, patient was placed on nonrebreather 15 L only increased to the mid 80s. She was later placed on Vapotherm and with FiO2 at 100%, flow rate 40 the patient's oxygen saturation increased to 91%. She was transferred to the ICU for closer management due to persistent tachycardia and respiratory rate in the 30s. She was also found to be febrile with a temperature of 103.8. The patient denied chest pain, nausea, vomiting but admitted to increase shortness of breath especially with exertion. OBJECTIVE: PHYSICAL EXAMINATION: VS: Please see below CONSTITUTIONAL: Moderate respiratory distress, AAO x 3 EYES: PERRLA, EOM intact HENT, MOUTH: Normocephalic, atraumatic, moist mucous membranes NECK: SUPPLE, no JVD, no lymphadenopathy, no carotid bruit CV: Sinus tachycardia, regular rhythm, S1S2 normal, no murmurs/rubs/gallops RESPIRATORY: Tachypneic, mild crackles bilaterally, no rales/rhonchi/wheezes GI: BS positive in 4 quadrants, soft, nontender, nondistended, no rebound or guarding, no organomegaly : Deferred MUSCULOSKELETAL: Normal ROM. No cyanosis, clubbing, swelling, joint deformity, +1 pitting edema in b/l lower ext INTEGUMENTARY: Intact, no rashes, no lesions, no erythema NEUROLOGIC: Cranial Nerves II-XII are intact, no focal deficits PSYCHIATRIC: Mood and affect are normal LABORATORY DATA: Please see below IMAGING: Chest x-ray 08/15/2021: Diffuse bilateral infiltrates, with no significant change on the left and mild increase on the right. CXR: Pneumonia and at suspected small left pleural effusion. ASSESSMENT: PLAN: Acute hypoxic respiratory failure 2/2 to COVID 19 PNA, r/o superimposed bacterial PNA , pleural effusion, sepsis, severe ARDS -CXR above, ABG: paO2 70, pH wnl, FiO2 100 -LA improved, fever 103.8, tachycardia -PRocal high -Follow-up daily labs per Covid protocol, BNP mildly improved -Covid precautions -Continue with levofloxacin, lasix Q8H, levalbuterol ATC and PRN, incentive spirometer, awake pronation, remdesivir, dexamethasone, baricitinib -O2 supplementation, wean down as tolerated -Close monitoring of I&O's, neg fluid balance -Pulmonary consult if progresses to needed bipap/cpap Rheumatoid arthritis -Stable -C/w home meds, stopped prednisone while on dexamethasone DM type II -ISS, FS AC/HS, CC diet, hypoglycemic protocol Hypothyroidism -C/w home med Hx of thrombocytopenia thought to be drug induced versus idiopathic thrombo cytopenia -PLTs 135, no s/s of bleeding -Watch while on heparin products -CBC daily HTN hx -BP stable -Not on home meds GERD -PPI DVT px -Lovenox BID DISPOSITION: Worsened over the past 12 hours dramatically. Transferred to ICU. Updated both patient's daughter Rianna ([phone]) and Miguel ([phone]) TOTAL ICU TIME SPENT CARING FOR PATIENT (nonprocedural): 70 MINS VS, I&O, 24H, Fishbone Vital Signs/I&O Vital Signs Date Time Temp Pulse Resp B/P (MAP) Pulse Ox O2 Delivery O2 Flow Rate FiO2 08/15/21 12:00 100.1 104 30 110/78 (89) 94 HVNI-Vapotherm 40.0 100 I&O- Last 24 Hours up to 6 AM 08/15/21 05:59 Intake Total 540 ml Balance 540 ml Laboratory Data 24H LABS Laboratory Tests 2 08/14/21 14:03: Immature Granulocyte % (Auto) 0.9, Neutrophils (%) (Auto) 86.1H, Lymphocytes (%) (Auto) 5.7L, Monocytes (%) (Auto) 4.4, Eosinophils (%) (Auto) 2.6, Basophils (%) (Auto) 0.3, Neutrophils # (Auto) 6.6, Lymphocytes # (Auto) 0.4L, Monocytes # (Auto) 0.3, Eosinophils # (Auto) 0.2, Basophils # (Auto) 0.0, Nucleated Red Bl ood Cells % (auto) 0.0, Prothrombin Time 13.5, Prothromb Time International Ratio 0.99, Activated Partial Thromboplast Time 38.0, Fibrinogen 744H, D-Dimer, Quantitative 3319.90H, Anion Gap 8, Glomerular Filtration Rate > 60.0, Lactic Acid Level 2.1*H, Calcium Level 8.9, Magnesium Level 1.5L, Ferritin 602H, Total Bilirubin 0.4, Aspartate Amino Transf (AST/SGOT) 49H, Alanine Aminotransferase (ALT/SGPT) 41, Alkaline Phosphatase 60, Lactate Dehydrogenase 435H, C-Reactive Protein, Quantitative 16.50H, Total Protein 7.2, Albumin 3.5, Albumin/Globulin Ratio 0.9L, Procalcitonin 0.46 08/14/21 14:47: POC Troponin I (Misc) 0.01 08/14/21 17:03: Lactic Acid Level 1.0, Magnesium Level 1.4L, FP-Ung-U-Type Natriuretic Peptide 1133H 08/14/21 18:24: Bedside Glucose (Misc Panel) 118H 08/14/21 19:46: Lactic Acid Followup at 4 Hours 1.5 08/14/21 22:27: Bedside Glucose (Misc Panel) 235H 08/15/21 07:19: Nucleated Red Blood Cells % (auto) 0.0, Anion Gap 8, Glomerular Filtration Rate > 60.0, Calcium Level 8.8, Total Bilirubin 0.3, Aspartate Amino Transf (AST/SGOT) 46H, Alanine Aminotransferase (ALT/SGPT) 37, Alkaline Phosphatase 56, NA-Suj-O-Type Natriuretic Peptide 944H, Total Protein 7.0, Albumin 2.6#L, Albumin/Globulin Ratio 0.6L 08/15/21 11:15: Bedside Glucose (Misc Panel) 151H, Blood Gas Bicarbonate Standard 23.1, Arterial Blood pH 7.436, Arterial Blood Partial Pressure CO2 33.2L, Arterial Blood Partial Pressure O2 70.0L, Arterial Blood Total CO2 22.9L, Arterial Blood HCO3 21.8L, Arterial Blood Base Excess -1.6, Arterial Blood Oxygen Saturation 94.2L CBC/BMP Laboratory Tests 08/14/21 14:03 08/15/21 07:19 Microbiology Microbiology 08/14/21 Blood Culture, Received Pending 08/14/21 Blood Culture, Received Pending Cristina Uriarte MD Aug 15, 2021 13:45
[2021-08-15] MEDS: sulfaSALAzine 500 MG TABEC PO SCH ×2 (13:55→20:54)
[2021-08-15] MEDS: FUROSEMIDE 40MG/4ML VIAL (J1940) IV SCH ×2 (15:07→22:00)
[2021-08-15 15:19] VITALS: BP 116/62
[2021-08-15 16:00] VITALS: BP 98/53; O2SAT 89
[2021-08-15] MEDS: BENZONATATE 100MG CAPSULE PO PRN (18:50)
[2021-08-15 20:00] VITALS: BP 111/62; O2SAT 83
[2021-08-15] MEDS: REMDESIVIR 100 MG in NS 250 ML IV SCH (20:55)
[2021-08-16] VITALS (16 sets, daily range): BP systolic 90–150; BP diastolic 50–83; O2SAT 95
[2021-08-16] MEDS: IPRATROPIUM 0.5MG/ALBUTEROL 2.5MG INH SOL UD 3ML (DUONEB) NEB SCH ×6 (04:41→23:07)
[2021-08-16] MEDS: FUROSEMIDE 40MG/4ML VIAL (J1940) IV SCH ×3 (06:14→21:40)
[2021-08-16] MEDS: LEVOTHYROXINE 50MCG TABLET (0.05MG) PO SCH (06:14)
[2021-08-16 06:32] LABS: HEMATOCRIT 41.7 % (36.0-47.0); HEMOGLOBIN 13.7 g/dl (12.0-15.5); MEAN CORPUSCULAR HEMOGLOBIN 33.8 pg (27.0-33.0); MEAN CORPUSCULAR HGB CONC 32.9 g/dl (32.0-36.5); PLATELET COUNT, AUTOMATED 165 10^3/uL (150-450); RED BLOOD COUNT 4.05 10^6/uL (4.00-5.40); WHITE BLOOD COUNT 8.5 10^3/uL (4.0-10.0)
[2021-08-16 06:42] LABS: INR 1.18; PROTHROMBIN TIME 15.4 SECONDS (12.7-14.5)
[2021-08-16 06:44] LABS: PARTIAL THROMBOPLASTIN TIME 47.8 SECONDS (25.9-37.0)
[2021-08-16 07:04] LABS: ALBUMIN 2.6 GM/DL (3.2-5.2); ALT/SGPT 43 U/L (12-78); BILIRUBIN,TOTAL 0.3 MG/DL (0.2-1.0); BLOOD UREA NITROGEN 21 MG/DL (7-18); CALCIUM LEVEL 8.6 MG/DL (8.8-10.2); CARBON DIOXIDE LEVEL 29 MEQ/L (21-32); CHLORIDE LEVEL 104 MEQ/L (98-107); CREATININE FOR GFR 0.66 MG/DL (0.55-1.30); FERRITIN 909 NG/ML (8-252); GLOMERULAR FILTRATION RATE > 60.0 (>39); GLUCOSE, FASTING 165 MG/DL (70-100); LDH LACTATE DEHYDROGENASE 589 U/L (84-246); NT-PRO BNP 1403 PG/ML (<450); SODIUM LEVEL 140 MEQ/L (136-145); TOTAL PROTEIN 5.8 GM/DL (6.4-8.2)
[2021-08-16] MEDS: HumaLOG INSULIN (NovoLOG) PER UNIT SC SCH ×4 (07:30→20:28)
[2021-08-16] MEDS: LEVEMIR (INSULIN DETEMIR) 1 UNITS/0.01ML SC SCH (07:56)
[2021-08-16 08:00] LABS: ABG BASE EXCESS 2.9 (-2.0-2.0); ABG HCO3 27.5 MEQ/L (22.0-26.0); ABG O2 SATURATION 87.2 % (95.0-99.0); ABG PARTIAL PRESSURE CO2 42.2 mmHg (35.0-45.0); ABG PARTIAL PRESSURE O2 53.8 mmHg (75.0-100.0); ABG STANDARD HCO3 26.8 MEQ/L (22.0-26.0); ABG TOTAL CO2 28.8 MEQ/L (23.0-31.0); ABG pH (ARTERIAL) 7.432 UNITS (7.350-7.450)
[2021-08-16] MEDS: ENOXAPARIN 30MG/0.3ML SYRINGE (J1650 PER 10MG) SC SCH ×2 (08:13→20:38)
[2021-08-16] MEDS: dexameTHASONE 4 MG/ML 1ML VIAL (J1100 PER 1MG) IV SCH (08:13)
[2021-08-16] MEDS: ATORVASTATIN 10 MG TAB PO SCH (08:48)
[2021-08-16] MEDS: FOLIC ACID 1 MG TAB PO SCH ×2 (08:48→20:38)
[2021-08-16] MEDS: sulfaSALAzine 500 MG TABEC PO SCH ×2 (08:48→20:38)
[2021-08-16] MEDS: PARoxetine 10MG TABLET PO SCH (08:49)
[2021-08-16] MEDS: OMEPRAZOLE 20 MG CAP PO SCH (08:49)
[2021-08-16] MEDS: BARICITINIB 2MG TABLET (OLUMIANT) FOR EUA PO SCH (08:49)
[2021-08-16] MEDS: HYDROXYCHLOROQUINE 200 MG TAB PO SCH (08:49)
--- NOTE | 2021-08-16 12:49 | IPNPDOC ---
Date Seen The patient was seen on 08/16/21. Progress Note SUBJECTIVE: Placed on CPAP overnight. Continues with worsening hypoxia today, discussed the case at length with pulmonary and with the patient. CODE STATUS remains full code at this time. The patient's daughter is coming in to meet with pulmonary and patient to discuss whether or not to continue with full code versus advancing level of care further. The patient denies nausea, vomiting but has increased shortness of breath with increased fatigue. OBJECTIVE: PHYSICAL EXAMINATION: VS: Please see below CONSTITUTIONAL: Resting in bed, AAO x 3 EYES: PERRLA, EOM intact HENT, MOUTH: Normocephalic, atraumatic, moist mucous membranes, CPAP mask in place NECK: SUPPLE, no JVD, no lymphadenopathy, no carotid bruit CV: Sinus tachycardia, regular rhythm, S1S2 normal, no murmurs/rubs/gallops RESPIRATORY: Tachypneic, mild crackles bilaterally, no rales/rhonchi/wheezes GI: BS positive in 4 quadrants, soft, nontender, nondistended, no rebound or guarding, no organomegaly : Deferred MUSCULOSKELETAL: Normal ROM. No cyanosis, clubbing, swelling, joint deformity, +1 pitting edema in b/l lower ext INTEGUMENTARY: Intact, no rashes, no lesions, no erythema NEUROLOGIC: Cranial Nerves II-XII are intact, no focal deficits PSYCHIATRIC: Mood and affect are normal LABORATORY DATA: Please see below IMAGING: Chest x-ray 08/15/2021: Diffuse bilateral infiltrates, with no significant change on the left and mild increase on the right. CXR: Pneumonia and at suspected small left pleural effusion. ASSESSMENT: PLAN: Acute hypoxic respiratory failure 2/2 to COVID 19 PNA, r/o superimposed bacterial PNA , pleural effusion, sepsis, severe ARDS -CXR above, ABG: paO2 53.8, pH 7.432, FiO2 100- worsening hypoxia despite CPAP started over the evening -PRocal high -Follow-up daily labs per Covid protocol, BNP mildly improved -Covid precautions -Continue with levofloxacin, lasix Q8H, levalbuterol ATC and PRN, incentive spirometer, awake pronation, remdesivir, dexamethasone, baricitinib -O2 supplementation, wean down as tolerated -Close monitoring of I&O's, neg fluid balance -Pulmonary consulted. Patient has an overall poor prognosis with odds of her coming off of ventilator slim to none if she were to be intubated. This was discussed with the patient in great detail at the bedside today by myself and pulmonary service. Currently discussing intubation-decision will be made during the meeting pulmonary will have with family. Rheumatoid arthritis -Stable -C/w home meds, stopped prednisone while on dexamethasone DM type II -levemir, ISS, FS AC/HS, CC diet, hypoglycemic protocol Hypothyroidism -C/w home med Hx of thrombocytopenia thought to be drug induced versus idiopathic thrombocytopenia -No s/s of bleeding -Watch while on heparin products -CBC daily HTN hx -BP stable -Not on home meds GERD -PPI DVT px -Lovenox BID DISPOSITION: ICU status. Prognosis remains poor. Updated patient's Miguel and attempted to call daughter Rianna leslie 2, left message. TOTAL ICU TIME SPENT CARING FOR PATIENT (nonprocedural): 70 MINS VS, I&O, 24H, Fishbone Vital Signs/I&O Vital Signs Date Time Temp Pulse Resp B/P (MAP) Pulse Ox O2 Delivery O2 Flow Rate FiO2 08/16/21 12:00 97.3 99 28 105/57 (73) 78 NIPPV (BIPAP/CPAP) 100 08/15/21 20:00 40.0 I&O- Last 24 Hours up to 6 AM 08/16/21 05:59 Intake Total 1890 ml Output Total 1485 ml Balance 405 ml Laboratory Data 24H LABS Laboratory Tests 2 08/15/21 18:06: Bedside Glucose (Misc Panel) 324H 08/15/21 19:36: Bedside Glucose (Misc Panel) 270H 08/16/21 06:07: Nucleated Red Blood Cells % (auto) 0.0, Prothrombin Time 15.4H, Prothromb Time International Ratio 1.18, Activated Partial Thromboplast Time 47.8H, Fibrinogen 652H, Anion Gap 7L, Glomerular Filtration Rate > 60.0, Calcium Level 8.6L, Ferritin 909H, Total Bilirubin 0.3, Aspartate Amino Transf (AST/SGOT) 65H, Alanine Aminotransferase (ALT/SGPT) 43, Alkaline Phosphatase 57, Lactate Dehydrogenase 589H, Total Creatine Kinase 235H, Troponin I High Sensitivity 30.0, [id number]-Type Natriuretic Peptide 1403H, Total Protein 5.8L, Albumin 2.6L, Albumin/Globulin Ratio 0.8L 08/16/21 07:32: Blood Gas Bicarbonate Standard 26.8H, Arterial Blood pH 7.432, Arterial Blood Partial Pressure CO2 42.2, Arterial Blood Partial Pressure O2 53.8L, Arterial Blood Total CO2 28.8, Arterial Blood HCO3 27.5H, Arterial Blood Base Excess 2.9H, Arterial Blood Oxygen Saturation 87.2L 08/16/21 11:09: Bedside Glucose (Misc Panel) 148H CBC/BMP Laboratory Tests 08/16/21 06:07 Microbiology Microbiology 08/14/21 Blood Culture - Preliminary, Resulted No growth after 24 hours . All specim... 08/14/21 Blood Culture - Preliminary, Resulted No growth after 24 hours . All specim... Cristina Uriarte MD Aug 16, 2021 12:49
[2021-08-16 14:09] LABS: MYCOPLASMA PNEUMONIAE IgG <100 U/mL (0-99); MYCOPLASMA PNEUMONIAE IgM <770 U/mL (0-769)
--- NOTE | 2021-08-16 14:23 | CR.PDOC ---
General Date of Consultation: Aug 16, 2021 Referring Provider: Cristina Uriarte MD Primary Care Physician: Jr Brian Collins Attending Physician: JENAE HERNANDEZ MD Consultation REASON FOR CONSULTATION/CHIEF COMPLAINT: Acute hypoxic respiratory failure in the setting of Covid pneumonia despite CPAP 100% FiO2 100% Consulting physician: Dr. Cristina Uriarte M.D.; hospitalist physician HISTORY OF PRESENT ILLNESS: Carolyn is a very pleasant 75yo female w/ notable PMHx of rheumatoid arthritis, hypothyroidism, type 2 diabetes mellitus, HTN (not on meds), HLD, GERD, thrombocytopenia, and depression who originally presented to [facility] 2 days ago on 08/14 chiefly complaining of increasing shortness of breath and myalgias. Per reports, she states her symptoms began last Friday (08/10) in the form of subjective fevers, chills, nonproductive cough, and myalgias. She reported her symptoms steadily increased in intensity, particularly her shortness of breath and ultimately she presented for ED evaluation. In the ED, the patient was found to be positive for the novel coronavirus. She was febrile (temp 101.4), tachycardic, tachypneic and hypoxic on room air (84%). Subsequently was placed on 2 L nasal cannula with improvement on her saturations. Initial imaging showed bilateral opacities and small left pleural effusion. Inflammatory markers, lactic acid, and D-dimer were all elevated. The patient was started on ceftriaxone and doxycycline antimicrobials i/s/o possible superimposed pneumonia, incentive spirometry, remdesivir, dexamethasone and scheduled and as needed nebulizer treatments. On the morning of 08/15, the patient became acutely hypoxic despite the supplemental nasal cannula oxygen with sats of 77% with activity. She was then placed on a nonrebreather 15 L which showed minimal improvement in saturations to the mid 80s. Patient was then transferred over to [facility] at maximum settings (40 L and 100% FiO2) with improvement to saturations of 91%. At this time patient was then sent to the ICU for continued management of her acute hypoxic respiratory failure with tachypnea and tachycardia. At the time of her transfer she remained febrile with a temperature of 103.8. Throughout the day on 08/15 into 08/16, the patient's hypoxia remained and she was ultimately switched over to CPAP with 100% FiO2. Per discussion with primary service, the patient had initially been a DNR/DNI but decided to revert back to a full CODE STATUS. At this time, with the prospect of mechanical ventilation the next step after current maximum CPAP in the setting of positive Covid infection and acute respiratory distress syndrome, pulmonary/critical care service was consulted for further evaluation. ALLERGIES: Please see below. HOME MEDICATIONS: Please see below. PAST MEDICAL HISTORY: Hypothyroidism Rheumatoid arthritis Type 2 diabetes mellitus Hyperlipidemia Thrombocytopenia (thought to be drug-induced versus ITP based on H&P documentation) Quite remote smoking history (quitting 40 years ago) History of hypertension not currently on any home antihypertensive medications GERD Depression Shingles PAST SURGICAL HISTORY: Tonsillectomy Unspecified left elbow surgery Remote left ankle surgery repair Remote partial hysterectomy Right ear tympanoplasty, 2009 Cataract extraction, 2011 FAMILY HISTORY: Father: in his 80s, colon cancer SOCIAL HISTORY: Patient is and lives with her in the [facility]. She has 2 daughters. She is a former smoker, quitting 40 years ago having smoked fewer than 1 pack/day for 10 years. Patient upon admission denied any illicit or IV drug use, nor any sniffing alcohol use. Primary care physician is Dr. Jeferson Brian. REVIEW OF SYSTEMS: CONSTITUTIONAL: Reports continued moderate body aches. Denies any subjective fevers or chills CARDIOVASCULAR: Denies any chest pain, chest pressure, or palpitations RESPIRATORY: Reports no significant dyspnea at rest while on the CPAP machine. Also reports nonproductive cough. Denies any pleuritic chest pain or hemoptysis. GENITOURINARY: Denies any dysuria or hematuria Musculoskeletal: Reports the aforementioned moderate myalgias/body aches. GASTROINTESTINAL: Reports looser stools without any blood in stool. Denies any abdominal pain, nausea, or vomiting. PHYSICAL EXAMINATION: VITAL SIGNS: Please see below. GENERAL APPEARANCE: Very pleasant elderly white female lying in left lateral decubitus position wearing CPAP. She appears to be in some mild discomfort and a bit fearful. HEENT: Normocephalic, atraumatic. Noninjected, anicteric sclera. Wearing CPAP mask over nose and mouth. RESPIRATORY: She is saturating at 93% while using CPAP at a pressure setting of 10 with 100% FiO2. There are moderate crackles appreciated in the left mid and lower lung posteriorly. No wheezes are appreciated. Symmetric chest expansion without visible evidence of accessory muscle use. CARDIOVASCULAR: Borderline tachycardic rate, regular rhythm. Distant heart sounds along with ambient CPAP/respiratory sounds making it difficult to appreci ate with any accuracy for significant murmurs or rubs. ABDOMEN: Soft, obese. Nontender. No guarding or rigidity appreciated. Normoactive bowel sounds throughout. EXTREMITIES: There appears to be some trace bilateral swelling with no significant pitting edema appreciated. There is a torturous somewhat indurated varicose vein over the left patella as well as bruise over the medial aspect of the left lower extremity. There are arthritic changes visible on bilateral hands Genitourinary: Mcguire catheter in place NEUROLOGICAL: Alert and oriented x3. Responds appropriate all questions and commands. Nondysarthric speech. PSYCHIATRIC: Somewhat fearful and nervous mood at times throughout the exam. Affect appears appropriate. LABORATORY DATA: Please see below. ASSESSMENT/PLAN: This is a 75-year-old female with notable history of RA, hypothyroidism, DM, HTN (not on meds), depression, GERD who presented initially on 08/14 with worsening shortness of breath and full body aches. Patient had associated nonproductive cough, nonbloody looser stools, subjective fevers and chills. Symptoms began 4 days prior to presentation on Friday, 08/10. Patient found to be positive for the novel coronavirus and per reports she is fully vaccinated. In the ED, patient was febrile tachycardic, tachypneic and hypoxic on room air. Imaging showed bilateral opacities with possible left small pleural effusion. The patient was admitted for acute hypoxemic respiratory failure in the setting of Covid infection with possible superimposed bacterial pneumonia; remdesivir, dexamethasone, baricitinib, nebulizer, IS she initially had a moderate response to nasal cannula supplemental oxygen but on 08/15, she became acutely hypoxic into the 70s requiring transition to first a nonrebreather at 15 L then maximum Vapotherm settings. Patient's hypoxia persisted and she was ultimately switched over to CPAP at FiO2 100%. Primary service subsequently consulted pulm/CC team i/s/o ARDS in COVID positive pt with next step for respiratory support being mechanical ventilation. #Acute hypoxemic respiratory failure from severe ARDS 2/2 Covid infection -Most recent gas on 08/16: pH 7.342/PCO2 42.2/PaO2 53.8/29 -With PaO2/FiO2 calculation being less than 100, equates to severe ARDS and overall poor prognosis -Repeat chest x-ray on 08/16: mild worsening of right-sided opacities with no change in the left -Pulmonary service had extensive conversations throughout the day with both the patient's daughters and regarding the patient's high risk of mortality with severe ARDS, her age, and Covid positive state; after much discussion, patient decided for DNR/DNI -Counseled the patient extensively at the bedside on the importance of proning -Upon pulmonary evaluation, tidal volumes were too high running between 800- 1,000, therefore pressure dropped from 10 down to 8. Important to maintain lower tidal volumes in the setting of severe ARDS -C/w CPAP pressures 8-10 with a goal tidal volume between 450-550 if patient can maintain saturations and titrate FiO2 to sats > 88% -We will hopefully attempt to try patient on Vapotherm at some point on 08/16 to allow for oral intake; plan to resume CPAP 30 minutes afterwards -Currently receiving remdesivir, baricitinib, and dexamethasone; bid weight based lovenox; duonebs; IS; pronation -Question of possible superimposed bacterial pna; has been febrile on both 08/14 and 08/15, although patient no leukocytosis since admission; pro Srinivas remains pending -Primary service started ceftriaxone and doxycycline upon admission; currently on levofloxacin -Furosemide has been discontinued in the setting of decreased oral intake due to CPAP use #Sepsis 10/17 Covid infection -Patient remains tachypneic (RRs above 20) and tachycardic (HRs at times over 90); had been febrile both on 08/14 and 08/15; no leukocytosis present since admission -Two initial blood cultures showed no growth after 24 hours -Last 24-hour midnight to midnight urinary output was adequate #Rheumatoid arthritis -Patient currently on Sulfo-Lo Solazine and Plaquenil; home prednisone stopped in the setting of dexamethasone for Covid #Hypothyroidism -Home levothyroxine has been continued #Macrocytosis -Currently receiving daily folic acid #Type 2 diabetes Patient is currently on sliding scale insulin with 12 units of long-acting qAM; CC diet w/ FS ac & hs #History of thrombocytopenia -Platelets have continued to increase since admission and are 165 on 08/16 -Patient is on weight-based twice daily Lovenox dosing I/S/O Covid #DVT prophylaxis: Patient is on weight-based twice daily Lovenox dosing Is a patient is now DNR/DNI, mechanical ventilation no longer an option and will continue with respiratory plan as detailed above. Thank you very much for involving the pulmonary service in the care of Ms. Johnston. We will continue to follow her status and are available should pulmonary/critical care issues or concerns arise. Total critical care time spent not including procedures was at least 2 hours and 15 minutes, involving over an hour of total time speaking with patient's family both in person and over the phone. Vital Signs/I&O Vital Signs Date Time Temp Pulse Resp B/P (MAP) Pulse Ox O2 Delivery O2 Flow Rate FiO2 08/16/21 12:00 97.3 99 28 105/57 (73) 78 NIPPV (BIPAP/CPAP) 100 08/15/21 20:00 40.0 I&O- Last 24 Hours up to 6 AM 08/16/21 06:00 Intake Total 1890 ml Output Total 1555 ml Balance 335 ml Laboratory Data Labs 24H Laboratory Tests 2 08/15/21 18:06: Bedside Glucose (Misc Panel) 324H 08/15/21 19:36: Bedside Glucose (Misc Panel) 270H 08/16/21 06:07: Nucleated Red Blood Cells % (auto) 0.0, Prothrombin Time 15.4H, Prothromb Time International Ratio 1.18, Activated Partial Thromboplast Time 47.8H, Fibrinogen 652H, Anion Gap 7L, Glomerular Filtration Rate > 60.0, Calcium Level 8.6L, Ferritin 909H, Total Bilirubin 0.3, Aspartate Amino Transf (AST/SGOT) 65H, Alanine Aminotransferase (ALT/SGPT) 43, Alkaline Phosphatase 57, Lactate Dehydrogenase 589H, Total Creatine Kinase 235H, Troponin I High Sensitivity 30.0, JU-Ean-B-Type Natriuretic Peptide 1403H, Total Protein 5.8L, Albumin 2.6L, Albumin/Globulin Ratio 0.8L 08/16/21 07:32: Blood Gas Bicarbonate Standard 26.8H, Arterial Blood pH 7.432, Arterial Blood Partial Pressure CO2 42.2, Arterial Blood Partial Pressure O2 53.8L, Arterial Blood Total CO2 28.8, Arterial Blood HCO3 27.5H, Arterial Blood Base Excess 2.9H, Arterial Blood Oxygen Saturation 87.2L 08/16/21 11:09: Bedside Glucose (Misc Panel) 148H CBC/BMP Laboratory Tests 08/16/21 06:07 Microbiology Microbiology 08/14/21 Blood Culture - Preliminary, Resulted No growth after 24 hours . All specim... 08/14/21 Blood Culture - Preliminary, Resulted No growth after 24 hours . All specim... Allergies Coded Allergies: Penicillins (Verified Allergy, Mild, rash, 08/15/21) acetaminophen (Unverified Allergy, Unknown, 08/15/21) HAD A "BAD REACTION ALL OVER HER BODY" Home Medications Scheduled Atorvastatin Calcium (Atorvastatin Calcium) 10 Mg Tablet, 10 MG PO DAILY, (Reported) Folic Acid (Folic Acid) 1 Mg Tablet, 1 MG PO BID, (Reported) Glimepiride (Glimepiride) 1 Mg Tablet, 1 MG PO DAILY, (Reported) Hydroxychloroquine Sulfate (Hydroxychloroquine Sulfate) 200 Mg Tablet, 200 MG PO DAILY, (Reported) Levothyroxine Sodium (Synthroid) 50 Mcg Tablet, 50 MCG PO QAM, (Reported) Minocycline HCl (Minocycline HCl) 100 Mg Capsule, 100 MG PO DAILY, (Reported) Omeprazole (Omeprazole) 20 Mg Capsule.dr, 20 MG PO DAILY, (Reported) Paroxetine (Paroxetine HCl) 10 Mg Tablet, 10 MG PO DAILY, (Reported) Prednisone (Prednisone) 5 Mg Tablet, 5 MG PO QAM, (Reported) Prednisone (Prednisone) 5 Mg Tablet, 2.5 MG PO QPM, (Reported) Sulfasalazine (Sulfasalazine) 500 Mg Tablet, 500 MG PO BID, (Reported) GME ATTESTATION GME ATTESTATION My faculty preceptor for this patient encounter was physically present during the encounter and was fully available. All aspects of the patient interview, examination, medical decision making process, and medical care plan development were reviewed and approved by the faculty preceptor. The faculty preceptor is aware and concurs with the plan as stated in the body of this note and will attest to such by his/her cosignature. ATTENDING NOTE I, Jenae Hernandez, conducted an independent examination and history of the patient and agree with the plan as detailed by the resident and discussed during rounds REKHA MICHAUD D.O. Aug 16, 2021 14:23 JENAE HERNANDEZ MD Aug 17, 2021 14:05
[2021-08-16] MEDS: LevoFLOXacin IV 750 MG in IV 1 EA IV SCH (18:30)
[2021-08-16] MEDS: REMDESIVIR 100 MG in NS 250 ML IV SCH (20:38)
[2021-08-17] VITALS (13 sets, daily range): BP systolic 102–146; BP diastolic 55–76
[2021-08-17] MEDS: IPRATROPIUM 0.5MG/ALBUTEROL 2.5MG INH SOL UD 3ML (DUONEB) NEB SCH ×6 (03:22→23:33)
[2021-08-17 04:43] LABS: HEMATOCRIT 42.1 % (36.0-47.0); HEMOGLOBIN 13.8 g/dl (12.0-15.5); MEAN CORPUSCULAR HEMOGLOBIN 33.7 pg (27.0-33.0); MEAN CORPUSCULAR HGB CONC 32.8 g/dl (32.0-36.5); MEAN CORPUSCULAR VOLUME 102.7 fl (80.0-96.0); PLATELET COUNT, AUTOMATED 200 10^3/uL (150-450)
[2021-08-17 05:08] LABS: ALBUMIN 2.4 GM/DL (3.2-5.2); ALT/SGPT 43 U/L (12-78); BILIRUBIN,TOTAL 0.4 MG/DL (0.2-1.0); BLOOD UREA NITROGEN 23 MG/DL (7-18); CALCIUM LEVEL 8.9 MG/DL (8.8-10.2); CARBON DIOXIDE LEVEL 29 MEQ/L (21-32); CHLORIDE LEVEL 100 MEQ/L (98-107); CREATININE FOR GFR 0.68 MG/DL (0.55-1.30); GLOMERULAR FILTRATION RATE > 60.0 (>39); GLUCOSE, FASTING 241 MG/DL (70-100); POTASSIUM SERUM 3.3 MEQ/L (3.5-5.1); SODIUM LEVEL 138 MEQ/L (136-145); TOTAL PROTEIN 6.4 GM/DL (6.4-8.2)
[2021-08-17] MEDS ORDERED: MAG SULF 1GM/100ML (MAG RUN) 1 GM in IV 1 EA IV ONE (05:25)
[2021-08-17] MEDS ORDERED: POTASSIUM CHLORIDE 10% LIQ 20 MEQ/15 ML UDC PO ONE ×2 (05:25→08:40)
[2021-08-17 05:40] LABS: MAGNESIUM LEVEL 1.8 MG/DL (1.8-2.4)
[2021-08-17] MEDS: LEVOTHYROXINE 50MCG TABLET (0.05MG) PO SCH (05:46)
[2021-08-17] MEDS: FUROSEMIDE 40MG/4ML VIAL (J1940) IV SCH (05:46)
[2021-08-17] MEDS: HumaLOG INSULIN (NovoLOG) PER UNIT SC SCH ×4 (07:30→23:59)
[2021-08-17] MEDS: LEVEMIR (INSULIN DETEMIR) 1 UNITS/0.01ML SC SCH (07:47)
[2021-08-17] MEDS: dexameTHASONE 4 MG/ML 1ML VIAL (J1100 PER 1MG) IV SCH (07:48)
[2021-08-17] MEDS: ENOXAPARIN 30MG/0.3ML SYRINGE (J1650 PER 10MG) SC SCH ×2 (07:48→21:10)
[2021-08-17] MEDS: HYDROXYCHLOROQUINE 200 MG TAB PO SCH (07:48)
[2021-08-17] MEDS: sulfaSALAzine 500 MG TABEC PO SCH ×2 (07:49→20:46)
[2021-08-17] MEDS: BARICITINIB 2MG TABLET (OLUMIANT) FOR EUA PO SCH ×2 (07:50→09:00)
[2021-08-17] MEDS ORDERED: POTASSIUM CHLORIDE 10MEQ SR TABLET PO ONE (08:00)
[2021-08-17] MEDS: FOLIC ACID 1 MG TAB PO SCH ×2 (09:00→20:46)
[2021-08-17] MEDS: ATORVASTATIN 10 MG TAB PO SCH (09:00)
[2021-08-17] MEDS: PARoxetine 10MG TABLET PO SCH (09:00)
[2021-08-17] MEDS: OMEPRAZOLE 20 MG CAP PO SCH (09:00)
--- NOTE | 2021-08-17 11:11 | IPNPDOC ---
Date Seen The patient was seen on 08/17/21. Progress Note SUBJECTIVE: Carolyn was seen and examined this morning (08/17) by the pulmonary service while lying upright in her ICU bed. Upon her initial evaluation, her saturations were in the low to mid 70s despite FiO2 100% CPAP. Her saturations had remained acceptable and stable overnight ranging between 89 to 96% on the CPAP 100% FiO2. She denied any increased dyspnea upon her evaluation. She did receive potassium supplementation earlier this morning by the overnight service. Upon her evaluation, she denies any subjective fevers, chest pain, palpitations, abdominal pain, nausea, or vomiting. OBJECTIVE PHYSICAL EXAMINATION: VITAL SIGNS: Please see below. GENERAL: Pleasant elderly somewhat frail-appearing white female lying upright in bed. CPAP HEENT: NC, AT. Noninjected, anicteric sclera. Wearing mask over nose and mouth. CARDIOVASCULAR: Regular rate. With distant heart sounds and ambient CPAP noise, difficult to accurately assess for significant murmurs or rubs. RESPIRATORY: Saturating at 97% on CPAP with FiO2 100% and pressure setting of 12. No accessory muscle use visualized. There remains some mild to moderate bibasilar crackles otherwise no significant wheezing was appreciated. Symmetric chest expansion. ABDOMINAL: Soft, nontender. No guarding or rigidity appreciated. Normoactive bowel sounds throughout. EXTREMITIES: Thin extremities without any bilateral lower extremity pitting edema. Remains tortuous vein over the left patella. Thin skin with areas of bruising. NEUROLOGICAL: Awake, alert and oriented x3. Responds to all questions and commands appropriately. Nondysarthric speech. PSYCHOLOGICAL: Pleasant mood. Appropriate appearing affect. LABORATORY DATA, IMAGING STUDIES, MICROBIOLOGY: Please see below. ASSESSMENT: This is a 75yo female with notable history of rheumatoid arthritis (on Plaquenil and sulfasalazine and chronic low dose prednisone), DM, and hypothyroidism who presented to the ED on 08/14 with increasing shortness of breath, myalgias, and chills. She was admitted for acute hypoxemic respiratory failure secondary to Covid pneumonia and possible superimposed bacterial infection. Due to hypoxia despite maximal Vapotherm settings (40 L, 100% FiO2), pulmonary critical care service consulted for evaluation and further management with transition to noninvasive ventilation. 1. Acute hypoxemic respiratory failure from severe ARDS 2/2 Covid pneumonia requiring CPAP 2. Rheumatoid arthritis with chronic immunosuppression PLAN: - Patient became transiently hypoxemic this morning at time of our evaluation into the low to mid 70s. With increase of CPAP pressure setting to 12, patient's saturations immediately improved into the mid to upper 90s. - Transition to a trial of Vapotherm (will likely require maximum settings) and titrate O2 to 88-96%; impetus is for improved comfort, allowance for oral nutrition. - Proning as much as tolerated - Continue with Covid medication regimen (dexamethasone, remdesivir, baricitinib, weight-based bid lovenox), bronchodilators - c/w abx until culture data - avoid volume overload, I=O - Overall poor prognosis - DNR DNI Total critical care time not including procedures approximately 41 minutes. The pulmonary service will be signing off on the patient at this time. Please feel free to recall our service should further questions or concerns for me respiratory or critical care standpoint arise. Thank you very much for allowing us to participate in the care of Ms. Johnston. VS, I&O, 24H, Fishbone Vital Signs/I&O Vital Signs Date Time Temp Pulse Resp B/P (MAP) Pulse Ox O2 Delivery O2 Flow Rate FiO2 08/17/21 09:00 83 73 08/17/21 08:00 100 08/17/21 08:00 97.0 137/71 (93) NIPPV (BIPAP/CPAP) 08/16/21 16:00 35 08/15/21 20:00 40.0 I&O- Last 24 Hours up to 6 AM 08/17/21 05:59 Intake Total 880 ml Output Total 1700 ml Balance -820 ml Laboratory Data 24H LABS Laboratory Tests 2 08/16/21 11:09: Bedside Glucose (Misc Panel) 148H 08/16/21 16:52: Bedside Glucose (Misc Panel) 196H 08/16/21 19:14: Bedside Glucose (Misc Panel) 247H 08/17/21 04:09: Nucleated Red Blood Cells % (auto) 0.0, Anion Gap 9, Glomerular Filtration Rate > 60.0, Calcium Level 8.9, Magnesium Level 1.8, Total Bilirubin 0.4, Aspartate Amino Transf (AST/SGOT) 57H, Alanine Aminotransferase (ALT/SGPT) 43, Alkaline Phosphatase 61, Total Protein 6.4, Albumin 2.4L, Albumin/Globulin Ratio 0.6L 08/17/21 07:46: Bedside Glucose (Misc Panel) 255H CBC/BMP Laboratory Tests 08/17/21 04:09 Microbiology Microbiology 08/14/21 Blood Culture - Preliminary, Resulted No Growth after 48 hours. All Specime... 08/14/21 Blood Culture - Preliminary, Resulted No Growth after 48 hours. All Specime... GME ATTESTATION GME ATTESTATION My faculty preceptor for this patient encounter was physically present during the encounter and was fully available. All aspects of the patient interview, examination, medical decision making process, and medical care plan development were reviewed and approved by the faculty preceptor. The faculty preceptor is aware and concurs with the plan as stated in the body of this note and will attest to such by his/her cosignature. REKHA MICHAUD D.O. Aug 17, 2021 11:11 MARYAM GONSALVES MD Aug 17, 2021 11:27
--- NOTE | 2021-08-17 17:10 | IPNPDOC ---
Date Seen The patient was seen on 08/17/21. Progress Note SUBJECTIVE: Desaturates significantly with movement and with removal of CPAP when trying to eat or drink. Was also lightheaded and dizzy at that time. The patient denies nausea, vomiting but has increased shortness of breath with increased fatigue. OBJECTIVE: PHYSICAL EXAMINATION: VS: Please see below CONSTITUTIONAL: Resting in bed, increasingly lethargic, awake and oriented x3 EYES: PERRLA, EOM intact HENT, MOUTH: Normocephalic, atraumatic, moist mucous membranes, CPAP mask in place NECK: SUPPLE, no JVD, no lymphadenopathy, no carotid bruit CV: Sinus tachycardia, regular rhythm, S1S2 normal, no murmurs/rubs/gallops RESPIRATORY: Tachypneic, no rales/rhonchi/wheezes GI: BS positive in 4 quadrants, soft, nontender, nondistended, no rebound or guarding, no organomegaly : Deferred MUSCULOSKELETAL: Normal ROM. No cyanosis, clubbing, swelling, joint deformity, +1 pitting edema in b/l lower ext INTEGUMENTARY: Intact, no rashes, no lesions, no erythema NEUROLOGIC: Cranial Nerves II-XII are intact, no focal deficits PSYCHIATRIC: Mood and affect are normal LABORATORY DATA: Please see below IMAGING: Chest x-ray 08/15/2021: Diffuse bilateral infiltrates, with no significant change on the left and mild increase on the right. CXR: Pneumonia and at suspected small left pleural effusion. ASSESSMENT: 75-year-old female admitted for acute hypoxic respiratory failure secondary to COVID-19 pneumonia, bacterial pneumonia sepsis, severe ARDS. PLAN: Acute hypoxic respiratory failure 2/2 to COVID 19 PNA, superimposed bacterial PNA , pleural effusion, sepsis, severe ARDS -Severe hypoxia wound with removal of the mask for eating or drinking, desatted into the 20s today. -CXR above -PRocal high -Follow-up daily labs per Covid protocol, BNP mildly improved -Covid precautions -Continue with levofloxacin, levalbuterol ATC and PRN, incentive spirometer, awake pronation, remdesivir, dexamethasone, baricitinib -O2 supplementation, wean down as tolerated -Close monitoring of I&O's, neg fluid balance -Pulmonary consulted and has signed off today. Patient made DNR/DNI 08/16/21, overall poor prognosis. Family was updated 09-04. Making n.p.o. today due to severe desaturations and symptoms with removal of CPAP. Rheumatoid arthritis -Holding p.o. meds, stopped prednisone while on dexamethasone DM type II -Stopping levemir while n.p.o., continue with ISS, FS every 6 hours, CC diet, hypoglycemic protocol Hypothyroidism -C/w home med Hx of thrombocytopenia thought to be drug induced versus idiopathic thrombocytopenia -Platelets stable at 200 -No s/s of bleeding -Watch while on heparin products -CBC daily HTN hx -BP stable -Not on home meds GERD -PPI DVT px -Lovenox BID DISPOSITION: ICU status. Prognosis remains poor. TOTAL ICU TIME SPENT CARING FOR PATIENT (nonprocedural): 50 MINS VS, I&O, 24H, [place] Vital Signs/I&O Vital Signs Date Time Temp Pulse Resp B/P (MAP) Pulse Ox O2 Delivery O2 Flow Rate FiO2 08/17/21 16:00 92 94 08/17/21 16:00 100 08/17/21 16:00 98.7 146/76 (99) NIPPV (BIPAP/CPAP) 08/17/21 12:00 23 08/15/21 20:00 40.0 I&O- Last 24 Hours up to 6 AM 08/17/21 06:00 Intake Total 1000 ml Output Total 1710 ml Balance -710 ml Laboratory Data 24H LABS Laboratory Tests 2 08/16/21 19:14: Bedside Glucose (Misc Panel) 247H 08/17/21 04:09: Nucleated Red Blood Cells % (auto) 0.0, Anion Gap 9, Glomerular Filtration Rate > 60.0, Calcium Level 8.9, Magnesium Level 1.8, Total Bilirubin 0.4, Aspartate Amino Transf (AST/SGOT) 57H, Alanine Aminotransferase (ALT/SGPT) 43, Alkaline Phosphatase 61, Total Protein 6.4, Albumin 2.4L, Albumin/Globulin Ratio 0.6L 08/17/21 07:46: Bedside Glucose (Misc Panel) 255H 08/17/21 11:54: Bedside Glucose (Misc Panel) 241H CBC/BMP Laboratory Tests 08/17/21 04:09 Microbiology Microbiology 08/14/21 Blood Culture - Preliminary, Resulted No Growth after 72 hours. All specime... 08/14/21 Blood Culture - Preliminary, Resulted No Growth after 72 hours. All specime... Cristina Uriarte MD Aug 17, 2021 17:10
[2021-08-17] MEDS: NS 1,000 ML IV SCH (18:19)
--- NOTE | 2021-08-17 19:12 | ECGEPIP ---
[facility] Test Date: 2021-08-17 Pat Name: LUCERO BARRAGAN Department: Room: [id number] Gender: Female Residential Builder: ICU : 1945 Requested By: RENEA NGO Order Number: [id number] Reading MD: Nasim Martinez Measurements Intervals Downing Rate: 85 P: 70 OR: 128 QRS: -16 QRSD: 114 T: -1 QT: 390 QTc: 464 Interpretive Statements Sinus rhythm with premature supraventricular complexes Incomplete right bundle branch block Possible Lateral infarct , age undetermined Similar to tracing done 02-26-18 Electronically Signed on 08-17-2021 19:12:05 EST by Nasim Martinez
[2021-08-17] MEDS: REMDESIVIR 100 MG in NS 250 ML IV SCH (21:10)
[2021-08-18] VITALS (17 sets, daily range): BP systolic 85–160; BP diastolic 51–77; O2SAT 93
[2021-08-18] MEDS: IPRATROPIUM 0.5MG/ALBUTEROL 2.5MG INH SOL UD 3ML (DUONEB) NEB SCH ×4 (03:35→20:15)
[2021-08-18 05:13] LABS: HEMATOCRIT 39.5 % (36.0-47.0); HEMOGLOBIN 12.8 g/dl (12.0-15.5); MEAN CORPUSCULAR HEMOGLOBIN 33.6 pg (27.0-33.0); MEAN CORPUSCULAR HGB CONC 32.4 g/dl (32.0-36.5); MEAN CORPUSCULAR VOLUME 103.7 fl (80.0-96.0); PLATELET COUNT, AUTOMATED 227 10^3/uL (150-450); RED BLOOD COUNT 3.81 10^6/uL (4.00-5.40); WHITE BLOOD COUNT 9.4 10^3/uL (4.0-10.0)
[2021-08-18 05:27] LABS: INR 1.34
[2021-08-18 05:28] LABS: PARTIAL THROMBOPLASTIN TIME 40.5 SECONDS (25.9-37.0)
[2021-08-18 05:45] LABS: ALBUMIN 2.4 GM/DL (3.2-5.2); ALT/SGPT 40 U/L (12-78); BILIRUBIN,TOTAL 0.4 MG/DL (0.2-1.0); BLOOD UREA NITROGEN 21 MG/DL (7-18); CALCIUM LEVEL 8.4 MG/DL (8.8-10.2); CARBON DIOXIDE LEVEL 29 MEQ/L (21-32); CHLORIDE LEVEL 107 MEQ/L (98-107); CREATININE FOR GFR 0.52 MG/DL (0.55-1.30); FERRITIN 995 NG/ML (8-252); GLOMERULAR FILTRATION RATE > 60.0 (>39); GLUCOSE, FASTING 122 MG/DL (70-100); LDH LACTATE DEHYDROGENASE 570 U/L (84-246); NT-PRO BNP 818 PG/ML (<450); POTASSIUM SERUM 4.3 MEQ/L (3.5-5.1); SODIUM LEVEL 143 MEQ/L (136-145); TOTAL PROTEIN 5.4 GM/DL (6.4-8.2)
[2021-08-18] MEDS: LEVOTHYROXINE 50MCG TABLET (0.05MG) PO SCH (06:00)
[2021-08-18] MEDS: HumaLOG INSULIN (NovoLOG) PER UNIT SC SCH ×4 (06:23→23:47)
[2021-08-18] MEDS: BARICITINIB 2MG TABLET (OLUMIANT) FOR EUA PO SCH (09:00)
[2021-08-18] MEDS: ATORVASTATIN 10 MG TAB PO SCH (09:00)
[2021-08-18] MEDS: sulfaSALAzine 500 MG TABEC PO SCH ×2 (09:00→20:11)
[2021-08-18] MEDS: HYDROXYCHLOROQUINE 200 MG TAB PO SCH (09:00)
[2021-08-18] MEDS: PARoxetine 10MG TABLET PO SCH (09:00)
[2021-08-18] MEDS: OMEPRAZOLE 20 MG CAP PO SCH (09:00)
[2021-08-18] MEDS: FOLIC ACID 1 MG TAB PO SCH ×2 (09:00→20:11)
[2021-08-18] MEDS: dexameTHASONE 4 MG/ML 1ML VIAL (J1100 PER 1MG) IV SCH (09:05)
[2021-08-18] MEDS: NS 1,000 ML IV SCH (09:05)
[2021-08-18] MEDS: ENOXAPARIN 30MG/0.3ML SYRINGE (J1650 PER 10MG) SC SCH ×2 (09:05→20:48)
[2021-08-18] MEDS: D5W/0.9% SODIUM CHLORIDE 1,000 ML IV SCH (09:39)
--- NOTE | 2021-08-18 12:42 | IPNPDOC ---
Date Seen The patient was seen on 08/18/21. Progress Note SUBJECTIVE: Patient is unable to come off of CPAP long enough to eat, barely long enough to take oral medications due to dropping O2 sats into the 40-70's. The patient also becomes increasingly tachypneic, anxious when this happens. She was started on very gentle IV fluid hydration due to lack of p.o. intake and poor urine output. UA positive for UTI, culture sent. She denies chest pain, nausea, vomiting. OBJECTIVE: PHYSICAL EXAMINATION: VS: RR 26-35, CPAP 10/85% FiO2, afebrile, HR 64-111 sinus. CONSTITUTIONAL: Resting in bed, lethargic, awake and oriented x3 EYES: PERRLA, EOM intact HENT, MOUTH: Normocephalic, atraumatic, moist mucous membranes, CPAP mask in place NECK: SUPPLE, no JVD, no lymphadenopathy, no carotid bruit CV: Sinus tachycardia, regular rhythm, S1S2 normal, no murmurs/rubs/gallops RESPIRATORY: Tachypneic, no rales/rhonchi/wheezes GI: BS positive in 4 quadrants, soft, nontender, nondistended, no rebound or guarding, no organomegaly : Deferred MUSCULOSKELETAL: Normal ROM. No cyanosis, clubbing, swelling, joint deformity, no edema in lower ext INTEGUMENTARY: Intact, no rashes, no lesions, no erythema NEUROLOGIC: Cranial Nerves II-XII are intact, no focal deficits LABORATORY DATA: Please see below IMAGING: Chest x-ray 08/15/2021: Diffuse bilateral infiltrates, with no significant change on the left and mild increase on the right. CXR: Pneumonia and at suspected small left pleural effusion. ASSESSMENT: 75-year-old female admitted for acute hypoxic respiratory failure secondary to COVID-19 pneumonia, bacterial pneumonia sepsis, severe ARDS. PLAN: Acute hypoxic respiratory failure 2/2 to COVID 19 PNA, superimposed bacterial PNA , pleural effusion, sepsis, severe ARDS -Severe hypoxia with with removal of the mask for eating or drinking, desaturation with O2 saturation 40-70% -Attempted again today to see if the patient would tolerate Vapotherm possibly with meals and in addition to increased tachypnea and tachycardia, the patient became increasingly agitated and hypoxic with desaturations in the 70s -CXR above -Procal high but trending down -Follow-up daily labs per Covid protocol, BNP mildly improved -Covid precautions -Continue with levofloxacin, levalbuterol ATC and PRN, incentive spirometer, remdesivir, dexamethasone, baricitinib. Patient not pronating well during the day, this was a topic of conversation this morning and was emphasized as being very important hourly -Close monitoring of I&O's -Pulmonary consulted and has signed off 08/17/21. Patient made DNR/DNI 08/16/21, overall poor prognosis. Family was updated 09-04. -Continue with n.p.o. status outside of oral medications until safe to tolerate taking CPAP off longer after meals. Topic of artificial nutrition was addressed with patient, will need another nutritional assessment after the weekend. At this time the patient is not clear if she would want this. Started on D5 gentle hydration UTI -Positive UA despite being on levofloxacin since admission -Blood cultures no growth x2 -Follow-up urine culture -Patient is currently asymptomatic and has Mcguire catheter in Rheumatoid arthritis -Continue home meds -Stopped prednisone while on dexamethasone DM type II -Stopping levemir while n.p.o. and is actually on D5 with blood sugars [id number] -Continue with ISS, FS every 6 hours, hypoglycemic protocol Hypothyroidism -C/w home med Hx of thrombocytopenia thought to be drug induced versus idiopathic thrombocytopenia -Platelets stable -No s/s of bleeding -Watch while on heparin products -CBC daily HTN hx -BP stable -Not on home meds GERD -PPI DVT px -Lovenox BID DISPOSITION: ICU status. Prognosis remains poor. We will call her today to update. TOTAL ICU TIME SPENT CARING FOR PATIENT (nonprocedural): 50 MINS VS, I&O, 24H, [place] Vital Signs/I&O Vital Signs Date Time Temp Pulse Resp B/P (MAP) Pulse Ox O2 Delivery O2 Flow Rate FiO2 08/18/21 12:11 95 08/18/21 10:00 87 120/70 (87) 95 NIPPV (BIPAP/CPAP) 08/18/21 08:00 97.5 26 08/15/21 20:00 40.0 I&O- Last 24 Hours up to 6 AM 08/18/21 06:00 Intake Total 230 ml Output Total 605 ml Balance -375 ml Laboratory Data 24H LABS Laboratory Tests 2 08/17/21 17:43: Bedside Glucose (Misc Panel) 165H 08/17/21 23:55: Bedside Glucose (Misc Panel) 159H 08/18/21 04:29: Nucleated Red Blood Cells % (auto) 0.0 08/18/21 04:30: Prothrombin Time 17.0H, Prothromb Time International Ratio 1.34, Activated Partial Thromboplast Time 40.5H, Fibrinogen 576H, Anion Gap 7L, Glomerular Filtration Rate > 60.0, Calcium Level 8.4L, Ferritin 995H, Total Bilirubin 0.4, Aspartate Amino Transf (AST/SGOT) 43H, Alanine Aminotransferase (ALT/SGPT) 40, Alkaline Phosphatase 57, Lactate Dehydrogenase 570H, Total Creatine Kinase 169, Troponin I High Sensitivity 24.0, MB-Ftd-L-Type Natriuretic Peptide 818H, Total Protein 5.4L, Albumin 2.4L, Albumin/Globulin Ratio 0.8L, Procalcitonin 0.66 08/18/21 06:18: Bedside Glucose (Misc Panel) 131H 08/18/21 08:56: Bedside Glucose (Misc Panel) 111H 08/18/21 09:12: Urine Color YELLOW, Urine Appearance CLOUDYH, Urine pH 7.0, Urine Specific Gr avity 1.020, Urine Protein 1+H, Urine Glucose (UA) NEGATIVE, Urine Ketones NEGATIVE, Urine Blood 2+H, Urine Nitrite NEGATIVE, Urine Bilirubin NEGATIVE, Urine Urobilinogen 2.0H, Urine Leukocyte Esterase 2+H, Urine WBC (Auto) 92H, Urine RBC (Auto) 139H, Urine Hyaline Casts (Auto) 0, Urine Bacteria (Auto) 2+H, Urine Squamous Epithelial Cells 0, Urine Mucus (Auto) SMALL, Urine Sperm (Auto) 08/18/21 11:34: Bedside Glucose (Misc Panel) 143H CBC/BMP Laboratory Tests 08/18/21 04:29 08/18/21 04:30 Microbiology Microbiology 08/18/21 Urine Culture, Received Pending 08/14/21 Blood Culture - Preliminary, Resulted No Growth after 72 hours. All specime... 08/14/21 Blood Culture - Preliminary, Resulted No Growth after 72 hours. All specime... Cristina Uriarte MD Aug 18, 2021 12:42
[2021-08-18] MEDS: LevoFLOXacin IV 750 MG in IV 1 EA IV SCH (17:52)
[2021-08-18] MEDS: REMDESIVIR 100 MG in NS 250 ML IV SCH (20:49)
[2021-08-19] VITALS (11 sets, daily range): BP systolic 96–152; BP diastolic 51–95
[2021-08-19] MEDS: IPRATROPIUM 0.5MG/ALBUTEROL 2.5MG INH SOL UD 3ML (DUONEB) NEB SCH ×7 (00:26→23:10)
[2021-08-19] MEDS: D5W/0.9% SODIUM CHLORIDE 1,000 ML IV SCH ×2 (03:08→18:15)
[2021-08-19] MEDS: LEVOTHYROXINE 50MCG TABLET (0.05MG) PO SCH (05:49)
[2021-08-19] MEDS: HumaLOG INSULIN (NovoLOG) PER UNIT SC SCH ×4 (05:57→23:32)
[2021-08-19 05:59] LABS: HEMATOCRIT 39.1 % (36.0-47.0); HEMOGLOBIN 12.7 g/dl (12.0-15.5); MEAN CORPUSCULAR HEMOGLOBIN 33.2 pg (27.0-33.0); MEAN CORPUSCULAR HGB CONC 32.5 g/dl (32.0-36.5); MEAN CORPUSCULAR VOLUME 102.1 fl (80.0-96.0); PLATELET COUNT, AUTOMATED 198 10^3/uL (150-450); RED BLOOD COUNT 3.83 10^6/uL (4.00-5.40); WHITE BLOOD COUNT 9.2 10^3/uL (4.0-10.0)
[2021-08-19 06:33] LABS: ALBUMIN 2.2 GM/DL (3.2-5.2); ALT/SGPT 39 U/L (12-78); BILIRUBIN,TOTAL 0.5 MG/DL (0.2-1.0); BLOOD UREA NITROGEN 13 MG/DL (7-18); CALCIUM LEVEL 8.1 MG/DL (8.8-10.2); CARBON DIOXIDE LEVEL 26 MEQ/L (21-32); CHLORIDE LEVEL 106 MEQ/L (98-107); CREATININE FOR GFR 0.51 MG/DL (0.55-1.30); GLOMERULAR FILTRATION RATE > 60.0 (>39); GLUCOSE, FASTING 176 MG/DL (70-100); POTASSIUM SERUM 4.1 MEQ/L (3.5-5.1); SODIUM LEVEL 139 MEQ/L (136-145)
[2021-08-19] MEDS: dexameTHASONE 4 MG/ML 1ML VIAL (J1100 PER 1MG) IV SCH (07:58)
[2021-08-19] MEDS: ENOXAPARIN 30MG/0.3ML SYRINGE (J1650 PER 10MG) SC SCH ×2 (07:59→20:31)
[2021-08-19] MEDS: HYDROXYCHLOROQUINE 200 MG TAB PO SCH (08:20)
[2021-08-19] MEDS: FOLIC ACID 1 MG TAB PO SCH ×2 (08:20→20:32)
[2021-08-19] MEDS: PARoxetine 10MG TABLET PO SCH (08:20)
[2021-08-19] MEDS: sulfaSALAzine 500 MG TABEC PO SCH ×2 (08:20→20:32)
[2021-08-19] MEDS: BARICITINIB 2MG TABLET (OLUMIANT) FOR EUA PO SCH (08:20)
[2021-08-19] MEDS: ATORVASTATIN 10 MG TAB PO SCH (08:20)
[2021-08-19] MEDS: OMEPRAZOLE 20 MG CAP PO SCH (08:20)
--- NOTE | 2021-08-19 10:30 | IPNPDOC ---
Date Seen The patient was seen on 08/19/21. Progress Note SUBJECTIVE: Patient remains on CPAP, FiO2 requirements increase intermittently with this morning going from 85-100%. Continues to desaturate with movements. Patient says she did not sleep well last evening. Updated the patient's daughter daughters last evening over the phone, they are to be coming today to visit. The patient denies chest pain, nausea, vomiting, fevers, chills. OBJECTIVE: PHYSICAL EXAMINATION: VS: RR 25-34, CPAP 10/90% FiO2, afebrile, HR 84-101 sinus. CONSTITUTIONAL: Resting in bed, lethargic, awake and oriented x3 EYES: PERRLA, EOM intact HENT, MOUTH: Normocephalic, atraumatic, moist mucous membranes, CPAP mask in place NECK: SUPPLE, no JVD, no lymphadenopathy, no carotid bruit CV: Sinus tachycardia, regular rhythm, S1S2 normal, no murmurs/rubs/gallops RESPIRATORY: Tachypneic, fine crackles b/l lungs, no rales/rhonchi/wheezes GI: BS positive in 4 quadrants, soft, nontender, nondistended, no rebound or guarding, no organomegaly : Deferred MUSCULOSKELETAL: Normal ROM. No cyanosis, clubbing, swelling, joint deformity, no edema in lower ext INTEGUMENTARY: Intact, no rashes, no lesions, no erythema NEUROLOGIC: Cranial Nerves II-XII are intact, no focal deficits LABORATORY DATA: Please see below IMAGING: CXR 08/19/21: F/u results Chest x-ray 08/15/2021: Diffuse bilateral infiltrates, with no significant change on the left and mild increase on the right. CXR: Pneumonia and at suspected small left pleural effusion. ASSESSMENT: 75-year-old female admitted for acute hypoxic respiratory failure secondary to COVID-19 pneumonia, bacterial pneumonia sepsis, severe ARDS. PLAN: Acute hypoxic respiratory failure 2/2 to COVID 19 PNA, superimposed bacterial PNA , pleural effusion, sepsis, severe ARDS -Currently on CPAP 10/90 FiO2, fine crackles b/l -Continues to have severe hypoxia with with removal of the mask for eating or drinking -Does not tolerate Vapotherm with meals and in addition to increased tachypnea and tachycardia, the patient became increasingly agitated and hypoxic with desaturations in the 70s -Imaging above -Procal high but trending down -Continue with levofloxacin, levalbuterol ATC and PRN, incentive spirometer, remdesivir, dexamethasone, baricitinib. Encouraging pronating during the day, emphasized again as being very important hourly -Close monitoring of I&O's -Pulmonary consulted and has signed off 08/17/21. Patient made DNR/DNI 08/16/21, overall poor prognosis. Family was updated again on 08/19/21 -Continue with n.p.o. status outside of oral medications until safe to tolerate taking CPAP off longer after meals. -Follow-up daily labs per Covid protocol, BNP mildly improved -Covid precautions UTI -Positive UA despite being on levofloxacin since admission -Blood cultures no growth x2 -Follow-up urine culture -Patient is currently asymptomatic and has Mcguire catheter in Poor PO intake 2/2 to acute illness above, hypoxia not allowing to keep off mask for long periods of time -Hypoxic in 40-70's O2 saturation with removal of mask to eat -Artificial nutrition was addressed with patient 08/18/21, will need nutritional assessment after the weekend to see what is suggested. -At this time the patient is not clear if she would want this. -Keep on very gentle D5 IVF hydration, monitor for worsening s/s of fluid overload Rheumatoid arthritis -Continue home meds -Stopped prednisone while on dexamethasone DM type II -Stopping levemir while n.p.o. and is actually on D5 with blood sugars [id number] -Continue with ISS, FS every 6 hours, hypoglycemic protocol Hypothyroidism -C/w home med Hx of thrombocytopenia -Previously thought to be drug induced vs idiopathic -Platelets stable -No s/s of bleeding -Watch while on heparin products -CBC daily HTN hx -BP stable -Not on home meds GERD -PPI DVT px -Lovenox BID DISPOSITION: ICU status. Prognosis remains poor. Attempted to call her ID twice 08/18/2021, unable to leave voicemail as one was not set up. Later reac hed her daughter Rianna who was with her family, they were all updated at that time. Today the family will be coming in to see their mother, as Rianna will be needing to fly back to [place] 08/20/21. Patient remains a DNR/DNI. TOTAL ICU TIME SPENT CARING FOR PATIENT (nonprocedural): 30 MINS VS, I&O, 24H, Fishbone Vital Signs/I&O Vital Signs Date Time Temp Pulse Resp B/P (MAP) Pulse Ox O2 Delivery O2 Flow Rate FiO2 08/19/21 10:00 101 30 138/95 (109) 87 NIPPV (BIPAP/CPAP) 90 08/19/21 08:00 99.0 08/15/21 20:00 40.0 I&O- Last 24 Hours up to 6 AM 08/19/21 06:00 Intake Total 1370 ml Output Total 960 ml Balance 410 ml Laboratory Data 24H LABS Laboratory Tests 2 08/18/21 11:34: Bedside Glucose (Misc Panel) 143H 08/18/21 17:39: Bedside Glucose (Misc Panel) 256H 08/18/21 23:44: Bedside Glucose (Misc Panel) 135H 08/19/21 05:43: Nucleated Red Blood Cells % (auto) 0.0, Anion Gap 7L, Glomerular Filtration Rate > 60.0, Calcium Level 8.1L, Total Bilirubin 0.5, Aspartate Amino Transf (AST/SGOT) 36, Alanine Aminotransferase (ALT/SGPT) 39, Alkaline Phosphatase 65, Total Protein 5.0L, Albumin 2.2L, Albumin/Globulin Ratio 0.8L 08/19/21 05:47: Bedside Glucose (Misc Panel) 171H CBC/BMP Laboratory Tests 08/19/21 05:43 Microbiology Microbiology 08/18/21 Urine Culture, Received Pending 08/14/21 Blood Culture - Preliminary, Resulted No Growth after 72 hours. All specime... 08/14/21 Blood Culture - Preliminary, Resulted No Growth after 72 hours. All specime... Cristina Uriarte MD Aug 19, 2021 10:30
--- NOTE | 2021-08-19 11:58 | REP ---
INDICATION: ARDS. COMPARISON: Portable chest, 08/15/2021. TECHNIQUE: AP portable chest image was obtained. FINDINGS: There is diffuse basilar predominant mixed interstitial and alveolar lung disease. There may be small bilateral pleural effusions. The heart size is normal. The upper abdominal bowel gas pattern is normal. IMPRESSION: Mixed interstitial and alveolar lung disease consistent with pneumonia and or pulmonary edema. There is no significant change. <Electronically signed by Adelso Ross > 08/19/21 [id number]
[2021-08-19] MEDS: BENZONATATE 100MG CAPSULE PO PRN (22:23)
[2021-08-20] VITALS (10 sets, daily range): BP systolic 101–147; BP diastolic 50–92
[2021-08-20] MEDS: IPRATROPIUM 0.5MG/ALBUTEROL 2.5MG INH SOL UD 3ML (DUONEB) NEB SCH ×5 (03:23→19:20)
[2021-08-20 04:44] LABS: HEMATOCRIT 41.1 % (36.0-47.0); HEMOGLOBIN 13.7 g/dl (12.0-15.5); MEAN CORPUSCULAR HEMOGLOBIN 33.9 pg (27.0-33.0); MEAN CORPUSCULAR HGB CONC 33.3 g/dl (32.0-36.5); MEAN CORPUSCULAR VOLUME 101.7 fl (80.0-96.0); PLATELET COUNT, AUTOMATED 224 10^3/uL (150-450); RED BLOOD COUNT 4.04 10^6/uL (4.00-5.40); WHITE BLOOD COUNT 9.4 10^3/uL (4.0-10.0)
[2021-08-20 04:56] LABS: INR 1.38; PROTHROMBIN TIME 17.4 SECONDS (12.7-14.5)
[2021-08-20 04:57] LABS: PARTIAL THROMBOPLASTIN TIME 41.5 SECONDS (25.9-37.0)
[2021-08-20 05:07] LABS: ALBUMIN 2.3 GM/DL (3.2-5.2); ALT/SGPT 45 U/L (12-78); BILIRUBIN,TOTAL 0.6 MG/DL (0.2-1.0); BLOOD UREA NITROGEN 11 MG/DL (7-18); CALCIUM LEVEL 8.5 MG/DL (8.8-10.2); CARBON DIOXIDE LEVEL 26 MEQ/L (21-32); CHLORIDE LEVEL 104 MEQ/L (98-107); CREATININE FOR GFR 0.51 MG/DL (0.55-1.30); GLOMERULAR FILTRATION RATE > 60.0 (>39); GLUCOSE, FASTING 146 MG/DL (70-100); SODIUM LEVEL 140 MEQ/L (136-145); TOTAL PROTEIN 5.3 GM/DL (6.4-8.2)
[2021-08-20 05:08] LABS: FERRITIN 898 NG/ML (8-252); LDH LACTATE DEHYDROGENASE 546 U/L (84-246); NT-PRO BNP 1434 PG/ML (<450)
[2021-08-20] MEDS: LEVOTHYROXINE 50MCG TABLET (0.05MG) PO SCH (05:37)
[2021-08-20] MEDS: BENZONATATE 100MG CAPSULE PO PRN (06:01)
[2021-08-20] MEDS: HumaLOG INSULIN (NovoLOG) PER UNIT SC SCH ×4 (06:01→23:41)
[2021-08-20] MEDS: dexameTHASONE 4 MG/ML 1ML VIAL (J1100 PER 1MG) IV SCH (08:20)
[2021-08-20] MEDS: D5W/0.9% SODIUM CHLORIDE 1,000 ML IV SCH (08:54)
[2021-08-20] MEDS: FUROSEMIDE 20MG/2ML VIAL (J1940) IV SCH ×2 (08:54→17:27)
[2021-08-20] MEDS: ENOXAPARIN 30MG/0.3ML SYRINGE (J1650 PER 10MG) SC SCH ×2 (08:54→20:48)
[2021-08-20] MEDS: HYDROXYCHLOROQUINE 200 MG TAB PO SCH (08:59)
[2021-08-20] MEDS: FOLIC ACID 1 MG TAB PO SCH ×2 (08:59→20:48)
[2021-08-20] MEDS: PARoxetine 10MG TABLET PO SCH (08:59)
[2021-08-20] MEDS: BARICITINIB 2MG TABLET (OLUMIANT) FOR EUA PO SCH (08:59)
[2021-08-20] MEDS: ATORVASTATIN 10 MG TAB PO SCH (09:00)
[2021-08-20] MEDS: sulfaSALAzine 500 MG TABEC PO SCH ×2 (09:00→20:47)
[2021-08-20] MEDS ORDERED: FUROSEMIDE 20MG/2ML VIAL (J1940) IV SCH (09:00)
[2021-08-20] MEDS: OMEPRAZOLE 20 MG CAP PO SCH (09:01)
[2021-08-20] MEDS: guaiFENesin/CODEINE SYRUP 5 ML UDC PO SCH ×3 (10:20→23:40)
--- NOTE | 2021-08-20 12:59 | IPNPDOC ---
Date Seen The patient was seen on 08/20/21. Progress Note SUBJECTIVE: Desaturating less than 88% O2 saturation at rest, respiratory rates as high as 35-42, now on CPAP 12/100%. Started Robitussin with codeine for cough. For the past several days I have addressed the topic of artificial nutrition with the patient. Today she was unsure about making a decision and wanted me to update her ID. Her was called earlier this morning and updated. I explained that she had slightly worsened since the last time we spoke. He wished to speak with his . This was relayed to the nurse who will be going in and arranging a phone call with them together. I am to be updated on the final decision, as TPN will require PICC line placement. The patient denies chest pain, nausea, vomiting, fevers, chills. OBJECTIVE: PHYSICAL EXAMINATION: VS: RR 32, CPAP 12/100% FiO2, borderline fevers, sinus tachycardia slightly worsened 116 CONSTITUTIONAL: Resting in bed, lethargic, awake and oriented x3 EYES: PERRLA, EOM intact HENT, MOUTH: Normocephalic, atraumatic, moist mucous membranes, CPAP mask in place NECK: SUPPLE, no JVD, no lymphadenopathy, no carotid bruit CV: Sinus tachycardia, regular rhythm, S1S2 normal, no murmurs/rubs/gallops RESPIRATORY: Tachypneic, fine crackles b/l lungs, no rales/rhonchi/wheezes GI: BS positive in 4 quadrants, soft, nontender, nondistended, no rebound or guarding, no organomegaly : Deferred MUSCULOSKELETAL: Normal ROM. No cyanosis, clubbing, swelling, joint deformity, no edema in lower ext INTEGUMENTARY: Intact, no rashes, no lesions, no erythema NEUROLOGIC: Cranial Nerves II-XII are intact, no focal deficits LABORATORY DATA: Please see below IMAGING: CXR 08/19/21: Mixed interstitial and alveolar lung disease consistent with pneumonia and or pulmonary edema. There is no significant change. Chest x-ray 08/15/2021: Diffuse bilateral infiltrates, with no significant change on the left and mild increase on the right. CXR: Pneumonia and at suspected small left pleural effusion. ASSESSMENT: 75-year-old female admitted for acute hypoxic respiratory failure secondary to COVID-19 pneumonia, bacterial pneumonia sepsis, severe ARDS. PLAN: Acute hypoxic respiratory failure 2/2 to COVID 19 PNA, superimposed bacterial PNA , pleural effusion, sepsis, severe ARDS -Currently on CPAP 12/100 FiO2, fine crackles b/l still, slightly worsened compared to 08/19/21 -Continues to have severe hypoxia with with removal of the mask for eating or drinking -Does not tolerate Vapotherm with meals and in addition to increased tachypnea and tachycardia, the patient became increasingly agitated and hypoxic -repeat Imaging above -Procal high but trending down -Stopped levofloxacin. Started ceftriaxone, doxycycline, lasix BID, levalbuterol ATC and PRN, incentive spirometer, remdesivir, dexamethasone, baricitinib. Encouraging pronating during the day, but this is hard for patient with how much she desaturates with movement. -Close monitoring of I&O's -Pulmonary consulted and has signed off 08/17/21. Patient made DNR/DNI 08/16/21, overall poor prognosis. Family was updated again on 08/20/21 , . Worsened status. Continue with n.p.o. status outside of oral medications until safe to tolerate taking CPAP off longer after meals. Offered TPN to patient, not yet decided and would like to speak with her family. -Follow-up daily labs per Covid protocol, BNP mildly improved -Covid precautions E. coli UTI -Borderline fevers, tachycardia, WBC wnl -Blood cultures no growth x2 -UCx: E. coli resistant to levofloxacin, which patient has been on -Patient is currently has Mcguire catheter in -Started on ceftriaxone Poor PO intake 2/2 to acute illness above, hypoxia not allowing to keep off mask for long periods of time -Hypoxic in 40-70's O2 saturation with removal of mask to eat -Artificial nutrition was addressed with patient 08/18/21, nutrition reassessed this AM -Offered TPN but unsure if she wants this, want to speak to family -Decreasing D5W -Keep on very gentle D5 IVF hydration, monitor for worsening s/s of fluid overload Rheumatoid arthritis -Continue home meds -Stopped prednisone while on dexamethasone DM type II -Stopped levemir while n.p.o. and is actually on D5 -Continue with ISS, FS every 6 hours, hypoglycemic protocol Hypothyroidism -C/w home med Hx of thrombocytopenia -Previously thought to be drug induced vs idiopathic -Platelets stable -No s/s of bleeding -Watch while on heparin products -CBC daily HTN hx -BP stable -Not on home meds GERD -PPI DVT px -Lovenox BID DISPOSITION: ICU status, slightly worsened status over past 24 hours. Prognosis remains poor. Spoke with , Miguel, today to update on worsened status. Angel mcmullen remains a DNR/DNI. TOTAL ICU TIME SPENT CARING FOR PATIENT (nonprocedural): 40 MINS VS, I&O, 24H, Fishbone Vital Signs/I&O Vital Signs Date Time Temp Pulse Resp B/P (MAP) Pulse Ox O2 Delivery O2 Flow Rate FiO2 08/20/21 12:00 NIPPV (BIPAP/CPAP) 08/20/21 12:00 100.0 116 35 123/56 (78) 93 100 08/15/21 20:00 40.0 I&O- Last 24 Hours up to 6 AM 08/20/21 06:00 Intake Total 1720 ml Output Total 1415 ml Balance 305 ml Laboratory Data 24H LABS Laboratory Tests 2 08/19/21 18:13: Bedside Glucose (Misc Panel) 183H 08/19/21 23:30: Bedside Glucose (Misc Panel) 149H 08/20/21 04:03: Nucleated Red Blood Cells % (auto) 0.0, Prothrombin Time 17.4H, Prothromb Time International Ratio 1.38, Activated Partial Thromboplast Time 41.5H, Fibrinogen 543H, Anion Gap 10, Glomerular Filtration Rate > 60.0, Calcium Level 8.5L, Ferritin 898H, Total Bilirubin 0.6, Aspartate Amino Transf (AST/SGOT) 38H, Alanine Aminotransferase (ALT/SGPT) 45, Alkaline Phosphatase 132H, Lactate Dehydrogenase 546H, Total Creatine Kinase 94, Troponin I High Sensitivity 20.0, IJ-Nnu-Q-Type Natriuretic Peptide 1434H, Total Protein 5.3L, Albumin 2.3L, Albumin/Globulin Ratio 0.8L, Procalcitonin 0.40 08/20/21 12:02: Bedside Glucose (Misc Panel) 231H CBC/BMP Laboratory Tests 08/20/21 04:03 Microbiology Microbiology 08/18/21 Urine Culture - Final, Complete Escherichia Coli 08/14/21 Blood Culture - Final, Complete NO GROWTH AFTER 5 DAYS 08/14/21 Blood Culture - Final, Complete NO GROWTH AFTER 5 DAYS Cristina Uriarte MD Aug 20, 2021 12:59
[2021-08-20] MEDS: DOXYCYCLINE HYCLATE 100 MG in D5W MINI-BAG PLUS 100 ML IV SCH (13:34)
[2021-08-20] MEDS: cefTRIAXone SOD 1 GM in D5W MINI-BAG PLUS 50 ML IV SCH (15:14)
[2021-08-20] MEDS ORDERED: BENZONATATE 100MG CAPSULE PO PRN (19:20)
[2021-08-21] VITALS (8 sets, daily range): BP systolic 113–143; BP diastolic 59–74
[2021-08-21] MEDS: DOXYCYCLINE HYCLATE 100 MG in D5W MINI-BAG PLUS 100 ML IV SCH ×2 (00:11→13:08)
[2021-08-21] MEDS: IPRATROPIUM 0.5MG/ALBUTEROL 2.5MG INH SOL UD 3ML (DUONEB) NEB SCH ×6 (00:55→20:00)
[2021-08-21] MEDS: D5W/0.9% SODIUM CHLORIDE 1,000 ML IV SCH (03:38)
[2021-08-21] MEDS: LEVOTHYROXINE 50MCG TABLET (0.05MG) PO SCH (05:56)
[2021-08-21] MEDS: guaiFENesin/CODEINE SYRUP 5 ML UDC PO SCH ×4 (05:56→23:52)
[2021-08-21] MEDS: HumaLOG INSULIN (NovoLOG) PER UNIT SC SCH ×2 (06:13→13:18)
[2021-08-21 06:17] LABS: MEAN CORPUSCULAR HEMOGLOBIN 32.6 pg (27.0-33.0); MEAN CORPUSCULAR HGB CONC 33.3 g/dl (32.0-36.5); MEAN CORPUSCULAR VOLUME 97.9 fl (80.0-96.0); PLATELET COUNT, AUTOMATED 125 10^3/uL (150-450); RED BLOOD COUNT 4.29 10^6/uL (4.00-5.40); WHITE BLOOD COUNT 10.2 10^3/uL (4.0-10.0)
[2021-08-21 06:41] LABS: ALBUMIN 2.2 GM/DL (3.2-5.2); ALT/SGPT 42 U/L (12-78); BILIRUBIN,TOTAL 0.7 MG/DL (0.2-1.0); BLOOD UREA NITROGEN 16 MG/DL (7-18); CALCIUM LEVEL 8.2 MG/DL (8.8-10.2); CARBON DIOXIDE LEVEL 32 MEQ/L (21-32); CHLORIDE LEVEL 97 MEQ/L (98-107); CREATININE FOR GFR 0.62 MG/DL (0.55-1.30); GLOMERULAR FILTRATION RATE > 60.0 (>39); GLUCOSE, FASTING 201 MG/DL (70-100); POTASSIUM SERUM 3.5 MEQ/L (3.5-5.1); SODIUM LEVEL 138 MEQ/L (136-145); TOTAL PROTEIN 5.8 GM/DL (6.4-8.2)
[2021-08-21] MEDS: sulfaSALAzine 500 MG TABEC PO SCH (09:34)
[2021-08-21] MEDS: ATORVASTATIN 10 MG TAB PO SCH (09:35)
[2021-08-21] MEDS: HYDROXYCHLOROQUINE 200 MG TAB PO SCH (09:35)
[2021-08-21] MEDS: PARoxetine 10MG TABLET PO SCH (09:35)
[2021-08-21] MEDS: FOLIC ACID 1 MG TAB PO SCH (09:35)
[2021-08-21] MEDS: BARICITINIB 2MG TABLET (OLUMIANT) FOR EUA PO SCH (09:35)
[2021-08-21] MEDS: OMEPRAZOLE 20 MG CAP PO SCH (09:35)
[2021-08-21] MEDS: ENOXAPARIN 30MG/0.3ML SYRINGE (J1650 PER 10MG) SC SCH (09:36)
[2021-08-21] MEDS: dexameTHASONE 4 MG/ML 1ML VIAL (J1100 PER 1MG) IV SCH (09:36)
[2021-08-21] MEDS: FUROSEMIDE 20MG/2ML VIAL (J1940) IV SCH (09:37)
[2021-08-21] MEDS ORDERED: BISACODYL 10 MG SUPP PR PRN (11:15)
[2021-08-21] MEDS ORDERED: LORazepam 2 MG/ML VIAL IV PRN (11:15)
[2021-08-21] MEDS ORDERED: ONDANSETRON 4 MG ORAL DISINTEGRATING TAB PO PRN (11:15)
[2021-08-21] MEDS ORDERED: LORazepam 1 MG TAB PO PRN (11:15)
[2021-08-21] MEDS ORDERED: ATROPINE SULFATE 1% OP SOLN 2 ML BTL SL PRN (11:15)
[2021-08-21] MEDS ORDERED: ONDANSETRON 4MG/2ML VIAL IV PRN (11:15)
[2021-08-21] MEDS ORDERED: MORPHINE 2 MG/ML 1ML VIAL (J2270) IV PRN (11:15)
[2021-08-21] MEDS ORDERED: MORPHINE 10MG/0.5ML ORAL CONCENTRATE SOLUTION U/D SL PRN (11:15)
[2021-08-21] MEDS ORDERED: SCOPOLAMINE 1MG TRANSDERMAL PATCH TOP PRN (11:15)
[2021-08-21] MEDS ORDERED: FLEET ENEMA PR PRN (11:15)
[2021-08-21] MEDS: cefTRIAXone SOD 1 GM in D5W MINI-BAG PLUS 50 ML IV SCH (13:18)
--- NOTE | 2021-08-21 14:58 | IPNPDOC ---
Text Note Date of Service The patient was seen on 08/21/21. NOTE Subjective: Patient is a 75-year-old female who presented to the hospital with COVID-19. Patient has been on CPAP therapy for the last few days. Patient has been unable to come off of CPAP. Every time the patient does attempt to come off of CPAP even for a few seconds patient's oxygen saturation does drop very quickly. Plan was made yesterday for the spine of PICC line and TPN however, the earliest the PICC line will be placed would be on 08/22/2021 and this will most likely not help the patient's respiratory status. Patient wanted to remove the CPAP last night and did for a few moments however, the patient's oxygen saturation dropped very low and she needed to be placed back on CPAP therapy. Patient says she is tired but is otherwise feeling okay Review of systems: General: Patient denies fevers HEENT: Patient denies headaches Cardiovascular: Patient denies chest pain Respiratory: Patient reports shortness of breath and cough GI: Patient denies abdominal pain, nausea, vomiting, diarrhea : Patient denies increased frequency or pain with urination Extremities: Patient denies swelling or pain in extremities Neurological: Patient denies numbness or tingling in legs Physical exam: Vitals: See below General: Alert and oriented female patient who was sitting up in bed with CPAP mask on when I walked in the room. Patient did not appear to be in any acute distress. HEENT: Normocephalic, atraumatic, moist mucous membranes. Neck: No lymphadenopathy or thyromegaly Cardiac: Regular rate and rhythm, no murmurs, normal S1, normal S2 Pulm: Clear to auscultation bilaterally. No wheezes, rhonchi, rales Abd: Nondistended, nontender to palpation, normal bowel sounds Ext: No edema bilateral lower extremities Labs: See below Imaging: No new imaging is been performed Assessment/plan: 75-year-old female who was admitted for acute hypoxic respiratory failure secondary to COVID-19 pneumonia, bacterial pneumonia, sepsis and severe ARDS. 1. Acute hypoxic respiratory failure secondary to Covid pneumonia with superimposed bacterial pneumonia, pleural effusions, sepsis, and severe ARDS. Patient is still on CPAP with a pressure of 12 cmH2O 100% FiO2. Patient does not tolerate even a few moments off of CPAP without desaturating into the 70s. I did have a long conversation with the patient with nursing at bedside stating that most likely it will be very difficult to get the patient off of CPAP and onto a different form of oxygenation and that getting a PICC line and doing TPN may only help with minimally and asked the patient what she wants our goal of care to be. I did offer the patient continued treatment with CPAP and other COV ID-19 medications such as dexamethasone and baricitinib as well as antibiotics and placement of PICC line or comfort measures. Patient has chosen for comfort measures. I did explain to the patient that these are hospice measures and asked if the patient understood what hospice meant. Patient did state that she knows what hospice is and would like comfort measures only. If the patient no longer wants to wear her CPAP mask, patient can be taken off and placed on a different form of oxygenation if this makes the patient more comfortable. New MOLST form has been filled out. I did contact the patient's and the patient's daughter to let them know about the patient's decision. 2. E. coli urinary tract infection. Patient was started on ceftriaxone. 3. Poor p.o. intake secondary to acute illness. Patient is also not been able to take her oxygen mask off. Patient desaturates to the 70s or lower when off CPAP for even a few moments. Patient is [employer], patient can be transitioned to other forms oxygenation and attempt to eat as long as this is what the patient wishes. 4. Rheumatoid arthritis. Medications will be stopped at this time. Treat pain as necessary. 5. Type 2 diabetes mellitus. Fingersticks and insulin have been stopped due to [employer]. 6. Hypothyroidism. Medications have been stopped. 7. Hypertension. Vital signs been stopped at this time. 8. History of thrombocytopenia. Platelets stable. No more daily labs due to [employer] status. DVT Prophylaxis: None due to [employer] Disposition: Patient has been made comfort measures only. New MOLST form has been filled out as above. VS,Fishbone, I+O VS, Fishbone, I+O Laboratory Tests 08/21/21 05:49 Vital Signs Date Time Temp Pulse Resp B/P (MAP) Pulse Ox O2 Delivery O2 Flow Rate FiO2 08/21/21 13:00 103 28 94 NIPPV (BIPAP/CPAP) 100 08/21/21 12:00 98.4 143/67 (92) 12/1/21 20:00 40.0 I&O- Last 24 Hours up to 6 AM 08/21/21 06:00 Intake Total 2020 ml Output Total 3075 ml Balance -1055 ml ZEHRA ORONA DO Aug 21, 2021 14:58
[2021-08-22] MEDS: guaiFENesin/CODEINE SYRUP 5 ML UDC PO SCH ×2 (05:33→12:00)
[2021-08-22] MEDS: LEVOTHYROXINE 50MCG TABLET (0.05MG) PO SCH (05:33)
[2021-08-22] MEDS: IPRATROPIUM 0.5MG/ALBUTEROL 2.5MG INH SOL UD 3ML (DUONEB) NEB SCH ×3 (08:00→12:00)
[2021-08-22] MEDS: OMEPRAZOLE 20 MG CAP PO SCH (09:00)
[2021-08-22] MEDS: dexameTHASONE 4 MG/ML 1ML VIAL (J1100 PER 1MG) IV SCH (09:00)
[2021-08-22] MEDS: PARoxetine 10MG TABLET PO SCH (09:00)
[2021-08-22] MEDS ORDERED: MORPHINE 2 MG/ML 1ML VIAL (J2270) IV PRN (12:30)
[2021-08-22] MEDS ORDERED: LORazepam 2 MG/ML VIAL IV PRN (12:30)
--- NOTE | 2021-08-22 16:24 | DS.PDOC ---
Discharge Summary General Date of Admission Aug 14, 2021 at 16:19 Date of Discharge 08/22/2021 Attending Physician: ZEHRA OORNA DO Specialist/Consultants Involve: JENAE HUTCHINSON MD Discharge Summary PROCEDURES PERFORMED DURING STAY: None. ADMITTING DIAGNOSES: 1. Acute hypoxic respiratory failure secondary to COVID-19 pneumonia. 2. Rheumatoid arthritis 3. Type 2 diabetes mellitus 4. Hypothyroidism 5. History of thrombocytopenia 6. Hypertension 7. GERD DISCHARGE DIAGNOSES: 1. Acute hypoxic respiratory failure secondary to COVID-19 pneumonia with superimposed bacterial community-acquired pneumonia 2. Rheumatoid arthritis 3. Type 2 diabetes mellitus 4. Hypothyroidism 5. History of thrombocytopenia 6. Hypertension 7. GERD COMPLICATIONS/CHIEF COMPLAINT: Covid, Hypoxia. HISTORY OF PRESENT ILLNESS: Patient is a 75-year-old female who presented to [facility] with chief complaint of increased body aches and shortness of breath. Patient symptoms started 08/10/2021 with generalized body aches, fevers, chills, nonbloody loose stools, nonproductive cough. Symptoms gradually worsened since the beginning of her symptoms. She denies any nausea or, vomiting, abdominal pain, lightheadedness, dizziness, appetite changes or headache. The patient admits to increased shortness of breath than the days prior. She came to the emergency department 08/14/2021 to be further evaluated. No positive COVID-19 patients around that she can think of aside her granddaughter who was positive for greater than 1 month ago. Patient was found to be febrile with at 101.4, tachycardic at 104, respirations 22-38 and was on 84% on room air. She is placed on 2 L nasal cannula which did increase her oxygen saturations. Patient had a positive chest x-ray for pneumonia with small left pleural effusion. Patient was also found to be COVID-19 positive and was admitted for acute hypoxic respiratory failure secondary to COVID-19 rule out superimposed bacterial pneumonia. HOSPITAL COURSE: Overnight and the patient's first day of her hospitalization she was found to be 77% on room air. Patient was placed on nonrebreather which only increased her oxygen saturations to the mid 80s. Patient was later placed on max Vapotherm and her oxygen saturation corrected to 91%. Patient was transferred to the intensive care unit due to persistent tachycardia and tachypnea. Patient also had a fever of 103.8. Patient was started on levofloxacin, was given Lasix every 8 hours as well as levalbuterol. Patient was started on remdesivir, dexamethasone and baricitinib at the beginning of patient's hospitalization. Patient's prednisone was held while she was on dexamethasone. Patient's oxygenation continued to worsen to the point where she needed CPAP therapy. Patient was placed on CPAP therapy on 08/16/2021 and was never able to be weaned off of this. Pulmonology was consulted and did see the patient. Pulmonology recommended increasing patient's CPAP settings to 12 cm of water which did increase patient's oxygen saturations. Every attempt was made to transition the patient back to Vapotherm for any matter of time resulted in the patient's oxygen saturation dropping into the 80s or sometimes even the 70s. Even removing the patient's CPAP mask for a short amount of time because the p atient's oxygen saturations do drop very low. There was a plan made on 08/20/2021 for possible PICC line placement although a PICC line would not be able to be placed until 08/22/2021. PICC line was going to be for TPN however, when I spoke with the patient on 08/21/2021, patient appeared very tired and the patient opted for comfort measures only as patient desatted and was getting uncomfortable wearing CPAP mask. Patient remained on the CPAP mask until all of her family members could see her. Patient decided that she no longer wanted to wear the CPAP mask at it was was coming uncomfortable. Patient was placed on max Vapotherm and was given comfort measures with Ativan and morphine. Patient soon after removing the CPAP mask at 1:14 PM on 08/22/2021. DISCHARGE MEDICATIONS: Please see below. ALLERGIES: Please see below. PHYSICAL EXAMINATION ON DISCHARGE: VITAL SIGNS: Please see below. General: Alert and oriented female patient with Vapotherm nasal cannula in place. Patient was surrounded by family members. No further physical exam was performed due to comfort measures only. LABORATORY DATA: Please see below. IMAGING: Chest x-ray performed on 08/14/2021 is reported to show pneumonia and suspected left pleural effusion. Chest x-ray performed on 08/15/2021 is reported to diffuse bilateral infiltrates, no significant change on the left and mild increase in the right. Chest x-ray performed on 08/19/2021 is reported to show mixed interstitial and alveolar lung disease consistent with pneumonia and/or pulmonary edema. There is no significant change. PROGNOSIS: DISPOSITION: 20 . DISCHARGE CONDITION: . TIME SPENT ON DISCHARGE: 35 minutes. Vital Signs/I&Os Vital Signs Date Time Temp Pulse Resp B/P (MAP) Pulse Ox O2 Delivery O2 Flow Rate FiO2 08/22/21 04:00 100 08/21/21 16:00 99.1 101 32 124/72 (89) 88 NIPPV (BIPAP/CPAP) I&O- Last 24 Hours up to 6 AM 08/22/21 06:00 Intake Total 840 ml Output Total 1500 ml Balance -660 ml Microbiology Microbiology 08/18/21 Urine Culture - Final, Complete Escherichia Coli 08/14/21 Blood Culture - Final, Complete NO GROWTH AFTER 5 DAYS 08/14/21 Blood Culture - Final, Complete NO GROWTH AFTER 5 DAYS Discharge Medications Scheduled Atorvastatin Calcium (Atorvastatin Calcium) 10 Mg Tablet, 10 MG PO DAILY, (Reported) Folic Acid (Folic Acid) 1 Mg Tablet, 1 MG PO BID, (Reported) Glimepiride (Glimepiride) 1 Mg Tablet, 1 MG PO DAILY, (Reported) Hydroxychloroquine Sulfate (Hydroxychloroquine Sulfate) 200 Mg Tablet, 200 MG PO DAILY, (Reported) Levothyroxine Sodium (Synthroid) 50 Mcg Tablet, 50 MCG PO QAM, (Reported) Minocycline HCl (Minocycline HCl) 100 Mg Capsule, 100 MG PO DAILY, (Reported) Omeprazole (Omeprazole) 20 Mg Capsule.dr, 20 MG PO DAILY, (Reported) Paroxetine (Paroxetine HCl) 10 Mg Tablet, 10 MG PO DAILY, (Reported) Prednisone (Prednisone) 5 Mg Tablet, 5 MG PO QAM, (Reported) Prednisone (Prednisone) 5 Mg Tablet, 2.5 MG PO QPM, (Reported) Sulfasalazine (Sulfasalazine) 500 Mg Tablet, 500 MG PO BID, (Reported) Allergies Coded Allergies: Penicillins (Verified Allergy, Mild, rash, 08/15/21) acetaminophen (Unverified Allergy, Unknown, 08/15/21) HAD A "BAD REACTION ALL OVER HER BODY" YEYO,ADAM Aug 22, 2021 16:24
== END 2021-08-22 13:14 | disposition expired | DRG 177 ==
LOC: M ED 10:53 → M ED INP 16:19 → ENRESERV 08-15 09:35 → M ICU 08-15 11:04
PROVIDERS: ADMIT Internal Medicine; ATTEND Family Medicine
DX: U07.1 COVID-19 (principal); J12.82 Pneumonia due to coronavirus disease 2019; J96.01 Acute respiratory failure with hypoxia; J80 Acute respiratory distress syndrome; J15.9 Unspecified bacterial pneumonia; N39.0 Urinary tract infection, site not specified; M06.9 Rheumatoid arthritis, unspecified; E03.9 Hypothyroidism, unspecified; K21.9 Gastro-esophageal reflux disease without esophagitis; I10 Essential (primary) hypertension; Z51.5 Encounter for palliative care; Z79.899 Other long term (current) drug therapy; Z88.0 Allergy status to penicillin; Z88.6 Allergy status to analgesic agent; E78.5 Hyperlipidemia, unspecified; E11.9 Type 2 diabetes mellitus without complications; Z87.891 Personal history of nicotine dependence; D69.6 Thrombocytopenia, unspecified; Z66 Do not resuscitate